=== PATIENT | male | born 1935 | race Caucasian/White ===

== ENCOUNTER 2017-03-28 16:40 | Inpatient (IN) | payer MEDICARE, OTHER ==
[~2017-03-28] VITALS: Ht 172.7 cm; Wt 102.7 kg
[~2017-03-28 16:40] MED LIST: ALLO300T PO; AMLO10TA2 PO; ASPI81TA44 PO; CLON0.5T3 PO; DONE10TA7 PO; LEVE500T6 PO; LISI10TA2 PO; MULT-208 PO; PRAV20TA2 PO; THIA100T4 PO
--- NOTE | 2017-03-28 16:59 | PHYS DOC ---
Adult General Chief Complaint Chief Complaint: PSYCH EVALUATION [facility] HPI Patient is a 82 year old male who presents with health screening. According to his daughter is a history dementia, strokes, and has been becoming confused late evening and wanted to see his mother and getting upset because why polydipsia. He is somewhat confused that there is no wave he left the house any findings way back home. According the daughter he has became more aggressive over the last several days. There care physician states that he needs to have all his medicines redone and recommends he evaluated for behavioral psych inpatient. Review of Systems Review of Systems Constitutional: Denies fever or chills [] Eyes: Denies change in visual acuity, redness, or eye pain [] HENT: Denies nasal congestion or sore throat [] Respiratory: Denies cough or shortness of breath [] Cardiovascular: No additional information not addressed in HPI [] GI: Denies abdominal pain, nausea, vomiting, bloody stools or diarrhea [] : Denies dysuria or hematuria [] Musculoskeletal: Denies back pain or joint pain [] Integument: Denies rash or skin lesions [] Neurologic: Denies headache, focal weakness or sensory changes [] Endocrine: Denies polyuria or polydipsia [] Allergies Allergies Allergies Coded Allergies Type Severity Reaction Last Updated Verified No Known Drug Allergies 07/15/16 No Physical Exam Physical Exam Constitutional: Well developed, well nourished, no acute distress, non-toxic appearance. [] HENT: Normocephalic, atraumatic, bilateral external ears normal, oropharynx moist, no oral exudates, nose normal. [] Eyes: PERRLA, EOMI, conjunctiva normal, no discharge. [] Neck: Normal range of motion, no tenderness, supple, no stridor. [] Cardiovascular:Heart rate regular rhythm, no murmur [] Lungs & Thorax: Bilateral breath sounds clear to auscultation [] Abdomen: Bowel sounds normal, soft, no tenderness, no masses, no pulsatile masses. [] Skin: Warm, dry, no erythema, no rash. [] Back: No tenderness, no CVA tenderness. [] Extremities: No tenderness, no cyanosis, no clubbing, ROM intact, no edema. [] Neurologic: Alert and oriented X 3, normal motor function, normal sensory function, no focal deficits noted. [] Psychologic: Affect normal, judgement normal, mood normal. [] EKG EKG EKG shows sinus rhythm with a right bundle branch morphology, rate [address] elevations or concerning T-wave inversions, normal axis, QTC 483 will sinus, as interpreted by me. Radiology/Procedures Radiology/Procedures [] Impressions: Behavioral health screening Course & Med Decision Making Course & Med Decision Making Pertinent Labs and Imaging studies reviewed. (See chart for details) Urine is pending at this time. Patient's being checked out to Dr. Lackey at this time for final labs and disposition to inpatient behavioral health. Dragon Disclaimer Dragon Disclaimer This chart was dictated in whole or in part using Voice Recognition software in a busy, high-work load, and often noisy Emergency Department environment. It may contain unintended and wholly unrecognized errors or omissions. Departure Departure: Impression: Primary Impression: Behavioral problems Disposition: XFER SHT-TRM HOSP Condition: STABLE Referrals: SAUL SIFUENTES MD (PCP) ESVIN MENDIETA MD Mar 28, 2017 16:59
[2017-03-28 17:39] LABS: BASO % 1 % (0-3); EOS # 0.3 x10^3/uL (0.0-0.7); EOS % 4 % (0-3); HEMATOCRIT 39.5 % (39.0-53.0); HEMOGLOBIN 13.8 g/dL (13.0-17.5); LYMPH # 2.1 x10^3/uL (1.0-4.8); LYMPH % 32 % (24-48); MEAN CORPUSCULAR HEMOGLOBIN 33 pg (25-35); MEAN CORPUSCULAR HGB CONC 35 g/dL (31-37); MEAN CORPUSCULAR VOLUME 96 fL (79-100); MONO # 0.8 x10^3/uL (0.0-1.1); MONO % 12 % (0-9); NEUT # 3.4 x10^3uL (1.8-7.7); NEUT % 51 % (31-73); PLATELET COUNT 190 x10^3/uL (140-400); RED BLOOD COUNT 4.13 x10^6/uL (4.30-5.70); WHITE BLOOD COUNT 6.5 x10^3/uL (4.0-11.0)
[2017-03-28 17:50] LABS: ALBUMIN 3.7 g/dL (3.4-5.0); ALBUMIN/GLOBULIN RATIO 1.1 (1.0-1.7); CREATININE 1.1 mg/dL (0.7-1.3); GFR 63.9; MAGNESIUM 2.3 mg/dL (1.8-2.4); TOTAL BILIRUBIN 0.4 mg/dL (0.2-1.0); TOTAL PROTEIN 7.2 g/dL (6.4-8.2)
[2017-03-28 18:44] LABS: BACTERIA,URINE 0 /HPF (0-FEW); BILIRUBIN,URINE NEG (NEG); CLARITY,URINE CLEAR; COLOR,URINE YELLOW; GLUCOSE,URINE NEG (NEG); NITRITE,URINE NEG (NEG); SQUAMOUS EPITHELIAL CELL,UR FEW /LPF; UROBILINOGEN,URINE 0.2 mg/dL (0.2 mg/dL); WBC,URINE OCC /HPF (0-4)
[2017-03-28 20:09] VITALS: BP 125/77
--- NOTE | 2017-03-28 20:35 | PDOC ---
Exam Ethan Demential Exam: Ethan Note: Please also refer to the separate dictated note~for this date of service dictated separately.~Patient seen individually. Discussed the patient with Nursing staff reviewed the chart.~Reviewed interim history and current functioning. Reviewed vital signs,~Labs/ Radiology~and current medications noted below. Continue current treatment with the changes noted in the dictated addendum note Assessment: Vital Signs: Vital Signs Date Time Temp Pulse Resp B/P (MAP) Pulse Ox O2 Delivery O2 Flow Rate FiO2 03/28/17 20:09 97.7 67 18 125/77 (93) 95 Room Air Labs: Laboratory Tests Test 03/28/17 17:21 03/28/17 17:52 White Blood Count 6.5 x10^3/uL (4.0-11.0) Red Blood Count 4.13 x10^6/uL (4.30-5.70) L Hemoglobin 13.8 g/dL (13.0-17.5) Hematocrit 39.5 % (39.0-53.0) Mean Corpuscular Volume 96 fL (79-100) Mean Corpuscular Hemoglobin 33 pg (25-35) Mean Corpuscular Hemoglobin Concent 35 g/dL (31-37) Red Cell Distribution Width 14.0 % (11.5-14.5) Platelet Count 190 x10^3/uL (140-400) Neutrophils (%) (Auto) 51 % (31-73) Lymphocytes (%) (Auto) 32 % (24-48) Monocytes (%) (Auto) 12 % (0-9) H Eosinophils (%) (Auto) 4 % (0-3) H Basophils (%) (Auto) 1 % (0-3) Neutrophils # (Auto) 3.4 x10^3uL (1.8-7.7) Lymphocytes # (Auto) 2.1 x10^3/uL (1.0-4.8) Monocytes # (Auto) 0.8 x10^3/uL (0.0-1.1) Eosinophils # (Auto) 0.3 x10^3/uL (0.0-0.7) Basophils # (Auto) 0.0 x10^3/uL (0.0-0.2) Sodium Level 142 mmol/L (136-145) Potassium Level 4.0 mmol/L (3.5-5.1) Chloride Level 107 mmol/L (98-107) Carbon Dioxide Level 27 mmol/L (21-32) Anion Gap 8 (6-14) Blood Urea Nitrogen 16 mg/dL (8-26) Creatinine 1.1 mg/dL (0.7-1.3) Estimated GFR (Cockcroft-Gault) 63.9 BUN/Creatinine Ratio 15 (6-20) Glucose Level 137 mg/dL (70-99) H Calcium Level 9.0 mg/dL (8.5-10.1) Magnesium Level 2.3 mg/dL (1.8-2.4) Total Bilirubin 0.4 mg/dL (0.2-1.0) Aspartate Amino Transferase (AST) 21 U/L (15-37) Alanine Aminotransferase (ALT) 35 U/L (16-63) Alkaline Phosphatase 60 U/L (46-116) Total Protein 7.2 g/dL (6.4-8.2) Albumin 3.7 g/dL (3.4-5.0) Albumin/Globulin Ratio 1.1 (1.0-1.7) Urine Collection Type Unknown Urine Color Yellow Urine Clarity Clear Urine pH 7.0 Urine Specific [place] 1.015 Urine Protein Neg (NEG-TRACE) Urine Glucose (UA) Neg mg/dL (NEG) Urine Ketones (Stick) Neg mg/dL (NEG) Urine Blood Neg (NEG) Urine Nitrite Neg (NEG) Urine Bilirubin Neg (NEG) Urine Urobilinogen Dipstick 0.2 mg/dL (0.2 mg/dL) Urine Leukocyte Esterase Neg (NEG) Urine RBC 3-5 /HPF (0-2) Urine WBC Occ /HPF (0-4) Urine Squamous Epithelial Cells Few /LPF Urine Bacteria 0 /HPF (0-FEW) Current Medications: Meds: Active Scripts Active Clonazepam 0.5 Mg Tablet 1 Tab PO BID Reported Multi-Day Vitamins (Multivitamin) 1 Each Tablet 1 Tab PO DAILY LAST DOSE GIVEN: DATE: TODAY TIME: AM NEXT DOSE DUE: DATE: TOMORROW TIME: AM Vitamin B-1 (Thiamine Hcl) 100 Mg Tablet 125 Mg PO DAILY Pravastatin Sodium 20 Mg Tablet 1 Tab PO DAILY LAST DOSE GIVEN: DATE: TODAY TIME: AM NEXT DOSE DUE: DATE: TOMORROW TIME: AM Lisinopril 10 Mg Tablet 1 Tab PO DAILY LAST DOSE GIVEN: DATE: TODAY TIME: AM NEXT DOSE DUE: DATE: TOMORROW TIME: AM Levetiracetam 500 Mg Tablet 1 Tab PO BID LAST DOSE GIVEN: DATE: TIME: AM NEXT DOSE DUE: DATE: TODAY TIME: PM Donepezil Hcl 10 Mg Tablet 1 Tab PO DAILY LAST DOSE GIVEN: DATE: TIME: AM NEXT DOSE DUE: DATE: TOMORR TIME: AM Amlodipine Besylate 10 Mg Tablet 1 Tab PO DAILY LAST DOSE GIVEN: DATE: TIME: AM NEXT DOSE DUE: DATE: TOMORROW TIME: AM Allopurinol 300 Mg Tablet 1 Tab PO DAILY LAST DOSE GIVEN: DATE: TODAY TIME: AM NEXT DOSE DUE: DATE: TOMORR TIME: AM Children's Aspirin (Aspirin) 81 Mg Tab.chew 81 Mg PO DAILY LAST DOSE GIVEN: DATE: TODAY TIME: AM NEXT DOSE DUE: DATE: TOMORR TIME: AM Diagnosis: Problems: (1) Acute encephalopathy (2) Behavioral problems (3) Chronic alcoholism JOSE ANTONIO ORTEGA MD Mar 28, 2017 20:35
[2017-03-28] MEDS ORDERED: ACETAMINOPHEN 325 MG TABLET PO PRN (21:15)
[2017-03-28] MEDS ORDERED: MAG HYDROX/AL HYDROX/SIMETH 30 ML ORAL.SUSP PO PRN (21:15)
[2017-03-28] MEDS ORDERED: MAGNESIUM HYDROXIDE 2,400 MG/30 ML ORAL.SUSP. PO PRN (21:15)
[2017-03-28] MEDS ORDERED: METHYL SALICYLATE/MENTHOL TOPICAL OINTMENT 29GM TUBE. TP PRN (21:15)
[2017-03-28] MEDS ORDERED: CLON0.5T3 PO (22:32)
[2017-03-28] MEDS ORDERED: THIA250T4 PO (22:32)
[2017-03-28] MEDS ORDERED: TIMO10DR5 OU (22:38)
[2017-03-29 06:09] VITALS: BP 121/84
[2017-03-29] MEDS: DONEPEZIL HCL 10 MG TABLET PO SCH (09:52)
[2017-03-29] MEDS: ASPIRIN 81 MG TAB.CHEW PO SCH (09:53)
[2017-03-29] MEDS: amLODIPine BESYLATE 10 MG TABLET PO SCH (09:53)
[2017-03-29] MEDS: MULTIVITAMIN with MINERAL TABLET. PO SCH (09:53)
[2017-03-29] MEDS: ALLOPURINOL 300 MG TABLET. PO SCH (09:53)
[2017-03-29] MEDS: THIAMINE 100 MG TABLET. PO SCH (09:53)
[2017-03-29] MEDS: levETIRAcetam 500 MG TABLET PO SCH ×2 (09:54→20:05)
[2017-03-29] MEDS: LISINOPRIL 10 MG TABLET PO SCH (09:54)
[2017-03-29] MEDS ORDERED: DEXTROSE 50% 25 GM / 50ML DISP.SYRIN. IV PRN (11:30)
[2017-03-29] MEDS: TIMOLOL 0.5% OPHTH SOLUTION 5ML BOTTLE. OU SCH ×2 (12:12→20:05)
[2017-03-29] MEDS: INSULIN ASPART 300 UNITS/3 ML INSULN.PEN SQ SCH ×2 (12:14→16:30)
[2017-03-29 14:26] LABS: THYROID STIM HORMONE (TSH) 1.509 uIU/mL (0.358-3.740)
[2017-03-29 16:31] VITALS: BP 112/71
[2017-03-29 18:08] LABS: T3 TOTAL 115 ng/dL (71-180); THYROXINE 7.3 ug/dL (4.5-12.0)
[2017-03-29] MEDS: PRAVASTATIN 20 MG TABLET. PO SCH (20:05)
[2017-03-29] MEDS: QUEtiapine 25 MG TABLET. PO SCH (20:26)
--- NOTE | 2017-03-29 20:42 | PDOC ---
Exam Ethan Demential Exam: Ethan Note: Please also refer to the separate dictated note~for this date of service dictated separately.~Patient seen individually. Discussed the patient with Nursing staff reviewed the chart.~Reviewed interim history and current functioning. Reviewed vital signs,~Labs/ Radiology~and current medications noted below. Continue current treatment with the changes noted in the dictated addendum note Assessment: Vital Signs: Vital Signs Date Time Temp Pulse Resp B/P (MAP) Pulse Ox O2 Delivery O2 Flow Rate FiO2 03/29/17 16:31 98.0 85 18 112/71 (85) 93 03/28/17 20:09 Room Air I&O Intake and Output 03/30/17 07:00 Intake Total 1200 ml Balance 1200 ml Intake Oral 1200 ml Labs: Laboratory Tests Test 03/29/17 08:06 03/29/17 11:17 03/29/17 16:45 Glucose (Fingerstick) 138 mg/dL (70-99) H 300 mg/dL (70-99) H 144 mg/dL (70-99) H Current Medications: Meds: Current Medications Acetaminophen (Tylenol) 650 mg PRN Q6HRS PRN PO PAIN / TEMP; Start 03/28/17 at 21:15 Multi-Ingredient Ointment (Analgesic [place]) 1 laurie PRN QID PRN TP MUSCLE PAIN; Start 03/28/17 at 21:15 Al Hydroxide/Mg Hydroxide (Mylanta Plus Xs) 15 ml PRN AFTMEALHC PRN PO DYSPEPSIA; Start 03/28/17 at 21:15 Magnesium Hydroxide (Milk Of Magnesia) 2,400 mg PRN QHS PRN PO CONSTIPATION; Start 03/28/17 at 21:15 Clonazepam (KlonoPIN) 0.5 mg PRN DAILY PRN PO ANXIETY / AGITATION; Start 03/29 at 01:30 Donepezil HCl (Aricept) 10 mg DAILY PO Last administered on 03/29/17 09:52; Start 03/29/17 at 09:00 Allopurinol (Zyloprim) 300 mg DAILY PO Last administered on 03/29/17 09:53; Start 03/29/17 at 09:00 Amlodipine Besylate (Norvasc) 10 mg DAILY PO Last administered on 03/29/17 09 :53; Start 03/29/17 at 09:00 Aspirin (Children'S Aspirin) 81 mg DAILY PO Last administered on 03/29/17 09: 53; Start 03/29/17 at 09:00 Levetiracetam (Keppra) 500 mg BID PO Last administered on 03/29/17 20:05; Start 03/29/17 at 09:00 Lisinopril (Prinivil) 10 mg DAILY PO Last administered on 03/29/17 09:54; Start 03/29/17 at 09:00 Pravastatin Sodium (Pravachol) 20 mg QHS PO Last administered on 03/29/17 20: 05; Start 03/29/17 at 21:00 Timolol Maleate (Timoptic 0.5% [facility]) 1 drop BID OU Last administered on 20:05; Start 03/29/17 at 09:00 Multivitamins/ Calcium (Thera-M Plus) 1 tab DAILY PO Last administered on 03/29 09:53; Start 03/29/17 at 09:00 Thiamine HCl (Vitamin B-1) 125 mg DAILY PO Last administered on 03/29/17 09: 53; Start 03/29/17 at 09:00 Insulin Aspart (NovoLOG) 0-7 UNITS TIDAC SQ Last administered on 03/29/17 12: 14; Start 03/29/17 at 11:30 Dextrose 12.5 gm PRN Q15MIN PRN IV SEE COMMENTS; Start 03/29/17 at 11:30 Quetiapine Fumarate (SEROquel) 25 mg QHS PO Last administered on 03/29/17 20: 26; Start 03/29/17 at 21:00 Active Scripts Active Reported Clonazepam 0.5 Mg Tablet 0.5 Mg PO PRN DAILY PRN Vitamin B-1 (Thiamine Hcl) 250 Mg Tablet 125 Mg PO DAILY Multi-Day Vitamins (Multivitamin) 1 Each Tablet 1 Tab PO DAILY LAST DOSE GIVEN: DATE: TODAY TIME: AM NEXT DOSE DUE: DATE: TOMORROW TIME: AM Pravastatin Sodium 20 Mg Tablet 20 Mg PO DAILY LAST DOSE GIVEN: DATE: TODAY TIME: AM NEXT DOSE DUE: DATE: TOMORROW TIME: AM Lisinopril 10 Mg Tablet 10 Mg PO DAILY LAST DOSE GIVEN: DATE: TODAY TIME: AM NEXT DOSE DUE: DATE: TOMORROW TIME: AM Levetiracetam 500 Mg Tablet 500 Mg PO BID LAST DOSE GIVEN: DATE: TODAY TIME: AM NEXT DOSE DUE: DATE: TODAY TIME: PM Donepezil Hcl 10 Mg Tablet 10 Mg PO DAILY LAST DOSE GIVEN: DATE: TIME: AM NEXT DOSE DUE: DATE: TOMORR TIME: AM Amlodipine Besylate 10 Mg Tablet 10 Mg PO DAILY LAST DOSE GIVEN: DATE: TIME: AM NEXT DOSE DUE: DATE: ORR TIME: AM Allopurinol 300 Mg Tablet 300 Mg PO DAILY LAST DOSE GIVEN: DATE: TIME: AM NEXT DOSE DUE: DATE: TOMORR TIME: AM Children's Aspirin (Aspirin) 81 Mg Tab.chew 81 Mg PO DAILY LAST DOSE GIVEN: DATE: TIME: AM NEXT DOSE DUE: DATE: ORR TIME: AM Diagnosis: Problems: (1) Behavioral problems (2) Chronic alcoholism (3) Acute encephalopathy (4) Anxiety disorder (5) Dementia in Alzheimer's disease with depression (6) Dementia in Alzheimer's disease with delusions (7) Dementia, vascular, with depression (8) Dementia, vascular, with delusions (9) Impulse control disorder JOSE ANTONIO ORTEGA MD Mar 29, 2017 20:42
[2017-03-30 02:07] LABS: HEMOGLOBIN A1C 6.5 % (4.8-5.6)
[2017-03-30 06:22] VITALS: BP 147/74
[2017-03-30] MEDS: INSULIN ASPART 300 UNITS/3 ML INSULN.PEN SQ SCH ×3 (07:30→16:53)
--- NOTE | 2017-03-30 08:06 | EKG ---
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
[2017-03-30] MEDS: LISINOPRIL 10 MG TABLET PO SCH (09:37)
[2017-03-30] MEDS: amLODIPine BESYLATE 10 MG TABLET PO SCH (09:37)
[2017-03-30] MEDS: ASPIRIN 81 MG TAB.CHEW PO SCH (09:37)
[2017-03-30] MEDS: DONEPEZIL HCL 10 MG TABLET PO SCH (09:37)
[2017-03-30] MEDS: levETIRAcetam 500 MG TABLET PO SCH ×2 (09:37→20:08)
[2017-03-30] MEDS: ALLOPURINOL 300 MG TABLET. PO SCH (09:38)
[2017-03-30] MEDS: MULTIVITAMIN with MINERAL TABLET. PO SCH (09:38)
[2017-03-30] MEDS: THIAMINE 100 MG TABLET. PO SCH (09:41)
[2017-03-30] MEDS: TIMOLOL 0.5% OPHTH SOLUTION 5ML BOTTLE. OU SCH ×2 (09:43→20:09)
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
[2017-03-30 16:41] VITALS: BP 113/68
[2017-03-30] MEDS: QUEtiapine 25 MG TABLET. PO SCH (20:08)
[2017-03-30] MEDS: PRAVASTATIN 20 MG TABLET. PO SCH (20:08)
--- NOTE | 2017-03-30 20:50 | PDOC ---
Exam Ethan Demential Exam: Ethan Note: Please also refer to the separate dictated note~for this date of service dictated separately.~Patient seen individually. Discussed the patient with Nursing staff reviewed the chart.~Reviewed interim history and current functioning. Reviewed vital signs,~Labs/ Radiology~and current medications noted below. Continue current treatment with the changes noted in the dictated addendum note Assessment: Vital Signs: Vital Signs Date Time Temp Pulse Resp B/P (MAP) Pulse Ox O2 Delivery O2 Flow Rate FiO2 03/30/17 16:41 98.8 81 18 113/68 (83) 93 03/28/17 20:09 Room Air I&O Intake and Output 03/31/17 07:00 Intake Total 1080 ml Balance 1080 ml Intake Oral 1080 ml Labs: Laboratory Tests Test 03/30/17 07:58 03/30/17 11:16 03/30/17 16:38 03/30/17 19:00 Glucose (Fingerstick) 123 mg/dL (70-99) H 156 mg/dL (70-99) H 227 mg/dL (70-99) H 220 mg/dL (70-99) H Current Medications: Meds: Current Medications Acetaminophen (Tylenol) 650 mg PRN Q6HRS PRN PO PAIN / TEMP; Start 03/28/17 at 21:15 Multi-Ingredient Ointment (Analgesic [place]) 1 laurie PRN QID PRN TP MUSCLE PAIN; Start 03/28/17 at 21:15 Al Hydroxide/Mg Hydroxide (Mylanta Plus Xs) 15 ml PRN AFTMEALHC PRN PO DYSPEPSIA; Start 03/28/17 at 21:15 Magnesium Hydroxide (Milk Of Magnesia) 2,400 mg PRN QHS PRN PO CONSTIPATION; Start 03/28/17 at 21:15 Clonazepam (KlonoPIN) 0.5 mg PRN DAILY PRN PO ANXIETY / AGITATION; Start 03/29 at 01:30 Donepezil HCl (Aricept) 10 mg DAILY PO Last administered on 03/30/17 09:37; Start 03/29/17 at 09:00 Allopurinol (Zyloprim) 300 mg DAILY PO Last administered on 03/30/17 09:38; Start 03/29/17 at 09:00 Amlodipine Besylate (Norvasc) 10 mg DAILY PO Last administered on 03/30/17 09 :37; Start 03/29/17 at 09:00 Aspirin (Children'S Aspirin) 81 mg DAILY PO Last administered on 03/30/17 09: 37; Start 03/29/17 at 09:00 Levetiracetam (Keppra) 500 mg BID PO Last administered on 03/30/17 20:08; Start 03/29/17 at 09:00 Lisinopril (Prinivil) 10 mg DAILY PO Last administered on 03/30/17 09:37; Start 03/29/17 at 09:00 Pravastatin Sodium (Pravachol) 20 mg QHS PO Last administered on 03/30/17 20: 08; Start 03/29/17 at 21:00 Timolol Maleate (Timoptic 0.5% [facility]) 1 drop BID OU Last administered on 20:09; Start 03/29/17 at 09:00 Multivitamins/ Calcium (Thera-M Plus) 1 tab DAILY PO Last administered on 03/30 09:38; Start 03/29/17 at 09:00 Thiamine HCl (Vitamin B-1) 125 mg DAILY PO Last administered on 03/30/17 09: 41; Start 03/29/17 at 09:00 Insulin Aspart (NovoLOG) 0-7 UNITS TIDAC SQ Last administered on 03/30/17 16: 53; Start 03/29/17 at 11:30 Dextrose 12.5 gm PRN Q15MIN PRN IV SEE COMMENTS; Start 03/29/17 at 11:30 Quetiapine Fumarate (SEROquel) 25 mg QHS PO Last administered on 03/30/17 20: 08; Start 03/29/17 at 21:00 Active Scripts Active Reported Clonazepam 0.5 Mg Tablet 0.5 Mg PO PRN DAILY PRN Vitamin B-1 (Thiamine Hcl) 250 Mg Tablet 125 Mg PO DAILY Multi-Day Vitamins (Multivitamin) 1 Each Tablet 1 Tab PO DAILY LAST DOSE GIVEN: DATE: TODAY TIME: AM NEXT DOSE DUE: DATE: TOMORROW TIME: AM Pravastatin Sodium 20 Mg Tablet 20 Mg PO DAILY LAST DOSE GIVEN: DATE: TODAY TIME: AM NEXT DOSE DUE: DATE: TOMORROW TIME: AM Lisinopril 10 Mg Tablet 10 Mg PO DAILY LAST DOSE GIVEN: DATE: TODAY TIME: AM NEXT DOSE DUE: DATE: TOMORROW TIME: AM Levetiracetam 500 Mg Tablet 500 Mg PO BID LAST DOSE GIVEN: DATE: TIME: AM NEXT DOSE DUE: DATE: TODAY TIME: PM Donepezil Hcl 10 Mg Tablet 10 Mg PO DAILY LAST DOSE GIVEN: DATE: TIME: AM NEXT DOSE DUE: DATE: TOMORR TIME: AM Amlodipine Besylate 10 Mg Tablet 10 Mg PO DAILY LAST DOSE GIVEN: DATE: TIME: AM NEXT DOSE DUE: DATE: ORR TIME: AM Allopurinol 300 Mg Tablet 300 Mg PO DAILY LAST DOSE GIVEN: DATE: TIME: AM NEXT DOSE DUE: DATE: TOMORR TIME: AM Children's Aspirin (Aspirin) 81 Mg Tab.chew 81 Mg PO DAILY LAST DOSE GIVEN: DATE: TIME: AM NEXT DOSE DUE: DATE: ORR TIME: AM Diagnosis: Problems: (1) Behavioral problems (2) Chronic alcoholism (3) Acute encephalopathy (4) Anxiety disorder (5) Dementia in Alzheimer's disease with depression (6) Dementia in Alzheimer's disease with delusions (7) Dementia, vascular, with depression (8) Dementia, vascular, with delusions (9) Impulse control disorder JOSE ANTONIO ORTEGA MD Mar 30, 2017 20:50
[2017-03-31 06:33] VITALS: BP 112/71
[2017-03-31] MEDS: INSULIN ASPART 300 UNITS/3 ML INSULN.PEN SQ SCH ×3 (07:30→17:18)
[2017-03-31] MEDS: TIMOLOL 0.5% OPHTH SOLUTION 5ML BOTTLE. OU SCH ×2 (08:43→20:28)
[2017-03-31] MEDS: MULTIVITAMIN with MINERAL TABLET. PO SCH (08:43)
[2017-03-31] MEDS: amLODIPine BESYLATE 10 MG TABLET PO SCH (08:43)
[2017-03-31] MEDS: ALLOPURINOL 300 MG TABLET. PO SCH (08:43)
[2017-03-31] MEDS: DONEPEZIL HCL 10 MG TABLET PO SCH (08:43)
[2017-03-31] MEDS: THIAMINE 100 MG TABLET. PO SCH (08:45)
[2017-03-31] MEDS: ASPIRIN 81 MG TAB.CHEW PO SCH (08:45)
[2017-03-31] MEDS: levETIRAcetam 500 MG TABLET PO SCH ×2 (08:45→20:28)
[2017-03-31] MEDS: LISINOPRIL 10 MG TABLET PO SCH (08:48)
[2017-03-31] MEDS: clonazePAM 0.5 MG TABLET PO PRN (09:44)
[2017-03-31 16:16] VITALS: BP 118/77
[2017-03-31] MEDS: QUEtiapine 25 MG TABLET. PO SCH (20:28)
[2017-03-31] MEDS: PRAVASTATIN 20 MG TABLET. PO SCH (20:28)
--- NOTE | 2017-03-31 21:54 | PDOC ---
Exam Ethan Demential Exam: Ethan Note: Please also refer to the separate dictated note~for this date of service dictated separately.~Patient seen individually. Discussed the patient with Nursing staff reviewed the chart.~Reviewed interim history and current functioning. Reviewed vital signs,~Labs/ Radiology~and current medications noted below. Continue current treatment with the changes noted in the dictated addendum note Assessment: Vital Signs: Vital Signs Date Time Temp Pulse Resp B/P (MAP) Pulse Ox O2 Delivery O2 Flow Rate FiO2 03/31/17 16:16 97.0 82 18 118/77 (91) 96 Room Air I&O Intake and Output 04/01/17 07:00 Intake Total 960 ml Balance 960 ml Intake Oral 960 ml Labs: Laboratory Tests Test 03/31/17 07:44 03/31/17 11:52 03/31/17 16:21 03/31/17 19:07 Glucose (Fingerstick) 123 mg/dL (70-99) H 97 mg/dL (70-99) 188 mg/dL (70-99) H 155 mg/dL (70-99) H Current Medications: Meds: Current Medications Acetaminophen (Tylenol) 650 mg PRN Q6HRS PRN PO PAIN / TEMP; Start 03/28/17 at 21:15 Multi-Ingredient Ointment (Analgesic [place]) 1 laurie PRN QID PRN TP MUSCLE PAIN; Start 03/28/17 at 21:15 Al Hydroxide/Mg Hydroxide (Mylanta Plus Xs) 15 ml PRN AFTMEALHC PRN PO DYSPEPSIA; Start 03/28/17 at 21:15 Magnesium Hydroxide (Milk Of Magnesia) 2,400 mg PRN QHS PRN PO CONSTIPATION; Start 03/28/17 at 21:15 Clonazepam (KlonoPIN) 0.5 mg PRN DAILY PRN PO ANXIETY / AGITATION Last administered on 03/31/17 09:44; Start 03/29/17 at 01:30 Donepezil HCl (Aricept) 10 mg DAILY PO Last administered on 03/31/17 08:43; Start 03/29/17 at 09:00 Allopurinol (Zyloprim) 300 mg DAILY PO Last administered on 03/31/17 08:43; Start 03/29/17 at 09:00 Amlodipine Besylate (Norvasc) 10 mg DAILY PO Last administered on 03/31/17 08 :43; Start 03/29/17 at 09:00 Aspirin (Children'S Aspirin) 81 mg DAILY PO Last administered on 03/31/17 08: 45; Start 03/29/17 at 09:00 Levetiracetam (Keppra) 500 mg BID PO Last administered on 03/31/17 20:28; Start 03/29/17 at 09:00 Lisinopril (Prinivil) 10 mg DAILY PO Last administered on 03/31/17 08:48; Start 03/29/17 at 09:00 Pravastatin Sodium (Pravachol) 20 mg QHS PO Last administered on 03/31/17 20: 28; Start 03/29/17 at 21:00 Timolol Maleate (Timoptic 0.5% [facility]) 1 drop BID OU Last administered on 20:28; Start 03/29/17 at 09:00 Multivitamins/ Calcium (Thera-M Plus) 1 tab DAILY PO Last administered on 03/31 08:43; Start 03/29/17 at 09:00 Thiamine HCl (Vitamin B-1) 125 mg DAILY PO Last administered on 03/31/17 08: 45; Start 03/29/17 at 09:00 Insulin Aspart (NovoLOG) 0-7 UNITS TIDAC SQ Last administered on 03/31/17 17: 18; Start 03/29/17 at 11:30 Dextrose 12.5 gm PRN Q15MIN PRN IV SEE COMMENTS; Start 03/29/17 at 11:30 Quetiapine Fumarate (SEROquel) 25 mg QHS PO Last administered on 03/31/17 20: 28; Start 03/29/17 at 21:00 Quetiapine Fumarate (SEROquel) 12.5 mg BID92 PO ; Start 04/01/17 at 09:00 Sertraline HCl (Zoloft) 25 mg DAILY PO ; Start 04/01/17 at 09:00 Active Scripts Active Reported Clonazepam 0.5 Mg Tablet 0.5 Mg PO PRN DAILY PRN Vitamin B-1 (Thiamine Hcl) 250 Mg Tablet 125 Mg PO DAILY Multi-Day Vitamins (Multivitamin) 1 Each Tablet 1 Tab PO DAILY LAST DOSE GIVEN: DATE: TODAY TIME: AM NEXT DOSE DUE: DATE: TOMORR TIME: AM Pravastatin Sodium 20 Mg Tablet 20 Mg PO DAILY LAST DOSE GIVEN: DATE: TODAY TIME: AM NEXT DOSE DUE: DATE: ORR TIME: AM Lisinopril 10 Mg Tablet 10 Mg PO DAILY LAST DOSE GIVEN: DATE: TIME: AM NEXT DOSE DUE: DATE: TIME: AM Levetiracetam 500 Mg Tablet 500 Mg PO BID LAST DOSE GIVEN: DATE: TIME: AM NEXT DOSE DUE: DATE: TODAY TIME: PM Donepezil Hcl 10 Mg Tablet 10 Mg PO DAILY LAST DOSE GIVEN: DATE: TODAY TIME: AM NEXT DOSE DUE: DATE: ORR TIME: AM Amlodipine Besylate 10 Mg Tablet 10 Mg PO DAILY LAST DOSE GIVEN: DATE: TIME: AM NEXT DOSE DUE: DATE: TIME: AM Allopurinol 300 Mg Tablet 300 Mg PO DAILY LAST DOSE GIVEN: DATE: TIME: AM NEXT DOSE DUE: DATE: TIME: AM Children's Aspirin (Aspirin) 81 Mg Tab.chew 81 Mg PO DAILY LAST DOSE GIVEN: DATE: TODAY TIME: AM NEXT DOSE DUE: DATE: ORROW TIME: AM Diagnosis: Problems: (1) Behavioral problems (2) Chronic alcoholism (3) Acute encephalopathy (4) Anxiety disorder (5) Dementia in Alzheimer's disease with depression (6) Dementia in Alzheimer's disease with delusions (7) Dementia, vascular, with depression (8) Dementia, vascular, with delusions (9) Impulse control disorder JOSE ANTONIO ORTEGA MD Mar 31, 2017 21:54
[2017-04-01] MEDS: INSULIN ASPART 300 UNITS/3 ML INSULN.PEN SQ SCH ×3 (07:30→16:30)
[2017-04-01] MEDS: levETIRAcetam 500 MG TABLET PO SCH ×2 (08:25→19:39)
[2017-04-01] MEDS: THIAMINE 100 MG TABLET. PO SCH (08:26)
[2017-04-01] MEDS: amLODIPine BESYLATE 10 MG TABLET PO SCH (08:27)
[2017-04-01] MEDS: ALLOPURINOL 300 MG TABLET. PO SCH (08:27)
[2017-04-01] MEDS: ASPIRIN 81 MG TAB.CHEW PO SCH (08:27)
[2017-04-01] MEDS: DONEPEZIL HCL 10 MG TABLET PO SCH (08:27)
[2017-04-01] MEDS: MULTIVITAMIN with MINERAL TABLET. PO SCH (08:27)
[2017-04-01] MEDS: LISINOPRIL 10 MG TABLET PO SCH (08:28)
[2017-04-01] MEDS: SERTRALINE 25 MG TABLET. PO SCH (08:29)
[2017-04-01] MEDS: QUEtiapine 25 MG TABLET. PO SCH ×3 (08:30→19:39)
[2017-04-01] MEDS: TIMOLOL 0.5% OPHTH SOLUTION 5ML BOTTLE. OU SCH ×2 (09:07→19:41)
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
--- NOTE | 2017-04-01 09:55 | PN ---
DATE: 03/31/2017 PSYCHIATRIC PROGRESS NOTE This is a late entry 03/31/2017, covers elements not covered in my initial note. SUBJECTIVE: I met with the patient evening of 03/31/2017. The patient remains confused, somewhat threatening at times, labile. He is extremely big built and after I have seen him on rounds 03/31/2017, I was called late at night closer to midnight by nursing staff due to his threatening behaviors and they were concerned about safety of others and staff members as big as he is. In addition to other changes noted, we have added Zyprexa p.r.n. to help with psychosis, agitation. REVIEW OF SYSTEMS: No CV, , pulmonary, eye, ENT system symptoms on review. Reliability poor. Ambulates with a walker. MENTAL STATUS EXAM: Oriented to himself. Insight, judgment, recent and remote memory, attention, concentration, fund of knowledge poor, consistent with his diagnoses mentioned in my initial note. PLAN: Start Seroquel 12.5 mg at 9:00 a.m. and 1:00 p.m. Continue Seroquel 25 mg at bedtime, start Zoloft 25 mg a day for his mood and anxiety symptoms. Zyprexa added as noted above. Review drug interactions. Risk/benefit ratio favors no further change. MAN Leonardo ORTEGA MD DR: RUPALI/regulo JOB#: [id number] / [id number]
[2017-04-01 16:21] VITALS: BP 126/75
[2017-04-01] MEDS: PRAVASTATIN 20 MG TABLET. PO SCH (19:39)
--- NOTE | 2017-04-01 20:54 | PDOC ---
Exam Ethan Demential Exam: Ethan Note: Please also refer to the separate dictated note~for this date of service dictated separately.~Patient seen individually. Discussed the patient with Nursing staff reviewed the chart.~Reviewed interim history and current functioning. Reviewed vital signs,~Labs/ Radiology~and current medications noted below. Continue current treatment with the changes noted in the dictated addendum note Assessment: Vital Signs: Vital Signs Date Time Temp Pulse Resp B/P (MAP) Pulse Ox O2 Delivery O2 Flow Rate FiO2 04/01/17 16:21 97.4 66 20 126/75 (92) 96 Room Air I&O Intake and Output 04/02/17 07:00 Intake Total 840 ml Balance 840 ml Intake Oral 840 ml Labs: Laboratory Tests Test 04/01/17 08:14 04/01/17 11:28 04/01/17 16:42 04/01/17 19:24 Glucose (Fingerstick) 114 mg/dL (70-99) H 151 mg/dL (70-99) H 127 mg/dL (70-99) H 217 mg/dL (70-99) H Current Medications: Meds: Current Medications Acetaminophen (Tylenol) 650 mg PRN Q6HRS PRN PO PAIN / TEMP; Start 03/28/17 at 21:15 Multi-Ingredient Ointment (Analgesic [place]) 1 laurie PRN QID PRN TP MUSCLE PAIN; Start 03/28/17 at 21:15 Al Hydroxide/Mg Hydroxide (Mylanta Plus Xs) 15 ml PRN AFTMEALHC PRN PO DYSPEPSIA; Start 03/28/17 at 21:15 Magnesium Hydroxide (Milk Of Magnesia) 2,400 mg PRN QHS PRN PO CONSTIPATION; Start 03/28/17 at 21:15 Clonazepam (KlonoPIN) 0.5 mg PRN DAILY PRN PO ANXIETY / AGITATION Last administered on 03/31/17 09:44; Start 03/29/17 at 01:30 Donepezil HCl (Aricept) 10 mg DAILY PO Last administered on 04/01/17 08:27; Start 03/29/17 at 09:00 Allopurinol (Zyloprim) 300 mg DAILY PO Last administered on 04/01/17 08:27; Start 03/29/17 at 09:00 Amlodipine Besylate (Norvasc) 10 mg DAILY PO Last administered on 04/01/17 08 :27; Start 03/29/17 at 09:00 Aspirin (Children'S Aspirin) 81 mg DAILY PO Last administered on 04/01/17 08: 27; Start 03/29/17 at 09:00 Levetiracetam (Keppra) 500 mg BID PO Last administered on 04/01/17 19:39; Start 03/29/17 at 09:00 Lisinopril (Prinivil) 10 mg DAILY PO Last administered on 04/01/17 08:28; Start 03/29/17 at 09:00 Pravastatin Sodium (Pravachol) 20 mg QHS PO Last administered on 04/01/17 19: 39; Start 03/29/17 at 21:00 Timolol Maleate (Timoptic 0.5% [facility]) 1 drop BID OU Last administered on 19:41; Start 03/29/17 at 09:00 Multivitamins/ Calcium (Thera-M Plus) 1 tab DAILY PO Last administered on 04/01 08:27; Start 03/29/17 at 09:00 Thiamine HCl (Vitamin B-1) 125 mg DAILY PO Last administered on 04/01/17 08: 26; Start 03/29/17 at 09:00 Insulin Aspart (NovoLOG) 0-7 UNITS TIDAC SQ Last administered on 03/31/17 17: 18; Start 03/29/17 at 11:30 Dextrose 12.5 gm PRN Q15MIN PRN IV SEE COMMENTS; Start 03/29/17 at 11:30 Quetiapine Fumarate (SEROquel) 25 mg QHS PO Last administered on 04/01/17 19: 39; Start 03/29/17 at 21:00 Quetiapine Fumarate (SEROquel) 12.5 mg BID92 PO Last administered on 14:28; Start 04/01/17 at 09:00 Sertraline HCl (Zoloft) 25 mg DAILY PO Last administered on 04/01/17 08:29; Start 04/01/17 at 09:00 Olanzapine (ZyPREXA ZYDIS) 2.5 mg PRN Q2HR PRN PO PSYCHOSIS Last administered on 03/31/17 23:18; Start 03/31/17 at 23:00 Active Scripts Active Reported Clonazepam 0.5 Mg Tablet 0.5 Mg PO PRN DAILY PRN Vitamin B-1 (Thiamine Hcl) 250 Mg Tablet 125 Mg PO DAILY Multi-Day Vitamins (Multivitamin) 1 Each Tablet 1 Tab PO DAILY LAST DOSE GIVEN: DATE: TIME: AM NEXT DOSE DUE: DATE: TOMORROW TIME: AM Pravastatin Sodium 20 Mg Tablet 20 Mg PO DAILY LAST DOSE GIVEN: DATE: TIME: AM NEXT DOSE DUE: DATE: ORR TIME: AM Lisinopril 10 Mg Tablet 10 Mg PO DAILY LAST DOSE GIVEN: DATE: TIME: AM NEXT DOSE DUE: DATE: ORR TIME: AM Levetiracetam 500 Mg Tablet 500 Mg PO BID LAST DOSE GIVEN: DATE: TIME: AM NEXT DOSE DUE: DATE: TIME: PM Donepezil Hcl 10 Mg Tablet 10 Mg PO DAILY LAST DOSE GIVEN: DATE: TIME: AM NEXT DOSE DUE: DATE: ORR TIME: AM Amlodipine Besylate 10 Mg Tablet 10 Mg PO DAILY LAST DOSE GIVEN: DATE: TIME: AM NEXT DOSE DUE: DATE: ORR TIME: AM Allopurinol 300 Mg Tablet 300 Mg PO DAILY LAST DOSE GIVEN: DATE: TIME: AM NEXT DOSE DUE: DATE: TOMORR TIME: AM Children's Aspirin (Aspirin) 81 Mg Tab.chew 81 Mg PO DAILY LAST DOSE GIVEN: DATE: TIME: AM NEXT DOSE DUE: DATE: ORR TIME: AM Diagnosis: Problems: (1) Behavioral problems (2) Chronic alcoholism (3) Acute encephalopathy (4) Anxiety disorder (5) Dementia in Alzheimer's disease with depression (6) Dementia in Alzheimer's disease with delusions (7) Dementia, vascular, with depression (8) Dementia, vascular, with delusions (9) Impulse control disorder JOSE ANTONIO ORTEGA MD Apr 01, 2017 20:54
[2017-04-02 07:25] VITALS: BP 124/78
[2017-04-02] MEDS: INSULIN ASPART 300 UNITS/3 ML INSULN.PEN SQ SCH ×3 (07:30→16:30)
[2017-04-02] MEDS: TIMOLOL 0.5% OPHTH SOLUTION 5ML BOTTLE. OU SCH ×2 (07:52→19:59)
[2017-04-02] MEDS: LISINOPRIL 10 MG TABLET PO SCH (07:53)
[2017-04-02] MEDS: THIAMINE 100 MG TABLET. PO SCH (07:53)
[2017-04-02] MEDS: levETIRAcetam 500 MG TABLET PO SCH ×2 (07:53→19:57)
[2017-04-02] MEDS: DONEPEZIL HCL 10 MG TABLET PO SCH (07:54)
[2017-04-02] MEDS: ASPIRIN 81 MG TAB.CHEW PO SCH (07:54)
[2017-04-02] MEDS: QUEtiapine 25 MG TABLET. PO SCH ×3 (07:54→19:58)
[2017-04-02] MEDS: ALLOPURINOL 300 MG TABLET. PO SCH (07:54)
[2017-04-02] MEDS: amLODIPine BESYLATE 10 MG TABLET PO SCH (07:55)
[2017-04-02] MEDS: MULTIVITAMIN with MINERAL TABLET. PO SCH (07:55)
[2017-04-02] MEDS: SERTRALINE 25 MG TABLET. PO SCH (07:57)
--- NOTE | 2017-04-02 09:39 | PN ---
DATE: 03/30/2017 PSYCHIATRIC PROGRESS NOTE This late entry of 03/30/2017 covers elements not covered in my initial note of 03/30/2017. SUBJECTIVE: The patient was quite resistive to care, the previous evening. On , a little bit calmer, remains confused, takes his meds whole, took his insulin, which in itself is an improvement. REVIEW OF SYSTEMS: No CV, , pulmonary, eye, ENT system symptoms on review. Reliability poor. MENTAL STATUS EXAM: Oriented to himself. Insight, judgment, recent and remote memory, attention, concentration, fund of knowledge poor, consistent with his diagnosis mentioned in my initial note. PLAN: Continue current psychotropics mentioned in my initial note. Reviewed drug interactions. Risk/benefit ratio favors no further change. MAN Leonardo ORTEGA MD DR: RUPALI/regulo JOB#: [id number] / [id number]
[2017-04-02 16:17] VITALS: BP 102/68
[2017-04-02] MEDS: PRAVASTATIN 20 MG TABLET. PO SCH (19:58)
--- NOTE | 2017-04-02 21:30 | PDOC ---
Exam Ethan Demential Exam: Ethan Note: Please also refer to the separate dictated note~for this date of service dictated separately.~Patient seen individually. Discussed the patient with Nursing staff reviewed the chart.~Reviewed interim history and current functioning. Reviewed vital signs,~Labs/ Radiology~and current medications noted below. Continue current treatment with the changes noted in the dictated addendum note Assessment: Vital Signs: Vital Signs Date Time Temp Pulse Resp B/P (MAP) Pulse Ox O2 Delivery O2 Flow Rate FiO2 04/02/17 16:17 97.2 68 16 102/68 (79) 96 Room Air I&O Intake and Output 04/03/17 07:00 Intake Total 1440 ml Balance 1440 ml Intake Oral 1440 ml Labs: Laboratory Tests Test 04/02/17 07:36 04/02/17 11:36 04/02/17 16:52 04/02/17 19:34 Glucose (Fingerstick) 114 mg/dL (70-99) H 111 mg/dL (70-99) H 126 mg/dL (70-99) H 197 mg/dL (70-99) H Current Medications: Meds: Current Medications Acetaminophen (Tylenol) 650 mg PRN Q6HRS PRN PO PAIN / TEMP; Start 03/28/17 at 21:15 Multi-Ingredient Ointment (Analgesic [place]) 1 laurie PRN QID PRN TP MUSCLE PAIN; Start 03/28/17 at 21:15 Al Hydroxide/Mg Hydroxide (Mylanta Plus Xs) 15 ml PRN AFTMEALHC PRN PO DYSPEPSIA; Start 03/28/17 at 21:15 Magnesium Hydroxide (Milk Of Magnesia) 2,400 mg PRN QHS PRN PO CONSTIPATION; Start 03/28/17 at 21:15 Clonazepam (KlonoPIN) 0.5 mg PRN DAILY PRN PO ANXIETY / AGITATION Last administered on 03/31/17 09:44; Start 03/29/17 at 01:30 Donepezil HCl (Aricept) 10 mg DAILY PO Last administered on 04/02/17 07:54; Start 03/29/17 at 09:00 Allopurinol (Zyloprim) 300 mg DAILY PO Last administered on 04/02/17 07:54; Start 03/29/17 at 09:00 Amlodipine Besylate (Norvasc) 10 mg DAILY PO Last administered on 04/02/17 07 :55; Start 03/29/17 at 09:00 Aspirin (Children'S Aspirin) 81 mg DAILY PO Last administered on 04/02/17 07: 54; Start 03/29/17 at 09:00 Levetiracetam (Keppra) 500 mg BID PO Last administered on 04/02/17 19:57; Start 03/29/17 at 09:00 Lisinopril (Prinivil) 10 mg DAILY PO Last administered on 04/02/17 07:53; Start 03/29/17 at 09:00 Pravastatin Sodium (Pravachol) 20 mg QHS PO Last administered on 04/02/17 19: 58; Start 03/29/17 at 21:00 Timolol Maleate (Timoptic 0.5% [facility]) 1 drop BID OU Last administered on 19:59; Start 03/29/17 at 09:00 Multivitamins/ Calcium (Thera-M Plus) 1 tab DAILY PO Last administered on 04/02 07:55; Start 03/29/17 at 09:00 Thiamine HCl (Vitamin B-1) 125 mg DAILY PO Last administered on 04/02/17 07: 53; Start 03/29/17 at 09:00 Insulin Aspart (NovoLOG) 0-7 UNITS TIDAC SQ Last administered on 03/31/17 17: 18; Start 03/29/17 at 11:30 Dextrose 12.5 gm PRN Q15MIN PRN IV SEE COMMENTS; Start 03/29/17 at 11:30 Quetiapine Fumarate (SEROquel) 25 mg QHS PO Last administered on 04/01/17 19: 39; Start 03/29/17 at 21:00; Stop 04/02/17 at 18:27; Status DC Quetiapine Fumarate (SEROquel) 12.5 mg BID92 PO Last administered on 13:22; Start 04/01/17 at 09:00; Stop 04/02/17 at 18:27; Status DC Sertraline HCl (Zoloft) 25 mg DAILY PO Last administered on 04/02/17 07:57; Start 04/01/17 at 09:00 Olanzapine (ZyPREXA ZYDIS) 2.5 mg PRN Q2HR PRN PO PSYCHOSIS Last administered on 03/31/17 23:18; Start 03/31/17 at 23:00 Vitamin D (Vitamin D3) 2,000 unit DAILY PO ; Start 04/03/17 at 09:00 Quetiapine Fumarate (SEROquel) 25 mg BID PO Last administered on 04/02/17 19: 58; Start 04/02/17 at 21:00 Quetiapine Fumarate (SEROquel) 12.5 mg DAILY@1400 PO ; Start 04/03/17 at 14:00 Active Scripts Active Reported Clonazepam 0.5 Mg Tablet 0.5 Mg PO PRN DAILY PRN Vitamin B-1 (Thiamine Hcl) 250 Mg Tablet 125 Mg PO DAILY Multi-Day Vitamins (Multivitamin) 1 Each Tablet 1 Tab PO DAILY LAST DOSE GIVEN: DATE: TODAY TIME: AM NEXT DOSE DUE: DATE: TOMORROW TIME: AM Pravastatin Sodium 20 Mg Tablet 20 Mg PO DAILY LAST DOSE GIVEN: DATE: TODAY TIME: AM NEXT DOSE DUE: DATE: TOMORROW TIME: AM Lisinopril 10 Mg Tablet 10 Mg PO DAILY LAST DOSE GIVEN: DATE: TODAY TIME: AM NEXT DOSE DUE: DATE: TOMORROW TIME: AM Levetiracetam 500 Mg Tablet 500 Mg PO BID LAST DOSE GIVEN: DATE: TODAY TIME: AM NEXT DOSE DUE: DATE: TODAY TIME: PM Donepezil Hcl 10 Mg Tablet 10 Mg PO DAILY LAST DOSE GIVEN: DATE: TODAY TIME: AM NEXT DOSE DUE: DATE: TOMORROW TIME: AM Amlodipine Besylate 10 Mg Tablet 10 Mg PO DAILY LAST DOSE GIVEN: DATE: TODAY TIME: AM NEXT DOSE DUE: DATE: TOMORROW TIME: AM Allopurinol 300 Mg Tablet 300 Mg PO DAILY LAST DOSE GIVEN: DATE: TODAY TIME: AM NEXT DOSE DUE: DATE: TOMORROW TIME: AM Children's Aspirin (Aspirin) 81 Mg Tab.chew 81 Mg PO DAILY LAST DOSE GIVEN: DATE: TODAY TIME: AM NEXT DOSE DUE: DATE: TOMORROW TIME: AM Diagnosis: Problems: (1) Behavioral problems (2) Chronic alcoholism (3) Acute encephalopathy (4) Anxiety disorder (5) Dementia in Alzheimer's disease with depression (6) Dementia in Alzheimer's disease with delusions (7) Dementia, vascular, with depression (8) Dementia, vascular, with delusions (9) Impulse control disorder JORDAN,MAN M MD Apr 02, 2017 21:30
--- NOTE | 2017-04-02 22:58 | PN ---
DATE: 04/01/2017 This late entry 04/01/2017 covers elements, not covered in my initial order of 04/01/2017. Met with the patient in the evening of 04/01/2017, the patient remains confused, comes across somewhat overbearing, threatening at times, but has not been aggressive. He is somewhat paranoid, very confused. REVIEW OF SYSTEMS: No CV, , pulmonary, eye, ENT system symptoms on review. Reliability poor. MENTAL STATUS EXAM: Oriented to himself. Insight, judgment, recent and remote memory, attention, concentration, fund of knowledge poor, consistent with his diagnosis. He is not very verbal as I met with him, has a slight smile about his face, somewhat suspicious. LABORATORY DATA: Reviewed. IMPRESSION: Unchanged from initial note. PLAN: Continue current psychotropics, reviewed drug interactions, risk/benefit ratio favors no further change. MAN Leonardo ORTEGA MD DR: RUPALI/regulo JOB#: [id number] / [id number]
[2017-04-03 06:19] VITALS: BP 156/66
[2017-04-03] MEDS: INSULIN ASPART 300 UNITS/3 ML INSULN.PEN SQ SCH ×3 (07:30→16:30)
[2017-04-03] MEDS: THIAMINE 100 MG TABLET. PO SCH (07:35)
[2017-04-03] MEDS: SERTRALINE 25 MG TABLET. PO SCH (07:35)
[2017-04-03] MEDS: QUEtiapine 25 MG TABLET. PO SCH ×2 (07:35→20:08)
[2017-04-03] MEDS: DONEPEZIL HCL 10 MG TABLET PO SCH (07:36)
[2017-04-03] MEDS: amLODIPine BESYLATE 10 MG TABLET PO SCH (07:36)
[2017-04-03] MEDS: ASPIRIN 81 MG TAB.CHEW PO SCH (07:36)
[2017-04-03] MEDS: ALLOPURINOL 300 MG TABLET. PO SCH (07:36)
[2017-04-03] MEDS: LISINOPRIL 10 MG TABLET PO SCH (07:36)
[2017-04-03] MEDS: levETIRAcetam 500 MG TABLET PO SCH ×2 (07:37→20:08)
[2017-04-03] MEDS: MULTIVITAMIN with MINERAL TABLET. PO SCH (07:37)
[2017-04-03] MEDS: CHOLECALCIFEROL (VITAMIN D3) 1,000 UNIT TABLET PO SCH (07:38)
[2017-04-03] MEDS: TIMOLOL 0.5% OPHTH SOLUTION 5ML BOTTLE. OU SCH ×2 (07:39→20:09)
[2017-04-03 10:06] LABS: BASO % 1 % (0-3); EOS # 0.2 x10^3/uL (0.0-0.7); EOS % 3 % (0-3); HEMATOCRIT 37.1 % (39.0-53.0); HEMOGLOBIN 12.8 g/dL (13.0-17.5); LYMPH # 1.4 x10^3/uL (1.0-4.8); LYMPH % 26 % (24-48); MEAN CORPUSCULAR HEMOGLOBIN 33 pg (25-35); MEAN CORPUSCULAR HGB CONC 35 g/dL (31-37); MEAN CORPUSCULAR VOLUME 96 fL (79-100); MONO # 0.4 x10^3/uL (0.0-1.1); MONO % 7 % (0-9); NEUT # 3.3 x10^3uL (1.8-7.7); NEUT % 64 % (31-73); PLATELET COUNT 179 x10^3/uL (140-400); RED BLOOD COUNT 3.86 x10^6/uL (4.30-5.70); RED CELL DISTRIBUTION WIDTH 13.8 % (11.5-14.5); WHITE BLOOD COUNT 5.2 x10^3/uL (4.0-11.0)
[2017-04-03 10:27] LABS: ALBUMIN 3.5 g/dL (3.4-5.0); CALCIUM 8.4 mg/dL (8.5-10.1); CREATININE 1.2 mg/dL (0.7-1.3); GFR 57.8; TOTAL BILIRUBIN 0.5 mg/dL (0.2-1.0); TOTAL PROTEIN 6.9 g/dL (6.4-8.2)
[2017-04-03] MEDS ORDERED: QUEtiapine 25 MG TABLET. PO SCH (14:00)
[2017-04-03 16:07] VITALS: BP 104/64
[2017-04-03] MEDS: PRAVASTATIN 20 MG TABLET. PO SCH (20:07)
--- NOTE | 2017-04-03 20:27 | PDOC ---
Exam Ethan Demential Exam: Ethan Note: Please also refer to the separate dictated note~for this date of service dictated separately.~Patient seen individually. Discussed the patient with Nursing staff reviewed the chart.~Reviewed interim history and current functioning. Reviewed vital signs,~Labs/ Radiology~and current medications noted below. Continue current treatment with the changes noted in the dictated addendum note Assessment: Vital Signs: Vital Signs Date Time Temp Pulse Resp B/P (MAP) Pulse Ox O2 Delivery O2 Flow Rate FiO2 04/03/17 16:07 97.7 70 16 104/64 (77) 96 04/02/17 16:17 Room Air I&O Intake and Output 04/04/17 07:00 Intake Total 1200 ml Balance 1200 ml Intake Oral 1200 ml Labs: Laboratory Tests Test 04/03/17 07:19 04/03/17 09:45 04/03/17 11:33 04/03/17 16:06 Glucose (Fingerstick) 122 mg/dL (70-99) H 120 mg/dL (70-99) H 145 mg/dL (70-99) H White Blood Count 5.2 x10^3/uL (4.0-11.0) Red Blood Count 3.86 x10^6/uL (4.30-5.70) L Hemoglobin 12.8 g/dL (13.0-17.5) L Hematocrit 37.1 % (39.0-53.0) L Mean Corpuscular Volume 96 fL (79-100) Mean Corpuscular Hemoglobin 33 pg (25-35) Mean Corpuscular Hemoglobin Concent 35 g/dL (31-37) Red Cell Distribution Width 13.8 % (11.5-14.5) Platelet Count 179 x10^3/uL (140-400) Neutrophils (%) (Auto) 64 % (31-73) Lymphocytes (%) (Auto) 26 % (24-48) Monocytes (%) (Auto) 7 % (0-9) Eosinophils (%) (Auto) 3 % (0-3) Basophils (%) (Auto) 1 % (0-3) Neutrophils # (Auto) 3.3 x10^3uL (1.8-7.7) Lymphocytes # (Auto) 1.4 x10^3/uL (1.0-4.8) Monocytes # (Auto) 0.4 x10^3/uL (0.0-1.1) Eosinophils # (Auto) 0.2 x10^3/uL (0.0-0.7) Basophils # (Auto) 0.0 x10^3/uL (0.0-0.2) Sodium Level 138 mmol/L (136-145) Potassium Level 4.0 mmol/L (3.5-5.1) Chloride Level 102 mmol/L (98-107) Carbon Dioxide Level 28 mmol/L (21-32) Anion Gap 8 (6-14) Blood Urea Nitrogen 12 mg/dL (8-26) Creatinine 1.2 mg/dL (0.7-1.3) Estimated GFR (Cockcroft-Gault) 57.8 BUN/Creatinine Ratio 10 (6-20) Glucose Level 284 mg/dL (70-99) H Calcium Level 8.4 mg/dL (8.5-10.1) L Magnesium Level 2.0 mg/dL (1.8-2.4) Total Bilirubin 0.5 mg/dL (0.2-1.0) Aspartate Amino Transferase (AST) 23 U/L (15-37) Alanine Aminotransferase (ALT) 36 U/L (16-63) Alkaline Phosphatase 56 U/L (46-116) Total Protein 6.9 g/dL (6.4-8.2) Albumin 3.5 g/dL (3.4-5.0) Albumin/Globulin Ratio 1.0 (1.0-1.7) Test 04/03/17 19:13 Glucose (Fingerstick) 154 mg/dL (70-99) H Current Medications: Meds: Current Medications Acetaminophen (Tylenol) 650 mg PRN Q6HRS PRN PO PAIN / TEMP; Start 03/28/17 at 21:15 Multi-Ingredient Ointment (Analgesic [place]) 1 laurie PRN QID PRN TP MUSCLE PAIN; Start 03/28/17 at 21:15 Al Hydroxide/Mg Hydroxide (Mylanta Plus Xs) 15 ml PRN AFTMEALHC PRN PO DYSPEPSIA; Start 03/28/17 at 21:15 Magnesium Hydroxide (Milk Of Magnesia) 2,400 mg PRN QHS PRN PO CONSTIPATION; Start 03/28/17 at 21:15 Clonazepam (KlonoPIN) 0.5 mg PRN DAILY PRN PO ANXIETY / AGITATION Last administered on 03/31/17 09:44; Start 03/29/17 at 01:30 Donepezil HCl (Aricept) 10 mg DAILY PO Last administered on 04/03/17 07:36; Start 03/29/17 at 09:00 Allopurinol (Zyloprim) 300 mg DAILY PO Last administered on 04/03/17 07:36; Start 03/29/17 at 09:00 Amlodipine Besylate (Norvasc) 10 mg DAILY PO Last administered on 04/03/17 07 :36; Start 03/29/17 at 09:00 Aspirin (Children'S Aspirin) 81 mg DAILY PO Last administered on 04/03/17 07: 36; Start 03/29/17 at 09:00 Levetiracetam (Keppra) 500 mg BID PO Last administered on 04/03/17 20:08; Start 03/29/17 at 09:00 Lisinopril (Prinivil) 10 mg DAILY PO Last administered on 04/03/17 07:36; Start 03/29/17 at 09:00 Pravastatin Sodium (Pravachol) 20 mg QHS PO Last administered on 04/03/17 20: 07; Start 03/29/17 at 21:00 Timolol Maleate (Timoptic 0.5% [facility]) 1 drop BID OU Last administered on 20:09; Start 03/29/17 at 09:00 Multivitamins/ Calcium (Thera-M Plus) 1 tab DAILY PO Last administered on 04/03 07:37; Start 03/29/17 at 09:00 Thiamine HCl (Vitamin B-1) 125 mg DAILY PO Last administered on 04/03/17 07: 35; Start 03/29/17 at 09:00 Insulin Aspart (NovoLOG) 0-7 UNITS TIDAC SQ Last administered on 03/31/17 17: 18; Start 03/29/17 at 11:30 Dextrose 12.5 gm PRN Q15MIN PRN IV SEE COMMENTS; Start 03/29/17 at 11:30 Quetiapine Fumarate (SEROquel) 25 mg QHS PO Last administered on 04/01/17 19: 39; Start 03/29/17 at 21:00; Stop 04/02/17 at 18:27; Status DC Quetiapine Fumarate (SEROquel) 12.5 mg BID92 PO Last administered on 13:22; Start 04/01/17 at 09:00; Stop 04/02/17 at 18:27; Status DC Sertraline HCl (Zoloft) 25 mg DAILY PO Last administered on 04/03/17 07:35; Start 04/01/17 at 09:00 Olanzapine (ZyPREXA ZYDIS) 2.5 mg PRN Q2HR PRN PO PSYCHOSIS Last administered on 03/31/17 23:18; Start 03/31/17 at 23:00 Vitamin D (Vitamin D3) 2,000 unit DAILY PO Last administered on 04/03/17 07: 38; Start 04/03/17 at 09:00 Quetiapine Fumarate (SEROquel) 25 mg BID PO Last administered on 04/03/17 07: 35; Start 04/02/17 at 21:00; Stop 04/03/17 at 18:26; Status DC Quetiapine Fumarate (SEROquel) 12.5 mg DAILY@1400 PO Last administered on 04/03 14:00; Start 04/03/17 at 14:00; Stop 04/03/17 at 18:27; Status DC Quetiapine Fumarate (SEROquel) 25 mg TID PO Last administered on 04/03/17 20: 08; Start 04/03/17 at 21:00 Active Scripts Active Reported Clonazepam 0.5 Mg Tablet 0.5 Mg PO PRN DAILY PRN Vitamin B-1 (Thiamine Hcl) 250 Mg Tablet 125 Mg PO DAILY Multi-Day Vitamins (Multivitamin) 1 Each Tablet 1 Tab PO DAILY LAST DOSE GIVEN: DATE: TODAY TIME: AM NEXT DOSE DUE: DATE: TOMORROW TIME: AM Pravastatin Sodium 20 Mg Tablet 20 Mg PO DAILY LAST DOSE GIVEN: DATE: TODAY TIME: AM NEXT DOSE DUE: DATE: TOMORROW TIME: AM Lisinopril 10 Mg Tablet 10 Mg PO DAILY LAST DOSE GIVEN: DATE: TODAY TIME: AM NEXT DOSE DUE: DATE: TOMORROW TIME: AM Levetiracetam 500 Mg Tablet 500 Mg PO BID LAST DOSE GIVEN: DATE: TODAY TIME: AM NEXT DOSE DUE: DATE: TODAY TIME: PM Donepezil Hcl 10 Mg Tablet 10 Mg PO DAILY LAST DOSE GIVEN: DATE: TODAY TIME: AM NEXT DOSE DUE: DATE: TOMORROW TIME: AM Amlodipine Besylate 10 Mg Tablet 10 Mg PO DAILY LAST DOSE GIVEN: DATE: TODAY TIME: AM NEXT DOSE DUE: DATE: TOMORROW TIME: AM Allopurinol 300 Mg Tablet 300 Mg PO DAILY LAST DOSE GIVEN: DATE: TIME: AM NEXT DOSE DUE: DATE: TOMORROW TIME: AM Children's Aspirin (Aspirin) 81 Mg Tab.chew 81 Mg PO DAILY LAST DOSE GIVEN: DATE: TODAY TIME: AM NEXT DOSE DUE: DATE: TOMORROW TIME: AM Diagnosis: Problems: (1) Behavioral problems (2) Chronic alcoholism (3) Acute encephalopathy (4) Anxiety disorder (5) Dementia in Alzheimer's disease with depression (6) Dementia in Alzheimer's disease with delusions (7) Dementia, vascular, with depression (8) Dementia, vascular, with delusions (9) Impulse control disorder JOSE ANTONIO ORTEGA MD Apr 03, 2017 20:27
--- NOTE | 2017-04-04 03:29 | PN ---
DATE: 04/02/2017 This is a late entry for 04/02/2017 and covers elements not covered in my initial note of 04/02/2017. I met with the patient the evening of 04/02/2017. The patient is compliant with his medications, forgets to use the walker at times, but he his rather big built and can come across threatening, but has not been aggressive. REVIEW OF SYSTEMS: No CV, , pulmonary, eye, ENT system symptoms on review. Reliability poor. MENTAL STATUS EXAM: Oriented to himself. Insight, judgment, recent and remote memory, attention, concentration, fund of knowledge poor, consistent with his diagnosis mentioned in my initial note. PLAN: Continue current psychotropics, Seroquel is currently 12.5 mg at 0900 hours and 1400 hours, 25 mg at bedtime. We will increase the 0900 hours dosage to 25 mg. Maintain Klonopin p.r.n., Aricept, Zoloft, along with Zyprexa p.r.n. Adjust further as clinically indicated. Reviewed drug interactions. Risk/benefit ratio favors no further change. I returned a call from the patient's , Elisabeth, . Lengthy discussion about the patient's diagnosis, medications, discharge plans. would definitely want him back home. He has a fairly significant history of threatening with a gun and she states they have removed all the guns and then wrapping up the knives with possible intent to hurt someone, perhaps his , but she states she has removed all the knives and definitely wants him home. We will have to discuss this at treatment team meeting at least, make our recommendations regarding safety concerns and perhaps for 4-6 weeks, he should be in a step-down facility, but we will see what the family decides to do. No CV, , pulmonary, eye, ENT system symptoms on review. Ambulation impaired with a walker. MENTAL STATUS EXAM: Oriented to himself. Insight, judgment, recent and remote memory, attention, concentration, fund of knowledge poor, consistent with his diagnosis, compliant with his medications. DIAGNOSES: as mentioned in my initial note. PLAN: Adjust psychotropics as noted above. Reviewed drug interactions, risk/benefit ratio favors no further change. MAN Leonardo ORTEGA MD DR: RUPALI/regulo JOB#: [id number] / [id number]
[2017-04-04 06:02] VITALS: BP 104/71
[2017-04-04] MEDS: INSULIN ASPART 300 UNITS/3 ML INSULN.PEN SQ SCH ×3 (07:30→16:30)
[2017-04-04] MEDS: MULTIVITAMIN with MINERAL TABLET. PO SCH (07:56)
[2017-04-04] MEDS: SERTRALINE 25 MG TABLET. PO SCH (07:56)
[2017-04-04] MEDS: DONEPEZIL HCL 10 MG TABLET PO SCH (07:56)
[2017-04-04] MEDS: levETIRAcetam 500 MG TABLET PO SCH ×2 (07:56→20:00)
[2017-04-04] MEDS: ALLOPURINOL 300 MG TABLET. PO SCH (07:56)
[2017-04-04] MEDS: ASPIRIN 81 MG TAB.CHEW PO SCH (07:56)
[2017-04-04] MEDS: THIAMINE 100 MG TABLET. PO SCH (07:56)
[2017-04-04] MEDS: QUEtiapine 25 MG TABLET. PO SCH ×3 (07:56→19:59)
[2017-04-04] MEDS: LISINOPRIL 10 MG TABLET PO SCH (07:56)
[2017-04-04] MEDS: CHOLECALCIFEROL (VITAMIN D3) 1,000 UNIT TABLET PO SCH (07:56)
[2017-04-04] MEDS: TIMOLOL 0.5% OPHTH SOLUTION 5ML BOTTLE. OU SCH ×2 (07:57→20:00)
[2017-04-04] MEDS: amLODIPine BESYLATE 10 MG TABLET PO SCH (07:57)
[2017-04-04 16:20] VITALS: BP 104/66
[2017-04-04] MEDS: PRAVASTATIN 20 MG TABLET. PO SCH (19:59)
--- NOTE | 2017-04-04 20:56 | PDOC ---
Exam Ethan Demential Exam: Ethan Note: Please also refer to the separate dictated note~for this date of service dictated separately.~Patient seen individually. Discussed the patient with Nursing staff reviewed the chart.~Reviewed interim history and current functioning. Reviewed vital signs,~Labs/ Radiology~and current medications noted below. Continue current treatment with the changes noted in the dictated addendum note Assessment: Vital Signs: Vital Signs Date Time Temp Pulse Resp B/P (MAP) Pulse Ox O2 Delivery O2 Flow Rate FiO2 04/04/17 16:20 97.6 66 20 104/66 (79) 93 04/02/17 16:17 Room Air I&O Intake and Output 04/05/17 06:59 Intake Total 1320 ml Balance 1320 ml Intake Oral 1320 ml Labs: Laboratory Tests Test 04/04/17 07:16 04/04/17 12:03 04/04/17 16:53 04/04/17 19:42 Glucose (Fingerstick) 124 mg/dL (70-99) H 110 mg/dL (70-99) H 127 mg/dL (70-99) H 140 mg/dL (70-99) H Current Medications: Meds: Current Medications Acetaminophen (Tylenol) 650 mg PRN Q6HRS PRN PO PAIN / TEMP; Start 03/28/17 at 21:15 Multi-Ingredient Ointment (Analgesic [place]) 1 laurie PRN QID PRN TP MUSCLE PAIN; Start 03/28/17 at 21:15 Al Hydroxide/Mg Hydroxide (Mylanta Plus Xs) 15 ml PRN AFTMEALHC PRN PO DYSPEPSIA; Start 03/28/17 at 21:15 Magnesium Hydroxide (Milk Of Magnesia) 2,400 mg PRN QHS PRN PO CONSTIPATION; Start 03/28/17 at 21:15 Clonazepam (KlonoPIN) 0.5 mg PRN DAILY PRN PO ANXIETY / AGITATION Last administered on 03/31/17 09:44; Start 03/29/17 at 01:30 Donepezil HCl (Aricept) 10 mg DAILY PO Last administered on 04/04/17 07:56; Start 03/29/17 at 09:00 Allopurinol (Zyloprim) 300 mg DAILY PO Last administered on 04/04/17 07:56; Start 03/29/17 at 09:00 Amlodipine Besylate (Norvasc) 10 mg DAILY PO Last administered on 04/04/17 07 :57; Start 03/29/17 at 09:00 Aspirin (Children'S Aspirin) 81 mg DAILY PO Last administered on 04/04/17 07: 56; Start 03/29/17 at 09:00 Levetiracetam (Keppra) 500 mg BID PO Last administered on 04/04/17 20:00; Start 03/29/17 at 09:00 Lisinopril (Prinivil) 10 mg DAILY PO Last administered on 04/04/17 07:56; Start 03/29/17 at 09:00 Pravastatin Sodium (Pravachol) 20 mg QHS PO Last administered on 04/04/17 19: 59; Start 03/29/17 at 21:00 Timolol Maleate (Timoptic 0.5% [facility]) 1 drop BID OU Last administered on 20:00; Start 03/29/17 at 09:00 Multivitamins/ Calcium (Thera-M Plus) 1 tab DAILY PO Last administered on 04/04 07:56; Start 03/29/17 at 09:00 Thiamine HCl (Vitamin B-1) 125 mg DAILY PO Last administered on 04/04/17 07: 56; Start 03/29/17 at 09:00 Insulin Aspart (NovoLOG) 0-7 UNITS TIDAC SQ Last administered on 03/31/17 17: 18; Start 03/29/17 at 11:30 Dextrose 12.5 gm PRN Q15MIN PRN IV SEE COMMENTS; Start 03/29/17 at 11:30 Quetiapine Fumarate (SEROquel) 25 mg QHS PO Last administered on 04/01/17 19: 39; Start 03/29/17 at 21:00; Stop 04/02/17 at 18:27; Status DC Quetiapine Fumarate (SEROquel) 12.5 mg BID92 PO Last administered on 13:22; Start 04/01/17 at 09:00; Stop 04/02/17 at 18:27; Status DC Sertraline HCl (Zoloft) 25 mg DAILY PO Last administered on 04/04/17 07:56; Start 04/01/17 at 09:00 Olanzapine (ZyPREXA ZYDIS) 2.5 mg PRN Q2HR PRN PO PSYCHOSIS Last administered on 03/31/17 23:18; Start 03/31/17 at 23:00 Vitamin D (Vitamin D3) 2,000 unit DAILY PO Last administered on 04/04/17 07: 56; Start 04/03/17 at 09:00 Quetiapine Fumarate (SEROquel) 25 mg BID PO Last administered on 04/03/17 07: 35; Start 04/02/17 at 21:00; Stop 04/03/17 at 18:26; Status DC Quetiapine Fumarate (SEROquel) 12.5 mg DAILY@1400 PO Last administered on 04/03 14:00; Start 04/03/17 at 14:00; Stop 04/03/17 at 18:27; Status DC Quetiapine Fumarate (SEROquel) 25 mg TID PO Last administered on 04/04/17 19: 59; Start 04/03/17 at 21:00 Active Scripts Active Reported Clonazepam 0.5 Mg Tablet 0.5 Mg PO PRN DAILY PRN Vitamin B-1 (Thiamine Hcl) 250 Mg Tablet 125 Mg PO DAILY Multi-Day Vitamins (Multivitamin) 1 Each Tablet 1 Tab PO DAILY LAST DOSE GIVEN: DATE: TODAY TIME: AM NEXT DOSE DUE: DATE: TOMORROW TIME: AM Pravastatin Sodium 20 Mg Tablet 20 Mg PO DAILY LAST DOSE GIVEN: DATE: TODAY TIME: AM NEXT DOSE DUE: DATE: TOMORROW TIME: AM Lisinopril 10 Mg Tablet 10 Mg PO DAILY LAST DOSE GIVEN: DATE: TODAY TIME: AM NEXT DOSE DUE: DATE: TOMORROW TIME: AM Levetiracetam 500 Mg Tablet 500 Mg PO BID LAST DOSE GIVEN: DATE: TODAY TIME: AM NEXT DOSE DUE: DATE: TODAY TIME: PM Donepezil Hcl 10 Mg Tablet 10 Mg PO DAILY LAST DOSE GIVEN: DATE: TODAY TIME: AM NEXT DOSE DUE: DATE: TOMORROW TIME: AM Amlodipine Besylate 10 Mg Tablet 10 Mg PO DAILY LAST DOSE GIVEN: DATE: TODAY TIME: AM NEXT DOSE DUE: DATE: TOMORROW TIME: AM Allopurinol 300 Mg Tablet 300 Mg PO DAILY LAST DOSE GIVEN: DATE: TODAY TIME: AM NEXT DOSE DUE: DATE: TOMORROW TIME: AM Children's Aspirin (Aspirin) 81 Mg Tab.chew 81 Mg PO DAILY LAST DOSE GIVEN: DATE: TODAY TIME: AM NEXT DOSE DUE: DATE: TOMORROW TIME: AM Diagnosis: Problems: (1) Behavioral problems (2) Chronic alcoholism (3) Acute encephalopathy (4) Anxiety disorder (5) Dementia in Alzheimer's disease with depression (6) Dementia in Alzheimer's disease with delusions (7) Dementia, vascular, with depression (8) Dementia, vascular, with delusions (9) Impulse control disorder JOSE ANTONIO ORTEGA MD Apr 04, 2017 20:56
--- NOTE | 2017-04-05 02:30 | PN ---
DATE: 04/03/2017 PSYCHIATRIC PROGRESS NOTE This is a late entry for 04/03/2017, covers elements not covered in my initial note of 04/03/2017. SUBJECTIVE: I met with the patient the evening of 04/03/2017. The patient refused his bedtime medications, paranoid, seems to have sundowning with increased confusion, anxious, more so in the evening, refused snacks. REVIEW OF SYSTEMS: No CV, , pulmonary, eye, ENT system symptoms on review. Ambulation impaired with walker. Reliability poor. MENTAL STATUS EXAM: Oriented to himself. Insight, judgment, recent and remote memory, attention, concentration, fund of knowledge poor, consistent with his diagnosis mentioned in my initial note. PLAN: Continue current psychotropics mentioned in my initial note. Increase Seroquel from 12.5 mg at 1400 hours to 25 mg and he will therefore get total of 25 mg 3 times a day. Maintain the rest of psychotropics unchanged. Reviewed drug interactions. Risk/benefit ratio favors no further change. MAN Leonardo ORTEGA MD DR: RUPALI/regulo JOB#: [id number] / [id number]
[2017-04-05 06:36] VITALS: BP 122/72
[2017-04-05] MEDS: INSULIN ASPART 300 UNITS/3 ML INSULN.PEN SQ SCH ×4 (07:30→19:58)
[2017-04-05] MEDS: ASPIRIN 81 MG TAB.CHEW PO SCH (07:41)
[2017-04-05] MEDS: THIAMINE 100 MG TABLET. PO SCH (07:41)
[2017-04-05] MEDS: DONEPEZIL HCL 10 MG TABLET PO SCH (07:41)
[2017-04-05] MEDS: LISINOPRIL 10 MG TABLET PO SCH (07:41)
[2017-04-05] MEDS: CHOLECALCIFEROL (VITAMIN D3) 1,000 UNIT TABLET PO SCH (07:41)
[2017-04-05] MEDS: levETIRAcetam 500 MG TABLET PO SCH ×2 (07:42→19:56)
[2017-04-05] MEDS: SERTRALINE 25 MG TABLET. PO SCH (07:42)
[2017-04-05] MEDS: ALLOPURINOL 300 MG TABLET. PO SCH (07:42)
[2017-04-05] MEDS: MULTIVITAMIN with MINERAL TABLET. PO SCH (07:42)
[2017-04-05] MEDS: amLODIPine BESYLATE 10 MG TABLET PO SCH (07:42)
[2017-04-05] MEDS: QUEtiapine 25 MG TABLET. PO SCH ×3 (07:42→19:56)
[2017-04-05] MEDS: TIMOLOL 0.5% OPHTH SOLUTION 5ML BOTTLE. OU SCH ×2 (07:42→19:56)
[2017-04-05 16:22] VITALS: BP 113/60
[2017-04-05] MEDS: PRAVASTATIN 20 MG TABLET. PO SCH (19:56)
--- NOTE | 2017-04-05 20:59 | PDOC ---
Exam Ethan Demential Exam: Ethan Note: Please also refer to the separate dictated note~for this date of service dictated separately.~Patient seen individually. Discussed the patient with Nursing staff reviewed the chart.~Reviewed interim history and current functioning. Reviewed vital signs,~Labs/ Radiology~and current medications noted below. Continue current treatment with the changes noted in the dictated addendum note Assessment: Vital Signs: Vital Signs Date Time Temp Pulse Resp B/P (MAP) Pulse Ox O2 Delivery O2 Flow Rate FiO2 04/05/17 16:22 98.6 61 18 113/60 (77) 95 04/02/17 16:17 Room Air I&O Intake and Output 04/06/17 07:00 Intake Total 600 ml Balance 600 ml Intake Oral 600 ml # Bowel Movements 1 Labs: Laboratory Tests Test 04/05/17 07:35 04/05/17 11:42 04/05/17 16:41 04/05/17 19:10 Glucose (Fingerstick) 121 mg/dL (70-99) H 89 mg/dL (70-99) 110 mg/dL (70-99) H 270 mg/dL (70-99) H Current Medications: Meds: Current Medications Acetaminophen (Tylenol) 650 mg PRN Q6HRS PRN PO PAIN / TEMP; Start 03/28/17 at 21:15 Multi-Ingredient Ointment (Analgesic [place]) 1 laurie PRN QID PRN TP MUSCLE PAIN; Start 03/28/17 at 21:15 Al Hydroxide/Mg Hydroxide (Mylanta Plus Xs) 15 ml PRN AFTMEALHC PRN PO DYSPEPSIA; Start 03/28/17 at 21:15 Magnesium Hydroxide (Milk Of Magnesia) 2,400 mg PRN QHS PRN PO CONSTIPATION; Start 03/28/17 at 21:15 Clonazepam (KlonoPIN) 0.5 mg PRN DAILY PRN PO ANXIETY / AGITATION Last administered on 03/31/17 09:44; Start 03/29/17 at 01:30 Donepezil HCl (Aricept) 10 mg DAILY PO Last administered on 04/05/17 07:41; Start 03/29/17 at 09:00 Allopurinol (Zyloprim) 300 mg DAILY PO Last administered on 04/05/17 07:42; Start 03/29/17 at 09:00 Amlodipine Besylate (Norvasc) 10 mg DAILY PO Last administered on 04/05/17 07 :42; Start 03/29/17 at 09:00 Aspirin (Children'S Aspirin) 81 mg DAILY PO Last administered on 04/05/17 07: 41; Start 03/29/17 at 09:00 Levetiracetam (Keppra) 500 mg BID PO Last administered on 04/05/17 19:56; Start 03/29/17 at 09:00 Lisinopril (Prinivil) 10 mg DAILY PO Last administered on 04/05/17 07:41; Start 03/29/17 at 09:00 Pravastatin Sodium (Pravachol) 20 mg QHS PO Last administered on 04/05/17 19: 56; Start 03/29/17 at 21:00 Timolol Maleate (Timoptic 0.5% [facility]) 1 drop BID OU Last administered on 19:56; Start 03/29/17 at 09:00 Multivitamins/ Calcium (Thera-M Plus) 1 tab DAILY PO Last administered on 04/05 07:42; Start 03/29/17 at 09:00 Thiamine HCl (Vitamin B-1) 125 mg DAILY PO Last administered on 04/05/17 07: 41; Start 03/29/17 at 09:00 Insulin Aspart (NovoLOG) 0-7 UNITS TIDAC SQ Last administered on 04/05/17 19: 58; Start 03/29/17 at 11:30 Dextrose 12.5 gm PRN Q15MIN PRN IV SEE COMMENTS; Start 03/29/17 at 11:30 Quetiapine Fumarate (SEROquel) 25 mg QHS PO Last administered on 04/01/17 19: 39; Start 03/29/17 at 21:00; Stop 04/02/17 at 18:27; Status DC Quetiapine Fumarate (SEROquel) 12.5 mg BID92 PO Last administered on 13:22; Start 04/01/17 at 09:00; Stop 04/02/17 at 18:27; Status DC Sertraline HCl (Zoloft) 25 mg DAILY PO Last administered on 04/05/17 07:42; Start 04/01/17 at 09:00; Stop 04/05/17 at 11:04; Status DC Olanzapine (ZyPREXA ZYDIS) 2.5 mg PRN Q2HR PRN PO PSYCHOSIS Last administered on 03/31/17 23:18; Start 03/31/17 at 23:00 Vitamin D (Vitamin D3) 2,000 unit DAILY PO Last administered on 04/05/17 07: 41; Start 04/03/17 at 09:00 Quetiapine Fumarate (SEROquel) 25 mg BID PO Last administered on 04/03/17 07: 35; Start 04/02/17 at 21:00; Stop 04/03/17 at 18:26; Status DC Quetiapine Fumarate (SEROquel) 12.5 mg DAILY@1400 PO Last administered on 04/03 14:00; Start 04/03/17 at 14:00; Stop 04/03/17 at 18:27; Status DC Quetiapine Fumarate (SEROquel) 25 mg TID PO Last administered on 04/05/17 19: 56; Start 04/03/17 at 21:00 Sertraline HCl (Zoloft) 50 mg DAILY PO ; Start 04/06/17 at 09:00 Active Scripts Active Reported Clonazepam 0.5 Mg Tablet 0.5 Mg PO PRN DAILY PRN Vitamin B-1 (Thiamine Hcl) 250 Mg Tablet 125 Mg PO DAILY Multi-Day Vitamins (Multivitamin) 1 Each Tablet 1 Tab PO DAILY LAST DOSE GIVEN: DATE: TODAY TIME: AM NEXT DOSE DUE: DATE: TOMORROW TIME: AM Pravastatin Sodium 20 Mg Tablet 20 Mg PO DAILY LAST DOSE GIVEN: DATE: TODAY TIME: AM NEXT DOSE DUE: DATE: TOMORROW TIME: AM Lisinopril 10 Mg Tablet 10 Mg PO DAILY LAST DOSE GIVEN: DATE: TODAY TIME: AM NEXT DOSE DUE: DATE: TOMORROW TIME: AM Levetiracetam 500 Mg Tablet 500 Mg PO BID LAST DOSE GIVEN: DATE: TODAY TIME: AM NEXT DOSE DUE: DATE: TODAY TIME: PM Donepezil Hcl 10 Mg Tablet 10 Mg PO DAILY LAST DOSE GIVEN: DATE: TODAY TIME: AM NEXT DOSE DUE: DATE: TOMORROW TIME: AM Amlodipine Besylate 10 Mg Tablet 10 Mg PO DAILY LAST DOSE GIVEN: DATE: TODAY TIME: AM NEXT DOSE DUE: DATE: TOMORROW TIME: AM Allopurinol 300 Mg Tablet 300 Mg PO DAILY LAST DOSE GIVEN: DATE: TODAY TIME: AM NEXT DOSE DUE: DATE: TOMORROW TIME: AM Children's Aspirin (Aspirin) 81 Mg Tab.chew 81 Mg PO DAILY LAST DOSE GIVEN: DATE: TODAY TIME: AM NEXT DOSE DUE: DATE: TOMORROW TIME: AM Diagnosis: Problems: (1) Behavioral problems (2) Chronic alcoholism (3) Acute encephalopathy (4) Anxiety disorder (5) Dementia in Alzheimer's disease with depression (6) Dementia in Alzheimer's disease with delusions (7) Dementia, vascular, with depression (8) Dementia, vascular, with delusions (9) Impulse control disorder JOSE ANTONIO ORTEGA MD Apr 05, 2017 20:59
[2017-04-06 05:56] VITALS: BP 115/72
[2017-04-06] MEDS: levETIRAcetam 500 MG TABLET PO SCH ×2 (07:38→19:52)
[2017-04-06] MEDS: ASPIRIN 81 MG TAB.CHEW PO SCH (07:39)
[2017-04-06] MEDS: DONEPEZIL HCL 10 MG TABLET PO SCH (07:39)
[2017-04-06] MEDS: CHOLECALCIFEROL (VITAMIN D3) 1,000 UNIT TABLET PO SCH (07:39)
[2017-04-06] MEDS: amLODIPine BESYLATE 10 MG TABLET PO SCH (07:40)
[2017-04-06] MEDS: LISINOPRIL 10 MG TABLET PO SCH (07:41)
[2017-04-06] MEDS: QUEtiapine 25 MG TABLET. PO SCH ×3 (07:41→19:52)
[2017-04-06] MEDS: ALLOPURINOL 300 MG TABLET. PO SCH (07:41)
[2017-04-06] MEDS: MULTIVITAMIN with MINERAL TABLET. PO SCH (07:41)
[2017-04-06] MEDS: THIAMINE 100 MG TABLET. PO SCH (07:41)
[2017-04-06] MEDS: TIMOLOL 0.5% OPHTH SOLUTION 5ML BOTTLE. OU SCH ×2 (07:45→19:52)
[2017-04-06] MEDS: SERTRALINE 50 MG TABLET. PO SCH (07:45)
--- NOTE | 2017-04-06 09:32 | PN ---
DATE: 04/04/2017 PSYCHIATRIC PROGRESS NOTE This is a late entry for 04/04/2017, covers the elements not covered in my initial note of 04/04/2017. SUBJECTIVE: I met with the patient evening of 04/04/2017. The patient is cooperative most of the day, disorganized, confused, seems to have some expressive aphasia, somewhat delusional at times. REVIEW OF SYSTEMS: Ambulation impaired, with a walker. No CV, , pulmonary, eye, ENT system symptoms on review. Reliability poor. MENTAL STATUS EXAM: Oriented to himself. Insight, judgment, recent and remote memory, attention, concentration, fund of knowledge poor, consistent with his diagnosis mentioned in my initial note. PLAN: Continue current psychotropics mentioned in my initial note. Reviewed drug interactions, risk/benefit ratio favors no further change. MAN Leonardo ORTEGA MD DR: RUPALI/regulo JOB#: [id number] / [id number]
[2017-04-06] MEDS: INSULIN ASPART 300 UNITS/3 ML INSULN.PEN SQ SCH ×2 (11:30→16:46)
[2017-04-06 16:35] VITALS: BP 105/62
[2017-04-06] MEDS: PRAVASTATIN 20 MG TABLET. PO SCH (19:52)
--- NOTE | 2017-04-07 03:52 | PN ---
DATE: 04/05/2017 PSYCHIATRIC PROGRESS NOTE This late entry, date of service, 04/05/2017 covers elements not covered in my initial note of 04/05/2017. SUBJECTIVE: The patient was staffed at a treatment team meeting with the entire team morning of 04/05/2017. The patient's 2 daughters Adriana and Zakia attended the conference. Lengthy discussion about the patient's history of aggression with guns and later with knife, family's plan is to have him back home, concerns expressed by us to the family that even though they have hidden the guns and knives; he may find something else if symptoms resurfaced back home and perhaps a transition down to a lower level of care before transitioning home might be something worth considering. At times, he gets somewhat anxious, exit seeking, slept 7-1/2 hours previous evening, more agitated in the evening, talking about wanting to talk to the federal agents. REVIEW OF SYSTEMS: No CV, , pulmonary, eye, ENT system symptoms on review. Reliability poor. Ambulation impaired, with walker. MENTAL STATUS EXAM: Oriented to himself. Insight, judgment, recent and remote memory, attention, concentration, fund of knowledge poor, consistent with his diagnosis mentioned in my initial note. PLAN: Continue psychotropics mentioned in my initial note. Increase Zoloft from 25 mg a day to 50 mg a day, Seroquel 25 mg 3 times a day, Aricept 10 mg a day, Klonopin and Zyprexa p.r.n. Review drug interactions, risk/benefit ratio favors no further change. MAN Leonardo ORTEGA MD DR: RUPALI/regulo JOB#: [id number] / [id number]
[2017-04-07 05:59] VITALS: BP 123/80
[2017-04-07] MEDS: DONEPEZIL HCL 10 MG TABLET PO SCH (08:31)
[2017-04-07] MEDS: ASPIRIN 81 MG TAB.CHEW PO SCH (08:31)
[2017-04-07] MEDS: levETIRAcetam 500 MG TABLET PO SCH ×2 (08:32→20:20)
[2017-04-07] MEDS: amLODIPine BESYLATE 10 MG TABLET PO SCH (08:32)
[2017-04-07] MEDS: MULTIVITAMIN with MINERAL TABLET. PO SCH (08:33)
[2017-04-07] MEDS: LISINOPRIL 10 MG TABLET PO SCH (08:33)
[2017-04-07] MEDS: THIAMINE 100 MG TABLET. PO SCH (08:33)
[2017-04-07] MEDS: QUEtiapine 25 MG TABLET. PO SCH ×3 (08:33→20:20)
[2017-04-07] MEDS: ALLOPURINOL 300 MG TABLET. PO SCH (08:35)
[2017-04-07] MEDS: CHOLECALCIFEROL (VITAMIN D3) 1,000 UNIT TABLET PO SCH (08:35)
[2017-04-07] MEDS: SERTRALINE 50 MG TABLET. PO SCH (08:35)
[2017-04-07] MEDS: TIMOLOL 0.5% OPHTH SOLUTION 5ML BOTTLE. OU SCH ×2 (08:39→20:20)
[2017-04-07 16:29] VITALS: BP 121/54
--- NOTE | 2017-04-07 18:43 | PN ---
DATE: 04/06/2017 PSYCHIATRIC PROGRESS NOTE This late entry 04/06/2017 covers elements not covered in my initial note of 04/06/2017. I met with the patient evening of 04/06/2017. Overall, the patient remains confused, agitated with daughter, when the daughter visited in the evening of 04/06/2017, refused dinner. REVIEW OF SYSTEMS: No CV, , pulmonary, eye, ENT system symptoms on review. Reliability poor. Ambulation impaired with a walker. MENTAL STATUS EXAM: Oriented to himself. Insight, judgment, recent and remote memory, attention, concentration, fund of knowledge poor, consistent with his diagnosis. He is quite pleasant with me individually, oblivious of his surroundings nevertheless. IMPRESSION: Unchanged from initial note. PLAN: Continue current psychotropics mentioned in my initial note, reviewed drug interactions, risk/benefit ratio favors no further change. MAN Leonardo ORTEGA MD DR: RUPALI/regulo JOB#: [id number] / [id number]
[2017-04-07] MEDS: PRAVASTATIN 20 MG TABLET. PO SCH (20:20)
--- NOTE | 2017-04-07 22:00 | PDOC ---
Exam Ethan Demential Exam: Ethan Note: Please also refer to the separate dictated note~for this date of service dictated separately.~Patient seen individually. Discussed the patient with Nursing staff reviewed the chart.~Reviewed interim history and current functioning. Reviewed vital signs,~Labs/ Radiology~and current medications noted below. Continue current treatment with the changes noted in the dictated addendum note Assessment: Vital Signs: Vital Signs Date Time Temp Pulse Resp B/P (MAP) Pulse Ox O2 Delivery O2 Flow Rate FiO2 04/07/17 16:29 98.2 76 18 121/54 (76) 93 04/07/17 05:59 Room Air I&O Intake and Output 04/08/17 07:00 Intake Total 840 ml Balance 840 ml Intake Oral 840 ml Current Medications: Meds: Current Medications Acetaminophen (Tylenol) 650 mg PRN Q6HRS PRN PO PAIN / TEMP; Start 03/28/17 at 21:15 Multi-Ingredient Ointment (Analgesic [place]) 1 laurie PRN QID PRN TP MUSCLE PAIN; Start 03/28/17 at 21:15 Al Hydroxide/Mg Hydroxide (Mylanta Plus Xs) 15 ml PRN AFTMEALHC PRN PO DYSPEPSIA; Start 03/28/17 at 21:15 Magnesium Hydroxide (Milk Of Magnesia) 2,400 mg PRN QHS PRN PO CONSTIPATION; Start 03/28/17 at 21:15 Clonazepam (KlonoPIN) 0.5 mg PRN DAILY PRN PO ANXIETY / AGITATION Last administered on 03/31/17 09:44; Start 03/29/17 at 01:30 Donepezil HCl (Aricept) 10 mg DAILY PO Last administered on 04/07/17 08:31; Start 03/29/17 at 09:00 Allopurinol (Zyloprim) 300 mg DAILY PO Last administered on 04/07/17 08:35; Start 03/29/17 at 09:00 Amlodipine Besylate (Norvasc) 10 mg DAILY PO Last administered on 04/07/17 08 :32; Start 03/29/17 at 09:00 Aspirin (Children'S Aspirin) 81 mg DAILY PO Last administered on 04/07/17 08: 31; Start 03/29/17 at 09:00 Levetiracetam (Keppra) 500 mg BID PO Last administered on 04/07/17 20:20; Start 03/29/17 at 09:00 Lisinopril (Prinivil) 10 mg DAILY PO Last administered on 04/07/17 08:33; Start 03/29/17 at 09:00 Pravastatin Sodium (Pravachol) 20 mg QHS PO Last administered on 04/07/17 20: 20; Start 03/29/17 at 21:00 Timolol Maleate (Timoptic 0.5% [facility]) 1 drop BID OU Last administered on 20:20; Start 03/29/17 at 09:00 Multivitamins/ Calcium (Thera-M Plus) 1 tab DAILY PO Last administered on 04/07 08:33; Start 03/29/17 at 09:00 Thiamine HCl (Vitamin B-1) 125 mg DAILY PO Last administered on 04/07/17 08: 33; Start 03/29/17 at 09:00 Insulin Aspart (NovoLOG) 0-7 UNITS TIDAC SQ Last administered on 04/05/17 19: 58; Start 03/29/17 at 11:30; Stop 04/07/17 at 07:15; Status DC Dextrose 12.5 gm PRN Q15MIN PRN IV SEE COMMENTS; Start 03/29/17 at 11:30; Stop 04/07/17 at 07:15; Status DC Quetiapine Fumarate (SEROquel) 25 mg QHS PO Last administered on 04/01/17 19: 39; Start 03/29/17 at 21:00; Stop 04/02/17 at 18:27; Status DC Quetiapine Fumarate (SEROquel) 12.5 mg BID92 PO Last administered on 13:22; Start 04/01/17 at 09:00; Stop 04/02/17 at 18:27; Status DC Sertraline HCl (Zoloft) 25 mg DAILY PO Last administered on 04/05/17 07:42; Start 04/01/17 at 09:00; Stop 04/05/17 at 11:04; Status DC Olanzapine (ZyPREXA ZYDIS) 2.5 mg PRN Q2HR PRN PO PSYCHOSIS Last administered on 03/31/17 23:18; Start 03/31/17 at 23:00 Vitamin D (Vitamin D3) 2,000 unit DAILY PO Last administered on 04/07/17 08: 35; Start 04/03/17 at 09:00 Quetiapine Fumarate (SEROquel) 25 mg BID PO Last administered on 04/03/17 07: 35; Start 04/02/17 at 21:00; Stop 04/03/17 at 18:26; Status DC Quetiapine Fumarate (SEROquel) 12.5 mg DAILY@1400 PO Last administered on 04/03 14:00; Start 04/03/17 at 14:00; Stop 04/03/17 at 18:27; Status DC Quetiapine Fumarate (SEROquel) 25 mg TID PO Last administered on 04/07/17 20: 20; Start 04/03/17 at 21:00 Sertraline HCl (Zoloft) 50 mg DAILY PO Last administered on 04/07/17 08:35; Start 04/06/17 at 09:00 Active Scripts Active Reported Clonazepam 0.5 Mg Tablet 0.5 Mg PO PRN DAILY PRN Vitamin B-1 (Thiamine Hcl) 250 Mg Tablet 125 Mg PO DAILY Multi-Day Vitamins (Multivitamin) 1 Each Tablet 1 Tab PO DAILY LAST DOSE GIVEN: DATE: TODAY TIME: AM NEXT DOSE DUE: DATE: TOMORROW TIME: AM Pravastatin Sodium 20 Mg Tablet 20 Mg PO DAILY LAST DOSE GIVEN: DATE: TODAY TIME: AM NEXT DOSE DUE: DATE: TOMORROW TIME: AM Lisinopril 10 Mg Tablet 10 Mg PO DAILY LAST DOSE GIVEN: DATE: TODAY TIME: AM NEXT DOSE DUE: DATE: TOMORROW TIME: AM Levetiracetam 500 Mg Tablet 500 Mg PO BID LAST DOSE GIVEN: DATE: TODAY TIME: AM NEXT DOSE DUE: DATE: TODAY TIME: PM Donepezil Hcl 10 Mg Tablet 10 Mg PO DAILY LAST DOSE GIVEN: DATE: TODAY TIME: AM NEXT DOSE DUE: DATE: TOMORROW TIME: AM Amlodipine Besylate 10 Mg Tablet 10 Mg PO DAILY LAST DOSE GIVEN: DATE: TODAY TIME: AM NEXT DOSE DUE: DATE: TOMORROW TIME: AM Allopurinol 300 Mg Tablet 300 Mg PO DAILY LAST DOSE GIVEN: DATE: TODAY TIME: AM NEXT DOSE DUE: DATE: TOMORROW TIME: AM Children's Aspirin (Aspirin) 81 Mg Tab.chew 81 Mg PO DAILY LAST DOSE GIVEN: DATE: TODAY TIME: AM NEXT DOSE DUE: DATE: TOMORROW TIME: AM Diagnosis: Problems: (1) Behavioral problems (2) Chronic alcoholism (3) Acute encephalopathy (4) Anxiety disorder (5) Dementia in Alzheimer's disease with depression (6) Dementia in Alzheimer's disease with delusions (7) Dementia, vascular, with depression (8) Dementia, vascular, with delusions (9) Impulse control disorder JOSE ANTONIO ORTEGA MD Apr 07, 2017 22:00
--- NOTE | 2017-04-08 02:04 | PN ---
DATE: 04/07/2017 This note covers elements not covered in my initial note of 04/07/2017. SUBJECTIVE: The patient was seen individually in his room. Per nursing staff, he has been somewhat sedated during the day, he was talking with his roommate for several hours last night, slept somewhat poorly, but did get up for breakfast. REVIEW OF SYSTEMS: No CV, , pulmonary, eye, ENT system symptoms on review. Reliability poor. MENTAL STATUS EXAM: Oriented to himself. Insight, judgment, recent and remote memory, attention, concentration, fund of knowledge poor, consistent with his diagnosis mentioned in my initial note. PLAN: Continue current psychotropics, reviewed drug interactions, risk/benefit ratio favors no further change for now. MAN Leonardo ORTEGA MD DR: RUPALI/regulo JOB#: [id number] / [id number]
[2017-04-08 06:06] VITALS: BP 127/79
[2017-04-08] MEDS: DONEPEZIL HCL 10 MG TABLET PO SCH (07:48)
[2017-04-08] MEDS: CHOLECALCIFEROL (VITAMIN D3) 1,000 UNIT TABLET PO SCH (07:48)
[2017-04-08] MEDS: LISINOPRIL 10 MG TABLET PO SCH (07:48)
[2017-04-08] MEDS: ALLOPURINOL 300 MG TABLET. PO SCH (07:48)
[2017-04-08] MEDS: ASPIRIN 81 MG TAB.CHEW PO SCH (07:49)
[2017-04-08] MEDS: levETIRAcetam 500 MG TABLET PO SCH ×2 (07:49→19:50)
[2017-04-08] MEDS: THIAMINE 100 MG TABLET. PO SCH (07:49)
[2017-04-08] MEDS: SERTRALINE 50 MG TABLET. PO SCH (07:49)
[2017-04-08] MEDS: QUEtiapine 25 MG TABLET. PO SCH ×3 (07:49→19:50)
[2017-04-08] MEDS: MULTIVITAMIN with MINERAL TABLET. PO SCH (07:49)
[2017-04-08] MEDS: amLODIPine BESYLATE 10 MG TABLET PO SCH (07:49)
[2017-04-08] MEDS: TIMOLOL 0.5% OPHTH SOLUTION 5ML BOTTLE. OU SCH ×2 (07:50→19:51)
[2017-04-08 16:11] VITALS: BP 110/67
[2017-04-08] MEDS: PRAVASTATIN 20 MG TABLET. PO SCH (19:50)
[2017-04-09 06:10] VITALS: BP 116/71
[2017-04-09] MEDS: levETIRAcetam 500 MG TABLET PO SCH ×2 (08:34→20:43)
[2017-04-09] MEDS: MULTIVITAMIN with MINERAL TABLET. PO SCH (08:34)
[2017-04-09] MEDS: DONEPEZIL HCL 10 MG TABLET PO SCH (08:34)
[2017-04-09] MEDS: SERTRALINE 50 MG TABLET. PO SCH (08:34)
[2017-04-09] MEDS: CHOLECALCIFEROL (VITAMIN D3) 1,000 UNIT TABLET PO SCH (08:35)
[2017-04-09] MEDS: LISINOPRIL 10 MG TABLET PO SCH (08:35)
[2017-04-09] MEDS: ALLOPURINOL 300 MG TABLET. PO SCH (08:35)
[2017-04-09] MEDS: ASPIRIN 81 MG TAB.CHEW PO SCH (08:35)
[2017-04-09] MEDS: QUEtiapine 25 MG TABLET. PO SCH ×3 (08:35→20:31)
[2017-04-09] MEDS: amLODIPine BESYLATE 10 MG TABLET PO SCH (08:36)
[2017-04-09 08:39] VITALS: BP 134/74
[2017-04-09] MEDS: TIMOLOL 0.5% OPHTH SOLUTION 5ML BOTTLE. OU SCH ×2 (09:36→20:44)
[2017-04-09] MEDS: THIAMINE 100 MG TABLET. PO SCH (09:40)
[2017-04-09] MEDS: clonazePAM 0.5 MG TABLET PO PRN (12:04)
[2017-04-09 16:13] VITALS: BP 125/63
[2017-04-09] MEDS: PRAVASTATIN 20 MG TABLET. PO SCH (20:31)
--- NOTE | 2017-04-10 04:08 | PN ---
DATE: 04/09/2017 SUBJECTIVE: The patient was seen today, met with the staff, chart reviewed, and covering for Dr. Holguin. The patient show increased confusion, constantly anxious, delusional, paranoid and sexually inappropriate. The patient prior to coming here was threatening his with a gun. The patient was also hiding knife in a towel and brought them to bedroom a month ago. The patient's problems have gotten worse over the past 4 weeks prior to coming here. OBSERVATION: VITAL SIGNS: Temperature 97.5, blood pressure 116/71, pulse 59, respirations 20, O2 sat 94%. Slept about 7 hours last night. His appetite is fair. PAST MEDICAL HISTORY: The patient has a history of seizures, history of CVA, apparently he has a long history of drinking fairly heavy almost for 30 years. The patient also has multiple physical problems. MEDICATIONS: Reviewed. Seroquel 25 mg t.i.d., Zoloft 50 mg at night, Aricept 10 mg daily, Klonopin 0.5 mg p.r.n. for agitation. The patient is also on Keppra 500 mg b.i.d. for seizures. LABORATORY DATA: The patient's lab reviewed, no change from admission. The patient walks with a walker. He has gait impairment. The patient's behavior fluctuates. ASSESSMENT: Vascular dementia with depression and behavior problems. PLAN: Continue with the treatment. SNOW BRICEÑO MD DR: MARINE/regulo JOB#: [id number] / [id number]
[2017-04-10 06:37] VITALS: BP 110/66
[2017-04-10] MEDS: MULTIVITAMIN with MINERAL TABLET. PO SCH (09:38)
[2017-04-10] MEDS: amLODIPine BESYLATE 10 MG TABLET PO SCH (09:39)
[2017-04-10] MEDS: LISINOPRIL 10 MG TABLET PO SCH (09:40)
[2017-04-10] MEDS: QUEtiapine 25 MG TABLET. PO SCH ×3 (09:41→20:03)
[2017-04-10] MEDS: DONEPEZIL HCL 10 MG TABLET PO SCH (09:41)
[2017-04-10] MEDS: CHOLECALCIFEROL (VITAMIN D3) 1,000 UNIT TABLET PO SCH (09:41)
[2017-04-10] MEDS: ASPIRIN 81 MG TAB.CHEW PO SCH (09:44)
[2017-04-10] MEDS: SERTRALINE 50 MG TABLET. PO SCH (09:44)
[2017-04-10] MEDS: THIAMINE 100 MG TABLET. PO SCH (09:45)
[2017-04-10] MEDS: ALLOPURINOL 300 MG TABLET. PO SCH (09:46)
[2017-04-10] MEDS: levETIRAcetam 500 MG TABLET PO SCH ×2 (09:46→20:03)
[2017-04-10] MEDS: TIMOLOL 0.5% OPHTH SOLUTION 5ML BOTTLE. OU SCH ×2 (09:47→20:03)
[2017-04-10 15:32] VITALS: BP 101/65
[2017-04-10] MEDS: PRAVASTATIN 20 MG TABLET. PO SCH (20:03)
[2017-04-11 06:07] VITALS: BP 102/66
[2017-04-11] MEDS: DONEPEZIL HCL 10 MG TABLET PO SCH (09:49)
[2017-04-11] MEDS: ASPIRIN 81 MG TAB.CHEW PO SCH (09:49)
[2017-04-11] MEDS: levETIRAcetam 500 MG TABLET PO SCH ×2 (09:49→19:49)
[2017-04-11] MEDS: ALLOPURINOL 300 MG TABLET. PO SCH (09:50)
[2017-04-11] MEDS: LISINOPRIL 10 MG TABLET PO SCH (09:50)
[2017-04-11] MEDS: QUEtiapine 25 MG TABLET. PO SCH ×3 (09:52→19:49)
[2017-04-11] MEDS: MULTIVITAMIN with MINERAL TABLET. PO SCH (09:52)
[2017-04-11] MEDS: amLODIPine BESYLATE 10 MG TABLET PO SCH (09:52)
[2017-04-11] MEDS: CHOLECALCIFEROL (VITAMIN D3) 1,000 UNIT TABLET PO SCH (09:53)
[2017-04-11] MEDS: THIAMINE 100 MG TABLET. PO SCH (09:53)
[2017-04-11] MEDS: SERTRALINE 50 MG TABLET. PO SCH (09:53)
[2017-04-11] MEDS: TIMOLOL 0.5% OPHTH SOLUTION 5ML BOTTLE. OU SCH ×2 (09:55→19:49)
[2017-04-11 16:16] VITALS: BP 101/63
[2017-04-11] MEDS: PRAVASTATIN 20 MG TABLET. PO SCH (19:49)
[2017-04-11] MEDS ORDERED: ACET325T9 PO (22:21)
[2017-04-11] MEDS ORDERED: CHOL10003 PO (22:24)
[2017-04-11] MEDS ORDERED: MAG30ORA2 PO (22:29)
[2017-04-11] MEDS ORDERED: MAGN2400 PO (22:30)
[2017-04-11] MEDS ORDERED: METH29OI TP (22:31)
[2017-04-11] MEDS ORDERED: OLAN5TAB5 PO (22:31)
[2017-04-11] MEDS ORDERED: QUET25TA5 PO (22:32)
[2017-04-11] MEDS ORDERED: SERT50TA PO (22:33)
--- NOTE | 2017-04-12 05:12 | PN ---
DATE: 04/11/2017 SUBJECTIVE: The patient was seen today, met with the staff, chart reviewed. The patient apparently has not presented with any major behavior problems. He is withdrawn most of the time, confused, also has some blunting of affect. The patient did not exhibit any combative behaviors here, but the patient apparently has threatened his with a gun and a knife. Discussed with the staff, the patient is high risk to return home unless he has a 24-hour care. Staff will set up a meeting with the family to discuss the discharge plans, because is wanting him to come home. VITAL SIGNS: Temperature 97.5, blood pressure 102/66, pulse 58, respirations 20, O2 sat 92%. Slept about 7 hours last night. CURRENT MEDICATIONS: The patient's current medications include Zoloft 50 mg daily, Seroquel 25 mg t.i.d., olanzapine 2.5 mg q. 2 hours p.r.n., Aricept 10 mg daily, Klonopin 0.5 mg daily p.r.n. The patient is not having any side effects to the medications. ASSESSMENT: Vascular dementia with depression and behavior problems. PLAN: Continue with the treatment, start exploring discharge options. SNOW BRICEÑO MD DR: MARINE/regulo JOB#: [id number] / [id number]
[2017-04-12 05:59] VITALS: BP 127/78
--- NOTE | 2017-04-12 07:50 | PN ---
DATE: 04/10/2017 SUBJECTIVE: The patient was seen today, met with the staff, chart reviewed. The patient has still episodes of confusion and memory problems. Staff also reports some improvement with his behavior. The patient has a history of threats towards his , threatening her with the gun and also sexually inappropriate at times and also some paranoia. The patient is mostly noncommunicative, makes eye contact. His answers are mostly monosyllabic. The patient is not showing any increased agitation or anxiety today. OBSERVATION: VITAL SIGNS: Temperature 97.4, blood pressure 110/66, pulse 61, respirations 18, O2 sat 92%. Slept about 4 hours last night. The patient's current medications include Seroquel 25 mg t.i.d., Zoloft 50 mg at night, Aricept 10 mg daily, Klonopin 0.5 mg p.r.n. for agitation. The patient is also on Keppra 500 mg b.i.d. for seizures. The patient's lab reviewed, currently not having any physical problems. The patient walks with a walker. ASSESSMENT: Vascular dementia with depression and behavior problems. PLAN: To continue with the treatment, exploring discharge options most likely in 2 days' time and recommendation from the treatment team that the patient should be moved to a [facility], but his is insisting that he needs to go back home. The patient definitely needs 24-hour care. SNOW BRICEÑO MD DR: MAIRNE/regulo JOB#: [id number] / [id number]
[2017-04-12] MEDS: MULTIVITAMIN with MINERAL TABLET. PO SCH (08:27)
[2017-04-12] MEDS: QUEtiapine 25 MG TABLET. PO SCH ×2 (08:27→13:03)
[2017-04-12 08:28] VITALS: BP 127/78
[2017-04-12] MEDS: amLODIPine BESYLATE 10 MG TABLET PO SCH (08:28)
[2017-04-12] MEDS: SERTRALINE 50 MG TABLET. PO SCH (08:28)
[2017-04-12] MEDS: ALLOPURINOL 300 MG TABLET. PO SCH (08:28)
[2017-04-12] MEDS: LISINOPRIL 10 MG TABLET PO SCH (08:28)
[2017-04-12] MEDS: DONEPEZIL HCL 10 MG TABLET PO SCH (08:28)
[2017-04-12] MEDS: levETIRAcetam 500 MG TABLET PO SCH (08:28)
[2017-04-12] MEDS: THIAMINE 100 MG TABLET. PO SCH (08:28)
[2017-04-12] MEDS: TIMOLOL 0.5% OPHTH SOLUTION 5ML BOTTLE. OU SCH (08:29)
[2017-04-12] MEDS: CHOLECALCIFEROL (VITAMIN D3) 1,000 UNIT TABLET PO SCH (08:29)
[2017-04-12] MEDS: ASPIRIN 81 MG TAB.CHEW PO SCH (08:29)
--- NOTE | 2017-04-13 15:31 | DS ---
DATE OF DISCHARGE: 04/12/2017 FINAL DIAGNOSES: AXIS I: Dementia, vascular with depression and behavior problems. AXIS II: None. AXIS III: Hypertension, hyperlipidemia, type 2 diabetes, gout, seizure disorder, alcoholism, multi-infarct dementia as well as glaucoma. REASON FOR ADMISSION: This is an 82-year-old male was referred by Dr. Wang because of increasing problems with dementia, being psychotic and also he was hiding knives in a towel and brought them to the bedroom, and also a month ago, he threatened his with a gun and also sexually inappropriate, increased confusion. The patient exhibits unpredictable behaviors. HISTORY OF PRESENT ILLNESS: The patient has a history of dementia, vascular; apparently he had CVA and also TIAs in the past. His is a caregiver. Apparently, the patient is becoming more threatening towards his lately. The patient is also not sleeping well. Appetite decreased. The patient failed outpatient treatment. HOSPITAL COURSE: The patient had a physical exam, routine lab work, including CBC, chem profile, urinalysis, which were all within normal range. His blood glucose was evaluated. The patient's hemoglobin A1c was 6.5. The patient's triglycerides was high 287, cholesterol 131, LDL 47, HDL 27. The patient was involved in the program including individual therapy, group therapy and activity therapy. The patient was continued on his medications including Zoloft 50 mg daily, Seroquel 25 mg t.i.d. He was also on olanzapine 2.5 mg q. 2 hours p.r.n., was also on Pravachol 20 mg daily, lisinopril 10 mg daily, Keppra 500 mg b.i.d. for seizures. He was also on amlodipine 10 mg daily, aspirin 81 mg daily, allopurinol 300 mg daily, donepezil 10 mg daily, clonazepam 0.5 mg p.r.n. daily. The patient did improve with his behavior, but continues to have significant cognitive deficits. Recommendation was for the patient to be placed in a placement on a 24-hour care, or if he is at home, he needs to be cared for 24 hours a day, family chose to take him home and the patient is aware of the patient's behaviors. The patient was medically stable at the time of discharge. SNOW BRICEÑO MD DR: Gianfranco JOB#: [id number] / [id number]
== END 2017-04-12 13:10 | disposition home health service (06) | DRG 56 ==
LOC: ER 16:40 → GEROPSY 19:31
PROVIDERS: ADMIT Psychiatry & Neurology Psychiatry; ATTEND Psychiatry & Neurology Psychiatry
DX: G30.9 Alzheimer's disease, unspecified (principal); G93.40 Encephalopathy, unspecified; F01.51 Vascular dementia, unspecified severity, with behavioral disturbance; E11.9 Type 2 diabetes mellitus without complications; R47.01 Aphasia; F02.81 Dementia in other diseases classified elsewhere, unspecified severity, with behavioral disturbance; G40.909 Epilepsy, unspecified, not intractable, without status epilepticus; E55.9 Vitamin D deficiency, unspecified; E78.5 Hyperlipidemia, unspecified; F10.20 Alcohol dependence, uncomplicated; F32.9 Major depressive disorder, single episode, unspecified; F41.9 Anxiety disorder, unspecified; F63.9 Impulse disorder, unspecified; M10.9 Gout, unspecified; H40.9 Unspecified glaucoma; I10 Essential (primary) hypertension; Z79.82 Long term (current) use of aspirin; Z79.899 Other long term (current) drug therapy; Z86.73 Personal history of transient ischemic attack (TIA), and cerebral infarction without residual deficits
CPT/HCPCS: 36415; 80053; 80061; 81001; 82306; 82607; 82947; 83036; 83540; 83550; 83735; 84436; 84443; 84480; 85025; 86592; 86593; 93005; J1815; 97110; 97116; 97530; 97535; 99285-25

== ENCOUNTER 2018-04-25 14:27 | Inpatient (IN) | payer MEDICARE, OTHER ==
[~2018-04-25 14:27] MED LIST changes: +ACET325T9 PO; -AMLO10TA2 PO; +AMLO10TA6 PO; -ASPI81TA44 PO; +ASPI81TA59 PO; +CHOL10003 PO; +CLON0.5T11 PO; -CLON0.5T3 PO; +MAG30ORA2 PO; +MAGN2400 PO; +METH29OI TP; +OLAN5TAB5 PO; +QUET25TA5 PO; +SERT50TA PO; -THIA100T4 PO; +THIA100T57 PO; +THIA250T4 PO; +TIMO10DR5 OU
--- NOTE | 2018-04-25 15:00 | PHYS DOC ---
Past History Past Medical History: Dementia, Diabetes, Hypertension, Seizure, Other Past Surgical History: Other Alcohol Use: Sober Drug Use: None Adult General Chief Complaint Chief Complaint: MULTIPLE COMPLAINTS [facility] HPI 83-year-old male presents from his PCPs office with concern for new stroke. The patient had significantly increased slurred speech 2 days ago. It has improved according to the patient and his , but his PCP feels like the speech is worse than it was when he had his last appointment 3 months ago. The patient has also had a cough for several days. Patient reports he may have coughed up a small amount of blood one time yesterday. Patient has also been getting more winded with exertion. He denies chest pain or diaphoresis. The patient does not feel like the symptoms are new or worse, but his believes that they are. Patient has not had a fever or chills at home. He has no previous pulmonary problems such as COPD. He does not take any breathing treatments or use oxygen. He has had a previous CVA with residual slurred speech. Review of Systems Review of Systems Constitutional: Denies fever or chills [] Eyes: Denies change in visual acuity, redness, or eye pain [] HENT: Denies nasal congestion or sore throat [] Respiratory: Cough with shortness of breath [] Cardiovascular: No additional information not addressed in HPI [] GI: Denies abdominal pain, nausea, vomiting, bloody stools or diarrhea [] : Denies dysuria or hematuria [] Musculoskeletal: Denies back pain or joint pain [] Integument: Denies rash or skin lesions [] Neurologic: Slurred speech that is worse.[] Endocrine: Denies polyuria or polydipsia [] All other systems were reviewed and found to be within normal limits, except as documented in this note. Allergies Allergies Allergies Coded Allergies Type Severity Reaction Last Updated Verified No Known Drug Allergies 03/28/17 No Physical Exam Physical Exam Constitutional: Well developed, well nourished, no acute distress, non-toxic appearance. [] HENT: Normocephalic, atraumatic, bilateral external ears normal, oropharynx moist, no oral exudates, nose normal. [] Eyes: PERRLA, EOMI, conjunctiva normal, no discharge. [] Neck: Normal range of motion, no tenderness, supple, no stridor. [] Cardiovascular:Heart rate regular rhythm, no murmur [] Lungs & Thorax: Bilateral breath sounds clear to auscultation [] Abdomen: Bowel sounds normal, soft, no tenderness, no masses, no pulsatile masses. [] Skin: Warm, dry, no erythema, no rash. [] Back: No tenderness, no CVA tenderness. [] Extremities: No tenderness, no cyanosis, no clubbing, ROM intact, no edema. [] Neurologic: Alert and oriented X 3. Patient has some slurred speech but his communication is intelligible and logical. He is moving all extremities. [] Psychologic: Affect normal, judgement normal, mood normal. [] EKG EKG Sinus rhythm, rate 80, normal axis, no ST elevation or depressions, right bundle frank block[] Radiology/Procedures Radiology/Procedures [] Impressions: CT of the head without contrast, 04/25/2018: HISTORY: Worsening slurred speech There is severe cerebral atrophy and mild cerebellar atrophy. There are moderate patchy lucencies in the deep white matter bilaterally compatible with small vessel chronic ischemic change. The ventricles are moderately enlarged on a compensatory basis. There is no shift of the midline structures. There is no evidence of acute intracranial hemorrhage or mass effect. IMPRESSION: 1. Severe cerebral atrophy. 2. Moderate chronic ischemic change in the deep white matter bilaterally. 3. No acute intracranial abnormality is detected. PQRS Compliance Statement: One or more of the following individualized dose reduction techniques were utilized for this examination: 1. Automated exposure control 2. Adjustment of the mA and/or kV according to patient size 3. Use of iterative reconstruction technique Electronically signed by: Augie Aburto MD (04/25/2018 3:19 PM) [facility] DICTATED AND SIGNED BY: AUGIE ABURTO MD DATE: 04/25/18 1516 CC: SAUL WANG MD; RICHARD STROUD DO Chest, 2 views, 04/25/2018: HISTORY: Cough The heart size is normal. There is mild tortuosity of the thoracic aorta. The pulmonary vascularity is normal. Linear atelectasis or scarring is present in the left midlung and left base. A double density along the dome of the right hemidiaphragm is probably due to a prominent epicardial fat pad and/or scarring. No consolidating infiltrate is seen. There is no evidence of pleural fluid. Moderate spurring is present in the spine. IMPRESSION: Mild linear atelectasis and/or scarring on the left. Electronically signed by: Augie Aburto MD (04/25/2018 3:14 PM) [facility] DICTATED AND SIGNED BY: AUGIE ABURTO MD DATE: 04/25/18 1512 CC: SAUL WANG MD; RICHARD STROUD DO Course & Med Decision Making Course & Med Decision Making Pertinent Labs and Imaging studies reviewed. (See chart for details) The patient's labs are unremarkable. His chest x-rays negative for pneumonia. His head CT is negative for acute findings. His urinalysis is negative for infection. There is blood in the urine. I discussed the patient with his PCP Dr. Wang as well as Dr. Mayer. Dr. Wang is concern the patient will not be able to take care of himself at home. He would also like neurology to weigh in on the patient's change in condition. Dr. Staton has accepted the patient for admission to the hospital. [] Dragon Disclaimer Dragon Disclaimer This electronic medical record was generated, in whole or in part, using a voice recognition dictation system. Departure Departure: Referrals: SAUL WANG MD (PCP) RICHARD STROUD DO Apr 25, 2018 15:00
[2018-04-25 15:14] LABS: BASO # 0.1 x10^3/uL (0.0-0.2); BASO % 1 % (0-3); EOS # 0.3 x10^3/uL (0.0-0.7); EOS % 5 % (0-3); HEMATOCRIT 37.9 % (39.0-53.0); HEMOGLOBIN 12.8 g/dL (13.0-17.5); LYMPH # 2.2 x10^3/uL (1.0-4.8); LYMPH % 39 % (24-48); MEAN CORPUSCULAR HEMOGLOBIN 32 pg (25-35); MEAN CORPUSCULAR HGB CONC 34 g/dL (31-37); MEAN CORPUSCULAR VOLUME 94 fL (79-100); MONO # 0.6 x10^3/uL (0.0-1.1); MONO % 11 % (0-9); NEUT # 2.6 x10^3uL (1.8-7.7); NEUT % 45 % (31-73); PLATELET COUNT 179 x10^3/uL (140-400); RED BLOOD COUNT 4.01 x10^6/uL (4.30-5.70); RED CELL DISTRIBUTION WIDTH 14.1 % (11.5-14.5); WHITE BLOOD COUNT 5.7 x10^3/uL (4.0-11.0)
--- NOTE | 2018-04-25 15:17 | RAD ---
Chest, 2 views, 04/25/2018: HISTORY: Cough The heart size is normal. There is mild tortuosity of the thoracic aorta. The pulmonary vascularity is normal. Linear atelectasis or scarring is present in the left midlung and left base. A double density along the dome of the right hemidiaphragm is probably due to a prominent epicardial fat pad and/or scarring. No consolidating infiltrate is seen. There is no evidence of pleural fluid. Moderate spurring is present in the spine. IMPRESSION: Mild linear atelectasis and/or scarring on the left. Electronically signed by: Augie Aburto MD (04/25/2018 3:14 PM) [facility]
--- NOTE | 2018-04-25 15:22 | RAD ---
CT of the head without contrast, 04/25/2018: HISTORY: Worsening slurred speech There is severe cerebral atrophy and mild cerebellar atrophy. There are moderate patchy lucencies in the deep white matter bilaterally compatible with small vessel chronic ischemic change. The ventricles are moderately enlarged on a compensatory basis. There is no shift of the midline structures. There is no evidence of acute intracranial hemorrhage or mass effect. IMPRESSION: 1. Severe cerebral atrophy. 2. Moderate chronic ischemic change in the deep white matter bilaterally. 3. No acute intracranial abnormality is detected. PQRS Compliance Statement: One or more of the following individualized dose reduction techniques were utilized for this examination: 1. Automated exposure control 2. Adjustment of the mA and/or kV according to patient size 3. Use of iterative reconstruction technique Electronically signed by: Augie Aburto MD (04/25/2018 3:19 PM) [facility]
[2018-04-25 15:27] LABS: ALBUMIN 3.7 g/dL (3.4-5.0); CALCIUM 8.5 mg/dL (8.5-10.1); CREATININE 1.2 mg/dL (0.7-1.3); GFR 57.7; POTASSIUM 4.1 mmol/L (3.5-5.1); TOTAL BILIRUBIN 0.4 mg/dL (0.2-1.0); TOTAL PROTEIN 7.3 g/dL (6.4-8.2)
[2018-04-25] MEDS ORDERED: IV NORMAL SALINE 500ML 500 ML IV ONE (15:45)
[2018-04-25 15:58] LABS: BILIRUBIN,URINE NEG (NEG); CLARITY,URINE HAZY; COLOR,URINE YELLOW; GLUCOSE,URINE 100 mg/dL (NEG)
[2018-04-25 15:59] LABS: BACTERIA,URINE 0 /HPF (0-FEW); NITRITE,URINE NEG (NEG); RBC,URINE >40 /HPF (0-2); SQUAMOUS EPITHELIAL CELL,UR OCC /LPF; UROBILINOGEN,URINE 0.2 mg/dL (0.2 mg/dL); WBC,URINE RARE /HPF (0-4)
--- NOTE | 2018-04-25 16:34 | EKG ---
[address] [address] Test Date: 2018-04-25 Test Time: 14:59:00 Pat Name: RANDI CRISTINA Department: Room: Gender: M Magnetic Resonance Imaging Coordinator: : 1935 Requested By: RICHARD STROUD Order Number: [id number] Reading MD: Otoniel Lin MD Measurements Intervals [place] Rate: 80 P: -19 MD: 138 QRS: 36 QRSD: 114 T: 12 QT: 406 QTc: 472 Interpretive Statements SINUS RHYTHM RBBB NON-SPECIFIC ST/T CHANGES Electronically Signed On 04-29-2018 11:14:22 [employer]ARGEMASTER ANALYST by Otoniel Lin MD
[2018-04-25 18:01] VITALS: BP 123/76
--- NOTE | 2018-04-25 18:36 | NUR ---
NURSING NOTE ADMIT PT ADMIT FROM ED TO ROOM 125 VIA EMS ACCOMPANIED BY DAUGHTER AT 1742. PT HAS DEMENTIA AND IS CONFUSED AND NOT ABLE TO ANSWER MY QUESTIONS AND STATES "ASK SOMEONE ELSE, I DONT KNOW". PT DAUGHTER STATES HE WAS HAVING SOME SLURRED SPEECH AND SHORTNESS OF BREATH AND THEY WERE WORRIED BECAUSE PT HAS HISTORY OF STROKE SO THEY CAME TO ED. PT IS A&O TO SELF, UNABLE TO TELL ME HIS BIRTHDAY. PT SETTLED IN ROOM, NO COMPLICATIONS. DENILSON HOLM
[2018-04-25] MEDS ORDERED: clonazePAM 0.5 MG TABLET PO PRN (21:45)
[2018-04-25] MEDS ORDERED: MAG HYDROX/AL HYDROX/SIMETH 30 ML ORAL.SUSP PO PRN (21:45)
[2018-04-25] MEDS ORDERED: ACETAMINOPHEN 325 MG TABLET PO PRN (21:45)
[2018-04-25] MEDS ORDERED: METHYL SALICYLATE/MENTHOL TOPICAL OINTMENT 29GM TUBE. TP PRN (21:45)
[2018-04-25] MEDS ORDERED: MAGNESIUM HYDROXIDE 2,400 MG/30 ML ORAL.SUSP. PO PRN (22:00)
[2018-04-25] MEDS: TIMOLOL 0.5% OPHTH SOLUTION 5ML BOTTLE. OU SCH (22:00)
[2018-04-25] MEDS: levETIRAcetam 500 MG TABLET PO SCH (22:19)
[2018-04-25] MEDS: QUEtiapine 25 MG TABLET. PO SCH (22:19)
[2018-04-25 22:26] VITALS: BP 114/73
[2018-04-26 06:04] VITALS: BP 114/73
[2018-04-26 06:29] LABS: BASO # 0.1 x10^3/uL (0.0-0.2); BASO % 1 % (0-3); EOS # 0.3 x10^3/uL (0.0-0.7); EOS % 5 % (0-3); HEMATOCRIT 35.7 % (39.0-53.0); HEMOGLOBIN 12.3 g/dL (13.0-17.5); LYMPH % 34 % (24-48); MEAN CORPUSCULAR HEMOGLOBIN 33 pg (25-35); MEAN CORPUSCULAR HGB CONC 35 g/dL (31-37); MEAN CORPUSCULAR VOLUME 95 fL (79-100); MONO # 0.6 x10^3/uL (0.0-1.1); MONO % 10 % (0-9); NEUT # 2.9 x10^3uL (1.8-7.7); NEUT % 50 % (31-73); PLATELET COUNT 186 x10^3/uL (140-400); RED BLOOD COUNT 3.78 x10^6/uL (4.30-5.70); RED CELL DISTRIBUTION WIDTH 14.1 % (11.5-14.5); WHITE BLOOD COUNT 5.8 x10^3/uL (4.0-11.0)
[2018-04-26 06:36] LABS: ALBUMIN 3.5 g/dL (3.4-5.0); CALCIUM 8.4 mg/dL (8.5-10.1); CREATININE 1.2 mg/dL (0.7-1.3); GFR 57.7; TOTAL BILIRUBIN 0.6 mg/dL (0.2-1.0)
[2018-04-26] MEDS: QUEtiapine 25 MG TABLET. PO SCH ×2 (08:09→22:07)
[2018-04-26] MEDS: LISINOPRIL 10 MG TABLET PO SCH (08:09)
[2018-04-26] MEDS: PRAVASTATIN 20 MG TABLET. PO SCH (08:09)
[2018-04-26] MEDS: CHOLECALCIFEROL (VITAMIN D3) 1,000 UNIT TABLET PO SCH (08:09)
[2018-04-26] MEDS: levETIRAcetam 500 MG TABLET PO SCH ×2 (08:09→22:08)
[2018-04-26] MEDS: DONEPEZIL HCL 10 MG TABLET PO SCH (08:09)
[2018-04-26] MEDS: THIAMINE 100 MG TABLET. PO SCH (08:09)
[2018-04-26] MEDS: amLODIPine BESYLATE 10 MG TABLET PO SCH (08:10)
[2018-04-26] MEDS: ASPIRIN 81 MG TAB.CHEW PO SCH (08:10)
[2018-04-26] MEDS: TIMOLOL 0.5% OPHTH SOLUTION 5ML BOTTLE. OU SCH ×2 (08:10→22:08)
[2018-04-26] MEDS: SERTRALINE 50 MG TABLET. PO SCH (08:10)
[2018-04-26] MEDS: MULTIVITAMIN with MINERAL TABLET. PO SCH (08:10)
[2018-04-26] MEDS: ALLOPURINOL 300 MG TABLET. PO SCH (08:10)
--- NOTE | 2018-04-26 09:50 | PDOC2 ---
CONSULT Date of Admission DATE: 04/26/18 TIME: 09:47 Problem List Problems Medical Problems: (1) Altered mental status Status: Acute History of Present Illness MR Garces is an 83-year-old male who presented from his PCPs office with concern for new stroke. He has a history of a hemorrhagic stroke in 2009 and has apparently been experiencing some increased slurring of speech from his baseline. The patient has also apparently had a cough and increased dyspnea on exertion from baseline for several days. He is a very poor historian due to baseline dementia but his is at bedside to provide history. He has had no chest pain or palpitations nor congestive symptoms. He has been having more issues with coughing when eating. No fever or chills or recent illness. No lung disease. Cardiovascular: HTN, hyperipidemia CENTRAL NERVOUS SYSTEM: CVA, Dementia, Seizure Psych: Depression Musculoskeletal: Osteoarthritis ENT: Other (cataracts) Renal/: Urinary Incontinence Endocrine: Diabetes Past Surgical History: Total knee replacement Family History: Coronary Artery Disease Social History prior heavy drinker, currently no ETOH, no drugs, non smoker Current Medications Current Medications Sodium Chloride 500 ml @ 0 mls/hr 1X ONCE IV Last administered on 04/25/18at 16 :10; Start 04/25/18 at 15:45; Stop 04/25/18 at 15:46; Status DC Acetaminophen (Tylenol) 650 mg PRN Q6HRS PRN PO PAIN / TEMP; Start 04/25/18 at 21:45 Vitamin D (Vitamin D3) 2,000 unit DAILY PO Last administered on 04/26/18at 08:09 ; Start 04/26/18 at 09:00 Clonazepam (KlonoPIN) 0.5 mg PRN DAILY PRN PO ANXIETY / AGITATION; Start at 21:45 Lisinopril (Prinivil) 10 mg DAILY PO Last administered on 04/26/18at 08:09; Start 04/26/18 at 09:00 Al Hydroxide/Mg Hydroxide (Mylanta Plus Xs) 15 ml PRN AFTMEALHC PRN PO DYSPEPSIA; Start 04/25/18 at 21:45 Multi-Ingredient Ointment (Analgesic [place]) 1 felisha PRN QID PRN TP MUSCLE PAIN; Start 04/25/18 at 21:45 Olanzapine (ZyPREXA ZYDIS) 2.5 mg PRN Q2HR PRN PO PSYCHOSIS; Start 04/25/18 at 21:45 Pravastatin Sodium (Pravachol) 20 mg DAILY PO Last administered on 04/26/18at 08 :09; Start 04/26/18 at 09:00 Sertraline HCl (Zoloft) 50 mg DAILY PO Last administered on 04/26/18at 08:10; Start 04/26/18 at 09:00 Allopurinol (Zyloprim) 300 mg DAILY PO Last administered on 04/26/18at 08:10; Start 04/26/18 at 09:00 Amlodipine Besylate (Norvasc) 10 mg DAILY PO Last administered on 04/26/18at 08: 10; Start 04/26/18 at 09:00 Aspirin (Children'S Aspirin) 81 mg DAILYWBKFT PO Last administered on at 08:10; Start 04/26/18 at 08:00 Donepezil HCl (Aricept) 10 mg DAILY PO Last administered on 04/26/18at 08:09; Start 04/26/18 at 09:00 Levetiracetam (Keppra) 500 mg BID PO Last administered on 04/26/18at 08:09; Start 04/25/18 at 22:00 Magnesium Hydroxide (Milk Of Magnesia) 2,400 mg PRN QHS PRN PO CONSTIPATION; Start 04/25/18 at 22:00 Multivitamins/ Calcium (Thera-M Plus) 1 tab DAILY PO Last administered on at 08:10; Start 04/26/18 at 09:00 Quetiapine Fumarate (SEROquel) 25 mg BID PO Last administered on 04/26/18at 08: 09; Start 04/25/18 at 22:00 Thiamine HCl (Vitamin B-1) 100 mg DAILY PO Last administered on 04/26/18at 08:09 ; Start 04/26/18 at 09:00 Timolol Maleate (Timoptic 0.5% [facility]) 1 drop BID OU Last administered on at 08:10; Start 04/25/18 at 22:00 Active Scripts Active Reported Zoloft (Sertraline Hcl) 50 Mg Tablet 50 Mg PO DAILY Seroquel (Quetiapine Fumarate) 25 Mg Tablet 25 Mg PO BID Zyprexa Zydis (Olanzapine) 5 Mg Tab.rapdis 2.5 Mg PO PRN Q2HR PRN Analgesic [place] (Methyl Salicylate/Menthol) 28 Gm Oint...g. 1 Felisha TP PRN QID PRN Milk Of Magnesia (Magnesium Hydroxide) 2,400 Mg/10 Ml Oral.susp 2,400 Mg PO PRN QHS PRN Mag-Al Plus Xs Suspension (Mag Hydrox/Al Hydrox/Simeth) 30 Ml Oral.susp 15 Ml PO PRN AFTMEALHC PRN Vitamin D3 (Cholecalciferol (Vitamin D3)) 1,000 Unit Tablet 2,000 Unit PO DAILY Tylenol (Acetaminophen) 325 Mg Tablet 650 Mg PO PRN Q6HRS PRN Timoptic (Timolol Maleate) 10 Ml Drops 1 Drop OU BID Clonazepam 0.5 Mg Tablet 0.5 Mg PO PRN DAILY PRN Vitamin B-1 (Thiamine Hcl) 250 Mg Tablet 125 Mg PO DAILY Multi-Day Vitamins (Multivitamin) 1 Each Tablet 1 Tab PO DAILY LAST DOSE GIVEN: DATE: TODAY TIME: AM NEXT DOSE DUE: DATE: TOMORROW TIME: AM Pravastatin Sodium 20 Mg Tablet 20 Mg PO DAILY LAST DOSE GIVEN: DATE: TODAY TIME: AM NEXT DOSE DUE: DATE: TOMORROW TIME: AM Lisinopril 10 Mg Tablet 10 Mg PO DAILY LAST DOSE GIVEN: DATE: TODAY TIME: AM NEXT DOSE DUE: DATE: TOMORROW TIME: AM Levetiracetam 500 Mg Tablet 500 Mg PO BID LAST DOSE GIVEN: DATE: TODAY TIME: AM NEXT DOSE DUE: DATE: TODAY TIME: PM Donepezil Hcl 10 Mg Tablet 10 Mg PO DAILY LAST DOSE GIVEN: DATE: TODAY TIME: AM NEXT DOSE DUE: DATE: TOMORROW TIME: AM Amlodipine Besylate 10 Mg Tablet 10 Mg PO DAILY LAST DOSE GIVEN: DATE: TODAY TIME: AM NEXT DOSE DUE: DATE: ORROW TIME: AM Allopurinol 300 Mg Tablet 300 Mg PO DAILY LAST DOSE GIVEN: DATE: TODAY TIME: AM NEXT DOSE DUE: DATE: TOMORROW TIME: AM Children's Aspirin (Aspirin) 81 Mg Tab.chew 81 Mg PO DAILY LAST DOSE GIVEN: DATE: TODAY TIME: AM NEXT DOSE DUE: DATE: TOMORROW TIME: AM Allergies: Coded Allergies: No Known Drug Allergies (Unverified , 03/28/17) Review of System as per HPI or negative General: Alert, Cooperative, No acute distress HEENT: Atraumatic, Mucous membr. moist/pink Lungs: Other (poor inspiratory effort, no obvious crackles, rhonchi or wheezing ) Heart: Normal S1, Normal S2, Other (no gallops) Abdomen: Normal bowel sounds, Soft, No tenderness Extremities: No cyanosis, Normal pulses, Other (trace edema) Neuro: Other (slurred speech) Psych/Mental Status: Mood NL VITALS Vital Signs Date Time Temp Pulse Resp B/P (MAP) Pulse Ox O2 Delivery O2 Flow Rate FiO2 04/26/18 08:10 67 114/73 04/26/18 08:00 Room Air 04/26/18 06:04 97.5 20 94 Labs Laboratory Tests Test 04/25/18 14:54 04/25/18 15:40 04/26/18 06:07 White Blood Count 5.7 x10^3/uL (4.0-11.0) 5.8 x10^3/uL (4.0-11.0) Red Blood Count 4.01 x10^6/uL (4.30-5.70) 3.78 x10^6/uL (4.30-5.70) Hemoglobin 12.8 g/dL (13.0-17.5) 12.3 g/dL (13.0-17.5) Hematocrit 37.9 % (39.0-53.0) 35.7 % (39.0-53.0) Mean Corpuscular Volume 94 fL (79-100) 95 fL (79-100) Mean Corpuscular Hemoglobin 32 pg (25-35) 33 pg (25-35) Mean Corpuscular Hemoglobin Concent 34 g/dL (31-37) 35 g/dL (31-37) Red Cell Distribution Width 14.1 % (11.5-14.5) 14.1 % (11.5-14.5) Platelet Count 179 x10^3/uL (140-400) 186 x10^3/uL (140-400) Neutrophils (%) (Auto) 45 % (31-73) 50 % (31-73) Lymphocytes (%) (Auto) 39 % (24-48) 34 % (24-48) Monocytes (%) (Auto) 11 % (0-9) 10 % (0-9) Eosinophils (%) (Auto) 5 % (0-3) 5 % (0-3) Basophils (%) (Auto) 1 % (0-3) 1 % (0-3) Neutrophils # (Auto) 2.6 x10^3uL (1.8-7.7) 2.9 x10^3uL (1.8-7.7) Lymphocytes # (Auto) 2.2 x10^3/uL (1.0-4.8) 2.0 x10^3/uL (1.0-4.8) Monocytes # (Auto) 0.6 x10^3/uL (0.0-1.1) 0.6 x10^3/uL (0.0-1.1) Eosinophils # (Auto) 0.3 x10^3/uL (0.0-0.7) 0.3 x10^3/uL (0.0-0.7) Basophils # (Auto) 0.1 x10^3/uL (0.0-0.2) 0.1 x10^3/uL (0.0-0.2) Sodium Level 138 mmol/L (136-145) 138 mmol/L (136-145) Potassium Level 4.1 mmol/L (3.5-5.1) 4.0 mmol/L (3.5-5.1) Chloride Level 102 mmol/L (98-107) 103 mmol/L (98-107) Carbon Dioxide Level 27 mmol/L (21-32) 27 mmol/L (21-32) Anion Gap 9 (6-14) 8 (6-14) Blood Urea Nitrogen 17 mg/dL (8-26) 15 mg/dL (8-26) Creatinine 1.2 mg/dL (0.7-1.3) 1.2 mg/dL (0.7-1.3) Estimated GFR (Cockcroft-Gault) 57.7 57.7 BUN/Creatinine Ratio 14 (6-20) 13 (6-20) Glucose Level 170 mg/dL (70-99) 129 mg/dL (70-99) Calcium Level 8.5 mg/dL (8.5-10.1) 8.4 mg/dL (8.5-10.1) Total Bilirubin 0.4 mg/dL (0.2-1.0) 0.6 mg/dL (0.2-1.0) Aspartate Amino Transf (AST/SGOT) 24 U/L (15-37) 24 U/L (15-37) Alanine Aminotransferase (ALT/SGPT) 32 U/L (16-63) 34 U/L (16-63) Alkaline Phosphatase 49 U/L (46-116) 42 U/L (46-116) Troponin I Quantitative 0.019 ng/mL (0-0.055) Total Protein 7.3 g/dL (6.4-8.2) 7.0 g/dL (6.4-8.2) Albumin 3.7 g/dL (3.4-5.0) 3.5 g/dL (3.4-5.0) Albumin/Globulin Ratio 1.0 (1.0-1.7) 1.0 (1.0-1.7) Urine Collection Type Unknown Urine Color Yellow Urine Clarity Hazy Urine pH 5.5 Urine Specific [place] 1.015 Urine Protein Neg (NEG-TRACE) Urine Glucose (UA) 100 mg/dL (NEG) Urine Ketones (Stick) Neg mg/dL (NEG) Urine Blood Large (NEG) Urine Nitrite Neg (NEG) Urine Bilirubin Neg (NEG) Urine Urobilinogen Dipstick 0.2 mg/dL (0.2 mg/dL) Urine Leukocyte Esterase Neg (NEG) Urine RBC >40 /HPF (0-2) Urine WBC Rare /HPF (0-4) Urine Squamous Epithelial Cells Occ /LPF Urine Bacteria 0 /HPF (0-FEW) Urine Mucus Slight /LPF Images EKG - sinus rhythm, incomplete RBBB, diffuse nonspecific st/t changes. No significant change from prior ekg. CT head - IMPRESSION: 1. Severe cerebral atrophy. 2. Moderate chronic ischemic change in the deep white matter bilaterally. 3. No acute intracranial abnormality is detected. CXR - IMPRESSION: Mild linear atelectasis and/or scarring on the left. Assessment/Plan 1. CVA - neuro consulted. suggest event monitoring to rule out any atrial fibrillation. Tele while in hospital. 2. abn EKG - no acute ischemic changes. no significant change from last EKG. will check echo for LV function, structure and bubble study to eval for ASD 3. hypertension - controlled on current meds 4. hyperlipidemia - check lipids, continue statin BRANDON,YOLANDA J MOLDING ASSOCIATE Apr 26, 2018 09:50
--- NOTE | 2018-04-26 10:04 | NUR ---
NURSING NOTE CONSULT SWALLOW STUDY PT IN ORDERS FOR SWALLOW STUDY, PT IS COUGHING WHEN EATING AND THE FAMILY IS WORRIED, STATES ITS BEEN GOING ON FOR A LITTLE WHILE BUT OCCURRING MORE OFTEN NOW. SYLVIE FROM [facility] CALLED AND STATES WE HAVE TO DO AN RN BEDSIDE SWALLOW TEST FIRST, SHE CANNOT MAKE IT OUT TODAY AND WILL BE TOMORROW BEFORE SHE CAN SEE HIM. DENILSON HOLM.
[2018-04-26 11:33] VITALS: BP 120/66
--- NOTE | 2018-04-26 11:39 | PN ---
DATE: 04/26/2018 SUBJECTIVE: The patient denies any new medical or neurological complaints. He has not had any seizure. The patient's stated that her has been choking on food this morning. She stated his speech has been back to normal baseline. Otherwise, he denies any new medical or neurological complaints. OBJECTIVE: GENERAL: A well-developed, well-nourished male in no acute distress. VITAL SIGNS: Blood pressure , respiratory rate 20, pulse is 67, temperature is 97.5, oxygen saturation is 94% on room air. HEENT: Normocephalic, atraumatic, otherwise unremarkable. NECK: Supple. Negative for carotid bruit, no lymphadenopathy or thyromegaly. LUNGS: Clear to A and P. CARDIOVASCULAR: Regular rate and rhythm, normal S1, S2. There is no S3, S4, or murmur. ABDOMEN: Soft. Bowel sounds positive. EXTREMITIES: Negative for cyanosis, clubbing, edema. NEUROLOGIC EXAMINATION: Mental status: The patient is alert and oriented to himself. Memory, judgements, and abstract thinking are poor. The patient denies hallucination. No delusion. Cranial nerves are intact. Motor examination revealed mild weakness of the left lower extremities with strength at 4/5 throughout. Sensory examination revealed normal pinprick, light touch, vibratory and position sense. Deep tendon reflexes are symmetric and hypoactive with absent Achilles responses. Gait not tested. IMPRESSION: 1. History of intermittent slurred speech, rule out transient ischemic attack. 2. Multiple medical problems include seizure disorder, dementia, diabetes mellitus, hypertension, history of stroke with residual of left lower extremity weakness. RECOMMENDATIONS: 1. Carotid Doppler study. 2. Swallowing function evaluation at bedside. 3. Physical therapy evaluation. 4. Continue with current management initiated by Dr. Mayer. JOHN FIGUEROA MD DR: SONYA/regulo JOB#: [id number] / [id number]
[2018-04-26 12:51] LABS: THYROID STIM HORMONE (TSH) 2.037 uIU/mL (0.358-3.740)
--- NOTE | 2018-04-26 14:45 | PDOC1 ---
History and Physical Chief Complaint: Chief Complain: Slurred speech Source: Source: Caregiver, Chart review, Patient (very poor historian) HPI: HPI: 83-year-old male presented to the emergency department from his primary care physician's office with concerns for new CVA. Patient has history of CVA with some residual slurred speech. According to records the patient had slurred speech much worse than baseline 2 days prior to the ED presentation which had since improved according to the patient and his spouse. At his primary care physician's office visit the patient's speech was noted to be worse than the last evaluation 3 months prior. There was also a history of a cough for the past few days at 1. may have had some blood-tinged sputum. He has not had recurrence of hemoptysis or hematemesis or coffee grounds emesis. Patient has also had worsening dyspnea with exertion although did deny chest pain or associated symptoms. No reported fever or chills at home no prior pulmonary history patient does not use nebulizer treatments MDI or supplemental O2. The patient was extensively evaluated in the emergency department, CT of the head without contrast revealed severe cerebral atrophy with moderate chronic ischemic changes in the deep white matter bilaterally otherwise no acute intracranial abnormality. 2 view chest unremarkable revealing mild linear atelectasis and/or scarring on the left. Laboratory evaluation was overall unremarkable aside from some hematuria. The emergency department physician did discuss the patient and these findings with the patient's PCP who is concerned that the patient may not be able to care for himself at home. He requested the patient be admitted and neurology consulted. I find the patient lying in bed in his hospital room in the process of removing his telemetry leads. The RN following the assists in reapplying them and encouraging him to leave them in place. The patient is very confused and is unable to offer any history. He denies any pain complaints denies chest pain or trouble breathing and he and his RN are unaware when family members may return and be able to offer more history. Past Medical History: Cardiovascular: HTN, hyperipidemia [employer]IP[employer] GUN: Dementia, Seizure Psych: Addictions (alcoholism) Rheumatologic: Gout ENT: Other (glaucoma) Endocrine: Diabetes Family History: Family History: Coronary Artery Disease Social History: Smoke: No Alcohol: heavy (in the past sober now) Drugs: None Allergies: Allergies: Coded Allergies: No Known Drug Allergies (Unverified , 03/28/17) Current Medications: Current Medications: Current Medications Medications (Trade) Dose Ordered Sig/Criss Start Time Stop Time Status Last Admin Dose Admin Acetaminophen (Tylenol) 650 mg PRN Q6HRS PRN 04/25/18 21:45 Al Hydroxide/Mg Hydroxide (Mylanta Plus Xs) 15 ml PRN AFTMEALHC PRN 04/25/18 21:45 Allopurinol (Zyloprim) 300 mg DAILY 04/26/18 09:00 04/26/18 08:10 300 MG Amlodipine Besylate (Norvasc) 10 mg DAILY 04/26/18 09:00 04/26/18 08:10 10 MG Aspirin (Children'S Aspirin) 81 mg DAILYWBKFT 04/26/18 08:00 04/26/18 08:10 81 MG Clonazepam (KlonoPIN) 0.5 mg PRN DAILY PRN 04/25/18 21:45 Donepezil HCl (Aricept) 10 mg DAILY 04/26/18 09:00 04/26/18 08:09 10 MG Levetiracetam (Keppra) 500 mg BID 04/25/18 22:00 04/26/18 08:09 500 MG Lisinopril (Prinivil) 10 mg DAILY 04/26/18 09:00 04/26/18 08:09 10 MG Magnesium Hydroxide (Milk Of Magnesia) 2,400 mg PRN QHS PRN 04/25/18 22:00 Multi-Ingredient Ointment (Analgesic [place]) 1 laurie PRN QID PRN 04/25/18 21:45 Multivitamins/ Calcium (Thera-M Plus) 1 tab DAILY 04/26/18 09:00 04/26/18 08:10 1 TAB Olanzapine (ZyPREXA ZYDIS) 2.5 mg PRN Q2HR PRN 04/25/18 21:45 Pravastatin Sodium (Pravachol) 20 mg DAILY 04/26/18 09:00 04/26/18 08:09 20 MG Quetiapine Fumarate (SEROquel) 25 mg BID 04/25/18 22:00 04/26/18 08:09 25 MG Sertraline HCl (Zoloft) 50 mg DAILY 04/26/18 09:00 04/26/18 08:10 50 MG Sodium Chloride 500 ml @ 0 mls/hr 1X ONCE 04/25/18 15:45 04/25/18 15:46 DC 04/25/18 16:10 500 MLS/HR Thiamine HCl (Vitamin B-1) 100 mg DAILY 04/26/18 09:00 04/26/18 08:09 100 MG Timolol Maleate (Timoptic 0.5% Ophth) 1 drop BID 04/25/18 22:00 04/26/18 08:10 1 DROP Vitamin D (Vitamin D3) 2,000 unit DAILY 04/26/18 09:00 04/26/18 08:09 2,000 UNIT ROS: ROS: Review of systems is per history of present illness as the patient is a very poor historian PE: PE: Gen.: Alert, pleasant, no apparent distress HEENT: Normocephalic atraumatic, no scleral icterus, oral mucosa pink and moist Neck: Supple, no lymphadenopathy, nontender Cardiovascular: Normal S1 and S2 no murmurs Pulmonary: Lungs are clear bilaterally with good air movement no respiratory distress Abdomen: Soft nontender non-distended, bowel sounds present no masses Extremities: No clubbing, cyanosis, trace pitting b/l edema Neuro: Alert to self, cranial nerves II through XII grossly intact, slightly slurred speech, lower extremity weakness noted Skin: Warm, dry Vitals: Vitals: Vital Signs Date Time Temp Pulse Resp B/P (MAP) Pulse Ox O2 Delivery O2 Flow Rate FiO2 04/26/18 11:33 98.2 75 22 120/66 (84) 93 Room Air Labs: Labs: Laboratory Tests Test 04/25/18 14:54 04/25/18 15:40 04/26/18 06:07 White Blood Count 5.7 x10^3/uL (4.0-11.0) 5.8 x10^3/uL (4.0-11.0) Red Blood Count 4.01 x10^6/uL (4.30-5.70) 3.78 x10^6/uL (4.30-5.70) Hemoglobin 12.8 g/dL (13.0-17.5) 12.3 g/dL (13.0-17.5) Hematocrit 37.9 % (39.0-53.0) 35.7 % (39.0-53.0) Mean Corpuscular Volume 94 fL (79-100) 95 fL (79-100) Mean Corpuscular Hemoglobin 32 pg (25-35) 33 pg (25-35) Mean Corpuscular Hemoglobin Concent 34 g/dL (31-37) 35 g/dL (31-37) Red Cell Distribution Width 14.1 % (11.5-14.5) 14.1 % (11.5-14.5) Platelet Count 179 x10^3/uL (140-400) 186 x10^3/uL (140-400) Neutrophils (%) (Auto) 45 % (31-73) 50 % (31-73) Lymphocytes (%) (Auto) 39 % (24-48) 34 % (24-48) Monocytes (%) (Auto) 11 % (0-9) 10 % (0-9) Eosinophils (%) (Auto) 5 % (0-3) 5 % (0-3) Basophils (%) (Auto) 1 % (0-3) 1 % (0-3) Neutrophils # (Auto) 2.6 x10^3uL (1.8-7.7) 2.9 x10^3uL (1.8-7.7) Lymphocytes # (Auto) 2.2 x10^3/uL (1.0-4.8) 2.0 x10^3/uL (1.0-4.8) Monocytes # (Auto) 0.6 x10^3/uL (0.0-1.1) 0.6 x10^3/uL (0.0-1.1) Eosinophils # (Auto) 0.3 x10^3/uL (0.0-0.7) 0.3 x10^3/uL (0.0-0.7) Basophils # (Auto) 0.1 x10^3/uL (0.0-0.2) 0.1 x10^3/uL (0.0-0.2) Sodium Level 138 mmol/L (136-145) 138 mmol/L (136-145) Potassium Level 4.1 mmol/L (3.5-5.1) 4.0 mmol/L (3.5-5.1) Chloride Level 102 mmol/L (98-107) 103 mmol/L (98-107) Carbon Dioxide Level 27 mmol/L (21-32) 27 mmol/L (21-32) Anion Gap 9 (6-14) 8 (6-14) Blood Urea Nitrogen 17 mg/dL (8-26) 15 mg/dL (8-26) Creatinine 1.2 mg/dL (0.7-1.3) 1.2 mg/dL (0.7-1.3) Estimated GFR (Cockcroft-Gault) 57.7 57.7 BUN/Creatinine Ratio 14 (6-20) 13 (6-20) Glucose Level 170 mg/dL (70-99) 129 mg/dL (70-99) Calcium Level 8.5 mg/dL (8.5-10.1) 8.4 mg/dL (8.5-10.1) Total Bilirubin 0.4 mg/dL (0.2-1.0) 0.6 mg/dL (0.2-1.0) Aspartate Amino Transf (AST/SGOT) 24 U/L (15-37) 24 U/L (15-37) Alanine Aminotransferase (ALT/SGPT) 32 U/L (16-63) 34 U/L (16-63) Alkaline Phosphatase 49 U/L (46-116) 42 U/L (46-116) Troponin I Quantitative 0.019 ng/mL (0-0.055) Total Protein 7.3 g/dL (6.4-8.2) 7.0 g/dL (6.4-8.2) Albumin 3.7 g/dL (3.4-5.0) 3.5 g/dL (3.4-5.0) Albumin/Globulin Ratio 1.0 (1.0-1.7) 1.0 (1.0-1.7) Urine Collection Type Unknown Urine Color Yellow Urine Clarity Hazy Urine pH 5.5 Urine Specific [place] 1.015 Urine Protein Neg (NEG-TRACE) Urine Glucose (UA) 100 mg/dL (NEG) Urine Ketones (Stick) Neg mg/dL (NEG) Urine Blood Large (NEG) Urine Nitrite Neg (NEG) Urine Bilirubin Neg (NEG) Urine Urobilinogen Dipstick 0.2 mg/dL (0.2 mg/dL) Urine Leukocyte Esterase Neg (NEG) Urine RBC >40 /HPF (0-2) Urine WBC Rare /HPF (0-4) Urine Squamous Epithelial Cells Occ /LPF Urine Bacteria 0 /HPF (0-FEW) Urine Mucus Slight /LPF Triglycerides Level 142 mg/dL (0-150) Cholesterol Level 118 mg/dL (0-200) LDL Cholesterol, Calculated 58 mg/dL (0-100) VLDL Cholesterol, Calculated 28 mg/dL (0-40) Non-HDL Cholesterol Calculated 86 mg/dL (0-129) HDL Cholesterol 32 mg/dL (40-60) Cholesterol/HDL Ratio 3.0 Thyroid Stimulating Hormone (TSH) 2.037 uIU/mL (0.358-3.740) VTE Prophylaxis: VTE Prophylaxis Devices: Yes VTE Pharmacological Prophylaxi: Contraindicated Assessment/Plan: A/P: Possible TIA with slurred speech now reportedly at baseline H/o hemorrhagic CVA 2010 some LLE weakness, persistent baseline slurred speech Hematuria: outpatient workup unless worsens HTN: home meds controlling HLP: check lipids History of seizure: no activity since admission History of psychiatric disorders: Dr Holguin consultation SS for discharge planning if patient unable to care for himself at home. I did not get to speak with patient's family and he is unfortunately poor historian--I do not know his current functional status vs his baseline. No anticoagulation with prior hemorrhagic CVA, SCDs if he'll tolerate. Echo/ carotid dopplers pending, Neurology/Cardiology assistance appreciated will consult Dr Holguin for further evaluation and medication titration if necessary. YESIKA CHACON DO Apr 26, 2018 14:45
[2018-04-26 15:55] VITALS: BP 119/72
--- NOTE | 2018-04-26 17:42 | CONS ---
DATE OF CONSULTATION: 04/25/2018 NEUROLOGY CONSULTATION REFERRING PHYSICIAN: Dr. Mayer. REASON FOR CONSULTATION: Rule out stroke. HISTORY OF PRESENT ILLNESS: This is an 83-year-old right-handed male who was admitted through Emergency Room today after he presented with a 2-day history of intermittent slurred speech. According to his daughter, the patient's speech has been improved over the last 24 hours. The patient has had a history of a stroke several years ago with some residual of slurred speech and generalized weakness, more prominent on the left lower extremity. He complains of exertional dyspnea and he coughed a small amount of blood today; however, he denies chest pain, diaphoresis, or palpitations. The patient has had a long history of dementia. He denies headaches, visual disturbances, nausea, vomiting, hematemesis, or hematochezia. Initial nonenhanced head CT scan revealed evidence of generalized atrophy, chronic small vessel ischemic changes without acute intracranial process. PAST MEDICAL HISTORY: Significant for stroke as described above, ____, obesity, dementia, hypertension, urinary incontinence, osteoarthritis, depression, history of seizure disorder of unknown etiology, history of gout. SOCIAL HISTORY: The patient is . He lives with his at home. He denies smoking, alcohol drinking, or illicit drug use. FAMILY HISTORY: Positive for coronary artery disease in his father and mother. PAST SURGICAL HISTORY: Positive for bilateral total knee replacement and cataract surgery. CURRENT MEDICATIONS: Include multivitamins ____ mg daily, amlodipine 10 mg daily, allopurinol 300 mg daily, sertraline 50 mg p.o. daily, pravastatin 20 mg p.o. daily, lisinopril 10 mg p.o. daily, vitamin D 50,000 units p.o. daily, aspirin 81 mg daily, timolol maleate is eye drops for glaucoma, Seroquel 25 mg b.i.d., magnesium ____ mg at bedtime p.o., levetiracetam 500 mg b.i.d., olanzapine 2.5 mg q.2 hours p.r.n. for agitation, clonazepam 0.5 mg p.r.n. for anxiety and ____. ALLERGIES: No known drug allergies. REVIEW OF SYSTEMS: A 10-point review of system was performed as mentioned above history of present illness. PHYSICAL EXAMINATION: GENERAL: Obese male, not in acute distress. VITAL SIGNS: He weighs 255 pounds. Blood pressure is 123/76, respiratory rate is 22, pulse is 85 and regular, temperature 97.3, oxygen saturation 96% on room air. HEENT: Normocephalic, atraumatic, otherwise unremarkable. NECK: Supple. Negative for carotid bruit, lymphadenopathy, or thyromegaly. LUNGS: Clear to A and P. CARDIOVASCULAR: Regular rate and rhythm, normal S1, S2. There is no S3, S4 or murmur. ABDOMEN: Soft. Bowel sounds positive. EXTREMITIES: Negative for cyanosis, clubbing, or pitting edema. NEUROLOGICAL: Mental status: The patient is alert and disoriented to time, place, but he is alert and oriented to person. His speech is fluent. There is no language dysfunction. Memory, judgment, abstraction thinking are impaired consistent with underlying dementia. Cranial nerves: Visual majano are full. The pupils are reactive to light and accommodation. The extraocular movements are intact. There is no nystagmus. There is no facial motor or sensory deficit. Hearing appears to be intact. The palate is elevated symmetrically. Sternocleidomastoid muscles are powerful bilaterally. The patient shrugs his shoulders symmetrically, protrudes his tongue in the midline without fasciculation or atrophy. Motor: No focal muscle bulk was seen. The tone was normal. The strength was 4/5 throughout. Sensory examination revealed normal pinprick, light touch, vibratory, and position senses. Deep tendon reflexes were asymmetric and hypoactive with absent Achilles responses. Gait not tested. LABORATORY DATA: CBC revealed white cells of 5700, hemoglobin 12.8, hematocrit 37.9 and platelet count 179,000. Chemistry revealed sodium of 138, potassium 4.1, chloride 102, CO2 of 27, BUN 17, creatinine 1.2, glucose 170. Liver enzymes are normal. Troponin level is 0.019. Urinalysis is positive for microscopic hematuria and negative for urinary tract infections. IMPRESSION: 1. Intermittent slurred speech that improved, with questionable transient ischemic attack as the patient has had symptoms for the last 2 days. 2. History of strokes several years ago, resulted in a mild left lower extremity weakness -- improved. 3. Multiple medical problems include dementia, hyperlipidemia, hypertension, urinary incontinence, osteoarthritis, depressions and anxiety and gout. 4. Multiple psychiatric problems including ____ dementia. 5. History of seizure. RECOMMENDATIONS: 1. Continue with current management and home medications. 2. Carotid Doppler study. M Denise DANIEL MD DR: KISHA/regulo JOB#: [id number] / [id number]
--- NOTE | 2018-04-26 20:00 | NUR ---
Initial Nursing Assessment Pt resting comfortably in bed with and daughter at bedside. Pt cooperative with all cares. Pt states he has no pain at this time. Pt has 22g in L AC, saline locked, flushes. Will continue to monitor. Babak Diaz RN
[2018-04-26 20:20] VITALS: BP 131/79
[2018-04-26 23:41] VITALS: BP 114/73
[2018-04-27 06:13] VITALS: BP 120/77
[2018-04-27] MEDS: ASPIRIN 81 MG TAB.CHEW PO SCH (08:03)
[2018-04-27] MEDS: MULTIVITAMIN with MINERAL TABLET. PO SCH (08:03)
[2018-04-27] MEDS: LISINOPRIL 10 MG TABLET PO SCH (08:04)
[2018-04-27] MEDS: SERTRALINE 50 MG TABLET. PO SCH (08:04)
[2018-04-27] MEDS: CHOLECALCIFEROL (VITAMIN D3) 1,000 UNIT TABLET PO SCH (08:04)
[2018-04-27] MEDS: THIAMINE 100 MG TABLET. PO SCH (08:04)
[2018-04-27 08:05] VITALS: BP 120/77
[2018-04-27] MEDS: QUEtiapine 25 MG TABLET. PO SCH (08:05)
[2018-04-27] MEDS: levETIRAcetam 500 MG TABLET PO SCH (08:05)
[2018-04-27] MEDS: amLODIPine BESYLATE 10 MG TABLET PO SCH (08:05)
[2018-04-27] MEDS: ALLOPURINOL 300 MG TABLET. PO SCH (08:05)
[2018-04-27] MEDS: PRAVASTATIN 20 MG TABLET. PO SCH (08:05)
[2018-04-27] MEDS: DONEPEZIL HCL 10 MG TABLET PO SCH (08:05)
[2018-04-27] MEDS: TIMOLOL 0.5% OPHTH SOLUTION 5ML BOTTLE. OU SCH (08:05)
--- NOTE | 2018-04-27 11:05 | PN ---
DATE: SUBJECTIVE: The patient denies any new medical or neurological complaints; however, the patient is not a good informant. OBJECTIVE: GENERAL: Obese white male, not in acute distress. VITAL SIGNS: Blood pressure 120/77, respiratory rate 14, pulse is 74 and regular, temperature is 97.1 and oxygen saturation 92% on room air. HEENT: Normocephalic, atraumatic, otherwise unremarkable. NECK: Supple. Negative for carotid bruit, lymphadenopathy or thyromegaly. LUNGS: Clear to A and P. CARDIOVASCULAR: Regular rate and rhythm, normal S1, S2. ABDOMEN: Soft. Bowel sounds are positive. EXTREMITIES: Negative for cyanosis, clubbing or pitting edema. NEUROLOGICAL: Mental Status: The patient is alert and oriented to himself, but disoriented to time and place. Speech is somewhat fluent. There is no language dysfunction. The patient follows 1-step commands. Memory, judgment, and abstract thinking are impaired, consistent with dementia. Cranial nerves are intact. Motor Examination: No focal muscle bulk was seen. The strength was 4/5 throughout. Sensory examination revealed normal pinprick and light touch senses throughout. Deep tendon reflexes were symmetric and hypoactive with absent Achilles responses. Gait: Not tested. IMPRESSION: 1. Intermittent slurred speech -- resolved, rule out transient ischemic attack. 2. Multiple medical problems include diabetes mellitus, dementia, anxiety, depression, gout, hyperlipidemia and hypertension. RECOMMENDATIONS: 1. Continue with current management initiated by Dr. Mayer. 2. Await for carotid Doppler study. M Denise DANIEL MD DR: KISHA/regulo JOB#: [id number] / [id number]
--- NOTE | 2018-04-27 11:51 | CARD ---
MR#: [id number] Date of Study: 04/26/2018 Ordering Physician: YOLANDA TAYLOR, Referring Physician: YESIKA CHACON Tech: Afshan Pérez RDCS APPROVED REPORT EXAM: Two-dimensional and M-mode echocardiogram with Doppler and color Doppler. Other Information Quality : Technically LimitedHR: 76bpm Rhythm : NSRTechnically limited study due to body habitus. INDICATION CVA/TIA 2D DIMENSIONS RVDd3.7 (2.9-3.5cm)Left Atrium(2D)4.3 (1.6-4.0cm) IVSd1.6 (0.7-1.1cm)Aortic Root(2D)4.1 (2.0-3.7cm) LVDd4.0 (3.9-5.9cm)LVOT Diameter2.2 (1.8-2.4cm) PWd1.2 (0.7-1.1cm)LVDs2.8 (2.5-4.0cm) FS (%) 30.5 %SV41.0 ml LVEF(%)58.6 (>50%) M-Mode DIMENSIONS Left Atrium(MM)4.51 (2.5-4.0cm)Aortic Root3.90 (2.2-3.7cm) Aortic Valve AoV Peak [place].183.6cm/sAoV VTI44.0cm AO Peak GR.13.5mmHgLVOT Peak [place].82.7cm/s LVOT VTI 20.13cmAO Mean GR.8mmHg ENOC (VMAX)1.28da8MQE (VTI)1.80cm2 Mitral Valve MV E Kiubnfjs57.7cm/sMV E Peak Gr.2mmHg MV DECEL IICJ978ayFT A Emnagkhe57.6cm/s MV E Mean Gr.1mmHgE/A Ratio0.7 MV A [id number] Pulmonary Valve PV Peak Jnxcabho205.4cm/sPV Peak Grad.5mmHg Tricuspid Valve TR P. Fhkogtgb158qc/sRAP KQJLDBCN8kgJe TR Peak Gr.07brTgXTKR34ikSg LEFT VENTRICLE The left ventricle is normal size. There is mild concentric left ventricular hypertrophy. The left ve ntricular systolic function is normal and the ejection fraction is within normal range. The Ejection Fraction is 55-60%. There is normal LV segmental wall motion. RIGHT VENTRICLE The right ventricle is borderline dilated. There is normal right ventricular wall thickness. The righ t ventricular systolic function is normal. ATRIA The left atrium is mildly dilated. The right atrium is mildly dilated. The interatrial septum is inta ct with no evidence for an atrial septal defect or patent foramen ovale as noted on 2-D or Doppler im aging. AORTIC VALVE The aortic valve is probably trileaflet but not well visualized. The aortic valve is mildly thickened . Doppler and Color Flow revealed no significant aortic regurgitation. There is no significant aortic valvular stenosis. MITRAL VALVE The mitral valve is normal in structure and function. There is no evidence of mitral valve prolapse. There is no mitral valve stenosis. Doppler and Color Flow revealed trace mitral valve regurgitation. TRICUSPID VALVE Tricuspid valve not well visualized. Doppler and Color Flow revealed trace tricuspid regurgitation. T he PA pressure was estimated at 24 mmHg. There is no tricuspid valve prolapse or vegetation. There is no tricuspid valve stenosis. PULMONIC VALVE Pulmonic valve not well visualized. GREAT VESSELS The aortic root is mildly enlarged. The ascending aorta is normal in size. PERICARDIAL EFFUSION There is no evidence of significant pericardial effusion. Critical Notification Critical Value: No <Conclusion> The left ventricle is normal size. The left ventricular systolic function is normal and the ejection fraction is within normal range. The Ejection Fraction is 55-60%. There is mild concentric left ventricular hypertrophy. There is no significant aortic valvular stenosis. Doppler and Color Flow revealed no significant aortic regurgitation. Doppler and Color Flow revealed trace mitral valve regurgitation. Doppler and Color Flow revealed trace tricuspid regurgitation. The PA pressure was estimated at 24 mmHg. Signed by : Darron Arredondo MD Electronically Approved : 04/27/2018 11:50:35
--- NOTE | 2018-04-27 13:50 | PDOC ---
SUBJECTIVE: Patient seen and examined The patient reports feeling pressure. OBJECTIVE: Problems: Problems Medical Problems: (1) Altered mental status Status: Acute Vital Signs: Vital Signs Date Time Temp Pulse Resp B/P (MAP) Pulse Ox O2 Delivery O2 Flow Rate FiO2 04/27/18 12:09 22 04/27/18 08:05 75 120/77 04/27/18 08:00 Room Air 04/27/18 06:13 97.4 92 I & O Intake and Output 04/27/18 07:00 Intake Total 480 ml Balance 480 ml Intake Oral 480 ml # Voids 2 Labs: Laboratory Tests Test 04/25/18 14:54 04/25/18 15:40 04/26/18 06:07 White Blood Count 5.7 x10^3/uL (4.0-11.0) 5.8 x10^3/uL (4.0-11.0) Red Blood Count 4.01 x10^6/uL (4.30-5.70) 3.78 x10^6/uL (4.30-5.70) Hemoglobin 12.8 g/dL (13.0-17.5) 12.3 g/dL (13.0-17.5) Hematocrit 37.9 % (39.0-53.0) 35.7 % (39.0-53.0) Mean Corpuscular Volume 94 fL (79-100) 95 fL (79-100) Mean Corpuscular Hemoglobin 32 pg (25-35) 33 pg (25-35) Mean Corpuscular Hemoglobin Concent 34 g/dL (31-37) 35 g/dL (31-37) Red Cell Distribution Width 14.1 % (11.5-14.5) 14.1 % (11.5-14.5) Platelet Count 179 x10^3/uL (140-400) 186 x10^3/uL (140-400) Neutrophils (%) (Auto) 45 % (31-73) 50 % (31-73) Lymphocytes (%) (Auto) 39 % (24-48) 34 % (24-48) Monocytes (%) (Auto) 11 % (0-9) 10 % (0-9) Eosinophils (%) (Auto) 5 % (0-3) 5 % (0-3) Basophils (%) (Auto) 1 % (0-3) 1 % (0-3) Neutrophils # (Auto) 2.6 x10^3uL (1.8-7.7) 2.9 x10^3uL (1.8-7.7) Lymphocytes # (Auto) 2.2 x10^3/uL (1.0-4.8) 2.0 x10^3/uL (1.0-4.8) Monocytes # (Auto) 0.6 x10^3/uL (0.0-1.1) 0.6 x10^3/uL (0.0-1.1) Eosinophils # (Auto) 0.3 x10^3/uL (0.0-0.7) 0.3 x10^3/uL (0.0-0.7) Basophils # (Auto) 0.1 x10^3/uL (0.0-0.2) 0.1 x10^3/uL (0.0-0.2) Sodium Level 138 mmol/L (136-145) 138 mmol/L (136-145) Potassium Level 4.1 mmol/L (3.5-5.1) 4.0 mmol/L (3.5-5.1) Chloride Level 102 mmol/L (98-107) 103 mmol/L (98-107) Carbon Dioxide Level 27 mmol/L (21-32) 27 mmol/L (21-32) Anion Gap 9 (6-14) 8 (6-14) Blood Urea Nitrogen 17 mg/dL (8-26) 15 mg/dL (8-26) Creatinine 1.2 mg/dL (0.7-1.3) 1.2 mg/dL (0.7-1.3) Estimated GFR (Cockcroft-Gault) 57.7 57.7 BUN/Creatinine Ratio 14 (6-20) 13 (6-20) Glucose Level 170 mg/dL (70-99) 129 mg/dL (70-99) Calcium Level 8.5 mg/dL (8.5-10.1) 8.4 mg/dL (8.5-10.1) Total Bilirubin 0.4 mg/dL (0.2-1.0) 0.6 mg/dL (0.2-1.0) Aspartate Amino Transf (AST/SGOT) 24 U/L (15-37) 24 U/L (15-37) Alanine Aminotransferase (ALT/SGPT) 32 U/L (16-63) 34 U/L (16-63) Alkaline Phosphatase 49 U/L (46-116) 42 U/L (46-116) Troponin I Quantitative 0.019 ng/mL (0-0.055) Total Protein 7.3 g/dL (6.4-8.2) 7.0 g/dL (6.4-8.2) Albumin 3.7 g/dL (3.4-5.0) 3.5 g/dL (3.4-5.0) Albumin/Globulin Ratio 1.0 (1.0-1.7) 1.0 (1.0-1.7) Urine Collection Type Unknown Urine Color Yellow Urine Clarity Hazy Urine pH 5.5 Urine Specific Iva 1.015 Urine Protein Neg (NEG-TRACE) Urine Glucose (UA) 100 mg/dL (NEG) Urine Ketones (Stick) Neg mg/dL (NEG) Urine Blood Large (NEG) Urine Nitrite Neg (NEG) Urine Bilirubin Neg (NEG) Urine Urobilinogen Dipstick 0.2 mg/dL (0.2 mg/dL) Urine Leukocyte Esterase Neg (NEG) Urine RBC >40 /HPF (0-2) Urine WBC Rare /HPF (0-4) Urine Squamous Epithelial Cells Occ /LPF Urine Bacteria 0 /HPF (0-FEW) Urine Mucus Slight /LPF Triglycerides Level 142 mg/dL (0-150) Cholesterol Level 118 mg/dL (0-200) LDL Cholesterol, Calculated 58 mg/dL (0-100) VLDL Cholesterol, Calculated 28 mg/dL (0-40) Non-HDL Cholesterol Calculated 86 mg/dL (0-129) HDL Cholesterol 32 mg/dL (40-60) Cholesterol/HDL Ratio 3.0 Thyroid Stimulating Hormone (TSH) 2.037 uIU/mL (0.358-3.740) Physical Exam: The patient is comfortable in bed. Chest is clear to auscultation and percussion. CV is regular rate and rhythm. Abdomen is soft without localizing tenderness. ASSESSMENT: Assessment/Plan 1. CVA - neuro following. Patient remains on telemetry with no significant arrhythmias. Will monitor on an outpatient event monitor. 2. abn EKG - no acute ischemic changes. no significant change from last EKG. echocardiogram shows normal left ventricular size and systolic function. 3. hypertension - controlled on current meds 4. hyperlipidemia - continue statin PLAN: As above. JOANNA JONES MD Apr 27, 2018 13:50
--- NOTE | 2018-04-27 17:59 | PDOC3 ---
Discharge Summary Visit Information: Date of Admission: Apr 25, 2018 Date of Discharge: Apr 28, 2018 Admitting Diagnosis: Possible CVA, slurred speech Final Diagnosis Problems Medical Problems: (1) Altered mental status Status: Acute Brief Hospital Course: Allergies: Allergies Coded Allergies Type Severity Reaction Last Updated Verified No Known Drug Allergies 03/28/17 No Vital Signs: Vital Signs Date Time Temp Pulse Resp B/P (MAP) Pulse Ox O2 Delivery O2 Flow Rate FiO2 04/27/18 12:09 22 04/27/18 08:05 75 120/77 04/27/18 08:00 Room Air 04/27/18 06:13 97.4 92 Lab Results: Laboratory Tests Test 04/26/18 06:07 White Blood Count 5.8 x10^3/uL (4.0-11.0) Red Blood Count 3.78 x10^6/uL (4.30-5.70) Hemoglobin 12.3 g/dL (13.0-17.5) Hematocrit 35.7 % (39.0-53.0) Mean Corpuscular Volume 95 fL (79-100) Mean Corpuscular Hemoglobin 33 pg (25-35) Mean Corpuscular Hemoglobin Concent 35 g/dL (31-37) Red Cell Distribution Width 14.1 % (11.5-14.5) Platelet Count 186 x10^3/uL (140-400) Neutrophils (%) (Auto) 50 % (31-73) Lymphocytes (%) (Auto) 34 % (24-48) Monocytes (%) (Auto) 10 % (0-9) Eosinophils (%) (Auto) 5 % (0-3) Basophils (%) (Auto) 1 % (0-3) Neutrophils # (Auto) 2.9 x10^3uL (1.8-7.7) Lymphocytes # (Auto) 2.0 x10^3/uL (1.0-4.8) Monocytes # (Auto) 0.6 x10^3/uL (0.0-1.1) Eosinophils # (Auto) 0.3 x10^3/uL (0.0-0.7) Basophils # (Auto) 0.1 x10^3/uL (0.0-0.2) Sodium Level 138 mmol/L (136-145) Potassium Level 4.0 mmol/L (3.5-5.1) Chloride Level 103 mmol/L (98-107) Carbon Dioxide Level 27 mmol/L (21-32) Anion Gap 8 (6-14) Blood Urea Nitrogen 15 mg/dL (8-26) Creatinine 1.2 mg/dL (0.7-1.3) Estimated GFR (Cockcroft-Gault) 57.7 BUN/Creatinine Ratio 13 (6-20) Glucose Level 129 mg/dL (70-99) Calcium Level 8.4 mg/dL (8.5-10.1) Total Bilirubin 0.6 mg/dL (0.2-1.0) Aspartate Amino Transf (AST/SGOT) 24 U/L (15-37) Alanine Aminotransferase (ALT/SGPT) 34 U/L (16-63) Alkaline Phosphatase 42 U/L (46-116) Total Protein 7.0 g/dL (6.4-8.2) Albumin 3.5 g/dL (3.4-5.0) Albumin/Globulin Ratio 1.0 (1.0-1.7) Triglycerides Level 142 mg/dL (0-150) Cholesterol Level 118 mg/dL (0-200) LDL Cholesterol, Calculated 58 mg/dL (0-100) VLDL Cholesterol, Calculated 28 mg/dL (0-40) Non-HDL Cholesterol Calculated 86 mg/dL (0-129) HDL Cholesterol 32 mg/dL (40-60) Cholesterol/HDL Ratio 3.0 Thyroid Stimulating Hormone (TSH) 2.037 uIU/mL (0.358-3.740) PE: Gen.: Alert, grumpy, no apparent distress HEENT: Normocephalic atraumatic, no scleral icterus, oral mucosa pink and moist Neck: Supple, no lymphadenopathy, nontender Cardiovascular: Normal S1 and S2 no murmurs Pulmonary: Lungs are clear bilaterally with good air movement no respiratory distress Abdomen: Soft nontender non-distended, bowel sounds present no masses Extremities: No clubbing, cyanosis Neuro: Alert and oriented to self only Skin: Warm, dry Brief Hospital Course: Mr. Garces is a 83 year old male sent to the ED from his PCP office for recent occurrance of worsening slurred speech patient and family felt had resolved however PCP noted changes from last evaluation. Patient had unremarkable workup in ED including CT Head w/o contrast, CXR, labs, and urine. After consulting with patient's PCP the ED physician requested patient be admitted for neurological evaluation as PCP concerned patient may not be able to care for himself at home. After evaluation the Cardiology team has recommended outpatient event monitor, echocardiogram with normal LV size and function. HTN/HLP controlled on current regimen. Neurology has noted possible TIA symptoms as reported slurred speech symptoms returned to baseline upon ED arrival. Carotid doppler studies ordered/pending. I was called to bedside as patient spouse and daughters requesting discharge this afternoon. They express that patient has lost patience with his time here in the hospital and wants to go home. As is customary, I discussed risks and benefits of staying for further evaluation vs leaving with all present. Risks of leaving without continued observation and carotid doppler study recommended by neurology include potential worsening of condition, CVA, loss of quality of life, or . Potential benefits of staying for observation and pending studies include possible early diagnosis and definitive treatment of yet to be diagnosed condition. This was a very pleasant discourse and all parties request discharge home after informed consent. I did discuss the swallow evaluation recommendations at length with all present , essentially no thin liquids. Discuss possible barium swallow evaluation with PCP as outpatient if felt indicated. Dr Marks had reportedly also mentioned weight loss as symptomatic treatment, I advised the family that their PCP could refer, manage, and follow this intervention. I spent nearly an hour with this family discussing these various issues and answering questions, they were very pleasant and concerned for patient's well being. All family present indicated to me that patient appeared to be at his baseline aside from mild nonproductive cough associated with PO intake. Hopefully thickening his fluids will prevent aspiration and further evaluation can take place as outpatient. I also reinforced to all present the need to follow up with Cardiology this week regarding event monitor, unfortunately the family wants immediate discharge. Patient remained silent throughout my time with them all but he was cooperative for a physical exam once he knew he could go home. Very detailed discharged instructions were given verbally and written format. Discharge Information: Condition at Discharge: Improved Follow Up: Weeks Disposition/Orders: D/C to Home Home Meds: Reported Medications Sertraline Hcl (ZOLOFT) 50 Mg Tablet, 50 MG PO DAILY for ANXIETY, TAB 0 Refills 04/11/17 Quetiapine Fumarate (SEROQUEL) 25 Mg Tablet, 25 MG PO BID for mood stabilizer, TAB 04/11/17 Olanzapine (ZYPREXA ZYDIS) 5 Mg Tab.rapdis, 2.5 MG PO PRN Q2HR PRN for PSYCHOSIS , TAB 04/11/17 Methyl Salicylate/Menthol (Analgesic Ashley) 28 Gm Oint...g., 1 WANDA TP PRN QID PRN for MUSCLE PAIN, MISC 04/11/17 Magnesium Hydroxide (MILK OF MAGNESIA) 2,400 Mg/10 Ml Oral.susp, 2400 MG PO PRN QHS PRN for CONSTIPATION, LIQUID 04/11/17 Mag Hydrox/Al Hydrox/Simeth (MAG-AL PLUS XS SUSPENSION) 30 Ml Oral.susp, 15 ML PO PRN AFTMEALHC PRN for DYSPEPSIA, LIQUID 04/11/17 Cholecalciferol (Vitamin D3) (VITAMIN D3) 1,000 Unit Tablet, 2000 UNIT PO DAILY for supplement, TAB 04/11/17 Acetaminophen (TYLENOL) 325 Mg Tablet, 650 MG PO PRN Q6HRS PRN for PAIN / TEMP, TAB 04/11/17 Timolol Maleate (TIMOPTIC) 10 Ml Drops, 1 DROP OU BID 03/28/17 Clonazepam (CLONAZEPAM) 0.5 Mg Tablet, 0.5 MG PO PRN DAILY PRN for ANXIETY / AGITATION 03/28/17 Thiamine Hcl (VITAMIN B-1) 250 Mg Tablet, 125 MG PO DAILY for supplement 03/28/17 Multivitamin (MULTI-DAY VITAMINS) 1 Each Tablet, 1 TAB PO DAILY for Supplement LAST DOSE GIVEN: DATE: TODAY TIME: AM NEXT DOSE DUE: DATE: TOMORROW TIME: AM 07/15/16 Pravastatin Sodium (PRAVASTATIN SODIUM) 20 Mg Tablet, 20 MG PO DAILY for HTN LAST DOSE GIVEN: DATE: TODAY TIME: AM NEXT DOSE DUE: DATE: TOMORROW TIME: AM 07/15/16 Lisinopril (LISINOPRIL) 10 Mg Tablet, 10 MG PO DAILY for HTN LAST DOSE GIVEN: DATE: TODAY TIME: AM NEXT DOSE DUE: DATE: TOMORROW TIME: AM 07/15/16 Levetiracetam (LEVETIRACETAM) 500 Mg Tablet, 500 MG PO BID for Seizures LAST DOSE GIVEN: DATE: TODAY TIME: AM NEXT DOSE DUE: DATE: TODAY TIME: PM 07/15/16 Donepezil Hcl (DONEPEZIL HCL) 10 Mg Tablet, 10 MG PO DAILY for Dementia LAST DOSE GIVEN: DATE: TODAY TIME: AM NEXT DOSE DUE: DATE: TOMORROW TIME: AM 07/15/16 Amlodipine Besylate (AMLODIPINE BESYLATE) 10 Mg Tablet, 10 MG PO DAILY for HTN LAST DOSE GIVEN: DATE: TODAY TIME: AM NEXT DOSE DUE: DATE: TOMORROW TIME: AM 07/15/16 Allopurinol (ALLOPURINOL) 300 Mg Tablet, 300 MG PO DAILY for gout LAST DOSE GIVEN: DATE: TODAY TIME: AM NEXT DOSE DUE: DATE: TOMORROW TIME: AM 07/15/16 Aspirin (Children's Aspirin) 81 Mg Tab.chew, 81 MG PO DAILY for Heart health LAST DOSE GIVEN: DATE: TODAY TIME: AM NEXT DOSE DUE: DATE: TOMORROW TIME: AM 07/15/16 YESIKA CHACON DO Apr 27, 2018 17:59
--- NOTE | 2018-04-27 18:28 | NUR ---
Patient D/C home with home health. IV d/c'd and tele monitor removed. Patient is escorted out of facility by family.
== END 2018-04-27 18:15 | disposition home health service (06) | DRG 69 ==
LOC: ER 14:27 → 1 SOUTH 16:56
PROVIDERS: ADMIT Neuromusculoskeletal Medicine & OMM; ATTEND Neuromusculoskeletal Medicine & OMM
DX: G45.9 Transient cerebral ischemic attack, unspecified (principal); F32.9 Major depressive disorder, single episode, unspecified; E11.36 Type 2 diabetes mellitus with diabetic cataract; E78.5 Hyperlipidemia, unspecified; F03.90 Unspecified dementia, unspecified severity, without behavioral disturbance, psychotic disturbance, mood disturbance, and anxiety; F41.9 Anxiety disorder, unspecified; G40.909 Epilepsy, unspecified, not intractable, without status epilepticus; H40.9 Unspecified glaucoma; F10.20 Alcohol dependence, uncomplicated; E66.9 Obesity, unspecified; I10 Essential (primary) hypertension; I69.349 Monoplegia of lower limb following cerebral infarction affecting unspecified side; M19.90 Unspecified osteoarthritis, unspecified site; M10.9 Gout, unspecified; Z96.653 Presence of artificial knee joint, bilateral; R32 Unspecified urinary incontinence; Z82.49 Family history of ischemic heart disease and other diseases of the circulatory system
CPT/HCPCS: 36415; 70450; 71046; 80053; 80061; 81001; 84443; 84484; 85025; 93005; 93306; J7040; 99285-25

== ENCOUNTER 2018-06-03 09:05 | Emergency (ER) | payer MEDICARE, OTHER ==
[~2018-06-03] VITALS: Ht 172.7 cm; Wt 109.0 kg
--- NOTE | 2018-06-03 09:18 | EKG ---
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
[2018-06-03 09:43] LABS: BASO % 1 % (0-3); EOS # 0.2 x10^3/uL (0.0-0.7); EOS % 4 % (0-3); HEMATOCRIT 39.5 % (39.0-53.0); HEMOGLOBIN 13.4 g/dL (13.0-17.5); LYMPH # 1.9 x10^3/uL (1.0-4.8); LYMPH % 28 % (24-48); MEAN CORPUSCULAR HEMOGLOBIN 32 pg (25-35); MEAN CORPUSCULAR HGB CONC 34 g/dL (31-37); MEAN CORPUSCULAR VOLUME 95 fL (79-100); MONO # 0.7 x10^3/uL (0.0-1.1); MONO % 11 % (0-9); NEUT # 3.7 x10^3uL (1.8-7.7); NEUT % 56 % (31-73); PLATELET COUNT 212 x10^3/uL (140-400); RED BLOOD COUNT 4.14 x10^6/uL (4.30-5.70); RED CELL DISTRIBUTION WIDTH 14.4 % (11.5-14.5); WHITE BLOOD COUNT 6.5 x10^3/uL (4.0-11.0)
[2018-06-03 10:03] LABS: ALBUMIN 3.9 g/dL (3.4-5.0); ALBUMIN/GLOBULIN RATIO 1.1 (1.0-1.7); CALCIUM 9.2 mg/dL (8.5-10.1); CREATININE 1.1 mg/dL (0.7-1.3); GFR 63.8; MAGNESIUM 2.1 mg/dL (1.8-2.4); POTASSIUM 4.1 mmol/L (3.5-5.1); TOTAL BILIRUBIN 0.7 mg/dL (0.2-1.0); TOTAL PROTEIN 7.6 g/dL (6.4-8.2)
--- NOTE | 2018-06-03 10:27 | RAD ---
PORTABLE CHEST 1V History: fall today Comparison: April 25, 2018 Findings: Single AP view of the chest is submitted. There is suboptimal inspiration, low lung volumes. There is again tortuous thoracic aorta. Appearance of more prominent cardiac silhouette may be accentuated by lesser degree of inspiration. There is increased likely atelectasis mid to inferior left hemithorax. No convincing pneumothorax is identified. There is no significant pleural fluid. There is increased perihilar opacity bilaterally. Impression: 1. There is increased perihilar opacity bilaterally, could be due to edema although suboptimal inspiration for exam. There is increased atelectasis on the left. Electronically signed by: Rigoberto Marrero MD (06/03/2018 10:23 AM) [id number]
--- NOTE | 2018-06-03 10:29 | RAD ---
EXAM: CT HEAD WITHOUT IV CONTRAST CLINICAL HISTORY: Fall with altered mental status. COMPARISON: 04/25/2018. TECHNIQUE: Routine CT of the head without contrast. Soft tissues and bone windows were reviewed. PQRS compliance statement - One or more of the following individualized dose reduction techniques were utilized for this study: 1. Automated exposure control 2. Adjustment of the mA and/or kV according to patient size 3. Use of iterative reconstruction technique FINDINGS: There is no evidence of hemorrhage, mass or extra-axial fluid collection. Left occipital encephalomalacia likely from old infarct. Bustos-white differentiation is maintained with no evidence of edema. There are non-specific foci of hypodensity in the periventricular and subcortical white matter of the cerebral hemispheres. There is no mass effect or shift of the intracranial structures. The ventricles and cerebral sulci are prominent for the patients stated age consistent with marked generalized cerebral volume loss. The cerebellum and brainstem are unremarkable. The calvarium demonstrates no evidence of fracture or focal lesion. There is normal aeration of the visualized paranasal sinuses and mastoid air cells. The visualized portions of the orbits are normal. Atherosclerotic calcifications of the intracranial internal carotid and vertebral arteries is seen. IMPRESSION: 1. No evidence for acute intracranial process. 2. Changes of chronic small vessel disease and cerebral atrophy are again seen. EXAM: CT CERVICAL SPINE WITHOUT IV CONTRAST CLINICAL HISTORY: Altered mental status. Fall, injury. COMPARISON: None available. TECHNIQUE: Helical CT of the cervical spine was performed. Axial, coronal and sagittal reformatted images were also performed. PQRS compliance statement - One or more of the following individualized dose reduction techniques were utilized for this study: 1. Automated exposure control 2. Adjustment of the mA and/or kV according to patient size 3. Use of iterative reconstruction technique FINDINGS: There is no evidence for acute fracture. Vertebral body heights are preserved. Mild straightening of the normal cervical lordosis. Trace anterolisthesis of C7 on T1. Mild C2-3, C4-5, moderate C5-6, C6-7 and C7-T1 intervertebral disc height loss. Atlantodental degenerative changes are seen with mild associated remodeling and calcifications about the dens. C2-C3: Mild to moderate uncovertebral hypertrophy results in mild right neural foraminal narrowing. C3-C4: Posterior disc osteophyte complex with bilateral facet degenerative changes and uncovertebral hypertrophy results in moderate left and mild right neural foraminal narrowing and mild central canal stenosis. C4-C5: Posterior disc osteophyte complex with right greater than left facet degenerative changes results in mild central canal stenosis, moderate right and mild left neural foraminal narrowing. C5-C6: Posterior disc osteophyte complex with uncovertebral hypertrophy results in mild central canal stenosis and moderate bilateral neural foraminal narrowing. C6-C7: Posterior disc osteophyte complex and uncovertebral and facet degenerative changes cause mild central canal stenosis, and mild to moderate bilateral neural foraminal narrowing C7-T1: Trace anterolisthesis of C7 on T1 with posterior disc osteophyte complex, facet degenerative changes and uncovertebral hypertrophy results in mild central canal stenosis, mild left and [id number] right neural foraminal narrowing. IMPRESSION: 1. No evidence for acute cervical spine fracture. 2. Multilevel degenerative changes as above. Electronically signed by: James Jimenez MD (06/03/2018 10:25 AM) [facility]
--- NOTE | 2018-06-03 10:34 | RAD ---
Examination: Frontal view of the pelvis HISTORY: History of fall COMPARISON: None available FINDINGS: The bilateral femoral heads within the acetabula. Moderate to severe joint space loss identified in the bilateral hip joints. No obvious acute fracture identified. IMPRESSION: 1. No acute osseous findings. 2. 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 Electronically signed by: Dameon Ward MD (06/03/2018 10:30 AM) [id number]
[2018-06-03 10:51] LABS: BARBITURATES NEG (NEG); BENZODIAZEPINES NEG (NEG); CANNABINOIDS NEG (NEG); COCAINE NEG (NEG); METHADONE NEG (NEG); OPIATES NEG (NEG); PHENCYCLIDINE NEG (NEG)
[2018-06-03 10:52] LABS: AMPHETAMINE/METHAMPHETAMINE NEG (NEG)
[2018-06-03 10:54] LABS: BACTERIA,URINE 0 /HPF (0-FEW); BILIRUBIN,URINE NEG (NEG); CLARITY,URINE HAZY; COLOR,URINE YELLOW; GLUCOSE,URINE NEG (NEG); NITRITE,URINE NEG (NEG); SQUAMOUS EPITHELIAL CELL,UR OCC /LPF; UROBILINOGEN,URINE 0.2 mg/dL (0.2 mg/dL); WBC,URINE RARE /HPF (0-4)
--- NOTE | 2018-06-03 11:31 | PHYS DOC ---
Past History Past Medical History: CVA, Dementia, Diabetes, Hypertension, Seizure, Stroke, Other Past Surgical History: Other Smoking: Non-smoker Alcohol Use: Sober Drug Use: None Adult General Chief Complaint Chief Complaint: WEAKNESS/GENERALIZED HPI HPI Patient is a 83 year old male who brought in by EMS because of weakness and a fall. Patient has dementia and unable to give history. Patient stated he slipped from his bed at 0130 today and was not able to get back to his bed and decided to lay on the floor and this morning was not able to get up and ambulate and she decided to call 911. environmental health nurse presented to the patient home before EMS and was able to ambulate the patient but his requested transfer to hospital. Review of Systems Review of Systems Constitutional: Denies fever or chills [] Eyes: Denies change in visual acuity, redness, or eye pain [] HENT: Denies nasal congestion or sore throat [] Respiratory: Denies cough or shortness of breath [] Cardiovascular: No additional information not addressed in HPI [] GI: Denies abdominal pain, nausea, vomiting, bloody stools or diarrhea [] : Denies dysuria or hematuria [] Musculoskeletal: Denies back pain or joint pain [] Integument: Denies rash or skin lesions [] Neurologic: Denies headache, focal weakness or sensory changes [] Endocrine: Denies polyuria or polydipsia [] All other systems were reviewed and found to be within normal limits, except as documented in this note. Allergies Allergies Allergies Coded Allergies Type Severity Reaction Last Updated Verified No Known Drug Allergies 06/03/18 No Physical Exam Physical Exam Constitutional: Well nourished, no acute distress, non-toxic appearance. [] HENT: Normocephalic, atraumatic, oropharynx moist, no oral exudates, nose normal. [] Eyes: PERRLA, EOMI, conjunctiva normal, no discharge. [] Neck: Normal range of motion, no tenderness, supple, no stridor. [] Cardiovascular:Heart rate regular rhythm, no murmur [] Lungs & Thorax: Bilateral breath sounds clear to auscultation [] Abdomen: Bowel sounds normal, soft, no tenderness, no masses, no pulsatile masses. [] Skin: Warm, dry, no erythema, no rash. [] Back: No tenderness, no CVA tenderness. [] Extremities: No tenderness, no cyanosis, no clubbing, ROM intact, no edema. [] Neurologic: Alert and oriented X 1, normal motor function, normal sensory function, no focal deficits noted. [] Psychologic: Affect normal Current Patient Data Vital Signs Vital Signs Date Time Temp Pulse Resp B/P (MAP) Pulse Ox O2 Delivery O2 Flow Rate FiO2 06/03/18 10:34 63 14 119/71 (87) 99 06/03/18 09:34 Room Air 06/03/18 09:11 98.3 Lab Results Laboratory Tests Test 06/03/18 09:21 06/03/18 10:30 White Blood Count 6.5 x10^3/uL (4.0-11.0) Red Blood Count 4.14 x10^6/uL (4.30-5.70) L Hemoglobin 13.4 g/dL (13.0-17.5) Hematocrit 39.5 % (39.0-53.0) Mean Corpuscular Volume 95 fL (79-100) Mean Corpuscular Hemoglobin 32 pg (25-35) Mean Corpuscular Hemoglobin Concent 34 g/dL (31-37) Red Cell Distribution Width 14.4 % (11.5-14.5) Platelet Count 212 x10^3/uL (140-400) Neutrophils (%) (Auto) 56 % (31-73) Lymphocytes (%) (Auto) 28 % (24-48) Monocytes (%) (Auto) 11 % (0-9) H Eosinophils (%) (Auto) 4 % (0-3) H Basophils (%) (Auto) 1 % (0-3) Neutrophils # (Auto) 3.7 x10^3uL (1.8-7.7) Lymphocytes # (Auto) 1.9 x10^3/uL (1.0-4.8) Monocytes # (Auto) 0.7 x10^3/uL (0.0-1.1) Eosinophils # (Auto) 0.2 x10^3/uL (0.0-0.7) Basophils # (Auto) 0.0 x10^3/uL (0.0-0.2) Prothrombin Time 10.3 SEC (9.4-11.4) Prothrombin Time INR 1.0 (0.9-1.1) Sodium Level 142 mmol/L (136-145) Potassium Level 4.1 mmol/L (3.5-5.1) Chloride Level 104 mmol/L (98-107) Carbon Dioxide Level 27 mmol/L (21-32) Anion Gap 11 (6-14) Blood Urea Nitrogen 16 mg/dL (8-26) Creatinine 1.1 mg/dL (0.7-1.3) Estimated GFR (Cockcroft-Gault) 63.8 BUN/Creatinine Ratio 15 (6-20) Glucose Level 144 mg/dL (70-99) H Lactic Acid Level 1.8 mmol/L (0.4-2.0) Calcium Level 9.2 mg/dL (8.5-10.1) Magnesium Level 2.1 mg/dL (1.8-2.4) Total Bilirubin 0.7 mg/dL (0.2-1.0) Aspartate Amino Transferase (AST) 25 U/L (15-37) Alanine Aminotransferase (ALT) 34 U/L (16-63) Alkaline Phosphatase 55 U/L (46-116) Creatine Kinase 130 U/L (39-308) Troponin I Quantitative < 0.017 ng/mL (0-0.055) DC-Hlv-V-Type Natriuretic Peptide 15 pg/mL (0-449) Total Protein 7.6 g/dL (6.4-8.2) Albumin 3.9 g/dL (3.4-5.0) Albumin/Globulin Ratio 1.1 (1.0-1.7) Lipase 178 U/L (73-393) Ethyl Alcohol Level < 10 mg/dL (0-10) Urine Collection Type U cath Urine Color Yellow Urine Clarity Hazy Urine pH 6.0 Urine Specific [place] 1.020 Urine Protein Neg (NEG-TRACE) Urine Glucose (UA) Neg mg/dL (NEG) Urine Ketones (Stick) Neg mg/dL (NEG) Urine Blood Mod (NEG) Urine Nitrite Neg (NEG) Urine Bilirubin Neg (NEG) Urine Urobilinogen Dipstick 0.2 mg/dL (0.2 mg/dL) Urine Leukocyte Esterase Neg (NEG) Urine RBC 3-5 /HPF (0-2) Urine WBC Rare /HPF (0-4) Urine Squamous Epithelial Cells Occ /LPF Urine Transitional Epithelial Cells Occ /LPF Urine Bacteria 0 /HPF (0-FEW) Urine Mucus Slight /LPF Urine Opiates Screen Neg (NEG) Urine Methadone Screen Neg (NEG) Urine Barbiturates Neg (NEG) Urine Phencyclidine Screen Neg (NEG) Urine Amphetamine/Methamphetamine Neg (NEG) Urine Benzodiazepines Screen Neg (NEG) Urine Cocaine Screen Neg (NEG) Urine Cannabinoids Screen Neg (NEG) Urine Ethyl Alcohol Neg (NEG) EKG EKG EKG interpreted by me. EKG at 0907 showed normal sinus rhythm at rate of 66, incomplete right bundle branch block, no acute ST and T-wave abnormalities.[] Radiology/Procedures Radiology/Procedures [address] [address] IMAGING REPORT Signed PATIENT: RANDI CRISTINA ACCOUNT: [id number] : 1935 LOCATION: ER AGE: 83 SEX: M EXAM STATUS: REG ER ORD. PHYSICIAN: CHERELLE GALVAN MD REASON: ALOC PROCEDURE: PORTABLE CHEST 1V PORTABLE CHEST 1V History: fall today Comparison: April 25, 2018 Findings: Single AP view of the chest is submitted. There is suboptimal inspiration, low lung volumes. There is again tortuous thoracic aorta. Appearance of more prominent cardiac silhouette may be accentuated by lesser degree of inspiration. There is increased likely atelectasis mid to inferior left hemithorax. No convincing pneumothorax is identified. There is no significant pleural fluid. There is increased perihilar opacity bilaterally. Impression: 1. There is increased perihilar opacity bilaterally, could be due to edema although suboptimal inspiration for exam. There is increased atelectasis on the left. Electronically signed by: Yesika Marrero MD (06/03/2018 10:23 AM) [id number] DICTATED AND SIGNED BY: YESIKA MARRERO MD DATE: 06/03/18 1022 CC: SAUL SIFUENTES MD; CHERELLE GALVAN MD ~ [address] [address] IMAGING REPORT Signed PATIENT: RANDI CRISTINA ACCOUNT: [id number] : 1935 LOCATION: ER AGE: 83 SEX: M EXAM STATUS: REG ER ORD. PHYSICIAN: CHERELLE GALVAN MD REASON: fall PROCEDURE: CT HEAD AND CERVICAL SPINE WO EXAM: CT HEAD WITHOUT IV CONTRAST CLINICAL HISTORY: Fall with altered mental status. COMPARISON: 04/25/2018. TECHNIQUE: Routine CT of the head without contrast. Soft tissues and bone windows were reviewed. PQRS compliance statement - One or more of the following individualized dose reduction techniques were utilized for this study: 1. Automated exposure control 2. Adjustment of the mA and/or kV according to patient size 3. Use of iterative reconstruction technique FINDINGS: There is no evidence of hemorrhage, mass or extra-axial fluid collection. Left occipital encephalomalacia likely from old infarct. Bustos-white differentiation is maintained with no evidence of edema. There are non-specific foci of hypodensity in the periventricular and subcortical white matter of the cerebral hemispheres. There is no mass effect or shift of the intracranial structures. The ventricles and cerebral sulci are prominent for the patients stated age consistent with marked generalized cerebral volume loss. The cerebellum and brainstem are unremarkable. The calvarium demonstrates no evidence of fracture or focal lesion. There is normal aeration of the visualized paranasal sinuses and mastoid air cells. The visualized portions of the orbits are normal. Atherosclerotic calcifications of the intracranial internal carotid and vertebral arteries is seen. IMPRESSION: 1. No evidence for acute intracranial process. 2. Changes of chronic small vessel disease and cerebral atrophy are again seen. EXAM: CT CERVICAL SPINE WITHOUT IV CONTRAST CLINICAL HISTORY: Altered mental status. Fall, injury. COMPARISON: None available. TECHNIQUE: Helical CT of the cervical spine was performed. Axial, coronal and sagittal reformatted images were also performed. PQRS compliance statement - One or more of the following individualized dose reduction techniques were utilized for this study: 1. Automated exposure control 2. Adjustment of the mA and/or kV according to patient size 3. Use of iterative reconstruction technique FINDINGS: There is no evidence for acute fracture. Vertebral body heights are preserved. Mild straightening of the normal cervical lordosis. Trace anterolisthesis of C7 on T1. Mild C2-3, C4-5, moderate C5-6, C6-7 and C7-T1 intervertebral disc height loss. Atlantodental degenerative changes are seen with mild associated remodeling and calcifications about the dens. C2-C3: Mild to moderate uncovertebral hypertrophy results in mild right neural foraminal narrowing. C3-C4: Posterior disc osteophyte complex with bilateral facet degenerative changes and uncovertebral hypertrophy results in moderate left and mild right neural foraminal narrowing and mild central canal stenosis. C4-C5: Posterior disc osteophyte complex with right greater than left facet degenerative changes results in mild central canal stenosis, moderate right and mild left neural foraminal narrowing. C5-C6: Posterior disc osteophyte complex with uncovertebral hypertrophy results in mild central canal stenosis and moderate bilateral neural foraminal narrowing. C6-C7: Posterior disc osteophyte complex and uncovertebral and facet degenerative changes cause mild central canal stenosis, and mild to moderate bilateral neural foraminal narrowing C7-T1: Trace anterolisthesis of C7 on T1 with posterior disc osteophyte complex, facet degenerative changes and uncovertebral hypertrophy results in mild central canal stenosis, mild left and [id number] right neural foraminal narrowing. IMPRESSION: 1. No evidence for acute cervical spine fracture. 2. Multilevel degenerative changes as above. Electronically signed by: James Clarke MD (06/03/2018 10:25 AM) [facility] DICTATED AND SIGNED BY: JAMES CLARKE MD DATE: 06/03/18 1009 CC: SAUL SIFUENTES MD; CHERELLE GALVAN MD ~ [place] [address] IMAGING REPORT Signed PATIENT: RANDI CRISTINA ACCOUNT: [id number] : 1935 LOCATION: ER AGE: 83 SEX: M EXAM STATUS: REG ER ORD. PHYSICIAN: CHERELLE GALVAN MD REASON: ALOC PROCEDURE: PELVIS Examination: Frontal view of the pelvis HISTORY: History of fall COMPARISON: None available FINDINGS: The bilateral femoral heads within the acetabula. Moderate to severe joint space loss identified in the bilateral hip joints. No obvious acute fracture identified. IMPRESSION: 1. No acute osseous findings. 2. 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 Electronically signed by: Dameon Hogan MD (06/03/2018 10:30 AM) [id number] DICTATED AND SIGNED BY: DAMEON HOGAN MD DATE: 06/03/18 1021 CC: SAUL SIFUENTES MD; CHERELLE GALVAN MD ~ Course & Med Decision Making Course & Med Decision Making Pertinent Labs and Imaging studies reviewed. (See chart for details) Evaluation of patient in ER showed 83-year-old male patient brought by EMS because of slipping from his bed at 1:30 AM today and unable to back to his bed and slept all night on the hardwood floor. Patient had history of previous CVA with ambulating with walker only. Extensive evaluation of patient including CT of head and cardiac enzymes and electrolytes was unremarkable. Patient ambulated without problem and felt comfortable to go home. Patient's presented to ER and stated he is in his baseline condition. Dragon Disclaimer Dragon Disclaimer This electronic medical record was generated, in whole or in part, using a voice recognition dictation system. NIH Stroke Scale: NIH Stroke Scale Response (Comments) Value Level of Consciousness: 0 Alert/Responsive 0 LOC Questions: 2 Answers neither correct 2 LOC Commands: 1 Performs one task 1 Best Gaze: 0 Normal 0 Visual: 0 No visual loss 0 Facial Palsy: 0 Normal, symmetrical 0 Motor - Left Arm 0 No drift 0 Motor - Right Arm 0 No drift 0 Motor - Left Leg 1 Drift but can hold 1 Motor: Right Leg 1 Drift but can hold 1 Limb Ataxia: 0 Absent 0 Sensory: 1 Mid to moderate loss 1 Best Language: 1 Mild to mod aphasia 1 Dysathria: 0 Normal 0 Extinction and Inattention: 0 Normal 0 Total 7 Departure Departure: Impression: Primary Impression: Fall at home Additional Impressions: Uncontrolled diabetes mellitus Generalized weakness Dementia Disposition: HOME, SELF-CARE (at 1129) Condition: IMPROVED Referrals: SAUL SIFUENTES MD (PCP) Patient Instructions: Fall Prevention and Home Safety Additional Instructions: Follow-up with your primary care physician in 2-3 days Return to ER if not getting better Critical Care Time Critical care time was 80 minutes exclusive of procedures. Problem Qualifiers CHERELLE GALVAN MD Jun 03, 2018 11:31
[2018-06-03 12:35] VITALS: BP 108/65
== END 2018-06-03 12:35 | disposition home or self-care (01) ==
LOC: ER 09:05
DX: R53.1 Weakness (principal); F03.90 Unspecified dementia, unspecified severity, without behavioral disturbance, psychotic disturbance, mood disturbance, and anxiety; E11.65 Type 2 diabetes mellitus with hyperglycemia; R41.82 Altered mental status, unspecified; I10 Essential (primary) hypertension; G31.9 Degenerative disease of nervous system, unspecified; I73.89 Other specified peripheral vascular diseases; Z86.73 Personal history of transient ischemic attack (TIA), and cerebral infarction without residual deficits; W06.XXXA Fall from bed, initial encounter; Y93.89 Activity, other specified; Y92.89 Other specified places as the place of occurrence of the external cause; Y99.8 Other external cause status
CPT/HCPCS: 36415; 70450; 71045; 72125; 72170; 80053; 80307; 81001; 82550; 83605; 83690; 83735; 83880; 84484; 85025; 85610; 93005; 99284; G0480; P9612

== ENCOUNTER → 2018-06-20 | Outpatient (CLI) | payer MEDICARE, OTHER ==
[2018-06-03 12:35] VITALS: BP 108/65
--- NOTE | 2018-06-20 13:34 | RAD ---
Exam : Carotid Duplex with Grayscale Ultrasound and Spectral and Color Doppler Analysis 06/20/2018 1:28 PM Clinical Indications: Slurred speech Comparison study: None available. PQRS Compliance Statement - Stenosis calculations for CT, MR and conventional angiography are based upon measurement of the distal ICA diameter in accordance with the NASCET methodology. Stenosis calculations for carotid ultrasound studies are derived from validated velocity criteria which are known to correlate with the NASCET methodology. Findings: The common, internal and external carotid arteries were examined by grayscale, color and spectral Doppler ultrasound. Mild multifocal calcified and noncalcified plaque are noted. This is most prominent in the bilateral carotid bulbs. No high-grade visual stenosis is seen. Vertebral flows antegrade bilaterally. The following are the velocities and ratios in the carotid arteries on both sides: RIGHT ICA PV: 71cm/sec RIGHT CCA PV: 73cm/sec RIGHT ICA ED: 16cm/sec RIGHT IC/CCPV: Less than 2 RIGHT VERTEBRAL: antegrade flow LEFT ICA PV: 63cm/sec LEFT CCA PV: 76cm/sec LEFT ICA ED: 15cm/sec LEFT IC/CCPV: Less than 2 LEFT VERTEBRAL: antegrade flow <50% ICA Stenosis: PSV < 125cm/s (EDV < 40cm/s; SVR < 2.0) 50-69% ICA Stenosis: PSV < 125-229cm/s (EDV 40-99cm/s; SVR 2.0-3.9) >70% ICA Stenosis: PSV > 230cm/s (EDV >100cm/s; SVR >4.0) Impression: Mild atherosclerotic vascular disease with less than 50 percent stenosis of the internal carotid arteries by ultrasound. Electronically signed by: Navin Young MD (06/20/2018 1:30 PM) [id number]
== END | disposition home or self-care (01) ==
LOC: US 11:01
PROVIDERS: ATTEND Family Medicine
DX: I65.23 Occlusion and stenosis of bilateral carotid arteries (principal); R47.81 Slurred speech
CPT/HCPCS: 93880

== ENCOUNTER 2019-06-16 11:09 | Inpatient (IN) | payer MEDICARE, OTHER ==
[~2019-06-16] VITALS: Ht 172.7 cm; Wt 96.8 kg
[2019-06-16] VITALS (8 sets, daily range): BP systolic 106–123; BP diastolic 59–74
[~2019-06-16 11:09] MED LIST changes: -AMLO10TA6 PO; +AMLO10TA8 PO; -CLON0.5T11 PO; +CLON0.5T4 PO; +METH28OI2 TP; -METH29OI TP; -THIA250T4 PO; +THIA250T7 PO
--- NOTE | 2019-06-16 11:36 | RAD ---
Examination: CT HEAD WO CONTRAST History: Right-sided weakness Comparison/Correlation: 06/03/2018 CT head and cervical spine without contrast Findings: Axial images of the head were obtained without contrast. Advanced atrophy is present. No intracranial hemorrhage, midline shift, or mass effect. No evidence of evolving infarct.. Ventriculomegaly which probably is related to volume loss is unchanged. Bony structures are unremarkable. Impression: No acute process. No significant change. PQRS Compliance Statement: One or more of the following individualized dose reduction techniques were utilized for this examination: 1. Automated exposure control 2. Adjustment of the mA and/or kV according to patient size 3. Use of iterative reconstruction technique Electronically signed by: Jose Luis Karimi MD (06/16/2019 11:33 AM) [facility]
[2019-06-16 12:06] LABS: BASO # 0.1 x10^3/uL (0.0-0.2); BASO % 1 % (0-3); EOS # 0.3 x10^3/uL (0.0-0.7); EOS % 3 % (0-3); HEMATOCRIT 35.1 % (39.0-53.0); HEMOGLOBIN 12.2 g/dL (13.0-17.5); LYMPH # 1.6 x10^3/uL (1.0-4.8); LYMPH % 12 % (24-48); MEAN CORPUSCULAR HEMOGLOBIN 32 pg (25-35); MEAN CORPUSCULAR HGB CONC 35 g/dL (31-37); MEAN CORPUSCULAR VOLUME 93 fL (79-100); MONO % 7 % (0-9); NEUT # 10.1 x10^3uL (1.8-7.7); NEUT % 77 % (31-73); PLATELET COUNT 206 x10^3/uL (140-400); RED BLOOD COUNT 3.78 x10^6/uL (4.30-5.70); RED CELL DISTRIBUTION WIDTH 13.3 % (11.5-14.5); WHITE BLOOD COUNT 13.1 x10^3/uL (4.0-11.0)
--- NOTE | 2019-06-16 12:06 | PHYS DOC ---
Past History Past Medical History: CVA, Dementia, Diabetes, Hypertension, Seizure, Stroke, Other Past Surgical History: Other Smoking: Non-smoker Alcohol Use: Sober Drug Use: None Adult General Chief Complaint Chief Complaint: ALTERED MENTAL STATUS [facility] HPI Patient is an 84-year-old male who arrives via EMS with report of mental status change and right-sided weakness. EMS reports that they were informed the patient had a right sided facial droop and was drooling out of the right side of his mouth. They also indicated that patient was not following commands. Patient reportedly has had a stroke in the past but EMS indicates that patient has no remaining deficits from that stroke. Patient reportedly has also had cough. Additional history is limited as patient is unable to answer questions due to apparent confusion[] Review of Systems Review of Systems Constitutional: Denies fever or chills [] Respiratory: Positive cough without apparent shortness of breath [] Cardiovascular: No additional information not addressed in HPI [] GI: No reported vomiting or diarrhea [] Neurologic: Positive reported right sided weakness and facial droop along with mental status changes [] Unable to fully assess review of systems due to patient mental status. Allergies Allergies Allergies Coded Allergies Type Severity Reaction Last Updated Verified No Known Drug Allergies 06/03/18 No Physical Exam Physical Exam Constitutional: Well developed, well nourished, no acute distress, non-toxic appearance. [] HENT: Normocephalic, atraumatic, bilateral external ears normal, oropharynx moist, no oral exudates, nose normal. [] Eyes: PERRLA, EOMI, conjunctiva normal, no discharge. [] Neck: Normal range of motion, no tenderness, supple, no stridor. [] Cardiovascular: Regular rate and rhythm[] Lungs & Thorax: Fine rhonchi are noted bilaterally to auscultation [] Abdomen: Bowel sounds normal, soft, no tenderness. [] Skin: Warm, dry, no erythema, no rash. [] Extremities: No tenderness, no cyanosis, no clubbing, ROM intact. [] Neurologic: Awake and alert, confused with right sided facial droop. Unable to fully assess neurological status as patient is not following commands. [] EKG EKG [] Radiology/Procedures Radiology/Procedures [] Impressions: PROCEDURE: CT HEAD WO CONTRAST Examination: CT HEAD WO CONTRAST History: Right-sided weakness Comparison/Correlation: 06/03/2018 CT head and cervical spine without contrast Findings: Axial images of the head were obtained without contrast. Advanced atrophy is present. No intracranial hemorrhage, midline shift, or mass effect. No evidence of evolving infarct.. Ventriculomegaly which probably is related to volume loss is unchanged. Bony structures are unremarkable. Impression: No acute process. No significant change. PQRS Compliance Statement: One or more of the following individualized dose reduction techniques were utilized for this examination: 1. Automated exposure control 2. Adjustment of the mA and/or kV according to patient size 3. Use of iterative reconstruction technique Electronically signed by: Jose Luis Harrison MD (06/16/2019 11:33 AM) [facility] Examination: CT ANGIOGRAPHY HEAD AND NECK History: Right-sided weakness Comparison/Correlation: CT head without contrast 04/25/2018, 06/03/2018 and 06/16/2019 CT head without contrast exams Findings: Axial images of the head and neck were obtained following IV contrast according to arteriography protocol. Sagittal and coronal reformatted images were provided. Maximum intensity projection images were provided. Three-dimensional images provided. Approximately 50 percent stenosis involving the right internal carotid artery at the carotid bulb level is present with partially calcific plaque present. Less than 50 percent stenosis of the right cavernous carotid artery noted. Calcific plaque involving the left carotid bulb is present without appreciable stenosis. Bovine arch is present. Kinked appearance of the right proximal brachiocephalic artery noted. Right and left vertebral arteries are patent and unremarkable. Right anterior anterior cerebral artery proximally located small high-grade filling defect is noted on axial image 51 of series 5 and this corresponds to image 47 in the coronal plane series 6. Mild atheromatous and calcific involvement of the basilar artery noted. Posterior circulation is unremarkable. Vertebral arteries are unremarkable. Ventriculomegaly is noted. Chronic ischemic changes in the white matter noted. No abnormal enhancement on arterial phase images provided. Partial ossification of the left maxillary sinus is noted. Ethmoid air cell opacification noted. Partial opacification of sphenoid sinuses. Globes and optic nerves are unremarkable. Soft tissues of the neck are unremarkable. No enlarged cervical lymph nodes. Multilevel degenerative disc space narrowing of the cervical spine is present. Incidental note is made of atheromatous involvement of the left anterior descending coronary artery. Resolution of pneumonia. Minimal opacification within the distal trachea and right mainstem bronchus probably representing mucous retention noted. Impression: Approximately 50 percent stenosis of the right internal carotid artery at the carotid bulb level with partially calcified plaque. Less than 30 percent stenosis of the right cavernous carotid artery. Small filling defect or high-grade stenosis involving right anterior cerebral artery proximally. PQRS Compliance Statement - Stenosis calculations for CT, MR and conventional angiography are based upon measurement of the distal ICA diameter in accordance with the NASCET methodology. Stenosis calculations for carotid ultrasound studies are derived from validated velocity criteria which are known to correlate with the NASCET methodology. *One or more of the following individualized dose reduction techniques were utilized for this examination: 1. Automated exposure control. 2. Adjustment of the mA and/or kV according to patient size. 3. Use of iterative reconstruction technique. Electronically signed by: Jose Luis Harrison MD (06/16/2019 1:35 PM) [facility] DICTATED AND SIGNED BY: JOSE LUIS HARRISON MD DATE: 06/16/19 1335 CC: CHI DOS SANTOS Jr. DO; SAUL SIFUENTES MD ~ PROCEDURE: CHEST AP ONLY EXAM: Chest, single view. HISTORY: Cough. COMPARISON: 06/03/2018 FINDINGS: A frontal view of the chest is obtained. There is mild diffuse interstitial infiltrate. There is no consolidation. There may be trace pleural effusions. There is no pneumothorax. There is a prominent cardiac silhouette. IMPRESSION: Diffuse interstitial infiltrate. Correlate for possible congestion. Electronically signed by: Breanna Reza MD (06/16/2019 1:11 PM) [place] [id number] Course & Med Decision Making Course & Med Decision Making Pertinent Labs and Imaging studies reviewed. (See chart for details) [] Dragon Disclaimer Dragon Disclaimer This electronic medical record was generated, in whole or in part, using a voice recognition dictation system. Departure Departure: Impression: Primary Impression: CVA (cerebral vascular accident) Additional Impression: Healthcare-associated pneumonia Disposition: ADMITTED INPATIENT Admitting Physician: Jose Napoles Condition: IMPROVED Referrals: SAUL SIFUENTES MD (PCP) Problem Qualifiers Primary Impression: CVA (cerebral vascular accident) CVA mechanism: unspecified Qualified Codes: I63.9 - Cerebral infarction, unspecified CHI DOS SANTOS Jr., DO Jun 16, 2019 12:06
[2019-06-16 12:18] LABS: CALCIUM 9.2 mg/dL (8.5-10.1); CREATININE 1.3 mg/dL (0.7-1.3); GFR 52.5; POTASSIUM 4.5 mmol/L (3.5-5.1)
[2019-06-16 12:25] LABS: ALBUMIN 3.6 g/dL (3.4-5.0); DIRECT BILIRUBIN 0.4 mg/dL (0.0-0.2); TOTAL BILIRUBIN 1.4 mg/dL (0.2-1.0); TOTAL PROTEIN 7.8 g/dL (6.4-8.2)
[2019-06-16] MEDS ORDERED: IOHEXOL 350 MG/ML 100 ML VIAL. IV ONE (12:45)
[2019-06-16] MEDS ORDERED: CONTRAST GIVEN MC PRN (12:45)
--- NOTE | 2019-06-16 13:14 | RAD ---
EXAM: Chest, single view. HISTORY: Cough. COMPARISON: 06/03/2018 FINDINGS: A frontal view of the chest is obtained. There is mild diffuse interstitial infiltrate. There is no consolidation. There may be trace pleural effusions. There is no pneumothorax. There is a prominent cardiac silhouette. IMPRESSION: Diffuse interstitial infiltrate. Correlate for possible congestion. Electronically signed by: Breanna Reza MD (06/16/2019 1:11 PM) [place] [id number]
--- NOTE | 2019-06-16 13:38 | RAD ---
Examination: CT ANGIOGRAPHY HEAD AND NECK History: Right-sided weakness Comparison/Correlation: CT head without contrast 04/25/2018, 06/03/2018 and 06/16/2019 CT head without contrast exams Findings: Axial images of the head and neck were obtained following IV contrast according to arteriography protocol. Sagittal and coronal reformatted images were provided. Maximum intensity projection images were provided. Three-dimensional images provided. Approximately 50 percent stenosis involving the right internal carotid artery at the carotid bulb level is present with partially calcific plaque present. Less than 50 percent stenosis of the right cavernous carotid artery noted. Calcific plaque involving the left carotid bulb is present without appreciable stenosis. Bovine arch is present. Kinked appearance of the right proximal brachiocephalic artery noted. Right and left vertebral arteries are patent and unremarkable. Right anterior anterior cerebral artery proximally located small high-grade filling defect is noted on axial image 51 of series 5 and this corresponds to image 47 in the coronal plane series 6. Mild atheromatous and calcific involvement of the basilar artery noted. Posterior circulation is unremarkable. Vertebral arteries are unremarkable. Ventriculomegaly is noted. Chronic ischemic changes in the white matter noted. No abnormal enhancement on arterial phase images provided. Partial ossification of the left maxillary sinus is noted. Ethmoid air cell opacification noted. Partial opacification of sphenoid sinuses. Globes and optic nerves are unremarkable. Soft tissues of the neck are unremarkable. No enlarged cervical lymph nodes. Multilevel degenerative disc space narrowing of the cervical spine is present. Incidental note is made of atheromatous involvement of the left anterior descending coronary artery. Resolution of pneumonia. Minimal opacification within the distal trachea and right mainstem bronchus probably representing mucous retention noted. Impression: Approximately 50 percent stenosis of the right internal carotid artery at the carotid bulb level with partially calcified plaque. Less than 30 percent stenosis of the right cavernous carotid artery. Small filling defect or high-grade stenosis involving right anterior cerebral artery proximally. PQRS Compliance Statement - Stenosis calculations for CT, MR and conventional angiography are based upon measurement of the distal ICA diameter in accordance with the NASCET methodology. Stenosis calculations for carotid ultrasound studies are derived from validated velocity criteria which are known to correlate with the NASCET methodology. *One or more of the following individualized dose reduction techniques were utilized for this examination: 1. Automated exposure control. 2. Adjustment of the mA and/or kV according to patient size. 3. Use of iterative reconstruction technique. Electronically signed by: Jose Luis Karimi MD (06/16/2019 1:35 PM) [facility]
[2019-06-16] MEDS ORDERED: CLOPIDOGREL BISULFATE 75 MG TABLET PO ONE (14:45)
--- NOTE | 2019-06-16 15:30 | NUR ---
The patient, RANDI CRISTINA, 84 y/o, M admitted by IRASEMA MCCOLLUM MD, was given written information regarding hospital policies, unit procedures and contact persons. Valuables were checked and belongings left in room. Patient admittied from ER via gurney. Patient is alert to self only, confused and disoriented to situation and place. Patient has history of dementia and appears to be very agressive and agitated with EMS and nursing staff. here upon arrival and stated that patient has had a cough for a few weeks and it has not gone away, nursing assessment completed. Patient appears to be septic, will notify dr mccollum at this time to see if he would like further testing.
[2019-06-16] MEDS: IV NORMAL SALINE 1,000ML 1,000 ML IV SCH (15:58)
--- NOTE | 2019-06-16 16:58 | EKG ---
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
[2019-06-16 17:07] LABS: INFLUENZA A PATIENT NEGATIVE (NEGATIVE); INFLUENZA B PATIENT NEGATIVE (NEGATIVE)
[2019-06-16] MEDS ORDERED: TRAV5DRO OU (17:07)
[2019-06-16] MEDS ORDERED: OLANZapine IM 10 MG VIAL. IM PRN (17:15)
--- NOTE | 2019-06-16 17:28 | NUR ---
Dr Napoles here at this time, assessment completed and explained to physician patients aggressiveness towards staff. Physician was able to visually see how patient was reacting towards staff. Patient received 2.5mg zyprexa via syringe with wifes consent, patient spit out into nurses gloves. This was ineffective. Dr Napoles stated we could try to do IM zyprexa to help with patients agitation and aggressiveness. Nursing staff are unable to complete task and assess patient, patient has been hitting and spitting at staff. As well as grabbing at staffs hands and holding them as tight as he can and then digging nails into nursing staffs hands. at bedside and aware of patients behaviors, explained that patient does have severe sepsis and pneumonia. This could be the reason as to why patients is having behaviors and altered mental status. states that patient is not normally this behavioral and confused
--- NOTE | 2019-06-16 18:06 | HP ---
ADMIT DATE: 06/16/2019 HISTORY OF PRESENT ILLNESS: The patient is an 84-year-old male patient, a resident at [facility], who apparently was noted by the nursing staff to be slumped in his right side and was lethargic, and therefore, the patient was transferred to the Emergency Room of [facility] where he was extensively evaluated, has had a CT scan of the head, which showed no acute process and no significant change. He also had a CT angio of the neck and head and it showed that he has an approximately 50% stenosis of right internal carotid artery at the carotid bulbs level and partially calcified plaque, less than 30% stenosis of the right cavernous carotid artery, small filling defects or high-grade stenosis involving the right anterior cerebral artery proximally. Further investigation showed that his chest x-ray showed the patient has diffuse interstitial infiltrate. His lab work showed that his white cell count was high at 13,100, and the patient was admitted to be treated for healthcare-associated pneumonia. We did start him on IV vancomycin and Zosyn. As per protocol, his influenza A and B were negative. The patient himself was very confused and very markedly agitated and aggressive. He was able to move all his extremities without any difficulty. PAST MEDICAL HISTORY: Significant for hypertension, hyperlipidemia, type 2 diabetes, cerebrovascular accident, dementia, gout, benign prostatic hypertrophy, epilepsy, and dysarthria. PAST SURGICAL HISTORY: Significant for lumpectomy of the right chest wall, bilateral total knee arthroplasty, and colonoscopy. ALLERGIES: He has no known drug allergies. MEDICATIONS: He is currently on following medications: He is on Aricept 10 mg once a day, pravastatin 20 mg daily, amlodipine besylate 10 mg daily, lisinopril 10 mg once a day, aspirin 81 mg once a day, Keppra 500 mg twice a day, quetiapine fumarate 12.5 mg at bedtime, timolol maleate for Timoptic 1 drop to both eyes daily, travoprost 1 drop to both eyes at bedtime, thiamine 250 mg once a day, vitamin D for ergocalciferol 2000 international units once a day, multivitamin 1 tablet once a day, allopurinol 300 mg once a day. FAMILY HISTORY: Noncontributory. SOCIAL HISTORY: He is [facility]. He is mostly bed bound, wheelchair bound. He is , ex-smoker, quit in 1971. He used to be a heavy drinker. His last drink was about 12 months ago. REVIEW OF SYSTEMS: Unobtainable as the patient was very uncooperative and restless, agitated, and combative. PHYSICAL EXAMINATION: GENERAL: However, on examining him, he looked well and was clearly in no apparent respiratory distress. There was no pallor, jaundice, cyanosis, or thyromegaly. No jugular venous distention. No limb edema. VITAL SIGNS: His heart rate was 102, blood pressure was 125/72, temperature was 99.4, it went up to 101.9, respiratory rate was 26, and oxygen saturation was 95% on room air. HEAD, EYES, EARS, NOSE, AND THROAT: Normocephalic, atraumatic. NECK: Supple. HEART: Showed normal first and second heart sounds. No gallop or murmur. CHEST: Clear to auscultation. No crepitation or rhonchi anteriorly. ABDOMEN: Distended, soft, nontender. NEUROLOGIC: He is awake, alert, very combative. All his cranial nerves are intact. He definitely moves all his extremities without difficulty. LABORATORY DATA: His lab work on arrival showed a white cell count of 13,100, hemoglobin 12.2, hematocrit 35, MCV 93, and platelet count 206,000. His chemistry showed a serum sodium 135, potassium 4.5, chloride 100, bicarbonate 26, anion gap of 9, BUN 13, creatinine 1.3, estimated GFR was 52 mL per minute, his glucose 142, calcium was 9.2, magnesium 2. Total bilirubin 1.4. AST, ALT, alkaline phosphatase were normal. Total protein was 7.8, albumin was 3.6. His influenza A and B were negative. His CT scan of the head showed no intracranial hemorrhage, midline shift, or mass effect. No evidence of evolving infarct, ventriculomegaly, which is probably related to volume loss and is unchanged. Bony structures unremarkable. His chest x-ray showed that there is mild diffuse interstitial infiltrate. There is no consolidation. There may be trace pleural effusion, no pneumothorax. There is a prominent cardiac silhouette and CT angio of the head and neck showed that the patient has approximately 50% stenosis involving the right internal carotid artery at the carotid bulbs level is present with partially calcified plaque present, has less than 50% stenosis of the right cavernous carotid artery noted, calcific plaque involving the left carotid bulb is present without appreciable stenosis. Bovine arch is present. Kinked appearance of the right proximal brachiocephalic artery noted. Right and left vertebral arteries are patent and unremarkable. Right anterior cerebral artery proximally located small high-grade filling defect is noted on axial image 51. He has mild atheromatous and calcific involvement of the basilar artery noted. Posterior circulation is unremarkable. Vertebral arteries are unremarkable. Ventriculomegaly is noted. Chronic ischemic changes in the white matter noted. No abnormal enhancement in arterial phase images was provided. He has partial opacification of the left maxillary sinuses noted. Ethmoid air sinuses opacification noted. Partially opacification of the sphenoid sinuses. Globes and optic nerves are unremarkable. There is multilevel degenerative disk disease with narrowing of the cervical spine is present. Incidental note is made of atheromatous involvement of the left anterior descending coronary artery. ASSESSMENT AND PLAN: So, in summary, this is an 84-year-old male patient who was admitted with altered mental status as per the [facility] staff; however, by the time the patient arrived here, he was awake, alert, very combative. Extensive investigation showed no evidence of acute infarct; however, he has bilateral pulmonary infiltrate consistent with healthcare-associated pneumonia for which we started him on IV vancomycin and Zosyn. He has also multiple other medical problems including hypertension, hyperlipidemia, type 2 diabetes, gout, benign prostatic hypertrophy, epilepsy, and dysarthria, as well as dementia. My plan is to at least switch his Keppra to be given IV. The patient is unable to refuse to take things by mouth. Total time being DICTATION ENDS HERE IRASEMA MCCOLLUM MD DR: VLADIMIR/regulo JOB#: [id number] / [id number]
[2019-06-16] MEDS ORDERED: VANCOMYCIN 2 GM in IV NORMAL SALINE 500ML 500 ML IV ONE (19:00)
--- NOTE | 2019-06-16 19:22 | NUR ---
IM Zyprexa given at this time due to increased aggressiveness. Lab informed that they are able to complete lab draw for Lactic and blood cultures.
[2019-06-16] MEDS: QUEtiapine 25 MG TABLET. PO SCH (20:49)
[2019-06-16] MEDS: PIPERACILLIN/TAZOBACTAM 3.375 GM in IV NORMAL SALINE 50ML 50 ML IV SCH (20:49)
[2019-06-16] MEDS: LATANOPROST 0.005% OPHTH SOLUTION 2.5ML BOTTLE. OU SCH (20:55)
[2019-06-16] MEDS ORDERED: levETIRAcetam 500 MG TABLET PO SCH (21:00)
[2019-06-16] MEDS: VANCOMYCIN PER PHARMACY MC PRN ×2 (22:36→22:40)
--- NOTE | 2019-06-16 22:41 | NUR ---
Pharmacy Vancomycin Dosing Note S:Consulted to monitor and dose vancomycin started 06/16/19. O:RANDI CRISTINA is a 84 year old M with HCAP, . Height: 5 feet, 8 inches Weight: 109.595330 kg [place] Body Weight: 68.40 Adjusted Body Weight: 84.64 Dosing Weight: Actual Other Antibiotics: ZOSYN LABS: Last BUN: 13 Last Creatinine: 1.3 Creatinine Clearance: 50 Last WBC: 13.1 Last Procalcitonin: Tmax (past 24 hours): Microbiology: I/O: Drug Levels: Last level: on at Last dose given at Vancomycin Dosing: Loading Dose: 2000 mg x1 Dosing Weight: Actual Target Trough: 15-20 A: Based on: ht, wt and renal fxn P: 1. Begin Vancomycin 1750 mg IV q24h 2. Follow up Trough level on 06/18/19 at 2130 3. Pharmacy will continue to monitor, follow and adjust therapy as needed. OSORIO HERBERT, [facility], 06/16/19 [id number]
[2019-06-17] VITALS (17 sets, daily range): BP systolic 89–120; BP diastolic 54–76
[2019-06-17] MEDS: IV NORMAL SALINE 1,000ML 1,000 ML IV SCH ×2 (00:04→05:43)
[2019-06-17] MEDS: PIPERACILLIN/TAZOBACTAM 3.375 GM in IV NORMAL SALINE 50ML 50 ML IV SCH ×5 (00:05→23:30)
--- NOTE | 2019-06-17 02:54 | CONS ---
DATE OF CONSULTATION: NEURO CONSULT REFERRING PHYSICIAN: Dr. Napoles. REASON FOR CONSULTATION: Acute mental status changes, rule out encephalopathy versus stroke. HISTORY OF PRESENT ILLNESS: This is an 84-year-old right-handed male who was admitted through Emergency Room today after he presented with several days of spitting of yellow mucus. He has been combative and confused. In the Emergency Room, the patient was found to have right-sided weakness and right facial drooping. The patient has had a long history of progressive dementia since he had a stroke in 2009. However, the patient did not have any focal neurological deficits. He has been in long term - [facility] since December 2018. The patient is restless and unable to provide any information. Talking to ____ his , she stated he has had mental status changes for many years, but has been worsening in the last few weeks. The patient has been incontinent to urine and stool and has been wheelchair confined since admission to [facility]. Before that, he was using a walker for ambulation. 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 PAST SURGICAL HISTORY: Bilateral total knee replacement. FAMILY HISTORY: Noncontributory. SOCIAL HISTORY: The patient is a long term resident at [facility]. There is no history of smoking, alcohol drinking, or illicit drug use. He used to be heavy drinker many years ago. REVIEW OF SYSTEMS: A 10-point review of system was performed as mentioned above in the history of present illness. The patient is not cooperative and not able to provide any further information. CURRENT HOME MEDICATIONS: Allopurinol 300 mg daily; amlodipine 10 mg p.o. daily; aspirin 81 mg p.o. daily; donepezil 10 mg p.o. nightly; levetiracetam 500 mg twice daily for seizure disorder; lisinopril 10 mg p.o. daily; multivitamins; pravastatin 20 mg p.o. daily; Seroquel 12.5 mg nightly; Travatan 5 mL drops at bedtime; eye drops, Timoptic 10 mL drops daily and multivitamins. PHYSICAL EXAMINATION: GENERAL: Obese male, not in acute distress. He weighs 109 kilos. VITAL SIGNS: Blood pressure 106/66, respiratory rate is 26, pulse is 89, oxygen saturation 94% on room air, temperature 101.9. HEENT: Normocephalic, atraumatic, otherwise unremarkable. NECK: Supple. Negative for carotid bruit, lymphadenopathy or thyromegaly. LUNGS: Diminished breath sounds bilaterally. CARDIOVASCULAR: Regular rate and rhythm, normal S1, S2. ABDOMEN: Soft. Bowel sounds positive. EXTREMITIES: Negative for cyanosis, clubbing or edema. NEUROLOGICAL EXAM: Mental Status: The patient is awake, but disoriented. He is not cooperative. He does not answer any questions, probably due to underlying dementia and he does not follow any commands. The patient has been restless and agitated since admission, but he is more calmer today at this time after given olanzapine. CRANIAL NERVES: The pupils are equal and reactive to light. Extraocular movements are intact. There is no nystagmus. There is no facial motor or sensory deficit. Hearing appeared to be intact. The patient shrugs his shoulders and he does not protrude his tongue probably due to dementia. Motor examination: No focal muscle bulk was seen. The tone is normal. The strength is 4/5 throughout. The patient moves his upper and lower extremities equally. SENSORY EXAMINATION: Normal to pinprick senses. Deep tendon reflexes were symmetric and hypoactive with absent Achilles responses. Gait not tested. LABORATORY DATA: CBC revealed white blood cells of 13,100, hemoglobin 12.2, hematocrit 35.1, platelet count 206,000. Chemistry revealed sodium of 135, potassium 4.5, chloride 100, CO2 of 26, BUN 13, creatinine 1.3, glucose 142, calcium is 9.2. Total bilirubin is high at 1.4 and direct bilirubin is high at 0.4. Liver enzymes are normal. Albumin is normal. Influenza A and B are negative. DIAGNOSTIC DATA: Nonenhanced head CT scan revealed no acute intracranial process, but showed generalized atrophy with ventriculomegaly. Chest x-ray revealed diffuse interstitial infiltrate consistent with congestion and possible pneumonia. CT angio of the head and neck revealed 50% stenosis of the right internal carotid and estimated 30% stenosis of the right cavernous carotid artery without significant stenosis of the left internal carotid artery. IMPRESSION: 1. Acute encephalopathy, probably infectious process. 2. Abnormal x-ray consistent with pneumonia. 3. 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 4. There is no evidence of clinical acute stroke at this time. RECOMMENDATIONS: 1. Treat the underlying pneumonia. 2. Continue with current home medications. 3. Check thyroid profile and RPR and vitamin B12 level. 4. Treat the underlying hyperglycemia. M Denise DANIEL MD DR: KISHA/regulo JOB#: [id number] / [id number]
--- NOTE | 2019-06-17 06:09 | NUR ---
Shift Note: Pt is oriented to self only, pt continues to be physically aggressive with staff when attempting to care for patient or draw labs, no signs of or verbalization of pain or discomfort, VSS, pt feels warmer this am (pt would not allow staff to get temperature, pt attempting to hit and bite staff), pt incontinent of bladder throughout the night, no bowel movement noted, zosyn and vancomycin infused as ordered, pt continues to cough off and on w/copious amounts of yellow sputum, pt has difficulty clearing secretions at times, needs encouragement.
[2019-06-17] MEDS ORDERED: ACETAMINOPHEN 650 MG SUPP.RECT. PR PRN (08:00)
[2019-06-17 08:15] LABS: BASO # 0.1 x10^3/uL (0.0-0.2); BASO % 1 % (0-3); EOS # 0.2 x10^3/uL (0.0-0.7); EOS % 2 % (0-3); HEMATOCRIT 32.3 % (39.0-53.0); HEMOGLOBIN 11.3 g/dL (13.0-17.5); LYMPH # 1.6 x10^3/uL (1.0-4.8); LYMPH % 13 % (24-48); MEAN CORPUSCULAR HEMOGLOBIN 32 pg (25-35); MEAN CORPUSCULAR HGB CONC 35 g/dL (31-37); MEAN CORPUSCULAR VOLUME 92 fL (79-100); MONO # 1.3 x10^3/uL (0.0-1.1); MONO % 10 % (0-9); NEUT # 9.4 x10^3uL (1.8-7.7); NEUT % 75 % (31-73); PLATELET COUNT 177 x10^3/uL (140-400); RED BLOOD COUNT 3.53 x10^6/uL (4.30-5.70); RED CELL DISTRIBUTION WIDTH 13.3 % (11.5-14.5); WHITE BLOOD COUNT 12.6 x10^3/uL (4.0-11.0)
[2019-06-17 08:21] LABS: CALCIUM 8.1 mg/dL (8.5-10.1); CREATININE 1.3 mg/dL (0.7-1.3); GFR 52.5
[2019-06-17] MEDS: LACTOBACILLUS RHAMNOSUS GG 1 CAPSULE. PO SCH ×2 (09:00→20:54)
[2019-06-17] MEDS: ALLOPURINOL 300 MG TABLET. PO SCH (09:00)
[2019-06-17] MEDS: LISINOPRIL 10 MG TABLET PO SCH (09:00)
[2019-06-17] MEDS: DONEPEZIL HCL 10 MG TABLET PO SCH (09:00)
[2019-06-17] MEDS: ASPIRIN 81 MG TAB.CHEW PO SCH (09:00)
[2019-06-17] MEDS: CHOLECALCIFEROL (VITAMIN D3) 1,000 UNIT TABLET PO SCH (09:00)
[2019-06-17] MEDS: THIAMINE 100 MG TABLET. PO SCH (09:00)
[2019-06-17] MEDS: MULTIVITAMIN with MINERAL TABLET. PO SCH (09:00)
[2019-06-17] MEDS: NON FORMULARY ITEM (Pravastatin Sodium 20 MG) PO SCH (09:00)
[2019-06-17] MEDS: amLODIPine BESYLATE 10 MG TABLET PO SCH (09:00)
[2019-06-17] MEDS: TIMOLOL 0.5% OPHTH SOLUTION 5ML BOTTLE. OU SCH (12:06)
[2019-06-17] MEDS ORDERED: IV NORMAL SALINE 1,000ML 1,000 ML IV ONE (14:00)
[2019-06-17] MEDS ORDERED: NOREPINEPHRINE BITARTRATE 8 MG in IV DEXTROSE 5% 250 ML IV PRN (14:00)
[2019-06-17 14:44] LABS: BGAS PH 7.36 (7.35-7.46)
[2019-06-17 18:30] LABS: BACTERIA,URINE 0 /HPF (0-FEW); BILIRUBIN,URINE NEG (NEG); CLARITY,URINE CLEAR; COLOR,URINE YELLOW; GLUCOSE,URINE NEG (NEG); NITRITE,URINE NEG (NEG); SQUAMOUS EPITHELIAL CELL,UR OCC /LPF
[2019-06-17 19:36] LABS: HEMOGLOBIN 11.4 g/dL (13.0-17.5); RED BLOOD COUNT 3.56 x10^6/uL (4.30-5.70); RED CELL DISTRIBUTION WIDTH 13.4 % (11.5-14.5); WHITE BLOOD COUNT 12.3 x10^3/uL (4.0-11.0)
[2019-06-17 19:50] LABS: ALBUMIN 2.9 g/dL (3.4-5.0); ALBUMIN/GLOBULIN RATIO 0.8 (1.0-1.7); CREATININE 1.2 mg/dL (0.7-1.3); GFR 57.5; POTASSIUM 3.7 mmol/L (3.5-5.1); TOTAL BILIRUBIN 1.4 mg/dL (0.2-1.0); TOTAL PROTEIN 6.7 g/dL (6.4-8.2)
[2019-06-17] MEDS: LATANOPROST 0.005% OPHTH SOLUTION 2.5ML BOTTLE. OU SCH (20:53)
[2019-06-17] MEDS: ENOXAPARIN ** NOTE DOSE ** SYRINGE SQ SCH (20:54)
[2019-06-17] MEDS: QUEtiapine 25 MG TABLET. PO SCH (20:54)
[2019-06-17] MEDS: VANCOMYCIN 1.75 GM in IV NORMAL SALINE 500ML 500 ML IV SCH (21:22)
[2019-06-18] VITALS (25 sets, daily range): BP systolic 93–144; BP diastolic 50–96
--- NOTE | 2019-06-18 01:08 | PN ---
DATE: SUBJECTIVE: The patient has been lethargic and open eyes to noxious stimuli, unable to communicate. The patient was restless last night. He was given one dose of olanzapine 5 mg. OBJECTIVE: GENERAL: Obese male, not in acute distress. VITAL SIGNS: Blood pressure 94/64, respiratory rate 25, pulse is 85 and regular, temperature 99, oxygen saturation 92% on room air. HEENT: Normocephalic, atraumatic, otherwise unremarkable. NECK: Supple. Negative for carotid bruit, lymphadenopathy or JVD. LUNGS: Diminished breath sounds. CARDIOVASCULAR: Regular rate and rhythm. Normal S1, S2. ABDOMEN: Soft. Bowel sounds positive. EXTREMITIES: Negative for cyanosis, clubbing or edema. NEUROLOGICAL EXAM: The patient is lethargic. He opens eyes to noxious stimuli, then he drifted and closed his eyes. He does not follow any commands at this time. Otherwise, neurological examination unchanged from last night. LABORATORY DATA: CBC revealed white blood cells of 12.6 thousand, hemoglobin 11.3, hematocrit 32.3, platelet count 177,000. Chemistry revealed sodium of 137, potassium 4, chloride 103, CO2 of 23, BUN 12, creatinine 1.3, glucose 141, calcium 8.1. Lactic acid is 1.1. IMPRESSION: 1. Acute encephalopathy, probably due to underlying sepsis -- pneumonia. 2. Longstanding history of progressive dementia, probably of Alzheimer type. 3. History of stroke, seizure disorder probably secondary to stroke. Multiple medical problems includes diabetes mellitus, hyperlipidemia, gout, hypertension and current hypotension secondary to underlying sepsis. RECOMMENDATIONS: We will continue with current management. We will check swallowing function. M Denise DANIEL MD DR: KISHA/regulo JOB#: [id number] / [id number]
[2019-06-18] MEDS: PIPERACILLIN/TAZOBACTAM 3.375 GM in IV NORMAL SALINE 50ML 50 ML IV SCH ×3 (05:21→17:37)
--- NOTE | 2019-06-18 08:06 | PN ---
DATE: 06/17/2019 SUBJECTIVE: The patient is resting, slightly propped up in bed, in no apparent distress. He has no more shortness of breath or recurrent bouts of cough with yellowish sputum as of last night or this morning. However, his blood pressure dropped down this morning and he was given a bolus of 1 liter of normal saline and started on Levophed. He continues to be on IV antibiotic in the form of vancomycin as well as piperacillin and tazobactam. When questioning him, he denied any chest pain or shortness of breath, denied any pain. PHYSICAL EXAMINATION: GENERAL: When I examined him, he looked well and was clearly in no apparent respiratory distress. No pallor, jaundice, or cyanosis. No lymphadenopathy or thyromegaly. No jugular venous distention. No limb edema. VITAL SIGNS: His heart rate was 69, blood pressure was 89/57, temperature was 98.3, respiratory rate was 18, and oxygen saturation was 93% on room air. HEAD, EYES, EARS, NOSE, AND THROAT: Showed normocephalic and atraumatic. NECK: Supple. HEART: Showed normal first and second heart sounds. No gallop, rub or murmur. CHEST: Clear to auscultation. No crepitation or rhonchi. ABDOMEN: Distended, soft, nontender. NEUROLOGIC: He was very lethargic, but arousable. All cranial nerves are intact. He moves extremities without difficulty, though he is mostly bedbound. His intake over the last 24 hours was 1800, no output was recorded. LABORATORY DATA: This morning showed a white cell count 12,600, hemoglobin 11, hematocrit 32, MCV 92, and platelet count of 177,000. His chemistry showed a serum sodium 137, potassium 4, chloride 103, bicarbonate 23, anion gap of 11, BUN 12, creatinine 1.3, estimated GFR was 52 mL per minute. His lactic acid was only 1.1. Procalcitonin was less than 0.1. His blood gases showed a pH of 7.36, pCO2 of 35, pO2 of 75, bicarbonate 20, and oxygen saturation was 94% on FiO2 of 21%. His influenza A and B were negative. ASSESSMENT AND PLAN: Aspiration pneumonia/healthcare-associated pneumonia, for which he was started on IV vancomycin and Zosyn with multiple other medical problems including sepsis and hypotension, for which he is now on IV fluid and IV Levophed; type 2 diabetes; gout; benign prostatic hypertrophy; epilepsy, for which he is now on IV Keppra. We will monitor his lab work closely. I will start him on deep venous thrombosis prophylaxis, and tomorrow if his kidney function remains stable, we will arrange for him to have a CT angio. IRASEMA MCCOLLUM MD DR: VLADIMIR/regulo JOB#: [id number] / [id number]
[2019-06-18] MEDS: MULTIVITAMIN with MINERAL TABLET. PO SCH (08:44)
[2019-06-18] MEDS: ALLOPURINOL 300 MG TABLET. PO SCH (08:44)
[2019-06-18] MEDS: THIAMINE 100 MG TABLET. PO SCH (08:44)
[2019-06-18] MEDS: CHOLECALCIFEROL (VITAMIN D3) 1,000 UNIT TABLET PO SCH (08:44)
[2019-06-18] MEDS: amLODIPine BESYLATE 10 MG TABLET PO SCH ×2 (08:44→09:00)
[2019-06-18] MEDS: ASPIRIN 81 MG TAB.CHEW PO SCH (08:44)
[2019-06-18] MEDS: LACTOBACILLUS RHAMNOSUS GG 1 CAPSULE. PO SCH ×2 (08:44→21:04)
[2019-06-18] MEDS: ENOXAPARIN ** NOTE DOSE ** SYRINGE SQ SCH ×2 (08:45→21:04)
[2019-06-18] MEDS: LISINOPRIL 10 MG TABLET PO SCH (08:45)
[2019-06-18] MEDS: DONEPEZIL HCL 10 MG TABLET PO SCH (08:45)
[2019-06-18] MEDS: TIMOLOL 0.5% OPHTH SOLUTION 5ML BOTTLE. OU SCH (08:45)
[2019-06-18] MEDS: NON FORMULARY ITEM (Pravastatin Sodium 20 MG) PO SCH (09:00)
--- NOTE | 2019-06-18 09:15 | NUR ---
PT had been on [facility] soft diet with nectar thick at longterm. PT did pass bedside swallow per RN this AM. PT sitting straight up with 1:1 cures no straws. PT did spit at times. Minimal coughing. Speech eval and treat considering pt does have pneumonia. Pt confused unable to verbalize understanding of POC. PT does swing at time, was pulling on on bates, and has very long finger nails, mitts applied for own safety. Will continue to monitor. Danna OREILLY
[2019-06-18] MEDS: IV NORMAL SALINE 1,000ML 1,000 ML IV SCH ×2 (10:40→17:37)
--- NOTE | 2019-06-18 20:39 | PN ---
DATE: SUBJECTIVE: The patient continues to be confused and disoriented. He is not able to provide any information; however, he has been resting comfortably in bed. OBJECTIVE: GENERAL: Obese male, not in acute distress. VITAL SIGNS: Blood pressure 96/58, respiratory rate 22, pulse is 80, temperature is 98.7, oxygen saturation is 93% on room air. HEENT: Normocephalic, atraumatic, otherwise unremarkable. NECK: Supple. Negative for carotid bruit, lymphadenopathy or thyromegaly. LUNGS: With diminished breath sounds, but no rales or wheezing. CARDIOVASCULAR: Regular rhythm, normal S1, S2. ABDOMEN: Soft. Bowel sounds positive. EXTREMITIES: Negative for cyanosis, clubbing or edema. NEUROLOGICAL EXAM: Mental Status: The patient is alert and follow 1-step commands. Speech is fluent. Further evaluation of mental status is limited because of the underlying advanced dementia. Cranial nerves are grossly intact. Motor examination: No focal muscle bulk was seen. The tone is normal. The strength is 4/5 throughout. Sensory examination revealed diminished pinprick and light touch senses in patchy distributions in both lower extremities. Deep tendon reflexes were symmetric and hypoactive with absent Achilles responses. Gait not tested. IMPRESSION: 1. Acute encephalopathy, probably infectious type secondary to pneumonia. 2. Longstanding history of dementia, seizure disorder, stroke, diabetes mellitus, hypertension, hyperlipidemia with current hypotension, probably secondary to underlying sepsis. RECOMMENDATIONS: 1. Continue with current management. 2. Await CT angio. M Denise DANIEL MD DR: KISHA/regulo JOB#: [id number] / [id number]
[2019-06-18] MEDS: LATANOPROST 0.005% OPHTH SOLUTION 2.5ML BOTTLE. OU SCH (21:03)
[2019-06-18] MEDS: ACETAMINOPHEN 325 MG TABLET PO PRN (21:04)
[2019-06-18] MEDS: QUEtiapine 25 MG TABLET. PO SCH (21:04)
[2019-06-18] MEDS: levETIRAcetam 500 MG TABLET PO SCH (21:04)
[2019-06-18] MEDS: VANCOMYCIN 1.75 GM in IV NORMAL SALINE 500ML 500 ML IV SCH (22:04)
--- NOTE | 2019-06-18 23:42 | PN ---
DATE: 06/18/2019 SUBJECTIVE: The patient is an 84-year-old male patient, a resident at [facility], who was admitted through the Emergency Room with altered mental status. He was brought to the Emergency Room of [facility] where he was extensively evaluated. CT scan of the head, CT angio of the neck and head were unremarkable except for a 50% stenosis of the right internal carotid artery; however, his x-ray showed that he has diffuse interstitial infiltrate and lab work showed he has leukocytosis and was admitted for treatment of sepsis with healthcare-associated pneumonia. We did start him on IV vancomycin and Zosyn after obtaining appropriate specimen for culture and sensitivity from blood, sputum and urine. His influenza A and B were negative. The patient himself is very confused and was markedly agitated and aggressive, however, clearly able to move all his extremities without any difficulty. Apparently yesterday he had an episode of hypotension for which he was started on Levophed that has since been discontinued. He received also multiple boluses of IV fluid. When I saw him today, he was definitely more awake, alert, comfortable, continued to be somewhat combative and aggressive. PHYSICAL EXAMINATION: GENERAL: When I examined him, he looked well and was clearly in no apparent respiratory distress, slightly pale, but no jaundice, cyanosis or thyromegaly. No jugular venous distention. No limb edema. VITAL SIGNS: His heart rate was 81, blood pressure was 107/61, temperature was 98.7, respiratory rate was 22 and oxygen saturation was 92% on room air. HEAD, EYES, EARS, NOSE AND THROAT: Showed normocephalic, atraumatic. NECK: Supple. HEART: Showed normal first and second heart sounds. No gallop or murmur. CHEST: Clear to auscultation. No crepitation or rhonchi. ABDOMEN: Distended, soft, nontender. NEUROLOGIC: He is demented without any obvious lateralizing sign. All his cranial nerves are intact. He moves extremities spontaneously; however, he is mostly bedbound, chair bound. His intake was 1800, no output was recorded. LABORATORY DATA: His lab work as of yesterday showed a white cell count 12,300, hemoglobin 11, hematocrit 33, MCV 93 and platelet count 202,000. His chemistry showed a serum sodium 139, potassium 3.7, chloride 105, bicarbonate 24, anion gap of 10, BUN 13, creatinine 1.2, estimated GFR was 57 mL per minute, his glucose 141. Lactic acid is down to 1.1. His calcium was 8. Total bilirubin 1.4. AST, ALT, alkaline phosphatase were normal. Total protein was 6.7, albumin 2.9. ASSESSMENT: 1. Healthcare-associated pneumonia for which he was started on IV vancomycin, Zosyn, and responding well. He is afebrile. His white cell count is normal. He has multiple other medical problems including: A. Benign prostatic hypertrophy for which he required indwelling Malone catheter. 2. Type 2 diabetes mellitus. 3. Epilepsy, for which he is now on oral Keppra. PLAN: To continue with IV antibiotic. Continue with Keppra, continue with DVT prophylaxis. IRASEMA MCCOLLUM MD DR: VLADIMIR/regulo JOB#: [id number] / [id number]
[2019-06-19] VITALS (11 sets, daily range): BP systolic 98–146; BP diastolic 62–88
[2019-06-19] MEDS: PIPERACILLIN/TAZOBACTAM 3.375 GM in IV NORMAL SALINE 50ML 50 ML IV SCH ×5 (00:35→23:55)
[2019-06-19] MEDS: IV NORMAL SALINE 1,000ML 1,000 ML IV SCH ×3 (01:15→12:55)
[2019-06-19] MEDS: VANCOMYCIN PER PHARMACY MC PRN (02:02)
--- NOTE | 2019-06-19 02:02 | NUR ---
Pharmacy Vancomycin Dosing Note S:Consulted to monitor and dose vancomycin started 06/16/19. O:RANDI CRISTINA is a 84 year old M with HCAP, . Height: 5 feet, 8 inches Weight: 107.381885 kg [place] Body Weight: 68.40 Adjusted Body Weight: 84.64 Dosing Weight: Actual Other Antibiotics: ZOSYN LABS: Last BUN: 13 Last Creatinine: 1.3 Creatinine Clearance: 50 Last WBC: 13.1 Last Procalcitonin: Tmax (past 24 hours): Microbiology: I/O: Drug Levels: Last Trough level: 8 on 06/18/19 at 2130 Last dose given at Vancomycin Dosing: Loading Dose: 2000 mg x1 Dosing Weight: Actual Target Trough: 15-20 A: Based on: TROUGH P: 1. Begin Vancomycin 1750 mg IV q18h 2. Follow up Trough level on 06/21/19 at 0330 3. Pharmacy will continue to monitor, follow and adjust therapy as needed. NICHOLAS NICOLE RPH, 06/19/19 0202 Signed: 06/19/19 at 0202 by NICHOLAS NICOLE RPH PHA
--- NOTE | 2019-06-19 04:22 | NUR ---
Shift Note: Pt is a/o to self, speech is incomprehensible, VSS (pt does not tolerate being turned from side to side as BP decreases to 80s when on his side), no c/o pain or n/v at this time. IV fluids infusing. Pt pulled out left IV, right remains intact. Malone to dependent drainage, draining clear yellow urine. Pt able to take PO medications crushed in pudding w/o difficulty, no choking noted after administration of PO medications. Vanc trough was 8.0, pharmacy notified, Vanc frequency changed. Pt remains with mitts on d/t pulling on lines and drains.
[2019-06-19 06:25] LABS: HEMATOCRIT 30.3 % (39.0-53.0); HEMOGLOBIN 10.4 g/dL (13.0-17.5); RED BLOOD COUNT 3.25 x10^6/uL (4.30-5.70); RED CELL DISTRIBUTION WIDTH 13.1 % (11.5-14.5); WHITE BLOOD COUNT 8.3 x10^3/uL (4.0-11.0)
[2019-06-19 06:51] LABS: ALBUMIN 2.6 g/dL (3.4-5.0); ALBUMIN/GLOBULIN RATIO 0.7 (1.0-1.7); CALCIUM 7.9 mg/dL (8.5-10.1); CREATININE 1.1 mg/dL (0.7-1.3); GFR 63.6; POTASSIUM 3.5 mmol/L (3.5-5.1); TOTAL BILIRUBIN 0.7 mg/dL (0.2-1.0); TOTAL PROTEIN 6.3 g/dL (6.4-8.2)
[2019-06-19] MEDS: LISINOPRIL 10 MG TABLET PO SCH (07:37)
[2019-06-19] MEDS: amLODIPine BESYLATE 10 MG TABLET PO SCH (07:37)
[2019-06-19] MEDS: MULTIVITAMIN with MINERAL TABLET. PO SCH (07:40)
[2019-06-19] MEDS: levETIRAcetam 500 MG TABLET PO SCH ×2 (07:40→20:50)
[2019-06-19] MEDS: ACETAMINOPHEN 325 MG TABLET PO PRN (07:40)
[2019-06-19] MEDS: LACTOBACILLUS RHAMNOSUS GG 1 CAPSULE. PO SCH ×2 (07:40→20:50)
[2019-06-19] MEDS: ALLOPURINOL 300 MG TABLET. PO SCH (07:41)
[2019-06-19] MEDS: ASPIRIN 81 MG TAB.CHEW PO SCH (07:41)
[2019-06-19] MEDS: CHOLECALCIFEROL (VITAMIN D3) 1,000 UNIT TABLET PO SCH (07:41)
[2019-06-19] MEDS: THIAMINE 100 MG TABLET. PO SCH (07:41)
[2019-06-19] MEDS: DONEPEZIL HCL 10 MG TABLET PO SCH (07:41)
[2019-06-19] MEDS: ENOXAPARIN ** NOTE DOSE ** SYRINGE SQ SCH (07:42)
[2019-06-19] MEDS: ENOXAPARIN 40 MG/0.4 ML SYRINGE. SQ SCH (07:59)
[2019-06-19] MEDS: IPRATRPIUM/ALBUTEROL 0.5/2.5MG 3 ML NEBU. NEB SCH ×4 (08:00→22:42)
[2019-06-19] MEDS: TIMOLOL 0.5% OPHTH SOLUTION 5ML BOTTLE. OU SCH (12:38)
--- NOTE | 2019-06-19 13:59 | NUR ---
Pt more combative today, trying to get out of bed. Pt had large bowel movement and had to change bed. Took 4 nurses to help because pt was combative. Cherie Peterson RN
[2019-06-19] MEDS ORDERED: VANCOMYCIN 1.75 GM in IV NORMAL SALINE 500ML 500 ML IV SCH (16:00)
--- NOTE | 2019-06-19 16:28 | PN ---
DATE: 06/19/2019 SUBJECTIVE: The patient is still confused and disoriented and unable to communicate clearly. OBJECTIVE: GENERAL: Obese male, not in acute distress. VITAL SIGNS: Blood pressure 101/67, respiratory rate 20, pulse is 80, temperature 98.7, oxygen saturation 96% on room air. HEENT: Normocephalic, atraumatic, otherwise unremarkable. NECK: Supple. Negative for carotid bruit, no lymphadenopathy, JVD or thyromegaly. LUNGS: With diminished breath sounds bilaterally. CARDIOVASCULAR: Regular rate and rhythm, normal S1, S2. ABDOMEN: Soft. Bowel sounds positive. EXTREMITIES: Negative for cyanosis, clubbing or edema. NEUROLOGICAL EXAM: Mental Status: The patient is awake, but disoriented to time and place. Speech is somewhat fluent. There is no apparent language dysfunction. Memory, judgment, and abstract thinking are poor. The patient denies hallucination or delusion. Cranial nerves are grossly intact. The patient moves his upper and lower extremities equally with strength 4/5. Sensory examinant revealed diminished pinprick and light touch senses in patchy distributions in both lower extremities. Deep tendon reflexes were isometric and hypoactive with absent Achilles responses. Gait not tested. LABORATORY DATA: CBC revealed white blood cells of 8.3 thousand, hemoglobin 10.4, hematocrit 30.3, platelet count 172,000. Chemistry revealed sodium 144, potassium 3.5, chloride 111, CO2 of 22, BUN 6, creatinine 1.1, glucose 102, calcium is 7.9. Magnesium is normal at 0.7. IMPRESSION: 1. Pneumonia. 2. Urinary tract infections. 3. Multiple medical problems include benign prostate hypertrophy, diabetes mellitus type 2, and history of seizure disorder. RECOMMENDATIONS: Continue with current medical care and medication initiated by Dr. Napoles. M Denise DANIEL MD DR: KISHA/regulo JOB#: [id number] / [id number]
[2019-06-19] MEDS: LATANOPROST 0.005% OPHTH SOLUTION 2.5ML BOTTLE. OU SCH (20:50)
[2019-06-19] MEDS: QUEtiapine 25 MG TABLET. PO SCH (20:51)
--- NOTE | 2019-06-19 21:23 | PDOC ---
Exam Note: Ethan Note: Please also refer to the separate dictated note~for this date of service dictated separately.~Patient seen individually. Discussed the patient with Nursing staff reviewed the chart.~Reviewed interim history and current functioning. Reviewed vital signs,~Labs/ Radiology~and current medications noted below. Continue current treatment with the changes noted in the dictated addendum note Assessment: Vital Signs/I&O: Vital Signs Date Time Temp Pulse Resp B/P (MAP) Pulse Ox O2 Delivery O2 Flow Rate FiO2 06/19/19 19:45 Room Air 06/19/19 19:14 97.4 66 18 101/64 (76) 95 I & O 06/18/19 06/18/19 06/19/19 15:00 23:00 07:00 Intake Total 400 ml 1650 ml 2165 ml Output Total 900 ml 1650 ml Balance 400 ml 750 ml 515 ml Labs: Laboratory Tests Test 06/19/19 06:00 White Blood Count 8.3 x10^3/uL (4.0-11.0) Red Blood Count 3.25 x10^6/uL (4.30-5.70) L Hemoglobin 10.4 g/dL (13.0-17.5) L Hematocrit 30.3 % (39.0-53.0) L Mean Corpuscular Volume 93 fL (79-100) Mean Corpuscular Hemoglobin 32 pg (25-35) Mean Corpuscular Hemoglobin Concent 34 g/dL (31-37) Red Cell Distribution Width 13.1 % (11.5-14.5) Platelet Count 172 x10^3/uL (140-400) Sodium Level 144 mmol/L (136-145) Potassium Level 3.5 mmol/L (3.5-5.1) Chloride Level 111 mmol/L (98-107) H Carbon Dioxide Level 22 mmol/L (21-32) Anion Gap 11 (6-14) Blood Urea Nitrogen 6 mg/dL (8-26) L Creatinine 1.1 mg/dL (0.7-1.3) Estimated GFR (Cockcroft-Gault) 63.6 BUN/Creatinine Ratio 5 (6-20) L Glucose Level 102 mg/dL (70-99) H Calcium Level 7.9 mg/dL (8.5-10.1) L Total Bilirubin 0.7 mg/dL (0.2-1.0) Aspartate Amino Transferase (AST) 26 U/L (15-37) Alanine Aminotransferase (ALT) 20 U/L (16-63) Alkaline Phosphatase 60 U/L (46-116) Total Protein 6.3 g/dL (6.4-8.2) L Albumin 2.6 g/dL (3.4-5.0) L Albumin/Globulin Ratio 0.7 (1.0-1.7) L Current Medications: Meds: Current Medications Medications (Trade) Dose Ordered Sig/Criss Route PRN Reason Start Time Stop Time Status Last Admin Dose Admin Vancomycin HCl (Vancomycin Trough Level) 1 each 1X ONCE MC 06/18/19 21:30 06/18/19 21:31 DC 06/18/19 21:30 Vancomycin HCl 1.75 gm/Sodium Chloride 500 ml @ 250 mls/hr Q18H IV 06/19/19 16:00 06/19/19 17:48 DC 06/19/19 15:39 Albuterol/ Ipratropium (Duoneb) 3 ml RTQID NEB 06/19/19 08:00 06/19/19 15:26 I have reviewed the current psychotropics carefully including drug interactions. Risk benefit ratio favors no change other than as noted in my dictated progress note. 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
[2019-06-20] VITALS (7 sets, daily range): BP systolic 102–139; BP diastolic 66–97
--- NOTE | 2019-06-20 00:09 | PN ---
DATE: 06/19/2019 SUBJECTIVE: The patient is resting, slightly propped up in bed, being fed his dinner. He seemed to be more comfortable. Apparently, the patient has been more awake, alert, agitated, attempting to get out of the bed, requiring mittens as he continued constantly pulling his Malone catheter. The physical therapy has worked with him and he managed to stand and he seemed to be generally improving. PHYSICAL EXAMINATION: GENERAL: When I examined him, he looked well and was clearly in no apparent respiratory distress. No pallor, jaundice, cyanosis. No lymphadenopathy or thyromegaly. No jugular venous distension. No lower limb edema. VITAL SIGNS: His heart rate was 69, blood pressure 114/64, temperature 97.5, respiratory rate was 20, and oxygen saturation was 95% on room air. HEAD, EYES, EARS, NOSE AND THROAT: Showed normocephalic, atraumatic. NECK: Supple. HEART: Showed normal first and second heart sounds. No gallop, rub or murmur. CHEST: Clear to auscultation. No crepitation or rhonchi. ABDOMEN: Distended, soft, nontender. NEUROLOGIC: He is somewhat lethargic, has apparently received some Zyprexa because of his agitation. He does open his eyes and respond. All his cranial nerves are intact. He moves extremities without difficulty, though is mostly bedbound. His intake over the last 24 hours was 995, output was 1600. LABORATORY DATA: As of this morning, his white cell count is down to 8300, hemoglobin 10, hematocrit 30, MCV 93, platelet count 172,000. Serum sodium 144, potassium 3.5, chloride 110, bicarbonate 22, anion gap of 11, BUN 6, creatinine 1.1, estimated GFR was 64 mL per minute. His glucose 102, calcium was 7.9. Total bilirubin, AST, ALT, alkaline phosphatase were normal. Total protein 6.3, albumin 2.6. ASSESSMENT: 1. Healthcare-associated pneumonia for which he was started on IV vancomycin, Zosyn, and responding very well. He is afebrile. His white cell count is normal. Other medical problems include benign prostatic hypertrophy requiring indwelling Malone catheter. 2. Type 2 diabetes mellitus. 3. Epilepsy. He is now on oral Keppra. PLAN: To continue with IV antibiotic. Continue with Keppra, continue with DVT prophylaxis. We will wait for the result of the culture and sensitivity tomorrow. I will discontinue his vancomycin as his cultures are negative after 2 days and will continue with Zosyn and hopefully tomorrow if the cultures show any bacteria, then we can discharge him on oral antibiotic. IRASEMA MCCOLLUM MD DR: VLADIMIR/regulo JOB#: [id number] / [id number]
[2019-06-20] MEDS: PIPERACILLIN/TAZOBACTAM 3.375 GM in IV NORMAL SALINE 50ML 50 ML IV SCH ×2 (05:58→12:00)
[2019-06-20 06:34] LABS: BASO # 0.1 x10^3/uL (0.0-0.2); BASO % 1 % (0-3); EOS # 0.4 x10^3/uL (0.0-0.7); EOS % 6 % (0-3); HEMATOCRIT 30.2 % (39.0-53.0); HEMOGLOBIN 10.4 g/dL (13.0-17.5); LYMPH # 1.3 x10^3/uL (1.0-4.8); LYMPH % 19 % (24-48); MEAN CORPUSCULAR HEMOGLOBIN 32 pg (25-35); MEAN CORPUSCULAR HGB CONC 34 g/dL (31-37); MEAN CORPUSCULAR VOLUME 93 fL (79-100); MONO # 0.4 x10^3/uL (0.0-1.1); MONO % 6 % (0-9); NEUT # 4.6 x10^3uL (1.8-7.7); NEUT % 68 % (31-73); PLATELET COUNT 204 x10^3/uL (140-400); RED BLOOD COUNT 3.25 x10^6/uL (4.30-5.70); RED CELL DISTRIBUTION WIDTH 13.2 % (11.5-14.5); WHITE BLOOD COUNT 6.9 x10^3/uL (4.0-11.0)
[2019-06-20] MEDS: IPRATRPIUM/ALBUTEROL 0.5/2.5MG 3 ML NEBU. NEB SCH ×5 (06:38→20:51)
[2019-06-20 06:53] LABS: ALBUMIN 2.6 g/dL (3.4-5.0); ALBUMIN/GLOBULIN RATIO 0.7 (1.0-1.7); CALCIUM 8.1 mg/dL (8.5-10.1); POTASSIUM 3.5 mmol/L (3.5-5.1); TOTAL BILIRUBIN 0.6 mg/dL (0.2-1.0); TOTAL PROTEIN 6.3 g/dL (6.4-8.2)
--- NOTE | 2019-06-20 07:00 | NUR ---
Received bedside report from rn shift mgr RNBear. PT awake and calm, watching television. PT in osvaldo mitts due to repeat attempts over several shifts of attempting to remove/successful removal of bates catheter. PT removed left osvaldo mitt, and allowed RN to reapply. PT expectorated thick, yellow mucus and RN provided oral hygiene. PT is AO1; knows name but unable to remember birthday or 's name, and unaware of date/time/location. VSS and baseline at this time. Stable at time of senior storage administrator/report.
--- NOTE | 2019-06-20 08:14 | RAD ---
CHEST AP ONLY Clinical Indication: Cough, pneumonia, congestion Comparison: 06/16/2019 AP view chest. Findings: Portable frontal view chest was obtained. There is limited hyperinflation noted. The cardiomediastinal silhouette is normal. Minimal left basilar discoid atelectasis. There is no pneumothorax. No pleural effusion is appreciated. No acute bone abnormality. IMPRESSION: Minimal left basilar disc atelectasis. Electronically signed by: Jose Luis Karimi MD (06/20/2019 8:11 AM) [facility]
--- NOTE | 2019-06-20 08:28 | CONS ---
DATE OF CONSULTATION: 06/19/2019 PSYCHIATRIC PROGRESS NOTE This is a late entry, date of service, 06/19/2019, covers the elements not covered in my initial note. I met with the patient and his in the evening of 06/19/2019 in ICU bed 3. IDENTIFYING DATA: The patient is an 84-year-old male, in ICU bed 3, referred by Dr. Napoles on account of worsening confusion, restlessness, agitation. He has been an inpatient on the [facility] in the past and generally resides at [facility] where he was noted by the nursing staff to be slumped on his right side and was lethargic and then sent to the ER at [facility]. He had extensive evaluation. CT head showed no acute changes. CT angio of the neck and head showed 50% stenosis of right internal carotid artery at the carotid bulbs level and partially calcified plaque, less than 30% stenosis of the right cavernous carotid artery, small filling defects or high grade stenosis involving the right anterior cerebral artery proximally. He also had diffuse chest/lung infiltrates, which were interstitial with elevated white cell count, admitted for treatment of pneumonia and has been on IV vancomycin and Zosyn. Influenza A and B were negative. The patient is being referred to me for a psychiatric consult since he gets restless, agitated and nursing staff had to place mittens on him. The states he is able to recognize her and vaguely recognize some other family members who visited him over [place] where he spent the [place] at home. Currently in the ICU, he is much more confused. CHIEF COMPLAINT: "No." HISTORY OF PRESENT ILLNESS: As noted, the patient has a history of dementia, Alzheimer's vascular type and has been residing at the above [facility] with circumstances prompting this admission noted above. He has had some intermittent delirium. No active suicidal or homicidal ideation and some sleep disturbance. No symptoms of bipolar disorder. PAST PSYCHIATRIC HISTORY: As above. PAST MEDICAL HISTORY: As above and he has a history of hypertension, hyperlipidemia, type 2 diabetes mellitus, status post CVA, gout, BPH, epilepsy, dysarthria. PAST SURGICAL HISTORY: Lumpectomy, right chest wall; bilateral total knee arthroplasty, colonoscopy. ALLERGIES: Negative. CURRENT PSYCHOTROPICS: Aricept 10 mg a day. He is on Keppra 500 b.i.d. for his seizures and Seroquel 12.5 mg at bedtime. He was wearing restrictive mittens on both hands since he was pulling on IV lines. FAMILY HISTORY: Noncontributory. SOCIAL HISTORY: No history of alcohol, drug abuse, physical, sexual or elder abuse. MENTAL STATUS EXAMINATION: The patient was seen individually in the evening of 06/19/2019 in ICU bed 3. He is oriented to himself. Insight, judgment, recent and remote memory, attention, concentration, fund of knowledge poor, consistent with his diagnosis. He is not very verbal. LABORATORY DATA: Reviewed. IMPRESSION: Major neurocognitive disorder, probably vascular with delusion, depression, behavioral disturbance, delirium due to general medical condition; anxiety disorder, unspecified; impulse control disorder, unspecified. Rest as above. RECOMMENDATIONS: From a psychiatric standpoint, it is okay to continue Seroquel at current dosage, but he may well need Zyprexa 2.5 mg q. 2 hours p.r.n. psychosis, agitation until the delirium seems to resolve and the agitation subsides and the mittens can be removed consequently. He would also benefit from repeated reorientation and modulating the environment for less stimuli and letting him be aware of the date and time and having a clock in his room, all of which might help with some of his orientation and agitation. Dr. Napoles, thank you for the opportunity to participate in your patient's care. We will follow with you. MAN Leonardo ORTEGA MD DR: RUPALI/regulo JOB#: [id number] / [id number]
[2019-06-20] MEDS: ENOXAPARIN 40 MG/0.4 ML SYRINGE. SQ SCH (09:54)
[2019-06-20] MEDS: TIMOLOL 0.5% OPHTH SOLUTION 5ML BOTTLE. OU SCH (09:54)
[2019-06-20] MEDS: ALLOPURINOL 300 MG TABLET. PO SCH (09:55)
[2019-06-20] MEDS: CHOLECALCIFEROL (VITAMIN D3) 1,000 UNIT TABLET PO SCH (09:55)
[2019-06-20] MEDS: amLODIPine BESYLATE 10 MG TABLET PO SCH (09:56)
[2019-06-20] MEDS: levETIRAcetam 500 MG TABLET PO SCH ×2 (09:56→20:25)
[2019-06-20] MEDS: LACTOBACILLUS RHAMNOSUS GG 1 CAPSULE. PO SCH ×2 (09:56→20:25)
[2019-06-20] MEDS: DONEPEZIL HCL 10 MG TABLET PO SCH (09:56)
[2019-06-20] MEDS: ASPIRIN 81 MG TAB.CHEW PO SCH (09:58)
[2019-06-20] MEDS: THIAMINE 100 MG TABLET. PO SCH (10:03)
[2019-06-20] MEDS: MULTIVITAMIN with MINERAL TABLET. PO SCH (10:03)
--- NOTE | 2019-06-20 10:07 | NUR ---
Pt's spouse called and RN updated on patient status. Pt experienced soft, brown BM. PT provided bed bath and full bed/linen change. Bates catheter d/c'd as PT no longer meets indications for bates catheter insertion and continues to present risk to self with removal of osvaldo mitts/pulling on bates catheter. PT appears to be in much better spirits when RN talks about his , Eduarda, and getting cleaned up to see her later. PT states, "I like that" and is much calmer following bath and linen change. Brief applied
--- NOTE | 2019-06-20 10:30 | NUR ---
PT up to chair, sitting quietly and calmly at this time. RN noted during bath that PT's back was red but blanchable to touch. Agrees with RN that he feels much better after bath. Will continue to monitor.
[2019-06-20] MEDS ORDERED: OLANZapine 2.5 MG TABLET PO PRN (10:45)
--- NOTE | 2019-06-20 12:20 | NUR ---
PT removed sleeve and pulled PIV in right hand. Pt still has patent/flushable PIV in RFA. PT becoming restless, but able to follow instructions at this time. RN applied chair alarm. PT is up in chair and has to be frequently reminded to remain seated in chair. RN consulted with physician regarding a switch from IV Antibiotic therapy to PO, as patient can tolerate crushed PO meds. VSS and baseline. Will continue to monitor.
--- NOTE | 2019-06-20 12:57 | NUR ---
PT increasingly restless and able to follow directions, but has to be reminded every few minutes. PO Zyprexa administered per order.
--- NOTE | 2019-06-20 13:01 | NUR ---
Pt assisted back to bed for a nap. PT resting quietly at this time. Will continue to monitor.
--- NOTE | 2019-06-20 13:30 | NUR ---
Dr. Napoles at bedside with Patient. PT pleasant and calm. VSS and baseline. Physician to switch Pt'S antibiotic therapy from IV Zosyn to Augmentin PO - please see physician charting and EMar for changes. PT likely to be d/c tomorrow for return to [place]. RN asked PT if he needed anything, and PT said he is comfortable but wants to see his . Will continue to monitor.
--- NOTE | 2019-06-20 14:00 | NUR ---
Pt sleeping quietly at this time. No evidence of pain or distress. Will continue to monitor.
--- NOTE | 2019-06-20 15:00 | NUR ---
Pt assisted up to chair. Restless but calm, and has to be frequently reminded not to stand up in chair. Chair alarm applied. duralumin mechanic sitting in patient doorway charting and watching patient to prevent fall.
--- NOTE | 2019-06-20 17:57 | PN ---
DATE: 06/20/2019 SUBJECTIVE: The patient is resting slightly, propped up in bed, comfortably in no apparent distress. He continued to have some periods of agitation, but otherwise he is doing much better. He is afebrile. His white cell count is down to 6900 from 13,000. So far, his blood cultures are negative with no growth after 3 days and the sputum culture also so far negative, although there is moderate number of Gram-negative diplococci. The identification and sensitivity is still pending at the time of this dictation. PHYSICAL EXAMINATION: GENERAL: When I examined him, he looked pale, but no jaundice, cyanosis or thyromegaly. No jugular venous distention. No limb edema. VITAL SIGNS: His heart rate was 78, blood pressure was 139/93, temperature 98, respiratory rate was 16, and oxygen saturation was 95%. HEAD, EYES, EARS, NOSE AND THROAT: Showed normocephalic, atraumatic. NECK: Supple. HEART: Showed normal first and second heart sounds with no gallop or murmur. CHEST: Clear to auscultation. No crepitation or rhonchi. ABDOMEN: Distended, soft, nontender. No guarding or rigidity. No organomegaly. All hernial orifice intact. Bowel sounds normal. NEUROLOGIC: He continued to be confused, but without any obvious lateralizing sign; however, he continued to be mostly bedbound, chair bound. His intake was 1950, output was 1175. LABORATORY DATA: Her lab work this morning showed a white cell count of 6900, hemoglobin 10, hematocrit 30, MCV 93, and platelet count 204,000. His chemistry showed a serum sodium of 147, potassium 3.5, chloride 112, bicarbonate 26, anion gap of 9, BUN 3, creatinine 1, estimated GFR was 71 mL per minute. His glucose was 95, calcium was 8.1. Total bilirubin, AST, ALT, alkaline phosphatase were normal. Total protein 6.3, albumin 2.6. ASSESSMENT: 1. Healthcare-associated pneumonia, for which he was started on IV vancomycin and Zosyn. He is responding very well. He is afebrile. His white cell count is down. We discontinued both IV antibiotics and he is now on Augmentin 875 mg twice a day. 2. Other medical problems include: A. Benign prostatic hypertrophy, requiring indwelling Malone catheter. B. Type 2 diabetes mellitus. C. Epilepsy, for which he is now on Keppra. PLAN: The plan is to continue with oral antibiotic, continue with Keppra, continue with physical and occupational therapy. We will plan to discharge him tomorrow back to [facility]. IRASEMA MCCOLLUM MD DR: VLADIMIR/regulo JOB#: [id number] / [id number]
--- NOTE | 2019-06-20 18:28 | NUR ---
PT voided in brief. New brief applied. Pt assisted back to bed. PT did not tolerate well: very anxious and afraid of falling and feeling out of control. Two RNs and SENIOR INTEGRATION DEVELOPER assisted PT back to bed, and he is resting quietly at this time. States he is very tired. Stable at this time.
--- NOTE | 2019-06-20 19:19 | NUR ---
SBAR to overnight cashier: DENILSON Shay. PT stable and baseline, resting quietly. Spouse at bedside.
[2019-06-20] MEDS: AMOXICILLIN/K CLAV 875/125MG TABLET. PO SCH (20:25)
[2019-06-20] MEDS: LATANOPROST 0.005% OPHTH SOLUTION 2.5ML BOTTLE. OU SCH (20:25)
[2019-06-20] MEDS: QUEtiapine 25 MG TABLET. PO SCH (20:26)
--- NOTE | 2019-06-20 20:53 | PDOC ---
Exam Note: Ethan Note: Please also refer to the separate dictated note~for this date of service dictated separately.~Patient seen individually. Discussed the patient with Nursing staff reviewed the chart.~Reviewed interim history and current functioning. Reviewed vital signs,~Labs/ Radiology~and current medications noted below. Continue current treatment with the changes noted in the dictated addendum note Assessment: Vital Signs/I&O: Vital Signs Date Time Temp Pulse Resp B/P (MAP) Pulse Ox O2 Delivery O2 Flow Rate FiO2 06/20/19 19:43 75 16 102/69 (80) 94 Room Air 06/20/19 19:09 98.2 I & O 06/19/19 06/19/19 06/20/19 15:00 23:00 07:00 Intake Total 300 ml 550 ml 100 ml Output Total 425 ml 750 ml Balance 300 ml 125 ml -650 ml Labs: Laboratory Tests Test 06/20/19 05:45 White Blood Count 6.9 x10^3/uL (4.0-11.0) Red Blood Count 3.25 x10^6/uL (4.30-5.70) L Hemoglobin 10.4 g/dL (13.0-17.5) L Hematocrit 30.2 % (39.0-53.0) L Mean Corpuscular Volume 93 fL (79-100) Mean Corpuscular Hemoglobin 32 pg (25-35) Mean Corpuscular Hemoglobin Concent 34 g/dL (31-37) Red Cell Distribution Width 13.2 % (11.5-14.5) Platelet Count 204 x10^3/uL (140-400) Neutrophils (%) (Auto) 68 % (31-73) Lymphocytes (%) (Auto) 19 % (24-48) L Monocytes (%) (Auto) 6 % (0-9) Eosinophils (%) (Auto) 6 % (0-3) H Basophils (%) (Auto) 1 % (0-3) Neutrophils # (Auto) 4.6 x10^3uL (1.8-7.7) Lymphocytes # (Auto) 1.3 x10^3/uL (1.0-4.8) Monocytes # (Auto) 0.4 x10^3/uL (0.0-1.1) Eosinophils # (Auto) 0.4 x10^3/uL (0.0-0.7) Basophils # (Auto) 0.1 x10^3/uL (0.0-0.2) Sodium Level 147 mmol/L (136-145) H Potassium Level 3.5 mmol/L (3.5-5.1) Chloride Level 112 mmol/L (98-107) H Carbon Dioxide Level 26 mmol/L (21-32) Anion Gap 9 (6-14) Blood Urea Nitrogen 3 mg/dL (8-26) L Creatinine 1.0 mg/dL (0.7-1.3) Estimated GFR (Cockcroft-Gault) 71.0 BUN/Creatinine Ratio 3 (6-20) L Glucose Level 95 mg/dL (70-99) Calcium Level 8.1 mg/dL (8.5-10.1) L Total Bilirubin 0.6 mg/dL (0.2-1.0) Aspartate Amino Transferase (AST) 32 U/L (15-37) Alanine Aminotransferase (ALT) 26 U/L (16-63) Alkaline Phosphatase 55 U/L (46-116) Total Protein 6.3 g/dL (6.4-8.2) L Albumin 2.6 g/dL (3.4-5.0) L Albumin/Globulin Ratio 0.7 (1.0-1.7) L Current Medications: Meds: Current Medications Medications (Trade) Dose Ordered Sig/Criss Route PRN Reason Start Time Stop Time Status Last Admin Dose Admin Amoxicillin/ Clavulanate Potassium (Augmentin 875/ 125mg) 1 tab BID PO 06/20/19 21:00 06/20/19 20:25 I have reviewed the current psychotropics carefully including drug interactions. Risk benefit ratio favors no change other than as noted in my dictated progress note. Diagnosis: Problems: (1) Anxiety disorder (2) Dementia in Alzheimer's disease with depression (3) Dementia in Alzheimer's disease with delusions (4) Dementia, vascular, with depression (5) Dementia, vascular, with delusions (6) Impulse control disorder JOSE ANTONIO ORTEGA MD Jun 20, 2019 20:53
--- NOTE | 2019-06-20 21:05 | NUR ---
Pt pleasant at shift change with spouse at bedside. Pt had urinated and became very combative with cares. Pt almost kicked an RN in the head. Three staff members had to change pt. Pt refusing to take meds. This nurse let him cool down a little and then he took his medications and then stated, "Thank you." Will continue to monitor.
--- NOTE | 2019-06-21 00:30 | NUR ---
Pt more calm; however, resisitive with cares. Pt needs a lot of reassurance. Pt is thinking he needs to go home, and told this nurse, while staff was trying to clean patient, "If my dad catches you you will be sorry."
--- NOTE | 2019-06-21 01:00 | NUR ---
Pt is asleep. Will continue to monitor.
[2019-06-21] MEDS: IPRATRPIUM/ALBUTEROL 0.5/2.5MG 3 ML NEBU. NEB SCH (04:28)
[2019-06-21 06:37] VITALS: BP 115/65
[2019-06-21] MEDS: CHOLECALCIFEROL (VITAMIN D3) 1,000 UNIT TABLET PO SCH (08:49)
[2019-06-21] MEDS: amLODIPine BESYLATE 10 MG TABLET PO SCH (08:49)
[2019-06-21] MEDS: ASPIRIN 81 MG TAB.CHEW PO SCH (08:49)
[2019-06-21] MEDS: ALLOPURINOL 300 MG TABLET. PO SCH (08:49)
[2019-06-21] MEDS: AMOXICILLIN/K CLAV 875/125MG TABLET. PO SCH (08:49)
[2019-06-21] MEDS: DONEPEZIL HCL 10 MG TABLET PO SCH (08:49)
[2019-06-21] MEDS: levETIRAcetam 500 MG TABLET PO SCH (08:49)
[2019-06-21] MEDS: TIMOLOL 0.5% OPHTH SOLUTION 5ML BOTTLE. OU SCH (08:49)
[2019-06-21] MEDS: ENOXAPARIN 40 MG/0.4 ML SYRINGE. SQ SCH (08:50)
[2019-06-21] MEDS: THIAMINE 100 MG TABLET. PO SCH (08:50)
[2019-06-21] MEDS: LACTOBACILLUS RHAMNOSUS GG 1 CAPSULE. PO SCH (08:50)
[2019-06-21] MEDS: MULTIVITAMIN with MINERAL TABLET. PO SCH (08:51)
[2019-06-21 11:45] VITALS: BP 125/75
--- NOTE | 2019-06-21 11:55 | NUR ---
Pt cleaned up and dressed to go. Up to wc with 2 assist. Compliant with cares. Pt dcd to [place]. LM for nurse to return call for report. Papers sent with pt.
--- NOTE | 2019-06-22 07:06 | PN ---
DATE: 06/20/2019 PSYCHIATRIC PROGRESS NOTE This late entry 06/20/2019 covers elements not covered in my initial note. SUBJECTIVE: I met with the patient evening of 06/20/2019. The patient has done reasonably well all day. He was started on Zyprexa Zydis p.r.n. and has been given on a couple of occasions. However, in the evening as I met with him, staff are trying to change him and he became quite agitated, more with his confusion rather than directed at anyone. Ambulation impaired. No CV, , pulmonary, eye system symptoms on review. Reliability poor. MENTAL STATUS EXAM: Oriented to himself. Insight, judgment, recent and remote memory, attention, concentration, fund of knowledge poor, consistent with his diagnosis mentioned in my initial note. PLAN: No change from initial note. MAN Leonardo ORTEGA MD DR: RUPALI/regulo JOB#: [id number] / [id number]
--- NOTE | 2019-06-24 02:16 | PN ---
DATE: 06/21/2019 SUBJECTIVE: The patient unable to provide any information. He denies any complaints. OBJECTIVE: GENERAL: Obese male, not in acute distress. VITAL SIGNS: Temperature 98.2, blood pressure 125/75, respiratory rate 20, pulse is 68, oxygen saturation 95% on room air. HEENT: Normocephalic, atraumatic, otherwise unremarkable. NECK: Supple. Negative for carotid bruit, lymphadenopathy or thyromegaly. LUNGS: With diminished breath sounds. No rales. CARDIOVASCULAR: Regular rate and rhythm. Normal S1, S2. ABDOMEN: Soft. Bowel sounds positive. EXTREMITIES: Negative for cyanosis, clubbing or edema. NEUROLOGICAL EXAM: Mental Status: The patient is awake, but disoriented to place and time. Speech is fluent. Judgment, memory and abstract thinking are poor. The patient denies hallucination or delusion. Cranial nerves are grossly intact. No focal motor or sensory deficit. The strength was 4/5 throughout. Deep tendon reflexes were asymmetric and hyperactive with absent Achilles responses. Gait not tested. IMPRESSION: 1. Acute encephalopathy with longstanding history of dementia. 2. Pneumonia. 3. Urinary tract infections. 4. Multiple medical problems include diabetes mellitus and seizure disorder. RECOMMENDATIONS: Continue with current management initiated by Dr. Napoles. The patient needs physical therapy as tolerated. M Denise DANIEL MD DR: KISHA/regulo JOB#: [id number] / [id number]
--- NOTE | 2019-06-24 02:17 | PN ---
DATE: 06/20/2019 SUBJECTIVE: The patient is confused, disoriented and unable to provide any information or claim any complaints. OBJECTIVE: GENERAL: Obese male, not in acute distress. VITAL SIGNS: Blood pressure 120/72, respiratory rate 20, pulse is 60, temperature 98, oxygen saturation 94% on room air. HEENT: Normocephalic, atraumatic, otherwise unremarkable. NECK: Supple. Negative for carotid bruit, lymphadenopathy or thyromegaly. LUNGS: Clear to A and P. CARDIOVASCULAR: Regular rate and rhythm, normal S1, S2. ABDOMEN: Soft. Bowel sounds positive. EXTREMITIES: Negative for cyanosis, clubbing, pitting edema. NEUROLOGICAL EXAM: Mental Status: The patient is awake, but disoriented to time and place. Speech is somewhat fluent. Memory, judgment and abstract thinking are poor. Cranial nerves 2-12 are intact. Motor examination: No focal muscle bulk was seen. The strength was 4/5 throughout. Sensory examination revealed diminished pinprick and light touch senses throughout. Deep tendon reflexes were asymmetric and hypoactive with absent Achilles responses. Gait not tested. LABORATORY DATA: CBC revealed white blood cells of 6.9 thousand, hemoglobin 10.4, hematocrit 30.2, platelet count 204,000. Chemistry revealed sodium of 147, potassium 3.5, chloride 112, CO2 of 26, BUN 3, creatinine 1, glucose 95, calcium 8.1. DIAGNOSTIC DATA: Chest x-ray today revealed mainly left basilar atelectasis. IMPRESSION: 1. Pneumonia. 2. Urinary tract infections. 3. Multiple medical problems include benign prostate hypertrophy, diabetes mellitus type 2, seizure. RECOMMENDATIONS: 1. We will continue with current management, initiated by Dr. Napoles. 2. [facility]. 3. Physical therapy evaluation. M Denise DANIEL MD DR: KISHA/regulo JOB#: [id number] / [id number]
== END 2019-06-21 11:55 | DRG 871 ==
LOC: ER 11:09 → ICU 14:15
PROVIDERS: ADMIT Internal Medicine; ATTEND Internal Medicine
DX: A41.9 Sepsis, unspecified organism (principal); G92 Toxic encephalopathy; J18.9 Pneumonia, unspecified organism; F05 Delirium due to known physiological condition; E11.9 Type 2 diabetes mellitus without complications; E78.5 Hyperlipidemia, unspecified; F01.50 Vascular dementia, unspecified severity, without behavioral disturbance, psychotic disturbance, mood disturbance, and anxiety; F02.80 Dementia in other diseases classified elsewhere, unspecified severity, without behavioral disturbance, psychotic disturbance, mood disturbance, and anxiety; F06.4 Anxiety disorder due to known physiological condition; F32.9 Major depressive disorder, single episode, unspecified; F63.9 Impulse disorder, unspecified; G30.9 Alzheimer's disease, unspecified; G40.909 Epilepsy, unspecified, not intractable, without status epilepticus; I10 Essential (primary) hypertension; I65.21 Occlusion and stenosis of right carotid artery; I66.11 Occlusion and stenosis of right anterior cerebral artery; M10.9 Gout, unspecified; N40.0 Benign prostatic hyperplasia without lower urinary tract symptoms; Y95 Nosocomial condition; Z86.73 Personal history of transient ischemic attack (TIA), and cerebral infarction without residual deficits; Z87.891 Personal history of nicotine dependence; Z96.653 Presence of artificial knee joint, bilateral; Z99.3 Dependence on wheelchair; M19.90 Unspecified osteoarthritis, unspecified site
CPT/HCPCS: 36415; 70450; 70496; 70498; 71045; 80048; 80053; 80076; 80202; 81001; 82803; 83605; 83735; 84145; 85025; 85027; 87040; 87070; 87205; 87804; 92526; 93005; 94640; J1650; J1953; J2543; J3370; J3490; J7040; J7620; Q9967; 92610; 97530; 99285-25; J7030

== ENCOUNTER 2019-09-09 18:27 | Inpatient (IN) | payer MEDICARE, OTHER ==
[2019-09-07 02:24] VITALS: BP 119/72
[~2019-09-09] VITALS: Ht 172.7 cm; Wt 92.0 kg
[~2019-09-09 18:27] MED LIST changes: -MAGN2400 PO; +MAGN24003 PO; +TRAV5DRO OU
--- NOTE | 2019-09-09 18:32 | PHYS DOC ---
Past History Past Medical History: Anxiety, Arthritis, CVA, Dementia, Depression, Diabetes, Glaucoma, High Cholesterol, Hypertension, Prostatitis, Seizure, Stroke, Other Additional Past Medical Histor: DYSPHAGIA FOLLOWING CEREBRAL INFARCTION, GOUT Past Surgical History: Other Smoking: Non-smoker Alcohol Use: Sober Drug Use: None Adult General Chief Complaint Chief Complaint: SHORTNESS OF BREATH..."... Oh.... ".." Oh..." HPI HPI Patient is a 84 year old male who presents with hx of mental status change x 48 hrs. Pt. reported combative and more confused. Pt. reportedly + screen for CO-19 by exposure to health care ( NH) and cough. Pt. required Ketamine and re straint for transport by [facility] paramedics. Pt. a resident of [place] since 12/27/18. Pt. on arrival had rectal temp. of 100.4 and Tachycardia > 120's, systolic 120's and mildly sedated. Very agitated with exam. Moves all ext. and cross reacts with noxious stimuli . Patient normally follows with Dr. Napoles. Patient has recent past history of pneumonia, dysphagia, dysarthria, and Jean [place], diabetes, hyperlipidemia, vascular dementia with behavioral disorder, epilepsy, glaucoma, primary hypertension, gout, prostate hyperplasia, gait disorder, and deconditioning. Patient last admitted to [facility] on 06/16/2019 for community-acquired pneumonia, UTI. Review of Systems Review of Systems ROS - Limited by Mental Status Change Constitutional: Hx fever / chills in ED Respiratory: Hx of cough and increased respiratory rate. Cardiovascular: Hx. Tachycardia Hx. Combative behavior and mental status change. [] Family History Family History Not currently available Current Medications Current Medications See nursing for home for skilled nursing medication Allergies Allergies Allergies Coded Allergies Type Severity Reaction Last Updated Verified rosuvastatin Allergy Severe 06/16/19 Yes Physical Exam Physical Exam Constitutional: Moderately acute distress, chronically ill in appearance. [] HENT: Normocephalic, atraumatic, bilateral external ears normal, oropharynx dry, no oral exudates, nose normal. [] Eyes: Follows with eyes, conjunctiva normal, no discharge. [] Neck: Normal range of motion, no tenderness, supple, no stridor. [] Cardiovascular: Tachycardia Heart rate regular rhythm, no murmur, PMI to the left, monitor shows occasional rhythm consistent with possible A. fib/ Lungs & Thorax: Bilateral breath sounds equal apex with wheezes, rhonchi and bibasilar crackles on auscultation [] Abdomen: Bowel sounds, decreased soft, appears to have lower abdomen tenderness, no masses, no pulsatile masses. [] Skin: Warm, dry, no erythema, no rash. Poor turgor Back: No tenderness, no CVA tenderness. [] Extremities: Moves extremities with noxious and voluntarily, cross reacts, arthritic changes, ankle, mild edema. [] Neurologic: Responsive to noxious stimuli, moves extremities voluntarily and with noxious stimuli, has distal sensory -nursing reports change in his normal baseline dementia-combative and agitated Psychologic: Affect appears anxious, judgement obviously impaired. EKG EKG EKG tachycardia 113 bpm. Sinus, with baseline artifact suspect secondary movement and tremor. Has R in the age, anterior lateral changes, no findings acute STEMI with contralateral changes.[] Radiology/Procedures Radiology/Procedures [][address] [place] [id number] IMAGING REPORT Signed PATIENT: RANDI CRISTINA ACCOUNT: [id number] : 1935 LOCATION: ER AGE: 84 SEX: M EXAM STATUS: REG ER ORD. PHYSICIAN: EILEEN CALDERON MD REASON: Mental status change, fall, weakness, headache, neck pain PROCEDURE: CT HEAD AND CERVICAL SPINE WO Exam: CT head and cervical spine without contrast INDICATION: Mental status change, fall, weakness headache, neck pain TECHNIQUE: Sequential axial images through the head and cervical spine were obtained without the administration of IV contrast. Comparisons: None FINDINGS: Head: No focal parenchymal lesion or hemorrhage is identified. There is no midline shift or sulcal effacement. Confluent hypodensities noted within the periventricular white matter. No acute vascular territory infarction is identified. Peterson-white distinction is preserved. The ventricular system is within normal limits without compression hydrocephalus. The basal cisterns are well maintained. The visualized portions of the paranasal sinuses and mastoid air cells are well-pneumatized. No acute fractures. Cervical spine: Straightening of the cervical spine which may be positional. Vertebral body heights are well-maintained. Multilevel spondylotic change in the cervical spine with degenerative disease greatest at C4-C5, C5-C6 and C6-C7. Mild bilateral facet arthropathy is noted in the cervical spine. No acute fracture identified in the cervical spine. Visualized paraspinal soft tissues are unremarkable. IMPRESSION: 1. No acute intracranial abnormality. 2. Negative CT C-spine for acute traumatic injury. Exposure: One or more of the following in the visualized dose reduction techniques were utilized for this examination: 1. Automated exposure control 2. Adjustment of the MA and/or KV according to patient size Use of iterative of reconstructive technique Electronically signed by: Gutierrez Velasquez MD (09/09/2019 7:42 PM) [id number] DICTATED AND SIGNED BY: GUTIERREZ VELASQUEZ MD DATE: 09/09/191941 CC: EILEEN CALDERON MD; IRASEMA NAPOLES MD ~ Course & Med Decision Making Course & Med Decision Making Pertinent Labs and Imaging studies reviewed. (See chart for details) Pt. to be admitted to Dr. Napoles- ICU, respiratory isolation. Critical care 90 min. Impression: 1. Mental Status Change- from his baseline dementia per NH 2. Combative, Agitated Behavior. 3. Fever 4. Hx. of Increase Cough 5. Hx. Dementia 6. Pneumonia -Basilar 7. Leukocytosis 11.9 8. Elevated Lactic Acid 5.3- SIRS/Sepsis 9. DM 176 10. Dehydration 11. Elevated Creat. 1.4 12. Elevated D-dimer 3.70 13. Risk for Re-Admission- Demenia/Chronic Health Issues [] Dragon Disclaimer Dragon Disclaimer This electronic medical record was generated, in whole or in part, using a voice recognition dictation system. Departure Departure: Disposition: 01 HOME/RESIDENCE PRIOR TO ADM Condition: STABLE Referrals: IRASEMA NAPOLES MD (PCP) Dragon Disclaimer This chart was dictated in whole or in part using Voice Recognition software in a busy, high-work load, and often noisy Emergency Department environment. It may contain unintended and wholly unrecognized errors or omissions. EILEEN CALDERON MD Sep 09, 2019 18:32
[2019-09-09] MEDS ORDERED: IV RINGERS SOLUTION,LACTATED 1,000 ML IV SCH (18:38)
[2019-09-09 19:27] LABS: BASO % 0 % (0-3); EOS # 0.3 x10^3/uL (0.0-0.7); EOS % 2 % (0-3); HEMATOCRIT 41.6 % (39.0-53.0); HEMOGLOBIN 14.1 g/dL (13.0-17.5); LYMPH % 8 % (24-48); MEAN CORPUSCULAR HEMOGLOBIN 32 pg (25-35); MEAN CORPUSCULAR HGB CONC 34 g/dL (31-37); MEAN CORPUSCULAR VOLUME 94 fL (79-100); MONO # 0.6 x10^3/uL (0.0-1.1); MONO % 5 % (0-9); NEUT % 84 % (31-73); PLATELET COUNT 189 x10^3/uL (140-400); RED BLOOD COUNT 4.41 x10^6/uL (4.30-5.70); RED CELL DISTRIBUTION WIDTH 13.8 % (11.5-14.5); WHITE BLOOD COUNT 11.9 x10^3/uL (4.0-11.0)
[2019-09-09 19:33] LABS: BARBITURATES NEG (NEG); BENZODIAZEPINES NEG (NEG); CANNABINOIDS NEG (NEG); COCAINE NEG (NEG); METHADONE NEG (NEG); OPIATES NEG (NEG); PHENCYCLIDINE NEG (NEG)
[2019-09-09 19:34] LABS: CALCIUM 8.8 mg/dL (8.5-10.1); CREATININE 1.4 mg/dL (0.7-1.3); GFR 48.2; POTASSIUM 3.7 mmol/L (3.5-5.1)
[2019-09-09 19:41] LABS: AMPHETAMINE/METHAMPHETAMINE NEG (NEG)
--- NOTE | 2019-09-09 19:45 | RAD ---
Exam: CT head and cervical spine without contrast INDICATION: Mental status change, fall, weakness headache, neck pain TECHNIQUE: Sequential axial images through the head and cervical spine were obtained without the administration of IV contrast. Comparisons: None FINDINGS: Head: No focal parenchymal lesion or hemorrhage is identified. There is no midline shift or sulcal effacement. Confluent hypodensities noted within the periventricular white matter. No acute vascular territory infarction is identified. Peterson-white distinction is preserved. The ventricular system is within normal limits without compression hydrocephalus. The basal cisterns are well maintained. The visualized portions of the paranasal sinuses and mastoid air cells are well-pneumatized. No acute fractures. Cervical spine: Straightening of the cervical spine which may be positional. Vertebral body heights are well-maintained. Multilevel spondylotic change in the cervical spine with degenerative disease greatest at C4-C5, C5-C6 and C6-C7. Mild bilateral facet arthropathy is noted in the cervical spine. No acute fracture identified in the cervical spine. Visualized paraspinal soft tissues are unremarkable. IMPRESSION: 1. No acute intracranial abnormality. 2. Negative CT C-spine for acute traumatic injury. Exposure: One or more of the following in the visualized dose reduction techniques were utilized for this examination: 1. Automated exposure control 2. Adjustment of the MA and/or KV according to patient size Use of iterative of reconstructive technique Electronically signed by: Gutierrez Schwartz MD (09/09/2019 7:42 PM) [id number]
[2019-09-09 19:47] LABS: ALBUMIN 3.9 g/dL (3.4-5.0); DIRECT BILIRUBIN 0.3 mg/dL (0.0-0.2); MAGNESIUM 1.9 mg/dL (1.8-2.4); TOTAL BILIRUBIN 0.9 mg/dL (0.2-1.0)
[2019-09-09 20:02] LABS: BILIRUBIN,URINE NEG (NEG); CLARITY,URINE HAZY; COLOR,URINE AMBER; GLUCOSE,URINE NEG (NEG)
[2019-09-09 20:03] LABS: BACTERIA,URINE 0 /HPF (0-FEW); HYALINE CASTS, URINE OCC /HPF; NITRITE,URINE NEG (NEG); RBC,URINE TNTC /HPF (0-2); SQUAMOUS EPITHELIAL CELL,UR FEW /LPF
[2019-09-09] MEDS ORDERED: IV NORMAL SALINE 50ML 50 ML ONE (20:28)
[2019-09-09] MEDS ORDERED: cefTRIAXone SODIUM 1 GM VIAL ONE (20:28)
[2019-09-09 20:29] LABS: SEDIMENTATION RATE 31 (0-15)
[2019-09-09] MEDS ORDERED: ASPIRIN RECTAL 300 MG SUPP. PR ONE ×2 (20:30→20:45)
[2019-09-09] MEDS ORDERED: ENOXAPARIN ** NOTE DOSE ** SYRINGE SQ ONE (20:30)
[2019-09-09] MEDS ORDERED: IV RINGERS SOLUTION,LACTATED 1,000 ML IV ONE (20:30)
[2019-09-09] MEDS ORDERED: VANCOMYCIN 1.75 GM in IV NORMAL SALINE 500ML 500 ML IV SCH (20:41)
[2019-09-09] MEDS ORDERED: ACETAMINOPHEN 650 MG SUPP.RECT. PR PRN (20:45)
[2019-09-09] MEDS ORDERED: ONDANSETRON PF 4 MG/2 ML VIAL. IVP PRN (20:45)
--- NOTE | 2019-09-09 20:52 | RAD ---
Exam: Chest one view INDICATION: Cough, fever TECHNIQUE: Frontal view of the chest Comparisons: 06/20/2019 FINDINGS: The cardiomediastinal silhouette and pulmonary vessels are within normal limits. The lung and pleural spaces are clear. IMPRESSION: No acute cardiopulmonary process. Electronically signed by: Gutierrez Schwartz MD (09/09/2019 8:49 PM) [id number]
[2019-09-09] MEDS ORDERED: ENOXAPARIN ** NOTE DOSE ** SYRINGE SQ SCH (21:00)
[2019-09-09] MEDS ORDERED: VANCOMYCIN 2 GM in IV NORMAL SALINE 500ML 500 ML IV ONE (21:30)
[2019-09-09 21:57] LABS: INFLUENZA A PATIENT NEGATIVE (NEGATIVE); INFLUENZA B PATIENT NEGATIVE (NEGATIVE)
[2019-09-09] MEDS: VANCOMYCIN PER PHARMACY MC PRN (22:15)
--- NOTE | 2019-09-09 23:42 | EKG ---
[address] [address] Test Date: 2019-09-09 Test Time: 19:10:25 Pat Name: RANDI CRISTINA Department: Room: 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
[2019-09-09 23:45] VITALS: BP 119/72
[2019-09-10] VITALS (20 sets, daily range): BP systolic 90–127; BP diastolic 50–70
[2019-09-10] MEDS: IV RINGERS SOLUTION,LACTATED 1,000 ML IV SCH ×4 (00:15→08:39)
[2019-09-10] MEDS ORDERED: LACT100C2 PO (03:04)
[2019-09-10] MEDS ORDERED: ACET500T68 PO (03:04)
[2019-09-10] MEDS ORDERED: IPRATRPIUM/ALBUTEROL 0.5/2.5MG 3 ML NEBU. ONE (05:15)
[2019-09-10] MEDS: IPRATRPIUM/ALBUTEROL 0.5/2.5MG 3 ML NEBU. NEB SCH ×4 (05:34→20:53)
[2019-09-10] MEDS ORDERED: ENOXAPARIN ** NOTE DOSE ** SYRINGE SQ SCH (09:00)
[2019-09-10] MEDS ORDERED: levETIRAcetam 500 MG TABLET PO SCH (09:00)
[2019-09-10] MEDS ORDERED: AZITHROMYCIN 500 MG in IV NORMAL SALINE 250ML 250 ML IV SCH (09:00)
[2019-09-10 09:21] LABS: BASO % 0 % (0-3); EOS # 0.3 x10^3/uL (0.0-0.7); EOS % 3 % (0-3); HEMATOCRIT 32.6 % (39.0-53.0); HEMOGLOBIN 10.9 g/dL (13.0-17.5); LYMPH # 1.8 x10^3/uL (1.0-4.8); LYMPH % 14 % (24-48); MEAN CORPUSCULAR HEMOGLOBIN 31 pg (25-35); MEAN CORPUSCULAR HGB CONC 33 g/dL (31-37); MEAN CORPUSCULAR VOLUME 94 fL (79-100); MONO # 0.9 x10^3/uL (0.0-1.1); MONO % 7 % (0-9); NEUT # 9.5 x10^3uL (1.8-7.7); NEUT % 76 % (31-73); PLATELET COUNT 143 x10^3/uL (140-400); RED BLOOD COUNT 3.47 x10^6/uL (4.30-5.70); RED CELL DISTRIBUTION WIDTH 13.6 % (11.5-14.5); WHITE BLOOD COUNT 12.6 x10^3/uL (4.0-11.0)
[2019-09-10 09:22] LABS: CREATININE 0.9 mg/dL (0.7-1.3); GFR 80.2
[2019-09-10 09:32] LABS: POTASSIUM 2.8 mmol/L (3.5-5.1)
[2019-09-10] MEDS ORDERED: PIP/TAZO PER PHARMACY MC PRN (10:00)
[2019-09-10] MEDS: PIPERACILLIN/TAZOBACTAM 4.5 GM in IV NORMAL SALINE 50ML 50 ML IV SCH ×2 (10:38→18:04)
[2019-09-10] MEDS: POTASSIUM CL 40MEQ D5-0.45NACL 1,000 ML IV SCH ×2 (10:41→20:00)
[2019-09-10] MEDS: POTASSIUM CHLORIDE 10MEQ 100 ML IV SCH ×4 (10:51→15:25)
[2019-09-10] MEDS: OLANZapine IM 10 MG VIAL. IM SCH ×2 (10:57→22:48)
[2019-09-10] MEDS ORDERED: IOHEXOL 350 MG/ML 100 ML VIAL. IV ONE (12:00)
[2019-09-10] MEDS ORDERED: CONTRAST GIVEN MC PRN (12:00)
--- NOTE | 2019-09-10 12:45 | RAD ---
CT ANGIOGRAPHY CHEST Indication: Fever, cough, pneumonia. Technique: After intravenous contrast administration, CT imaging was performed of the chest. MIP reconstructions were obtained. Exposure: One or more of the following individualized dose reduction techniques were utilized for this examination: 1. Automated exposure control 2. Adjustment of the mA and/or kV according to patient size 3. Use of iterative reconstruction technique. Comparison: None. Correlation with chest radiograph of one day earlier. FINDINGS: There is motion degradation. As per the technologist, the patient was combative and uncooperative. Main pulmonary arteries appear patent. Limited visualization of the segmental and peripheral pulmonary artery branches due to motion degradation and limited enhancement but note obvious pulmonary embolism is identified. Irregularity of the wall of the ascending aorta, likely due to pulsatility artifact. Ascending aorta measures about 3.5 cm. No gross aortic aneurysm. Limited enhancement of the aorta due to bolus timing but no obvious dissection is suggested. No evidence of dominant thyroid mass. No evidence of pathologic lymph node enlargement. Coronary artery calcifications are identified. No evidence of pericardial effusion. Heart size appears mildly enlarged. No significant pleural effusion. No evidence of pneumothorax. Patchy opacities identified within both lungs,, greatest in the posterior lungs, compatible with atelectasis and/or nonspecific infiltrate. Evaluation of pulmonary tissue is limited by the motion. Trachea and mainstem bronchi are grossly patent. Vertebral body height and alignment appear grossly intact with degenerative spurring. Scans through the upper abdomen are limited by technique. There is a partially visualized left upper pole renal calculus. Low-density lesions are partially seen in the upper left kidney difficult to accurately characterize but could represent cysts. Renal ultrasound could further evaluate. There is another partially visualized lesion suggested on the lowermost slice in the right upper quadrant, could be of renal origin but barely seen. Series 4, image 95. IMPRESSION: 1. Exam limited by motion degradation. No obvious central pulmonary embolism. 2. Opacities within both lungs, predominantly posterior, are nonspecific but most likely due to atelectasis and/or nonspecific infectious etiology. 3. Barely visualized lesion of the right upper quadrant, may represent a renal cyst but other mass is not excludable. Several partially seen left upper renal lesions are also difficult to characterize but could represent cysts. Recommend further evaluation with outpatient CT abdomen or ultrasound when clinically feasible. 4. Partially visualized left upper pole renal calculus. Electronically signed by: Abdi Hadley MD (09/10/2019 12:42 PM) [id number]
[2019-09-10] MEDS ORDERED: DEXTROSE 50% 25 GM / 50ML DISP.SYRIN. IV PRN (16:00)
[2019-09-10 16:42] LABS: CALCIUM 8.1 mg/dL (8.5-10.1); POTASSIUM 3.7 mmol/L (3.5-5.1)
--- NOTE | 2019-09-10 16:47 | HP ---
ADMIT DATE: 09/09/2019 HISTORY OF PRESENT ILLNESS: The patient is a 89-year-old male patient who is a resident at [facility] and [facility], who presented with increasing shortness of breath and altered mental status that has been going on for the last 48 hours. He was reportedly very combative, more confused. He reportedly was positive for screen for COVID-19 by exposure to healthcare and cough. He required ketamine and restrained for transport by the [place] paramedics. The patient on arrival had a rectal temperature 100.4, tachycardia at 120 systolic and mildly sedated, very agitated with exam. He moves all extremities and grossly reacts with noxious stimuli. He has recent admission due to pneumonia. He was evaluated in the Emergency Room and has had lab work that showed them leukocytosis, white cell count of 11,900. His D-dimer was elevated at 3.7. His chemistry showed that he is mildly dehydrated with creatinine 1.4. Blood sugar was high. His lactic acid was also high at 5.3 micromole. Urinalysis was essentially unremarkable and toxic screen was positive and influenza A and B and rapid strep test were negative. On admission, he had also CT scan of the head and cervical spine, which showed no acute intracranial abnormalities. Negative CT C-spine for acute traumatic injury. The patient was admitted and was continued on IV fluid as well as ceftriaxone, vancomycin as well as therapeutic dose of Lovenox for high D-dimer. PAST MEDICAL HISTORY: Significant for hypertension, hyperlipidemia, type 2 diabetes mellitus, cerebrovascular accident, dementia, gout, benign prostatic hypertrophy, epilepsy, and dysarthria. PAST SURGICAL HISTORY: Significant for lumpectomy of right chest wall, bilateral total knee arthroplasty and colonoscopy. ALLERGIES: He has no known drug allergies. FAMILY HISTORY: Noncontributory. SOCIAL HISTORY: He is currently a resident at [facility] and [facility]. He is mostly bed bound, wheelchair bound. He is , an ex-smoker, quit in 1971. He used to be a heavy drinker. His last drink was about 12 months ago. REVIEW OF SYSTEMS: Unobtainable. MEDICATIONS: He is currently on following medications: He is on Aricept 10 mg at bedtime, amlodipine 10 mg daily, aspirin 81 mg once a day, acetaminophen 1000 mg every 8 hours, Keppra 500 mg p.o. b.i.d., quetiapine fumarate 12.5 mg at bedtime, timolol maleate 1 drop to both eyes daily, Travatan 1 drop to both eyes daily, lactobacillus acidophilus 100 mg capsule 1 capsule twice a day, thiamine 100 mg once a day, ergocalciferol, vitamin D3 2000 once a day, multivitamin 1 tablet once a day, allopurinol 300 mg once a day. PHYSICAL EXAMINATION: GENERAL: On arrival to the Emergency Room, he apparently was agitated, combative. There is no pallor, jaundice, cyanosis or thyromegaly. No jugular venous distention. No lower limb edema. VITAL SIGNS: His heart rate was 112, blood pressure was 143/78, temperature was up to 101 while in the Emergency Room, his respiratory rate was 18, and oxygen saturation was 92% on room air. HEAD, EYES, EARS, NOSE AND THROAT: Showed normocephalic, atraumatic. NECK: Supple. HEART: Showed normal first and second heart sounds. No gallop or murmur. CHEST: Clear to auscultation. No crepitation or rhonchi. ABDOMEN: Distended, soft, nontender. NEUROLOGIC: He was demented, but without any obvious lateralizing sign. All his cranial nerves are intact. He moves his upper extremities to much greater than lower extremities. He is mostly bed bound, wheelchair bound. LABORATORY DATA: Showed a white cell count of 11,900, hemoglobin 14, hematocrit 42, MCV 94 and platelet count of 189,000. His chemistry showed a serum sodium 144, potassium 3.7, chloride 105, bicarbonate 27, anion gap of 12, BUN 13, creatinine 1.4, estimated GFR was 48 mL per minute. His glucose was 176, calcium was 8.8, magnesium was 1.9. Lactic acid was 5.3. His total bilirubin, AST, ALT, alkaline phosphatase were normal. Total protein 8, albumin was 3.9, lipase 175. His prothrombin time, INR and APTT are normal. D-dimer was high at 3.7. Urinalysis was essentially unremarkable. Toxic screen was negative. His influenza A, B and group A streptococcus rapid test was negative. His chest x-ray shows that the cardiomediastinal silhouette and pulmonary vessels are within normal limits. ASSESSMENT AND PLAN: The patient was admitted with fever. He obviously did blood culture and urine for culture and sensitivity. He was continued on IV ceftriaxone and Zithromax as well as IV fluid. IRASEMA MCCOLLUM MD DR: VLADIMIR/regulo JOB#: [id number] / [id number]
[2019-09-10] MEDS: INSULIN LISPRO 300 UNITS/3 ML VIAL. SQ SCH (17:00)
--- NOTE | 2019-09-10 20:02 | PN ---
DATE: 09/10/2019 SUBJECTIVE: The patient was admitted last night with altered mental status and possible healthcare-associated pneumonia. His D-dimer was high, so was continued on Lovenox. He was treated with Zyprexa 2.5 mg intramuscular every 4 hours as his kidney function improved and his creatinine came down from 1.4 to 0.9, a decision was made to arrange for him to have a CT angio of the chest and the CT angio showed that the exam is limited by motion degradation; however, no obvious central pulmonary embolism. The patient has opacities within both lungs, predominantly posteriorly are nonspecific, most likely due to atelectasis and/or nonspecific infectious etiology. He has barely visualized lesion in the right upper quadrant may represent renal cyst with other mass is not excluded, several partially seen left upper renal lesion are also difficult to characterize, but could represent cyst. Recommend further evaluation with outpatient CT abdomen or ultrasound when clinically feasible, partially visualized left upper pole renal calculus. As the patient seemed to probably have healthcare-associated pneumonia with fever and leukocytosis, I switched his antibiotic to Zosyn and vancomycin. I will discontinue the therapeutic dose of Lovenox and keep him only on 40 mg once a day for DVT prophylaxis. Given his hypokalemia, we switched his IV fluid to D5 with 40 mEq of potassium chloride. When I saw him this afternoon, the patient seems to be much less agitated after he received his Zyprexa. OBJECTIVE: GENERAL: He was resting propped up in bed, in no apparent respiratory distress. No pallor, jaundice, cyanosis or thyromegaly. No jugular venous distention. No lower limb edema. VITAL SIGNS: His heart rate was 67, blood pressure was 90/50, temperature was 97.5, respiratory rate was 16, and oxygen saturation was 97% on 2 liters of oxygen. HEAD, EYES, EARS, NOSE AND THROAT: Showed normocephalic, atraumatic. NECK: Supple. HEART: Showed normal first and second heart sounds with no gallop or murmur. CHEST: Clear to auscultation. No crepitation or rhonchi. ABDOMEN: Distended, soft, nontender. NEUROLOGIC: He is demented, but without any obvious lateralizing sign. He moves his upper extremities to much greater extent than his lower extremities, mostly bedbound, chair bound. LABORATORY DATA: His lab work this morning showed a white cell count 12,600, hemoglobin 11, hematocrit 33, MCV 94 and platelet count of 143,000. His chemistry showed a serum sodium of 143, potassium 2.8, chloride 109, bicarbonate 27, anion gap of 7, BUN 7, creatinine 0.9, estimated GFR was 80 mL per minute. His glucose 122 and calcium was 8. ASSESSMENT: 1. Altered mental status. 2. Healthcare-associated pneumonia. 3. Seizure disorder. 4. Hypertension. 5. Hyperlipidemia. 6. Diabetes mellitus. 7. Dementia. PLAN: I will cut down his Lovenox to 40 mg daily. I did switch his antibiotic to Zosyn and vancomycin to accounts for possible healthcare-associated pneumonia and given his presentation hypoxia and fever, he apparently qualifies for testing for a coronavirus 19 and therefore he is now on droplet precaution and swabs were sent to test for this virus. IRASEMA MCCOLLUM MD DR: VLADIMIR/regulo JOB#: [id number] / [id number]
[2019-09-10] MEDS: ENOXAPARIN 40 MG/0.4 ML SYRINGE. SQ SCH (20:53)
[2019-09-10] MEDS ORDERED: VANCOMYCIN 1.5 GM in IV NORMAL SALINE 500ML 500 ML IV ONE (21:30)
[2019-09-11] VITALS (14 sets, daily range): BP systolic 90–130; BP diastolic 52–97
[2019-09-11] MEDS: POTASSIUM CL 40MEQ D5-0.45NACL 1,000 ML IV SCH ×2 (01:28→16:00)
[2019-09-11] MEDS: PIPERACILLIN/TAZOBACTAM 4.5 GM in IV NORMAL SALINE 50ML 50 ML IV SCH ×3 (01:29→18:37)
[2019-09-11] MEDS ORDERED: HALOPERIDOL LACT 5 MG/ML VIAL. IVP ONE (07:15)
[2019-09-11] MEDS: INSULIN LISPRO 300 UNITS/3 ML VIAL. SQ SCH ×3 (08:00→17:00)
[2019-09-11] MEDS ORDERED: ZIPRASIDONE IM 20 MG VIAL. IM ONE ×2 (08:15→17:00)
[2019-09-11 10:44] LABS: HEMOGLOBIN 12.4 g/dL (13.0-17.5); RED BLOOD COUNT 3.93 x10^6/uL (4.30-5.70); RED CELL DISTRIBUTION WIDTH 13.7 % (11.5-14.5); WHITE BLOOD COUNT 8.3 x10^3/uL (4.0-11.0)
[2019-09-11 10:57] LABS: ALBUMIN 3.2 g/dL (3.4-5.0); ALBUMIN/GLOBULIN RATIO 0.9 (1.0-1.7); CALCIUM 8.6 mg/dL (8.5-10.1); POTASSIUM 3.3 mmol/L (3.5-5.1); TOTAL BILIRUBIN 0.9 mg/dL (0.2-1.0); TOTAL PROTEIN 6.9 g/dL (6.4-8.2)
[2019-09-11] MEDS ORDERED: POTASSIUM CHLORIDE 20 MEQ TABLET.ER. PO ONE (14:00)
--- NOTE | 2019-09-11 14:17 | PN ---
DATE: 09/11/2019 SUBJECTIVE: The patient is resting, slightly propped up in bed, in no apparent distress. He is awake, alert, is very combative and aggressive, requires Teja Kelley. PHYSICAL EXAMINATION: GENERAL: This morning when I saw him this afternoon, he was sitting slightly propped up in bed, in no apparent respiratory distress. No pallor, jaundice, cyanosis or thyromegaly. No jugular venous distention. No limb edema. VITAL SIGNS: His heart rate was 90, blood pressure 128/81, temperature was 98.9, respiratory rate was 14 and oxygen saturation was 94%. HEAD, EYES, EARS, NOSE AND THROAT: Showed normocephalic, atraumatic. NECK: Supple. HEART: Showed normal first and second heart sounds. No gallop, rub or murmur. CHEST: Showed central trachea, equal bilateral expansion, air entry, vesicular breath sounds. No crepitation or rhonchi. ABDOMEN: Distended, soft, nontender. NEUROLOGIC: He is demented, but without any obvious lateralizing sign. All his cranial nerves are intact. He moves upper extremities without difficulty, although he is mostly bedbound, chair bound. His intake over the last 24 hours was 4617. His output was 1975. LABORATORY DATA: As of this morning, his white cell count is down to 8300, hemoglobin 12.4, hematocrit 37, MCV 94 and platelet count of 164,000. His prothrombin time was 10.9, INR of 1.1, aPTT was 23. D-dimer was 3.7. His chemistry showed a serum sodium 144, potassium 3.3, chloride 108, bicarbonate 26, anion gap of 10, BUN 5, creatinine 1, estimated GFR was 71 mL per minute. His glucose 148, calcium was 8.6. Total bilirubin, AST, ALT, alkaline phosphatase were normal. Total protein 6.9, albumin was 3.2. So far, his blood culture showed growth of gram-positive cocci in cluster suggestive of Staphylococcus in 1/4 bottles. ASSESSMENT: 1. Healthcare-associated pneumonia for which he will continue with IV Zosyn and vancomycin. His blood culture showed growth of gram-positive cocci suggestive of Staphylococcus in 1/4 bottles. 2. Altered mental status, improved. 3. Seizure disorder for which he is on Keppra. 4. Hypertension, well controlled. 5. Hyperlipidemia. 6. Type 2 diabetes mellitus that seems to be well controlled. 7. Dementia. 8. Hypokalemia. PLAN: To continue with IV antibiotic. Continue with DVT prophylaxis. Replenish the potassium. IRASEMA MCCOLLUM MD DR: VLADIMIR/regulo JOB#: [id number] / [id number]
[2019-09-11] MEDS ORDERED: ZIPRASIDONE IM 20 MG VIAL. IM PRN (17:00)
[2019-09-11] MEDS: ENOXAPARIN 40 MG/0.4 ML SYRINGE. SQ SCH (20:59)
[2019-09-11 21:27] LABS: VANC TR 9.1 mcg/mL (10.0-20.0)
[2019-09-11] MEDS: HALOPERIDOL LACT 5 MG/ML VIAL. IVP PRN (21:58)
[2019-09-11] MEDS: VANCOMYCIN PER PHARMACY MC PRN (22:08)
[2019-09-11] MEDS: VANCOMYCIN 1.5 GM in IV NORMAL SALINE 500ML 500 ML IV SCH (22:18)
[2019-09-12] VITALS (14 sets, daily range): BP systolic 80–136; BP diastolic 43–80
[2019-09-12] MEDS: PIPERACILLIN/TAZOBACTAM 4.5 GM in IV NORMAL SALINE 50ML 50 ML IV SCH ×3 (01:35→18:00)
[2019-09-12] MEDS: POTASSIUM CL 40MEQ D5-0.45NACL 1,000 ML IV SCH ×3 (01:38→22:36)
[2019-09-12] MEDS: INSULIN LISPRO 300 UNITS/3 ML VIAL. SQ SCH ×3 (08:00→17:00)
[2019-09-12 09:25] LABS: HEMATOCRIT 38.7 % (39.0-53.0); HEMOGLOBIN 12.9 g/dL (13.0-17.5); RED BLOOD COUNT 4.07 x10^6/uL (4.30-5.70); WHITE BLOOD COUNT 6.4 x10^3/uL (4.0-11.0)
[2019-09-12 09:41] LABS: ALBUMIN/GLOBULIN RATIO 0.8 (1.0-1.7); CALCIUM 8.6 mg/dL (8.5-10.1); POTASSIUM 3.7 mmol/L (3.5-5.1); TOTAL BILIRUBIN 0.8 mg/dL (0.2-1.0); TOTAL PROTEIN 6.7 g/dL (6.4-8.2)
[2019-09-12] MEDS: VANCOMYCIN 1.5 GM in IV NORMAL SALINE 500ML 500 ML IV SCH ×2 (11:27→22:36)
[2019-09-12] MEDS ORDERED: OLANZapine IM 10 MG VIAL. IM PRN (13:30)
[2019-09-12] MEDS ORDERED: IV NORMAL SALINE 1,000ML 1,000 ML IV ONE (14:15)
--- NOTE | 2019-09-12 14:32 | PN ---
DATE: 09/12/2019 SUBJECTIVE: The patient is resting flat, comfortably, in no apparent distress. He is somewhat sleepy, but he continues to become combative and angry. His blood pressure has been fluctuating; however, his oxygen saturation is normal, his heart rate is normal, and his urine output is adequate. PHYSICAL EXAMINATION: GENERAL: When I saw him this afternoon, he looked well and was clearly in no apparent respiratory distress. No pallor, jaundice, cyanosis, or thyromegaly. No jugular venous distention. No lower limb edema. VITAL SIGNS: His heart rate was 60, blood pressure was 114/69, temperature 97.5, respiratory rate was 13, and oxygen saturation was 96%. HEAD, EYES, EARS, NOSE, AND THROAT: Showed normocephalic, atraumatic. NECK: Supple. HEART: Showed normal first and second heart sounds. No gallop or murmur. CHEST: Clear to auscultation. No crepitation or rhonchi. ABDOMEN: Distended, soft, nontender. NEUROLOGIC: He was sleepy, but arousable. All cranial nerves are intact. He moves extremities without difficulty. His intake over the last 24 hours was 3900, output was 3850. LABORATORY DATA: As of this morning, his white cell count was 6400, hemoglobin 12, hematocrit 38, MCV 95, platelet count of 168,000. His chemistry showed a serum sodium 143, potassium 3.7, chloride 109, bicarbonate 25, anion gap of 9, BUN 3, creatinine 1, estimated GFR was 71 mL per minute. His glucose was 137, calcium was 8.6. Total bilirubin, AST, ALT, alkaline phosphatase were normal. Total protein 6.7, albumin 3. Urinalysis was essentially unremarkable and her vancomycin trough level was 9.1. So far, his blood culture showed gram-positive cocci in cluster suggestive of Staph in 1 out of 4 bottles. His throat and nasal cultures showed no growth so far. ASSESSMENT: 1. Healthcare-associated pneumonia for which he continues to be on IV Zosyn and vancomycin. His blood culture has showed growth of gram-positive cocci suggestive of Staph in 1 out of 4 bottles. 2. Altered mental status, improved. 3. Seizure disorder for which he is on Keppra. 4. Hypertension, well controlled. 5. Hyperlipidemia. 6. Type 2 diabetes mellitus that seems to be well controlled. 7. Dementia. 8. Hypokalemia that has improved. In fact, his potassium today was 3.7. PLAN: My plan is to continue with IV antibiotic for now. He was given a bolus of 1 liter of fluid. I will check his BMP and CK this afternoon. IRASEMA MCCOLLUM MD DR: VLADIMIR/regulo JOB#: [id number] / [id number]
[2019-09-12 16:39] LABS: CALCIUM 8.2 mg/dL (8.5-10.1); CREATININE 0.9 mg/dL (0.7-1.3); GFR 80.2; POTASSIUM 3.7 mmol/L (3.5-5.1)
[2019-09-12] MEDS: ENOXAPARIN 40 MG/0.4 ML SYRINGE. SQ SCH (20:33)
[2019-09-12 22:29] LABS: VANC TR 12.4 mcg/mL (10.0-20.0)
[2019-09-13] VITALS (31 sets, daily range): BP systolic 70–132; BP diastolic 32–90
[2019-09-13] MEDS: VANCOMYCIN PER PHARMACY MC PRN ×2 (01:17→13:29)
[2019-09-13] MEDS: PIPERACILLIN/TAZOBACTAM 4.5 GM in IV NORMAL SALINE 50ML 50 ML IV SCH ×3 (02:21→20:42)
[2019-09-13] MEDS: INSULIN LISPRO 300 UNITS/3 ML VIAL. SQ SCH ×3 (08:13→17:01)
[2019-09-13] MEDS: VANCOMYCIN 1.75 GM in IV NORMAL SALINE 500ML 500 ML IV SCH ×2 (08:30→22:33)
[2019-09-13] MEDS: levETIRAcetam 500 MG TABLET PO SCH ×2 (08:44→20:42)
--- NOTE | 2019-09-13 11:35 | PN ---
DATE: 09/13/2019 SUBJECTIVE: The patient is resting slightly propped up in bed, no apparent distress. He is awake, alert. On questioning him, he denied any complaint, in particular denied any chest pain, shortness of breath, cough, phlegm or hemoptysis. The nursing staff did not voice any concern and stated that he has an uneventful night. He has not received any psychotropic medication overnight or yesterday. He is definitely more awake, alert. PHYSICAL EXAMINATION: GENERAL: When I examined him, he looked well. No pallor, jaundice or cyanosis. No lymphadenopathy, no thyromegaly. No jugular venous distention. No limb edema. VITAL SIGNS: Her heart rate was 68, blood pressure was 114/66, temperature was 96.6, respiratory rate was 16, and oxygen saturation was 96% on room air. HEAD, EYES, EARS, NOSE AND THROAT: Showed normocephalic, atraumatic. NECK: Supple. HEART: Showed normal first and second heart sounds. No gallop, rub or murmur. CHEST: Clear to auscultation. No crepitation or rhonchi. ABDOMEN: Distended, soft, nontender. NEUROLOGIC: He is demented, but without any evidence of obvious lateralizing sign. All his cranial nerves are intact. He moves extremities without difficulty. He is mostly bedbound, chair bound. His intake over the last 24 hours was 1920, output was 3920 as of this morning. LABORATORY DATA: As of yesterday, serum sodium was 144, potassium 3.7, chloride 111, bicarbonate 26, anion gap of 7, BUN 3, creatinine 0.9, estimated GFR was 80 mL per minute. His glucose 150, calcium was 8.2 and CK was 211. His white cell count was 6400, hemoglobin 13, hematocrit 39, MCV 95, and platelet count 268,000. Urinalysis was essentially unremarkable. His vancomycin trough level was 12.4, which is well within therapeutic range. His blood culture showed growth of gram-positive cocci in cluster suggestive of Staph in 1/4 bottles, 2 sets drawn. The identification and sensitivity is still pending at the time of this dictation. His throat and nasal cultures so far showed no growth. ASSESSMENT: 1. Altered mental status, improved. 2. Healthcare-associated pneumonia for which he continues to be on IV Zosyn and vancomycin. His blood culture has grown gram-positive cocci suggestive of Staph in 1/ bottles. 3. Seizure disorder for which he is on Keppra. 4. Hypertension, well controlled. 5. Hyperlipidemia. 6. Type 2 diabetes mellitus, seems to be also reasonably controlled. 7. Dementia. 8. Hypokalemia, it has improved. PLAN: To continue with IV antibiotic for now and await the final result of the culture to decide on further management. IRASEMA MCCOLLUM MD DR: VLADIMIR/regulo JOB#: [id number] / [id number]
[2019-09-13] MEDS: POTASSIUM CL 40MEQ D5-0.45NACL 1,000 ML IV SCH ×2 (12:30→20:41)
[2019-09-13 12:42] LABS: HEMATOCRIT 36.6 % (39.0-53.0); HEMOGLOBIN 12.2 g/dL (13.0-17.5); RED BLOOD COUNT 3.84 x10^6/uL (4.30-5.70); RED CELL DISTRIBUTION WIDTH 13.7 % (11.5-14.5); WHITE BLOOD COUNT 6.8 x10^3/uL (4.0-11.0)
[2019-09-13 12:43] LABS: ALBUMIN 2.7 g/dL (3.4-5.0); ALBUMIN/GLOBULIN RATIO 0.8 (1.0-1.7); CALCIUM 8.4 mg/dL (8.5-10.1); CREATININE 1.1 mg/dL (0.7-1.3); GFR 63.6; POTASSIUM 3.7 mmol/L (3.5-5.1); TOTAL BILIRUBIN 0.6 mg/dL (0.2-1.0); TOTAL PROTEIN 6.2 g/dL (6.4-8.2)
[2019-09-13] MEDS: ENOXAPARIN 40 MG/0.4 ML SYRINGE. SQ SCH (20:42)
[2019-09-13] MEDS ORDERED: SCOPOLAMINE 1.5MG PATCH. TD PRN (21:45)
[2019-09-14 00:01] VITALS: BP 138/85
[2019-09-14] MEDS: PIPERACILLIN/TAZOBACTAM 4.5 GM in IV NORMAL SALINE 50ML 50 ML IV SCH ×3 (03:32→17:45)
[2019-09-14 04:03] VITALS: BP 128/80
[2019-09-14 06:32] LABS: HEMATOCRIT 38.9 % (39.0-53.0); RED BLOOD COUNT 4.12 x10^6/uL (4.30-5.70); RED CELL DISTRIBUTION WIDTH 13.7 % (11.5-14.5); WHITE BLOOD COUNT 7.3 x10^3/uL (4.0-11.0)
[2019-09-14 06:47] LABS: ALBUMIN 3.1 g/dL (3.4-5.0); ALBUMIN/GLOBULIN RATIO 0.8 (1.0-1.7); CALCIUM 8.8 mg/dL (8.5-10.1); CREATININE 1.1 mg/dL (0.7-1.3); GFR 63.6; POTASSIUM 3.6 mmol/L (3.5-5.1); TOTAL BILIRUBIN 0.8 mg/dL (0.2-1.0); TOTAL PROTEIN 7.1 g/dL (6.4-8.2)
[2019-09-14] MEDS: INSULIN LISPRO 300 UNITS/3 ML VIAL. SQ SCH ×3 (08:36→17:46)
[2019-09-14] MEDS: levETIRAcetam 500 MG TABLET PO SCH ×2 (08:42→19:59)
[2019-09-14 10:15] VITALS: BP 123/81
[2019-09-14] MEDS: VANCOMYCIN 1.75 GM in IV NORMAL SALINE 500ML 500 ML IV SCH ×2 (11:00→22:00)
[2019-09-14 14:00] VITALS: BP 106/69
[2019-09-14] MEDS: POTASSIUM CL 40MEQ D5-0.45NACL 1,000 ML IV SCH ×2 (14:00→14:34)
--- NOTE | 2019-09-14 14:55 | PN ---
DATE: 09/14/2019 SUBJECTIVE: The patient is resting, slightly propped up in bed, very lethargic and sleepy. He apparently has not received any of his psychotropic medication yesterday or last night. PHYSICAL EXAMINATION: GENERAL: When I examined him, he looked pale, but no jaundice, cyanosis, or thyromegaly. No jugular venous distention. No lower limb edema. VITAL SIGNS: His heart rate was 70, blood pressure was 123/81, temperature was 98.9, respiratory rate was 18, and oxygen saturation was 97% on room air. HEAD, EYES, EARS, NOSE, AND THROAT: Showed normocephalic, atraumatic. NECK: Supple. CARDIAC: Normal first and second heart sounds. No gallop or murmur. CHEST: Clear to auscultation. No crepitation or rhonchi. ABDOMEN: Distended, soft, nontender. NEUROLOGIC: He is very sleepy, but arousable. All his cranial nerves are intact. He moves extremities without difficulty. GENITOURINARY: He has an indwelling Malone catheter. His intake over the last 24 hours was 1200, output was 2615. LABORATORY DATA: His lab work showed a white cell count 7300, hemoglobin 13, hematocrit 39, MCV 94, and platelet count 206,000. His chemistry showed a serum sodium 142, potassium 3.6, chloride 106, bicarbonate 23, anion gap of 13, BUN 2, creatinine 1.1, estimated GFR was 64 mL per minute. His glucose 121, calcium was 8.8. Total bilirubin, AST, ALT, alkaline phosphatase were normal. Total protein was 7.1, albumin was 3.1. His urinalysis was essentially unremarkable. There was large amount of blood, too numerous to count rbc's, 1-4 wbc's, and very few bacteria. His vancomycin trough level was 12.4. His influenza A and B negative and group A streptococcus rapid test was negative. So far, his blood culture showed gram-positive cocci in cluster suggestive of Staph in 1 out of 4 bottles, 2 sets were drawn. His nose and throat swab showed a routine respiratory silver. ASSESSMENT: 1. Altered mental status. The patient is likely waiting. 2. Healthcare-associated pneumonia for which he continues to be on IV Zosyn and vancomycin. His blood cultures have grown gram-positive cocci suggestive of Staphylococcus in 1 out of 4 3. Seizure disorder for which he is on Keppra. 4. Hypertension, seems to be well controlled. 5. Hyperlipidemia. 6. Type 2 diabetes mellitus, seems to be also reasonably controlled. 7. Dementia. 8. Hypokalemia. It has also improved. PLAN: To continue with IV antibiotic for now. Await the final results of the culture and test for the coronavirus. IRASEMA MCCOLLUM MD DR: VLADIMIR/regulo JOB#: [id number] / [id number]
[2019-09-14] MEDS: VANCOMYCIN PER PHARMACY MC PRN ×2 (16:12→16:32)
[2019-09-14 20:00] VITALS: BP 99/67
[2019-09-14] MEDS: ENOXAPARIN 40 MG/0.4 ML SYRINGE. SQ SCH (20:00)
[2019-09-14 22:53] LABS: VANC TR 30.8 mcg/mL (10.0-20.0)
[2019-09-14 23:53] VITALS: BP 125/75
[2019-09-15] MEDS: POTASSIUM CL 40MEQ D5-0.45NACL 1,000 ML IV SCH ×3 (01:17→19:41)
[2019-09-15] MEDS: PIPERACILLIN/TAZOBACTAM 4.5 GM in IV NORMAL SALINE 50ML 50 ML IV SCH ×2 (01:17→09:33)
[2019-09-15] MEDS: VANCOMYCIN PER PHARMACY MC PRN ×2 (02:43→14:36)
[2019-09-15 04:00] VITALS: BP 113/68
[2019-09-15 06:40] LABS: CALCIUM 8.5 mg/dL (8.5-10.1); CREATININE 1.2 mg/dL (0.7-1.3); GFR 57.5; POTASSIUM 3.6 mmol/L (3.5-5.1)
[2019-09-15] MEDS: INSULIN LISPRO 300 UNITS/3 ML VIAL. SQ SCH ×3 (08:00→17:00)
[2019-09-15] MEDS: levETIRAcetam 500 MG TABLET PO SCH ×2 (09:33→19:40)
[2019-09-15 10:50] VITALS: BP 128/81
--- NOTE | 2019-09-15 13:25 | PN ---
DATE: 09/15/2019 SUBJECTIVE: The patient apparently is doing much better today. He is more awake, alert, cooperative, has eaten his breakfast this morning, although he requires some assistance. His blood culture finally showed growth of Staphylococcus hominis that is methicillin-resistant and it is sensitive to ciprofloxacin, clindamycin, gentamicin, levofloxacin, rifampin, tetracycline, trimethoprim and sulfamethoxazole, and vancomycin. PHYSICAL EXAMINATION: GENERAL: When I examined him, he looked somewhat pale, no jaundiced, cyanosis or thyromegaly. No jugular venous distension. No lower limb edema. VITAL SIGNS: His heart rate was 63, blood pressure was 128/81, temperature was 96.7, respiratory rate was 16, and oxygen saturation was 96%. HEAD, EYES, EARS, NOSE AND THROAT: Showed normocephalic, atraumatic. NECK: Supple. HEART: Showed normal first and second heart sounds. No gallop, rub or murmur. CHEST: Clear to auscultation. No crepitation or rhonchi. ABDOMEN: Distended, soft, nontender. NEUROLOGIC: He was definitely more awake, alert, uncooperative. All his cranial nerves are intact. He moves his upper extremities to much good extent than lower extremities, mostly bedbound, chair bound. His intake over the last 24 hours was 1550, output was 2950. LABORATORY DATA: Showed a white cell count 7300, hemoglobin 13, hematocrit 39, MCV 94 and platelet count 206,000. His chemistry showed a serum sodium of 130, potassium 3.6, chloride 109, bicarbonate 25, anion gap of 9, BUN 2, creatinine 1.2, estimated GFR was 57 mL per minute. His glucose 126, calcium was 8.5. ASSESSMENT: 1. Altered mental status. The patient is much improved. 2. Healthcare-associated pneumonia with growth of Staphylococcus hominis from his blood culture, sensitive to vancomycin, and I will discontinue IV Zosyn. 3. Seizure disorder for which he is on Keppra. 4. Hypertension, seems to be well controlled. 5. Hyperlipidemia. 6. Type 2 diabetes mellitus, seems to be also reasonably controlled. 7. Dementia. 8. Hypokalemia, improved. His potassium is 3.6. PLAN: To discontinue Zosyn. Continue with IV vancomycin. Continue with IV fluid. Await the result of the COVID-19. If it is negative, we will be able to discharge him back to [facility], on oral antibiotic to complete the treatment. IRASEMA MCCOLLUM MD DR: VLADIMIR/regulo JOB#: [id number] / [id number]
[2019-09-15] MEDS: HALOPERIDOL LACT 5 MG/ML VIAL. IVP PRN ×2 (15:30→20:51)
[2019-09-15] MEDS: VANCOMYCIN 1.5 GM in IV NORMAL SALINE 500ML 500 ML IV SCH (15:34)
[2019-09-15 16:00] VITALS: BP 115/79
[2019-09-15] MEDS ORDERED: VANCOMYCIN 1.25 GM in IV NORMAL SALINE 250ML 250 ML IV SCH (16:00)
[2019-09-15] MEDS: LACTOBACILLUS RHAMNOSUS GG 1 CAPSULE. PO SCH (19:40)
[2019-09-15] MEDS: ENOXAPARIN 40 MG/0.4 ML SYRINGE. SQ SCH (19:41)
[2019-09-15 20:00] VITALS: BP 151/86
[2019-09-16] VITALS (7 sets, daily range): BP systolic 97–136; BP diastolic 57–78
[2019-09-16 06:37] LABS: HEMATOCRIT 36.2 % (39.0-53.0); HEMOGLOBIN 12.2 g/dL (13.0-17.5); RED BLOOD COUNT 3.84 x10^6/uL (4.30-5.70); WHITE BLOOD COUNT 7.3 x10^3/uL (4.0-11.0)
[2019-09-16 06:46] LABS: ALBUMIN 2.9 g/dL (3.4-5.0); ALBUMIN/GLOBULIN RATIO 0.8 (1.0-1.7); CALCIUM 8.9 mg/dL (8.5-10.1); CREATININE 1.1 mg/dL (0.7-1.3); GFR 63.6; POTASSIUM 3.8 mmol/L (3.5-5.1); TOTAL BILIRUBIN 0.4 mg/dL (0.2-1.0); TOTAL PROTEIN 6.6 g/dL (6.4-8.2)
[2019-09-16] MEDS: INSULIN LISPRO 300 UNITS/3 ML VIAL. SQ SCH ×3 (07:37→17:00)
[2019-09-16] MEDS: levETIRAcetam 500 MG TABLET PO SCH ×2 (08:38→19:26)
[2019-09-16] MEDS: LACTOBACILLUS RHAMNOSUS GG 1 CAPSULE. PO SCH ×3 (08:38→19:36)
[2019-09-16] MEDS: POTASSIUM CL 40MEQ D5-0.45NACL 1,000 ML IV SCH ×2 (08:40→16:00)
--- NOTE | 2019-09-16 12:10 | PN ---
DATE: 09/16/2019 SUBJECTIVE: The patient is resting, slightly propped up in bed, sleeping comfortably. Apparently, he did require Haldol last night; however, he is afebrile, hemodynamically stable. He is maintaining his oxygen saturation at 96% on room air. His blood culture has grown Staphylococcus hominis sensitive to multiple antibiotics. Unfortunately, we are still waiting for the result of the coronavirus test that was sent last week. Otherwise, he could have discharged him to [place]. PHYSICAL EXAMINATION: GENERAL: When I examined him today, he looked well and was clearly in no apparent respiratory distress. No pallor, jaundice, cyanosis or thyromegaly. No jugular venous distention. No limb edema. VITAL SIGNS: His heart rate was 62, blood pressure was 112/57, temperature was 96.9, respiratory rate was 12 and oxygen saturation was 96%. HEAD, EYES, EARS, NOSE AND THROAT: Normocephalic, atraumatic. NECK: Supple. CARDIAC: Normal first and second heart sounds. No gallop or murmur. CHEST: Clear to auscultation. No crepitation or rhonchi. ABDOMEN: Distended, soft, nontender. NEUROLOGIC: He was sleepy, but arousable. All cranial nerves are intact. He moves extremities without difficulty, although he is mostly bedbound, chair bound. His intake over the last 24 hours was 3400, output was 2550. LABORATORY DATA: His white cell count was 7300, hemoglobin 12, hematocrit 36, MCV 94 and platelet count 219,000. His chemistry showed a serum sodium 143, potassium 3.8, chloride 109, bicarbonate 26, anion gap of 8, BUN 3, creatinine 1.1, estimated GFR was 64 mL per minute. Her glucose 125, calcium was 8.9. Total bilirubin, AST, ALT, alkaline phosphatase were normal. Total protein 6.6, albumin 2.9. ASSESSMENT: 1. Altered mental status, improving. 2. Healthcare-associated pneumonia with growth of Staphylococcus hominis from his blood culture, sensitive to vancomycin. We did discontinue her Zosyn. 3. Seizure disorder for which he is on Keppra. 4. Hypertension, seems to be well controlled. 5. Hyperlipidemia. 6. Type 2 diabetes mellitus, seems to be reasonably controlled. 7. Dementia. 8. Hypokalemia, improved. PLAN: To continue with IV vancomycin. Continue with IV fluid. Await the result of the COVID-19. If negative, we would be able to discharge him back to [facility] on oral antibiotic to complete treatment. IRASEMA MCCOLLUM MD DR: VLADIMIR/regulo JOB#: [id number] / [id number]
[2019-09-16] MEDS ORDERED: ACETAMINOPHEN 500 MG TABLET PO PRN (13:45)
[2019-09-16] MEDS: VANCOMYCIN 1.5 GM in IV NORMAL SALINE 500ML 500 ML IV SCH (16:58)
[2019-09-16] MEDS: HALOPERIDOL LACT 5 MG/ML VIAL. IVP PRN ×2 (18:08→22:45)
[2019-09-16] MEDS: ENOXAPARIN 40 MG/0.4 ML SYRINGE. SQ SCH (19:28)
[2019-09-16] MEDS ORDERED: QUEtiapine 25 MG TABLET. PO SCH (21:00)
[2019-09-16] MEDS ORDERED: DONEPEZIL HCL 10 MG TABLET PO SCH (21:00)
[2019-09-17] MEDS: POTASSIUM CL 40MEQ D5-0.45NACL 1,000 ML IV SCH ×2 (02:00→08:59)
[2019-09-17 02:37] VITALS: BP 119/78
[2019-09-17 08:00] VITALS: BP 141/83
[2019-09-17] MEDS: LACTOBACILLUS RHAMNOSUS GG 1 CAPSULE. PO SCH ×2 (08:00→09:00)
[2019-09-17] MEDS: INSULIN LISPRO 300 UNITS/3 ML VIAL. SQ SCH ×2 (08:00→12:00)
--- NOTE | 2019-09-17 08:59 | DS ---
DATE OF DISCHARGE: 09/17/2019 ATTENDING PHYSICIAN: Dr. Napoles. FINAL DISCHARGE DIAGNOSES: 1. snf-acquired pneumonia. 2. Probable aspiration. 3. Underlying dementia. 4. Sepsis syndrome, treated. 5. Essential hypertension. 6. History of seizure disorder. 7. Hyperlipidemia. 8. Type 2 diabetes. 9. Old cerebrovascular accident. 10. Gout. 11. Benign prostatic hypertrophy. HISTORY AND PHYSICAL: This is an 84-year-old gentleman, resident of [facility]. He had increasing shortness of breath and altered mentation for the 24 hours. Prior to admission, he was very combative. He required ketamine and restrained for transport by [facility] paramedics. He was febrile to 100.4 degrees Fahrenheit. PHYSICAL EXAMINATION: Please see the dictated note. PERTINENT LABORATORY AND X-RAY STUDIES: His influenza A and B and group A strep were negative. The coronavirus COVID-19 by PCR test was also negative. Hemoglobin maintained at 12.2 g/dL with white count of 7300. Chemistry panel shows stable creatinine of 1.1 mg/dL, nonfasting blood sugar 84 and 128 respectively. Transaminases within normal range. Sodium 143 mEq, potassium 3.8 mEq per liter. COURSE IN THE HOSPITAL: The patient was admitted with healthcare-associated pneumonia. He was started on Zyvox and vancomycin. He tolerated well, receiving 7 full days. Blood cultures came back, 1/4 cultures positive for Staphylococcus hominis. He was treated nevertheless for 7 full days. While he was here, he had a COVID-19 by PCR, which came back negative. On the eighth hospital day, he was ready for return back to [facility]. His discharge meds will be unchanged including continuation of Tylenol, allopurinol, amlodipine 10 mg daily, aspirin 1 daily, vitamin D3, Aricept 10 mg daily, lactobacillus, Keppra 500 mg b.i.d., Seroquel 12.5 mg at bedtime, thiamine, Timoptic eyedrops and Xalatan eyedrops. He remains a full code per advanced directives. His prognosis is guarded. He was discharged then from our hospital in stable condition with explicit instructions and followup care. TOTAL DISCHARGE TIME SPENT: 42 minutes. MARI CRAMER MD DR: BRIGID/regulo JOB#: [id number] / [id number] IRASEMA Singh MD
[2019-09-17] MEDS ORDERED: ALLOPURINOL 300 MG TABLET. PO SCH (09:00)
[2019-09-17] MEDS ORDERED: amLODIPine BESYLATE 10 MG TABLET PO SCH (09:00)
[2019-09-17] MEDS ORDERED: THIAMINE 100 MG TABLET. PO SCH (09:00)
[2019-09-17] MEDS ORDERED: ASPIRIN CHEWABLE 81 MG TABLET. PO SCH (09:00)
[2019-09-17] MEDS ORDERED: LATANOPROST 0.005% OPHTH SOLUTION 2.5ML BOTTLE. OU SCH (09:00)
[2019-09-17] MEDS ORDERED: TIMOLOL 0.5% OPHTH SOLUTION 5ML BOTTLE. OU SCH (09:00)
[2019-09-17] MEDS ORDERED: CHOLECALCIFEROL (VITAMIN D3) 1,000 UNIT TABLET PO SCH (09:00)
[2019-09-17] MEDS ORDERED: MULTIVITAMIN with MINERAL TABLET. PO SCH (09:00)
[2019-09-17] MEDS: levETIRAcetam 500 MG TABLET PO SCH (09:00)
[2019-09-17 12:00] VITALS: BP 130/76
== END 2019-09-17 15:05 | DRG 871 ==
LOC: ER 18:27 → ICU 19:00
PROVIDERS: ADMIT Internal Medicine; ATTEND Internal Medicine
DX: A41.9 Sepsis, unspecified organism (principal); J18.9 Pneumonia, unspecified organism; F01.51 Vascular dementia, unspecified severity, with behavioral disturbance; E11.9 Type 2 diabetes mellitus without complications; E78.00 Pure hypercholesterolemia, unspecified; E78.5 Hyperlipidemia, unspecified; E86.0 Dehydration; E87.6 Hypokalemia; G40.909 Epilepsy, unspecified, not intractable, without status epilepticus; I10 Essential (primary) hypertension; I69.391 Dysphagia following cerebral infarction; M10.9 Gout, unspecified; N40.0 Benign prostatic hyperplasia without lower urinary tract symptoms; Y95 Nosocomial condition; Z79.899 Other long term (current) drug therapy; Z87.01 Personal history of pneumonia (recurrent); Z87.891 Personal history of nicotine dependence; Z96.653 Presence of artificial knee joint, bilateral; Z99.3 Dependence on wheelchair; F32.9 Major depressive disorder, single episode, unspecified; F41.9 Anxiety disorder, unspecified; H40.9 Unspecified glaucoma; M19.90 Unspecified osteoarthritis, unspecified site; B95.8 Unspecified staphylococcus as the cause of diseases classified elsewhere; Z03.818 Encounter for observation for suspected exposure to other biological agents ruled out
CPT/HCPCS: 36415; 51702; 70450; 71045; 71275; 72125; 80048; 80053; 80076; 80202; 80307; 81001; 82550; 82947; 83605; 83690; 83735; 83880; 84145; 84443; 84484; 85025; 85027; 85379; 85610; 85651; 85730; 87040; 87070; 87077; 87205; 87635; 87804; 87880; 93005; 94640; 96361; 96365; 96366; 96367; 96372; J0456; J0696; J1630; J1650; J1815; J1953; J2543; J3370; J3480; J3486; J3490; J7040; J7042; J7050; J7120; Q9967; 99285-25; J7030; U0002

== ENCOUNTER 2020-01-03 21:05 | Inpatient (IN) | payer MEDICARE, OTHER ==
[~2020-01-03] VITALS: Ht 172.7 cm; Wt 71.9 kg
[~2020-01-03 21:05] MED LIST changes: +ACET500T68 PO; +LACT100C2 PO; -OLAN5TAB5 PO; +OLAN5TAB99 PO
[2020-01-03 21:58] LABS: BASO % 0 % (0-3); EOS # 0.2 x10^3/uL (0.0-0.7); EOS % 1 % (0-3); HEMOGLOBIN 12.3 g/dL (13.0-17.5); LYMPH # 1.4 x10^3/uL (1.0-4.8); LYMPH % 9 % (24-48); MEAN CORPUSCULAR HEMOGLOBIN 31 pg (25-35); MEAN CORPUSCULAR HGB CONC 33 g/dL (31-37); MEAN CORPUSCULAR VOLUME 93 fL (79-100); MONO # 0.8 x10^3/uL (0.0-1.1); MONO % 5 % (0-9); NEUT # 13.3 x10^3uL (1.8-7.7); NEUT % 85 % (31-73); PLATELET COUNT 163 x10^3/uL (140-400); RED BLOOD COUNT 3.99 x10^6/uL (4.30-5.70); RED CELL DISTRIBUTION WIDTH 13.7 % (11.5-14.5); WHITE BLOOD COUNT 15.6 x10^3/uL (4.0-11.0)
[2020-01-03 22:02] LABS: CALCIUM 8.2 mg/dL (8.5-10.1); CREATININE 1.2 mg/dL (0.7-1.3); GFR 57.5; POTASSIUM 3.2 mmol/L (3.5-5.1)
--- NOTE | 2020-01-03 22:02 | PHYS DOC ---
Past History Past Medical History: Anxiety, Arthritis, CVA, Dementia, Depression, Diabetes, Glaucoma, High Cholesterol, Hypertension, Prostatitis, Seizure, Stroke, Other Additional Past Medical Histor: DYSPHAGIA FOLLOWING CEREBRAL INFARCTION, GOUT Past Surgical History: Other Smoking: Non-smoker Alcohol Use: Sober Drug Use: None General Adult EDM: Chief Complaint: ALTERED MENTAL STATUS HPI: HPI: 84-year-old male presents via EMS from his nursing care facility with reported fever and altered mental status. The entire history comes from care home and EMS as the patient is not answering any of my questions. Patient was reported to have a fever for the last few days. It was reported to be up to 104 today so they decided to send him to the emergency room. Patient has also had change in mental status last couple of days. It is unclear what his baseline is. He did have a previous stroke. On arrival patient did not have a fever. It is unclear if antipyretics were given prior to arrival. Patient has had a history of pneumonia in the past. He is a full code. No known COVID-19 exposures. Review of Systems: Review of Systems: Unable to perform due to patient mental status Heart Score: Risk Factors: Risk Factors: DM, Current or recent (<one month) smoker, HTN, HLP, family history of CAD, obesity. Risk Scores: Score 0 - 3: 2.5% MACE over next 6 weeks - Discharge Home Score 4 - 6: 20.3% MACE over next 6 weeks - Admit for Clinical Observation Score 7 - 10: 72.7% MACE over next 6 weeks - Early Invasive Strategies Allergies: Allergies: Allergies Coded Allergies Type Severity Reaction Last Updated Verified rosuvastatin Allergy Severe 06/16/19 Yes Physical Exam: PE: Constitutional: Well developed, well nourished, no acute distress, non-toxic appearance. [] HENT: Normocephalic, atraumatic, bilateral external ears normal, oropharynx moist, no oral exudates, nose normal. [] Eyes: PERRLA, EOMI, conjunctiva normal, no discharge. [] Neck: Normal range of motion, no tenderness, supple, no stridor. [] Cardiovascular:Heart rate regular rhythm, no murmur [] Lungs & Thorax: Bilateral breath sounds clear to auscultation [] Abdomen: Bowel sounds normal, soft, no tenderness, no masses, no pulsatile masses. [] Skin: Warm, dry, no erythema, no rash. [] Back: No tenderness, no CVA tenderness. [] Extremities: No tenderness, no cyanosis, no clubbing, ROM intact, no edema. [] Neurologic: Alert and oriented X 3, normal motor function, normal sensory function, no focal deficits noted. [] Psychologic: Affect normal, judgement normal, mood normal. [] Current Patient Data: Labs: Laboratory Tests Test 01/03/20 21:20 White Blood Count 15.6 x10^3/uL (4.0-11.0) H Red Blood Count 3.99 x10^6/uL (4.30-5.70) L Hemoglobin 12.3 g/dL (13.0-17.5) L Hematocrit 37.0 % (39.0-53.0) L Mean Corpuscular Volume 93 fL (79-100) Mean Corpuscular Hemoglobin 31 pg (25-35) Mean Corpuscular Hemoglobin Concent 33 g/dL (31-37) Red Cell Distribution Width 13.7 % (11.5-14.5) Platelet Count 163 x10^3/uL (140-400) Neutrophils (%) (Auto) 85 % (31-73) H Lymphocytes (%) (Auto) 9 % (24-48) L Monocytes (%) (Auto) 5 % (0-9) Eosinophils (%) (Auto) 1 % (0-3) Basophils (%) (Auto) 0 % (0-3) Neutrophils # (Auto) 13.3 x10^3uL (1.8-7.7) H Lymphocytes # (Auto) 1.4 x10^3/uL (1.0-4.8) Monocytes # (Auto) 0.8 x10^3/uL (0.0-1.1) Eosinophils # (Auto) 0.2 x10^3/uL (0.0-0.7) Basophils # (Auto) 0.0 x10^3/uL (0.0-0.2) Vital Signs: Vital Signs Date Time Temp Pulse Resp B/P (MAP) Pulse Ox O2 Delivery O2 Flow Rate FiO2 01/03/20 21:41 98.9 91 18 112/73 (86) 91 Room Air EKG: EKG: Sinus rhythm, rate 95, normal axis, right bundle branch block, no ST elevations or depressions. [] Radiology/Procedures: Radiology/Procedures: [] Impressions: Exam: CT head INDICATION: Altered mental status TECHNIQUE: Sequential axial images through the head were obtained without the administration of IV contrast. Comparisons: None FINDINGS: No focal parenchymal lesion or hemorrhage is identified. There is no midline shift or sulcal effacement. Confluent hypodensities in the periventricular white matter, unchanged from prior study.. No acute vascular territory infarction is identified. Peterson-white distinction is preserved. The ventricular system is within normal limits without compression hydrocephalus. The basal cisterns are well maintained. The visualized portions of the paranasal sinuses and mastoid air cells are well-pneumatized. No acute fractures. IMPRESSION: Severe small vessel ischemic change which appears similar when compared to the prior exam. Exposure: One or more of the following in the visualized dose reduction techniques were utilized for this examination: 1. Automated exposure control 2. Adjustment of the MA and/or KV according to patient size Use of iterative of reconstructive technique Electronically signed by: Gutierrez Velasquez MD (01/03/2020 10:24 PM) [id number] DICTATED AND SIGNED BY: GUTIERREZ VELASQUEZ MD DATE: 01/03/202223 CC: RICHARD STROUD DO; JOSE NAPOLES MD ~ Exam: Chest one view INDICATION: Altered mental status TECHNIQUE: Frontal view of the chest Comparisons: 09/09/2019 FINDINGS: The cardiomediastinal silhouette and pulmonary vessels are within normal limits. Patchy airspace disease at the right mid and lower lung. No pleural effusion. IMPRESSION: Patchy airspace disease at the right mid and lower lung may represent developing infectious or inflammatory process Electronically signed by: Gutierrez Velasquez MD (01/03/2020 10:22 PM) [id number] DICTATED AND SIGNED BY: GUTIERREZ VELASQUEZ MD DATE: 01/03/202221 CC: RICHARD STROUD DO; JOSE NAPOLES MD ~ Course & Med Decision Making: Course & Med Decision Making Pertinent Labs and Imaging studies reviewed. (See chart for details) The patient's head CT is negative for acute findings. He does have chronic findings. See official report for more details. His chest x-ray is suggestive of early infiltrate. His urinalysis is also suggestive of urinary tract infection. We will give him 30 mL/kg of fluids. Blood cultures and lactic acid have been ordered. I will give the patient Zosyn for broad coverage in the ER. I spoke with Dr. Napoles and he has accepted the patient for admission. We will swab him for COVID-19. 39 minutes of critical care time was spent on this patient exclusive of other billable procedures. [] Dragon Disclaimer: Dragon Disclaimer: This electronic medical record was generated, in whole or in part, using a voice recognition dictation system. Departure Departure: Impression: Primary Impression: Pneumonia Qualified Codes: J18.9 - Pneumonia, unspecified organism Additional Impressions: Urinary tract infection Qualified Codes: N30.01 - Acute cystitis with hematuria Sepsis Qualified Codes: A41.9 - Sepsis, unspecified organism; R65.20 - Severe sepsis without septic shock; G93.40 - Encephalopathy, unspecified Disposition: 09 ADMITTED INPATIENT Admitting Physician: Jose Napoles Condition: GUARDED Referrals: JOSE NAPOLES MD (PCP) Justification of Admission: Justification of Admission: Justification of Admission Dx: Yes Sepsis: Altered Mental Status Sepsis Assessment: Date and Time of Assessment Date: Jan 03, 2020 Time: 22:00 Vital Signs Vital Signs Vital Signs Date Time Temp Pulse Resp B/P (MAP) Pulse Ox O2 Delivery O2 Flow Rate FiO2 01/03/20 21:41 98.9 91 18 112/73 (86) 91 Room Air Respirations Respiratory Effort: Normal Respiratory Pattern: Normal Cardiovascular Pulse Rhythm: Regular HEART: No murmurs noted Lung Sounds Breath Sounds: Diminished Capillary Refill Capillary Refill: Rt Hand < 3 seconds Peripheral Pulse Pulse Location: Monitor Pulse Strength: Normal (2+) Pulse Assessment Method: Monitor Integumentary Skin: Warm Skin Moisture: Dry Skin Turgor: Normal Skin Color: warm Fingernail Color: WNL Sepsis Assessment: Date and Time of Assessment Date: Jan 03, 2020 Time: 23:09 Vital Signs Vital Signs Vital Signs Date Time Temp Pulse Resp B/P (MAP) Pulse Ox O2 Delivery O2 Flow Rate FiO2 01/03/20 21:41 98.9 91 18 112/73 (86) 91 Room Air Respirations Respiratory Effort: Normal Respiratory Pattern: Normal Cardiovascular Pulse Rhythm: Regular HEART: No murmurs noted Lung Sounds Breath Sounds: Diminished Capillary Refill Capillary Refill: Rt Hand < 3 seconds Peripheral Pulse Pulse Location: Monitor Pulse Strength: Normal (2+) Pulse Assessment Method: Monitor Integumentary Skin: Warm Skin Moisture: Dry Skin Turgor: Normal Skin Color: warm, no erythema Fingernail Color: WNRICHARD MOTA DO Jan 03, 2020 22:02
[2020-01-03 22:17] LABS: ALBUMIN/GLOBULIN RATIO 0.8 (1.0-1.7); TOTAL BILIRUBIN 1.6 mg/dL (0.2-1.0); TOTAL PROTEIN 6.7 g/dL (6.4-8.2)
[2020-01-03 22:21] LABS: BACTERIA,URINE FEW /HPF (0-FEW); BILIRUBIN,URINE NEG (NEG); CLARITY,URINE TURBID; COLOR,URINE AMBER; GLUCOSE,URINE NEG (NEG); NITRITE,URINE NEG (NEG); RBC,URINE >40 /HPF (0-2); SQUAMOUS EPITHELIAL CELL,UR OCC /LPF; WBC,URINE >40 /HPF (0-4)
[2020-01-03 22:22] LABS: HYALINE CASTS, URINE OCC /HPF
--- NOTE | 2020-01-03 22:25 | RAD ---
Exam: Chest one view INDICATION: Altered mental status TECHNIQUE: Frontal view of the chest Comparisons: 09/09/2019 FINDINGS: The cardiomediastinal silhouette and pulmonary vessels are within normal limits. Patchy airspace disease at the right mid and lower lung. No pleural effusion. IMPRESSION: Patchy airspace disease at the right mid and lower lung may represent developing infectious or inflammatory process Electronically signed by: Gutierrez Schwartz MD (01/03/2020 10:22 PM) [id number]
--- NOTE | 2020-01-03 22:26 | RAD ---
Exam: CT head INDICATION: Altered mental status TECHNIQUE: Sequential axial images through the head were obtained without the administration of IV contrast. Comparisons: None FINDINGS: No focal parenchymal lesion or hemorrhage is identified. There is no midline shift or sulcal effacement. Confluent hypodensities in the periventricular white matter, unchanged from prior study.. No acute vascular territory infarction is identified. Peterson-white distinction is preserved. The ventricular system is within normal limits without compression hydrocephalus. The basal cisterns are well maintained. The visualized portions of the paranasal sinuses and mastoid air cells are well-pneumatized. No acute fractures. IMPRESSION: Severe small vessel ischemic change which appears similar when compared to the prior exam. Exposure: One or more of the following in the visualized dose reduction techniques were utilized for this examination: 1. Automated exposure control 2. Adjustment of the MA and/or KV according to patient size Use of iterative of reconstructive technique Electronically signed by: Gutierrez Schwartz MD (01/03/2020 10:24 PM) [id number]
[2020-01-03 22:45] LABS: % BANDS 2 % (0-9); % EOS 4 % (0-5); % LYMPHS 8 % (24-48); % MONOS 4 % (0-10); % SEGS 82 % (35-66)
[2020-01-03 22:46] LABS: PLT ESTIMATE ADEQUATE (ADEQUATE)
[2020-01-03 22:47] LABS: TOXIC GRANULATION SLIGHT; TOXIC VACUOLATION SLIGHT
[2020-01-03] MEDS ORDERED: PIPERACILLIN/TAZOBACTAM 3.375 GM VIAL IV ONE (23:12)
[2020-01-03] MEDS ORDERED: IV NORMAL SALINE 50ML 50 ML ONE (23:12)
[2020-01-03] MEDS: IV NORMAL SALINE 1,000ML 1,000 ML IV SCH (23:18)
[2020-01-03] MEDS ORDERED: PIPERACILLIN/TAZOBACTAM 3.375 GM in IV NORMAL SALINE 50ML 50 ML IV ONE (23:30)
[2020-01-04] VITALS (14 sets, daily range): BP systolic 74–123; BP diastolic 32–72
--- NOTE | 2020-01-04 00:47 | NUR ---
The patient, RANDI CRISTINA, 84 y/o, M admitted by IRASEMA MCCOLLUM MD, was given written information regarding hospital policies, unit procedures and contact persons. Patient is confused and combative, does not verbalize. Patient hitting and kicking while attempting to connect telemetry leads; mitts applied for patient safety. Valuables were checked and left in room.
[2020-01-04] MEDS: IV NORMAL SALINE 1,000ML 1,000 ML IV SCH ×2 (01:10→02:11)
[2020-01-04] MEDS ORDERED: ALLO100T PO (01:41)
[2020-01-04] MEDS ORDERED: ESCITALOPRAM OXA5 MG PO (01:41)
[2020-01-04] MEDS ORDERED: ACETAMINOPHEN 500 MG TABLET PO PRN (01:45)
--- NOTE | 2020-01-04 07:30 | NUR ---
Resumed pt care.
--- NOTE | 2020-01-04 09:00 | NUR ---
Pt fed breakfast. Pt spitting out any food with chunks. Took meds crushed in pudding with encouragement.
[2020-01-04] MEDS: CHOLECALCIFEROL (VITAMIN D3) 1,000 UNIT TABLET PO SCH (09:04)
[2020-01-04] MEDS: MULTIVITAMIN with MINERAL TABLET. PO SCH (09:04)
[2020-01-04] MEDS: levETIRAcetam 500 MG TABLET PO SCH ×2 (09:04→20:18)
[2020-01-04] MEDS: LACTOBACILLUS RHAMNOSUS GG 1 CAPSULE. PO SCH ×2 (09:04→17:00)
[2020-01-04] MEDS: THIAMINE 100 MG TABLET. PO SCH (09:04)
[2020-01-04] MEDS: TIMOLOL 0.5% OPHTH SOLUTION 5ML BOTTLE. OU SCH (09:05)
[2020-01-04] MEDS: amLODIPine BESYLATE 10 MG TABLET PO SCH (09:05)
[2020-01-04] MEDS: ASPIRIN CHEWABLE 81 MG TABLET. PO SCH (09:05)
--- NOTE | 2020-01-04 10:03 | EKG ---
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
--- NOTE | 2020-01-04 11:00 | NUR ---
Pt incontinent of urine. Mitts removed. Pt compliant with cares when verbally cued. Skin tear noted L hand. Tegaderm applied. Linens changed. Bed bath given.
--- NOTE | 2020-01-04 14:00 | NUR ---
Dr Napoles here to see pt. Wants pt to remain ICU status based on pt history of poor outcomes. Orders to continue zosyn, vanco added for possible aspirate pneumonia and fluids added as pt BP has been low and does not drink thickened fluids well.
[2020-01-04] MEDS ORDERED: VANCOMYCIN PER PHARMACY MC PRN (14:30)
[2020-01-04] MEDS ORDERED: IV NORMAL SALINE 1,000ML 1,000 ML IV ONE (15:00)
[2020-01-04] MEDS: PIPERACILLIN/TAZOBACTAM 3.375 GM in IV NORMAL SALINE 50ML 50 ML IV SCH ×2 (15:00→20:19)
--- NOTE | 2020-01-04 15:21 | HP ---
ADMIT DATE: 01/04/2020 HISTORY OF PRESENT ILLNESS: The patient is an 84-year-old male patient who is residing at [facility], who was noted by the nursing staff there, did have fever up to 104 Fahrenheit. He was also hypotensive and was very encephalopathic and therefore, he was transferred to Emergency Room for further evaluation and treatment. He was found to have mild leukocytosis with white cell count 15,600. His urinalysis showed he has large amount of leukocyte esterase, more than 40 wbc's and his chest x-ray showed that he has patchy airspace disease at the right mid and lower lung, may represent developing infectious or inflammatory process. He is known to have dysphagia and a tendency to aspirate. The patient himself is very profoundly demented, does not give any useful information. His urine and blood sent for culture and sensitivity, was started on IV Zosyn and vancomycin, was admitted for further evaluation and treatment and was swabbed also for COVID-19. PAST MEDICAL HISTORY: Significant for hypertension, hyperlipidemia, type 2 diabetes mellitus, cerebrovascular accident, dementia, gout, benign prostatic hypertrophy, epilepsy and dysarthria. PAST SURGICAL HISTORY: Significant for lumpectomy of the right chest wall, bilateral total knee arthroplasty and colonoscopy. ALLERGIES: He has no known drug allergies. FAMILY HISTORY: Noncontributory. SOCIAL HISTORY: He is currently a resident at [facility] and [facility]. He is mostly bedbound, wheelchair bound. He is , an ex-smoker, quit in 1971. He used to be heavy drinker. His last drink was about 12 months ago. REVIEW OF SYSTEMS: As per history of present illness. MEDICATIONS: He is currently on following medications: He is on Aricept 10 mg at bedtime, amlodipine besylate 10 mg daily, aspirin 81 mg once a day, acetaminophen 1000 mg every 8 hours, levetiracetam for Keppra 500 mg twice a day, escitalopram oxalate 5 mg once a day, quetiapine fumarate 12.5 mg at bedtime, timolol maleate 1 drop to both eyes daily, Travatan 1 drop to both eyes daily. He is on lactobacillus acidophilus 100 mg twice a day with meals, thiamine 100 mg once a day, vitamin D3 2000 units once a day, multivitamin 1 tablet once a day, allopurinol 100 mg once a day. REVIEW OF SYSTEMS: As per history of present illness. PHYSICAL EXAMINATION: GENERAL: On arrival to the Emergency Room, the patient was well and was clearly in no apparent respiratory distress. No pallor, jaundice, cyanosis or thyromegaly. No jugular venous distention. No limb edema. VITAL SIGNS: Her heart rate was 102, blood pressure was 112/73, temperature was 98.9, respiratory rate was 22 and oxygen saturation was 92% on room air. HEAD, EYES, EARS, NOSE AND THROAT: Showed normocephalic, atraumatic. NECK: Supple. HEART: Normal first and second heart sounds with no gallop, rub or murmur. CHEST: Clear to auscultation. No crepitation or rhonchi. ABDOMEN: Distended, soft, nontender. NEUROLOGIC: He is severely demented without any obvious lateralizing sign. All cranial nerves are intact. He moves extremities without difficulty, though is mostly bedbound, chair bound. LABORATORY DATA: Her lab work on arrival showed a white cell count 15,600. His hemoglobin 12, hematocrit 37, MCV 93 and platelet count of 163,000. His chemistry showed a serum sodium 141, potassium 3.2, chloride 102, bicarbonate 27, anion gap of 12, BUN 10, creatinine 1.2, estimated GFR was 57 mL per minute. His glucose 153, lactic acid was 1.6, calcium was 8.2. Total bilirubin, AST, ALT, alkaline phosphatase were normal. Total protein 6.7, albumin 3. Urinalysis showed the urine was yellow, turbid with a pH of 7, specific gravity 1.020. The urine was positive for protein, negative for glucose. There is small amount of ketones, large amount of blood, negative for nitrite. There is large amount of leukocyte esterase, more than 40 rbc's, more than 40 wbc's, few bacteria. CT scan of the head showed severe small vessel ischemic changes, which appears similar when compared to previous exam and his chest x-ray showed patchy airspace disease at the right mid and lower lung, may represent developing infectious or inflammatory process. ASSESSMENT AND PLAN: The patient was basically admitted to continue on IV Zosyn and vancomycin to treat for possible aspiration pneumonia as well as urinary tract infection. Other medical problems include seizure disorder, for which he is on Keppra. He is also known to have hypertension, hyperlipidemia, type 2 diabetes mellitus, dementia, gout, benign prostatic hypertrophy and dysarthria. IRASEMA MCCOLLUM MD DR: VLADIMIR/regulo JOB#: [id number] / [id number]
--- NOTE | 2020-01-04 15:44 | NUR ---
Pharmacy Vancomycin Dosing Note S:Consulted to monitor and dose vancomycin started 01/04/20. O:RANDI CRISTINA is a 84 year old M with Pneumonia, Urosepsis Height: 5 feet, 8 inches Weight: 71.9 kg Dosing Weight: Actual Other Antibiotics: ZOSYN 3.375GM Q6HRS LABS: Last BUN: 10 Last Creatinine: 1.2 Creatinine Clearance: 43.5 Last WBC: 15.6 Microbiology: Pending. Vancomycin Dosing: Loading Dose: 1750 mg x1 Dosing Weight: Actual Target Trough: 15-20 A: Based on: severe infection including sepsis, will give loading dose and target higher trough goal of 15-20. Older patient with corresponding kidney function, will monitor trough before 3rd dose. P: 1. Begin Vancomycin 1000 mg IV q24h 2. Trough level on 01/06/20 at 1530 3. Pharmacy will continue to monitor, follow and adjust therapy as needed. LYNN CONROY, 01/04/20 [id number]
[2020-01-04] MEDS ORDERED: VANCOMYCIN 1.75 GM in IV NORMAL SALINE 500ML 500 ML IV ONE (16:00)
[2020-01-04] MEDS: POTASSIUM CL 20MEQ D5-0.45NACL 1,000 ML IV SCH (17:00)
--- NOTE | 2020-01-04 18:20 | NUR ---
Pt fed supper. Kept spitting out pieces of shredded beef. Pt incontinent of B+B. Pt placed on L side.
[2020-01-04] MEDS: QUEtiapine 25 MG TABLET. PO SCH (20:18)
[2020-01-04] MEDS: DONEPEZIL HCL 10 MG TABLET PO SCH (20:18)
[2020-01-04] MEDS: LATANOPROST 0.005% OPHTH SOLUTION 2.5ML BOTTLE. OU SCH (21:00)
[2020-01-05] VITALS (19 sets, daily range): BP systolic 89–124; BP diastolic 46–72
[2020-01-05] MEDS: PIPERACILLIN/TAZOBACTAM 3.375 GM in IV NORMAL SALINE 50ML 50 ML IV SCH ×4 (03:47→20:30)
[2020-01-05 07:05] LABS: HEMATOCRIT 27.1 % (39.0-53.0); RED BLOOD COUNT 2.86 x10^6/uL (4.30-5.70); RED CELL DISTRIBUTION WIDTH 13.5 % (11.5-14.5); WHITE BLOOD COUNT 9.6 x10^3/uL (4.0-11.0)
[2020-01-05 07:18] LABS: ALBUMIN/GLOBULIN RATIO 0.6 (1.0-1.7); CALCIUM 7.3 mg/dL (8.5-10.1); CREATININE 1.1 mg/dL (0.7-1.3); GFR 63.6; POTASSIUM 3.9 mmol/L (3.5-5.1); TOTAL BILIRUBIN 0.8 mg/dL (0.2-1.0); TOTAL PROTEIN 5.3 g/dL (6.4-8.2)
[2020-01-05] MEDS: LACTOBACILLUS RHAMNOSUS GG 1 CAPSULE. PO SCH ×2 (08:28→18:03)
[2020-01-05] MEDS: amLODIPine BESYLATE 10 MG TABLET PO SCH (08:28)
[2020-01-05] MEDS: MULTIVITAMIN with MINERAL TABLET. PO SCH (08:28)
[2020-01-05] MEDS: levETIRAcetam 500 MG TABLET PO SCH ×2 (08:28→20:30)
[2020-01-05] MEDS: ASPIRIN CHEWABLE 81 MG TABLET. PO SCH (08:28)
[2020-01-05] MEDS: CHOLECALCIFEROL (VITAMIN D3) 1,000 UNIT TABLET PO SCH (08:28)
[2020-01-05] MEDS: THIAMINE 100 MG TABLET. PO SCH (08:29)
[2020-01-05] MEDS: POTASSIUM CL 20MEQ D5-0.45NACL 1,000 ML IV SCH ×3 (08:30→22:44)
[2020-01-05] MEDS: TIMOLOL 0.5% OPHTH SOLUTION 5ML BOTTLE. OU SCH (09:00)
--- NOTE | 2020-01-05 09:32 | NUR ---
IP: patient PUI for COVID-19, requires contact and airborne precautions.
[2020-01-05] MEDS ORDERED: VANCOMYCIN 1 GM in IV NORMAL SALINE 250ML 250 ML IV SCH (16:00)
--- NOTE | 2020-01-05 18:00 | NUR ---
PT IS INCONTINENT OF URINE AND SOAKED HIS BED. SHEETS AND GOWN REPLACED AND BRIEF CHANGED. PT CLEANED OFF WITH WIPES, DURING THIS PROCESS PT BECAME COMBATIVE AND TRIED TO HIT NURSING STAFF. NURSING STAFF WAS ABLE TO CALM PT DOWN AND EXPLAIN WHAT THE NURSES ARE DOING AND PT AGREED. PT WAS REPOSITIONED WITH PILLOW UNDER HIS LEGS TO PROTECT HIS HEELS. WILL CTM.
--- NOTE | 2020-01-05 18:21 | NUR ---
COVID-19 TEST RESULTS ARE NEGATIVE, PT REMOVED FROM ISOLATION PRECAUTIONS. WILL CTM.
[2020-01-05] MEDS: LATANOPROST 0.005% OPHTH SOLUTION 2.5ML BOTTLE. OU SCH (20:30)
[2020-01-05] MEDS: QUEtiapine 25 MG TABLET. PO SCH (20:30)
[2020-01-05] MEDS: DONEPEZIL HCL 10 MG TABLET PO SCH (20:30)
--- NOTE | 2020-01-05 20:53 | PN ---
DATE: 01/05/2020 SUBJECTIVE: The patient is resting, almost flat in bed, in no apparent distress. He is profoundly demented, does not give any useful information, but does not clinically seem to be in any respiratory distress. PHYSICAL EXAMINATION: GENERAL: When I examined him, he looked pale, but no jaundice, cyanosis or thyromegaly. No jugular venous distention. No lower limb edema. VITAL SIGNS: Her heart rate was 65, blood pressure was 102/55, temperature was 98, respiratory rate was 18 and oxygen saturation was 95% on room air. HEAD, EYES, EARS, NOSE AND THROAT: Showed normocephalic, atraumatic. NECK: Supple. HEART: Showed normal first and second heart sounds. No gallop or murmur. CHEST: Clear to auscultation. No crepitation or rhonchi. ABDOMEN: Distended, soft, nontender. No guarding or rigidity. No organomegaly. All hernial orifices intact. Bowel sounds normal. NEUROLOGIC: He was demented but without any obvious lateralizing sign. He is mostly bedbound and chair bound. His intake was 3420 and no output was recorded. LABORATORY DATA: His lab work this morning showed a white cell count of 9600, hemoglobin 9, hematocrit 27, MCV 95, and platelet count of 100,000. His chemistry showed a serum sodium 143, potassium 3.9, chloride 110, bicarbonate 25, anion gap of 8, BUN 7, creatinine 1.1, estimated GFR was 63 mL per minute. His glucose at 290, calcium was 7.3. Total bilirubin, AST, ALT, alkaline phosphatase were normal. Total protein 5.3, albumin was 2. ASSESSMENT: 1. Altered mental status, improved. 2. Urinary tract infection with growth of more than 100,000 colony forming units of gram-negative rods identified as Proteus species. The identification and sensitivity is still pending. 3. Healthcare-associated pneumonia. 4. The patient has multiple other medical problems including: A. Hypertension. B. Hyperlipidemia. C. Type 2 diabetes mellitus. D. Cerebrovascular accident. E. Dementia. F. Benign prostatic hypertrophy. G. Epilepsy. PLAN: To continue with IV fluids, continue with IV antibiotic. I will discontinue the IV vancomycin. Continue with Zosyn for now. I would actually await one more day to make sure that blood cultures are negative and we did discontinue vancomycin tomorrow. IRASEMA MCCOLLUM MD DR: VLADIMIR/regulo JOB#: [id number] / [id number]
[2020-01-06] VITALS (21 sets, daily range): BP systolic 90–135; BP diastolic 54–74
[2020-01-06] MEDS: PIPERACILLIN/TAZOBACTAM 3.375 GM in IV NORMAL SALINE 50ML 50 ML IV SCH ×2 (02:54→07:25)
[2020-01-06 06:24] LABS: HEMATOCRIT 32.4 % (39.0-53.0); RED BLOOD COUNT 3.52 x10^6/uL (4.30-5.70); RED CELL DISTRIBUTION WIDTH 13.3 % (11.5-14.5); WHITE BLOOD COUNT 10.8 x10^3/uL (4.0-11.0)
--- NOTE | 2020-01-06 06:24 | NUR ---
Shift Note: Pt is a/o to self, VSS, no c/o pain or n/v at this time. Pt is incontinent of bowel and bladder, several soaked briefs changed throughout the night, with one BM noted. Pt's skin is CDI w/no breakdown noted, turning patient q2hrs. Pt took nighttime medications crushed in pudding w/o difficulty. Pt does startle very easily and requires staff to explain everything prior to touching him at all. Pt quite pleasant and cooperative with staff throughout the night.
[2020-01-06 06:38] LABS: ALBUMIN 2.4 g/dL (3.4-5.0); ALBUMIN/GLOBULIN RATIO 0.6 (1.0-1.7); CALCIUM 8.1 mg/dL (8.5-10.1); CREATININE 1.1 mg/dL (0.7-1.3); GFR 63.6; TOTAL PROTEIN 6.3 g/dL (6.4-8.2)
[2020-01-06 06:40] LABS: POTASSIUM 2.9 mmol/L (3.5-5.1)
[2020-01-06] MEDS ORDERED: POTASSIUM CHLORIDE 20 MEQ TABLET.ER. PO SCH (07:00)
[2020-01-06] MEDS: CHOLECALCIFEROL (VITAMIN D3) 1,000 UNIT TABLET PO SCH (07:20)
[2020-01-06] MEDS: ASPIRIN CHEWABLE 81 MG TABLET. PO SCH (07:21)
[2020-01-06] MEDS: LACTOBACILLUS RHAMNOSUS GG 1 CAPSULE. PO SCH ×2 (07:21→17:16)
[2020-01-06] MEDS: MULTIVITAMIN with MINERAL TABLET. PO SCH (07:21)
[2020-01-06] MEDS: THIAMINE 100 MG TABLET. PO SCH (07:22)
[2020-01-06] MEDS: amLODIPine BESYLATE 10 MG TABLET PO SCH (07:22)
[2020-01-06] MEDS: levETIRAcetam 500 MG TABLET PO SCH ×2 (07:22→20:18)
[2020-01-06] MEDS: TIMOLOL 0.5% OPHTH SOLUTION 5ML BOTTLE. OU SCH (07:24)
[2020-01-06] MEDS ORDERED: POTASSIUM CHLORIDE 20 MEQ TABLET.ER. PO ONE ×3 (08:00→21:00)
[2020-01-06 11:22] LABS: CALCIUM 7.9 mg/dL (8.5-10.1); CREATININE 1.1 mg/dL (0.7-1.3); GFR 63.6
[2020-01-06 11:36] LABS: POTASSIUM 2.7 mmol/L (3.5-5.1)
[2020-01-06] MEDS: POTASSIUM CHLORIDE 20 MEQ TABLET.ER. PO SCH ×2 (12:17→14:15)
[2020-01-06] MEDS: POTASSIUM CL 40MEQ D5-0.45NACL 1,000 ML IV SCH ×2 (13:31→21:54)
--- NOTE | 2020-01-06 14:34 | PN ---
DATE: 01/06/2020 SUBJECTIVE: The patient is resting, slightly propped up in bed, no apparent distress. He is mostly nonverbal and profoundly demented. Nursing staff stated that he is not drinking his thickened liquid. His potassium was low this morning, continued to be low even despite replacement, so we started him on IV fluid with 20-40 mEq of potassium chloride. His urine culture has grown greater than 100,000 colony forming unit per mL of gram-negative rods identified as Proteus species that is sensitive. Blood cultures are negative after 2 days. PHYSICAL EXAMINATION: GENERAL: When I examined him, he looked somewhat pale, but no jaundice, cyanosis or thyromegaly. No jugular venous distention. No lower limb edema. VITAL SIGNS: His heart rate was 72, blood pressure was 94/59, temperature was 98.3, respiratory rate 22, and oxygen saturation was 96%. HEENT: Showed normocephalic, atraumatic. NECK: Supple. CARDIAC: Normal first and second heart sounds. No gallop or murmur. CHEST: Clear to auscultation. No crepitation or rhonchi. ABDOMEN: Distended, soft, nontender. NEUROLOGIC: He was demented, but without any obvious lateralizing sign. All his cranial nerves are intact. He moves extremities without difficulty, though is mostly bedbound, chair bound. His intake over the last 24 hours was 518, no output was recorded. LABORATORY DATA: As of this morning, his white cell count is down to 10,800, hemoglobin 11, hematocrit 32, MCV 92, and platelet count of 127,000. His chemistry showed a serum sodium 139, potassium 2.7, chloride 102, bicarbonate 30, anion gap of 7, BUN 7, creatinine was 1.1, estimated GFR was 64 mL per minute. His glucose 172, calcium was 7.9. ASSESSMENT: 1. Altered mental status, improved. 2. Urinary tract infection with growth of more than 100,000 colony forming units of gram-negative rods identified as Proteus mirabilis sensitive to cephalosporins. 3. Doubtful healthcare-associated pneumonia. 4. The patient has multiple other medical problems including: A. Hypertension. B. Hyperlipidemia. C. Type 2 diabetes mellitus. D. Cerebrovascular accident. E. Dementia. F. Benign prostatic hypertrophy. G. Epilepsy. PLAN: My plan is to continue with IV fluids, continue to replenish his potassium. I did switch his antibiotic to ceftriaxone. I discontinued his Zosyn and vancomycin. He is stable to be discharged tomorrow back to [facility] once his potassium replenished and he can be switched to cefdinir 300 mg twice a day. IRASEMA MCCOLLUM MD DR: VLADIMIR/regulo JOB#: [id number] / [id number]
[2020-01-06 17:37] LABS: CALCIUM 8.2 mg/dL (8.5-10.1); CREATININE 1.1 mg/dL (0.7-1.3); GFR 63.6
--- NOTE | 2020-01-06 17:51 | NUR ---
PT confused most of the time. PT is able to follow commands at times, however, is combative with lab draws and bath. PT does not verbally acknowledge any commands. Dr Napoles said pt can go back to [place] tomorrow on cefepime. Danna OREILLY
[2020-01-06] MEDS: DONEPEZIL HCL 10 MG TABLET PO SCH (20:18)
[2020-01-06] MEDS: QUEtiapine 25 MG TABLET. PO SCH (20:19)
[2020-01-06] MEDS: LATANOPROST 0.005% OPHTH SOLUTION 2.5ML BOTTLE. OU SCH (20:21)
[2020-01-07] VITALS (21 sets, daily range): BP systolic 88–136; BP diastolic 53–76
--- NOTE | 2020-01-07 05:50 | NUR ---
Pt awake in bed watching TV at change of shift. Pt A&O to self only and is nonverbal currently but will nod head to yes or no questions appropriately. Pt took HS medications crushed in chocolate pudding and drank honey thick H2O w/o difficulty. Pt is incont of both bowel and bladder, x4 urine soaked briefs and x2 with loose BMs changed throughout the night. Pt TQ2 with pillows and skin noted to be intact. Pt was able to follow simple commands with turning and changing when incont, only got agitated once with staff but was easily redirected. Pt does better when staff explain what is happening prior to touching/doing cares. Pt tolerated AM lab draw.
[2020-01-07 06:24] LABS: BASO % 1 % (0-3); EOS # 0.5 x10^3/uL (0.0-0.7); EOS % 6 % (0-3); HEMATOCRIT 31.9 % (39.0-53.0); HEMOGLOBIN 10.7 g/dL (13.0-17.5); LYMPH # 1.9 x10^3/uL (1.0-4.8); LYMPH % 24 % (24-48); MEAN CORPUSCULAR HEMOGLOBIN 31 pg (25-35); MEAN CORPUSCULAR HGB CONC 34 g/dL (31-37); MEAN CORPUSCULAR VOLUME 93 fL (79-100); MONO # 0.6 x10^3/uL (0.0-1.1); MONO % 8 % (0-9); NEUT # 4.8 x10^3uL (1.8-7.7); NEUT % 61 % (31-73); PLATELET COUNT 151 x10^3/uL (140-400); RED BLOOD COUNT 3.43 x10^6/uL (4.30-5.70); RED CELL DISTRIBUTION WIDTH 13.6 % (11.5-14.5); WHITE BLOOD COUNT 7.9 x10^3/uL (4.0-11.0)
[2020-01-07 06:37] LABS: ALBUMIN 2.2 g/dL (3.4-5.0); ALBUMIN/GLOBULIN RATIO 0.6 (1.0-1.7); CALCIUM 8.3 mg/dL (8.5-10.1); CREATININE 1.1 mg/dL (0.7-1.3); GFR 63.6; POTASSIUM 4.3 mmol/L (3.5-5.1); TOTAL BILIRUBIN 0.4 mg/dL (0.2-1.0); TOTAL PROTEIN 6.2 g/dL (6.4-8.2)
[2020-01-07] MEDS: MULTIVITAMIN with MINERAL TABLET. PO SCH (09:17)
[2020-01-07] MEDS: levETIRAcetam 500 MG TABLET PO SCH ×2 (09:17→21:04)
[2020-01-07] MEDS: THIAMINE 100 MG TABLET. PO SCH (09:17)
[2020-01-07] MEDS: CHOLECALCIFEROL (VITAMIN D3) 1,000 UNIT TABLET PO SCH (09:17)
[2020-01-07] MEDS: ASPIRIN CHEWABLE 81 MG TABLET. PO SCH (09:17)
[2020-01-07] MEDS: LACTOBACILLUS RHAMNOSUS GG 1 CAPSULE. PO SCH ×2 (09:17→16:44)
[2020-01-07] MEDS: amLODIPine BESYLATE 10 MG TABLET PO SCH (09:17)
[2020-01-07] MEDS: TIMOLOL 0.5% OPHTH SOLUTION 5ML BOTTLE. OU SCH (09:18)
[2020-01-07] MEDS: POTASSIUM CL 40MEQ D5-0.45NACL 1,000 ML IV SCH ×2 (10:35→16:44)
--- NOTE | 2020-01-07 12:41 | PN ---
DATE: 01/07/2020 ATTENDING PHYSICIANS: Dr. Napoles and Dr. Cramer. CHIEF COMPLAINT: The patient is here for fevers and altered mentation. SUBJECTIVE: He is slightly responsive. He is profoundly demented, currently nonverbal. No obvious distress. Urine cultures grew out greater than 100,000 colonies of Proteus species. OBJECTIVE FINDINGS: VITAL SIGNS: Today, his blood pressure is 110/59, pulse is 68 and regular, temperature 97.5 degrees Fahrenheit, and oxygen saturations are at 94% on room air. HEENT: Head is without trauma. Pupils are reactive. Sclerae are nonicteric. The oropharynx is dry. NECK: Supple. LUNGS: Shallow respirations. CARDIOVASCULAR: Showed distant heart tones. No obvious gallops. Peripheral pulses are palpable and full. ABDOMEN: Soft, scaphoid, nontender, no organomegaly. Bowel sounds are hypoactive. EXTREMITIES: Showed no cyanosis or edema. SKIN: Warm and dry. PERTINENT LABORATORY DATA: Potassium today is replaced up to 4.3 mEq per liter, sodium is adequate at 142, creatinine 1.1 mg/dL. White count 7900 with hemoglobin of 10.7 g/dL. Cultures as noted. Blood cultures are negative at 72 hours. Urine cultures were positive for Proteus species greater than 100,000 colonies of Proteus mirabilis, pansensitive to cephalosporins, Bactrim, and ampicillin. ASSESSMENT: 1. An 84-year-old longterm patient with Proteus mirabilis urinary tract infection. 2. Altered mentation slowly improving to baseline. 3. Old cerebrovascular accident with significant dementia. 4. Type 2 diabetes. 5. Essential hypertension. 6. Old stroke. 7. Benign prostatic hypertrophy. 8. History of seizure disorder. PLAN: 1. Continue antibiotics. 2. Diet as tolerated. 3. Tentative discharge plan to the longterm tomorrow. MARI CRAMER MD DR: BRIGID/regulo JOB#: [id number] / [id number] IRASEMA Singh MD
--- NOTE | 2020-01-07 15:25 | NUR ---
Assumed care of pt at 1200, pt sitting up in bed and tolerated full lunch (total feed). Appears to be resting comfortably, responds appropriately by nodding yes or no to questions. Spoke with Dr Gibbs regarding pt being discharged, pt will not be leaving today but can possibly go back to [place] tomorrow. We will discuss this tomorrow. Updated pt's spouse Elisabeth on this information. Continuing with Q2 turns.
[2020-01-07] MEDS: LATANOPROST 0.005% OPHTH SOLUTION 2.5ML BOTTLE. OU SCH (21:03)
[2020-01-07] MEDS: DONEPEZIL HCL 10 MG TABLET PO SCH (21:04)
[2020-01-07] MEDS: QUEtiapine 25 MG TABLET. PO SCH (21:04)
[2020-01-08] MEDS: POTASSIUM CL 40MEQ D5-0.45NACL 1,000 ML IV SCH (02:03)
[2020-01-08 02:05] VITALS: BP 105/59
[2020-01-08 04:05] VITALS: BP 90/52
[2020-01-08 06:20] VITALS: BP 130/77
--- NOTE | 2020-01-08 06:20 | NUR ---
Pt with eyes closed in bed at change of shift, but opened when staff called his name. Pt A&O to self only and is nonverbal currently but will nod head to yes or no questions appropriately when asked. Pt smiled when he saw me tonight but still was nonverbal. Pt took HS medications crushed in pudding w/o difficulty, total feed. Pt is incont of both bowel and bladder, x4 urine soaked briefs and x1 with BM. Pt TQ2 with pillows and skin noted to be intact. Pt was able to follow simple commands with turning and changing during night. Pt does better when staff explain what is happening prior to touching/doing cares. No behaviors noted, pleasant with all cares this shift.
[2020-01-08 08:00] VITALS: BP 107/65
[2020-01-08 08:04] VITALS: BP 107/65
[2020-01-08] MEDS: LACTOBACILLUS RHAMNOSUS GG 1 CAPSULE. PO SCH (08:27)
[2020-01-08] MEDS: levETIRAcetam 500 MG TABLET PO SCH (08:27)
[2020-01-08] MEDS: MULTIVITAMIN with MINERAL TABLET. PO SCH (08:27)
[2020-01-08] MEDS: amLODIPine BESYLATE 10 MG TABLET PO SCH (08:27)
[2020-01-08] MEDS: ASPIRIN CHEWABLE 81 MG TABLET. PO SCH (08:27)
[2020-01-08] MEDS: THIAMINE 100 MG TABLET. PO SCH (08:27)
[2020-01-08] MEDS: CHOLECALCIFEROL (VITAMIN D3) 1,000 UNIT TABLET PO SCH (08:27)
[2020-01-08] MEDS: TIMOLOL 0.5% OPHTH SOLUTION 5ML BOTTLE. OU SCH (08:28)
[2020-01-08 10:00] VITALS: BP 94/59
--- NOTE | 2020-01-08 12:51 | NUR ---
Pt left via EMS to return to [place] at 1215. Report given to Sonny OREILLY at [place] regarding pts condition. Notified , Elisabeth, of transfer so that she can meet at [place]. PIV removed with no complications.
== END 2020-01-08 12:15 | DRG 871 ==
LOC: ER 21:05 → ICU 01-04 00:16
PROVIDERS: ADMIT Internal Medicine; ATTEND Internal Medicine
DX: A41.9 Sepsis, unspecified organism (principal); J69.0 Pneumonitis due to inhalation of food and vomit; N30.01 Acute cystitis with hematuria; B96.4 Proteus (mirabilis) (morganii) as the cause of diseases classified elsewhere; E11.9 Type 2 diabetes mellitus without complications; E78.00 Pure hypercholesterolemia, unspecified; E78.5 Hyperlipidemia, unspecified; F03.90 Unspecified dementia, unspecified severity, without behavioral disturbance, psychotic disturbance, mood disturbance, and anxiety; G40.909 Epilepsy, unspecified, not intractable, without status epilepticus; I10 Essential (primary) hypertension; I69.391 Dysphagia following cerebral infarction; M10.9 Gout, unspecified; N40.0 Benign prostatic hyperplasia without lower urinary tract symptoms; Y95 Nosocomial condition; Z96.653 Presence of artificial knee joint, bilateral; F32.9 Major depressive disorder, single episode, unspecified; F41.9 Anxiety disorder, unspecified; M19.90 Unspecified osteoarthritis, unspecified site; Z20.828 Contact with and (suspected) exposure to other viral communicable diseases; Z88.8 Allergy status to other drugs, medicaments and biological substances; Z87.891 Personal history of nicotine dependence; Z99.3 Dependence on wheelchair
CPT/HCPCS: 36415; 70450; 71045; 80048; 80053; 80202; 81001; 83605; 84484; 85007; 85025; 85027; 87040; 87086; 93005; 96365; J0696; J2543; J3370; J7040; J7042; J7050; P9612; 99291-25; J7030; U0003-CS